=== PATIENT | male | born 1960 | race Caucasian/White ===

== ENCOUNTER 2017-04-18 15:00 | Outpatient (RCR) | payer OTHER, SELFPAY ==
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
--- NOTE | 2017-04-18 16:03 | HP.PTREVAL_ITS ---
SAMIA WHITFIELD, It has been my pleasure to treat MING BRUNNER over the last 3 visits for R knee pain. Please see the progress note below for an update on the physical therapy plan of care! Subjective: Pt reports his knee feels good this date. LBP still present Objective/Function: Pt pramod all ex's well. Pt noted he felt good after Rx. Pt has been able to make some minimal gains through three treatments, but had to miss several appointments due to family emergencies. Pt would definitely benefit from further core and R LE strengthening to aid with improving his tolerance for IADL's Plan Plan: Attempt to get a date extension to 05/19/17 Goals Goal 1:: Decrease LBP x 50% to aid with sleep Goal Time Frame: 4-6 Weeks Goal Progress: Progressing Goal 2:: Decrease the F and I of R LE radiculopathy x 25-50% to aid with transfers Goal Time Frame: 4-6 Weeks Goal Progress: Progressing Goal 3:: Increase R LE strength x 1 grade to aid with stair negotiation Goal Time Frame: 4-6 Weeks Goal Progress: Progressing Goal 4:: I with HEP Goal Time Frame: 4-6 Weeks Goal Progress: Progressing Anticipated Interventions Patient/Client Instruction: Educate patient on: Condition, Plan of Care For the Purpose of:: To improve self management Therapeutic Exercise to Include: Strength training, Endurance training, Balance training, Body mechanics, Postural training, Gait and locomotor training, Dynamic Lumbar Stabilization For the Purpose of:: To decrease pain, To increase ROM, To improve muscle performance and motor function Cryotherapy (ice pack, ice massage): Yes Thermo therapy (hot pack): Yes For the Purpose of:: To decrease pain Please do not hesitate to contact me at [phone] by phone or Fax: if you have questions or concerns regarding this new plan of care! Sincerely, Pelon Ortez, PT,
--- NOTE | 2017-05-23 16:09 | HP.PT.NRP ---
HP - Discharge Summary (1) - Patient Information MING BRUNNER was seen in my office for initial evaluation on 03/20/17. The following Plan of Care was established for this patient: Initial Frequency: 2x /Week Initial Duration: 4 Weeks - Anticipated Interventions Patient/Client Instruction: Educate patient on: Condition, Plan of Care For the Purpose of:: To improve self management Therapeutic Exercise to Include: Strength training, Endurance training, Balance training, Body mechanics, Postural training, Gait and locomotor training, Dynamic Lumbar Stabilization For the Purpose of:: To decrease pain, To increase ROM, To improve muscle performance and motor function Cryotherapy (ice pack, ice massage): Yes Thermo therapy (hot pack): Yes For the Purpose of:: To decrease pain This patient was last seen in our office . Pertinent comments regarding their Physical therapy will appear below: Pt was treated for 3 PT visits for his R knee pain through the date of 04/18/17. Pt has not returned through todays date, and is therefore discontinued at this time. At this point I will be discontinuing this patient from physical therapy. I would be happy to see this patient again in the future if found appropriate by the physician. Thank you! Pelon Ortez, PT,
== END 2017-04-18 19:00 | disposition home or self-care (01) ==
LOC: PT 15:00
DX: M25.561 Pain in right knee (principal)
CPT/HCPCS: 97110; 97162; G8978; G8979

== ENCOUNTER 2017-09-02 11:20 | Inpatient (IN) | payer OTHER, SELFPAY ==
--- NOTE | 2017-09-02 12:50 | RAD_ITS ---
STUDY: X-RAY - ABDOMEN/PELVIS REASON FOR EXAM: Male, 57 years old. Shortness of breath TECHNIQUE: Two AP supine views of the abdomen and pelvis. COMPARISON: None. FINDINGS: Normal visualized lung bases. There is a paralytic ileus of the small intestine with mild gaseous distention. There is no demonstrated free abdominal air. The visualized liver, spleen and kidneys are grossly normal in size and morphology. Normal soft tissue structures. Normal visualized osseous structures. RAD/Abdomen Single View (Portable) IMPRESSION: Small bowel ileus. Electronically Signed: Flavio Wilson DO at 23:54 EDT , Service support ,
--- NOTE | 2017-09-02 14:55 | CT_ITS ---
STUDY: CT ABDOMEN AND PELVIS WITH CONTRAST REASON FOR EXAM: Male, 57 years old. Abdominal pain, hx bowel obstruction, colostomy d/t cancer. RADIATION DOSAGE (If Supplied By Facility): CTDIvol = ( 17.72 ) mGy, DLP = ( 1140.51 ) mGycm TECHNIQUE: Transaxial images were obtained from the dome of the diaphragm to the symphysis pubis without oral contrast. 100ml ml of Isovue 300 contrast was administered. Sagittal and coronal images were reconstructed. Individualized dose optimization techniques were used for this CT. COMPARISON: None. FINDINGS: The visualized lung bases are unremarkable. The visualized portions of the heart are within normal limits. Normal liver. Normal gallbladder and extrahepatic biliary system. Normal spleen. Normal pancreas. Normal bilateral adrenal glands. Normal right kidney. There is a 21 mm hypodensity of the Left kidney. This is 1-10 Hounsfield units. Normal visualized stomach. There are dilated loops of the small intestine with a non-distended colon consistent with a small bowel obstruction. Air-fluid levels are visualized. Stool is seen in the distal small bowel. Transition point appears to be at the level of the ostomy site. There is evidence for total colectomy. There is non-visualization of the appendix. There is a right lower quadrant ostomy noted. Normal abdominal aorta. Normal inferior vena cava. Normal retroperitoneum. The urinary bladder is distended. This can suggest urinary retention. Anterior abdominal wall hernia mesh in place. There are prostatic calcifications. Rectal stump in place. Normal abdominal wall. Normal osseous structures. CT/Abdomen/Pelvis WITH Contrast IMPRESSION: There is a small bowel obstruction. The transition point is noted in the region of the right upper quadrant ostomy site. Simple left renal cyst. Electronically Signed: Pelon Mueller MD at 19:18 EDT , Service support ,
--- NOTE | 2017-09-02 17:00 | DT_ITS ---
This patient was seen during an EMR downtime September 02, 2017 - September 09, 2017. This patient may have a combination of paper and electronic documentation or all paper documentation. All documentation is viewable within the e-chart portion of [employer] for each patient visit.
--- NOTE | 2017-09-03 04:40 | RAD_ITS ---
STUDY: X-RAY - ABDOMEN/PELVIS REASON FOR EXAM: Male, 57 years old. ? Blockage Prior ventral hernia repair, colostomy TECHNIQUE: AP supine views of the abdomen and pelvis. COMPARISON: January 01, 2017 FINDINGS: Normal visualized lung bases. There are a few dilated small bowel loops in the upper abdomen consistent with a partial small bowel obstruction or focal ileus. The visualized liver, spleen and kidneys are grossly normal in size and morphology. There has been hernia repair with mesh. There is a right lower quadrant colostomy. There are diffuse degenerative changes of the visualized lumbar spine. RAD/Abdomen Single View (Portable) IMPRESSION: There are a few dilated small bowel loops in the upper abdomen consistent with a partial small bowel obstruction or focal ileus. Electronically Signed: Louisa Ruvalcaba MD at 10:01 EDT , Service support ,
[2017-09-05 15:05] LABS: Mucous, Urine 0 SEEN /hpf (<or=2+); Red Blood Cells-Urine 0 SEEN /hpf (0-5); White Blood Cells 0 SEEN /hpf (0-5)
[2017-09-05 15:18] LABS: Color, Urine Yellow (Yellow)
[2017-09-05 15:19] LABS: Glucose, Dipstick 50 mg/dl (Normal); Ketone-Dipstick Negative (Negative); Urine Bilirubin Dipstick 1 mg/dL (Negative); Urine Clarity Clear (Clear)
[2017-09-05 15:21] LABS: Bacteria RARE /hpf (None Seen); Leukocyte Esterase-Dipstick Negative /ul (Negative); Nitrite-Dipstick Negative (Negative); Occult Blood-Urine Negative /ul (Negative); Protein-Dipstick 15 mg/dl (Negative); Squamous Epithelial Cells - UA 0-5 SEEN /hpf (0-5); Urine Urobilinogen Normal (Normal)
[2017-09-05 15:54] LABS: Hematocrit 48.8 % (40-54); Hemoglobin 16.2 g/dl (13.0-16.5); Lymphocyte % 7.7 % (19-41); Mean Corp Hgb Conc 33.2 g/gl (32-36); Mean Corpuscular Hgb 30.7 pg (27.0-32.0); Mean Corpuscular Volume 92.4 fL (80-94); Mean Platelet Vol. 11.9 fl (6.2-12.0); Neutrophil % 88.7 % (47-70); POSITIVE COUNT NO; POSITIVE DIFFERENTIAL NO; Platelet Count 108 K/mm3 (150-450); RBC Distribution Width SD 46.3 fl (35.1-43.9); Red Blood Count 5.28 M/mm3 (4.6-6.2); White Blood Count 9.1 K/mm3 (4.4-11.0)
[2017-09-05 15:55] LABS: Absolute Neutrophil Count 8.1 X10^3/uL (2.0-7.7); Basophil# 0.01 X10^3/uL; Basophil% 0.1 % (0-1); Differential Comment SCANNED; Eosinophil# 0.01 X10^3/uL; Eosinophils% 0.1 % (0-5); Monocyte# 0.31 X10^3/uL; Monocyte% 3.4 % (0-10); Neutrophil # 8.07 X10^3/uL (2.7-7.7)
[2017-09-05 16:00] LABS: Differential Indicated SCAN CRITERIA MET; POSITIVE MORPHOLOGY YES
[2017-09-06 12:09] LABS: Hematocrit 47.4 % (40-54); Hemoglobin 15.6 g/dl (13.0-16.5); Mean Corp Hgb Conc 32.9 g/gl (32-36); Mean Corpuscular Hgb 30.6 pg (27.0-32.0); Mean Corpuscular Volume 92.9 fL (80-94); Mean Platelet Vol. 12.2 fl (6.2-12.0); Platelet Count 101 K/mm3 (150-450); RBC Distribution Width CV 13.9 % (11.6-14.6); RBC Distribution Width SD 45.6 fl (35.1-43.9); Scan Indicated on CBC? Y/N NO; White Blood Count 6.2 K/mm3 (4.4-11.0)
[2017-09-06 18:08] LABS: Glucose 248 mg/dL (74-106)
[2017-09-06 18:09] LABS: AST(SGOT) 19 U/L (15-37); Alanine Aminotransfer ALT/SGPT 33 U/L (16-61); Alkaline Phosphatase 172 U/L (45-117); Anion Gap 10 (5-15); BUN 15 mg/dL (7-18); BUN/Creat Ratio 13.2 RATIO (10-20); Bilirubin, Direct 0.17 mg/dL (0.00-0.30); Calcium,Total 9.1 mg/dL (8.5-10.1); Chloride 110 mmol/L (98-107); Creatinine, Serum 1.14 mg/dL (0.70-1.30); EST Glomerular Filtration Rate 70 mL/min (>60); Est Glom Filt Rate - Afr Amer 85 mL/min (>60); Globulin 3.8 g/dL (2.2-4.2); Lipase 139 U/L (73-393); Protein, Total 7.8 g/dL (6.4-8.2); Sodium Level 141 mmol/L (136-145)
[2017-09-07 10:21] LABS: AST(SGOT) 14 U/L (15-37); Albumin, Serum 3.4 g/dL (3.2-5.0); BUN 15 mg/dL (7-18); BUN/Creat Ratio 13.8 RATIO (10-20); Calcium,Total 8.5 mg/dL (8.5-10.1); Creatinine, Serum 1.09 mg/dL (0.70-1.30); EST Glomerular Filtration Rate 74 mL/min (>60); Est Glom Filt Rate - Afr Amer 90 mL/min (>60); Globulin 3.4 g/dL (2.2-4.2); Glucose 187 mg/dL (74-106); Protein, Total 6.8 g/dL (6.4-8.2)
[2017-09-07 10:22] LABS: Alanine Aminotransfer ALT/SGPT 25 U/L (16-61); Alkaline Phosphatase 136 U/L (45-117); Anion Gap 9 (5-15); Chloride 111 mmol/L (98-107); Potassium 3.8 mmol/L (3.5-5.1); Sodium Level 142 mmol/L (136-145)
[2017-09-10 14:13] LABS: Bedside Glucose 182 mg/dL (70-110)
[2017-09-10 14:39] LABS: Bedside Glucose 213 mg/dL (70-110)
[2017-09-10 14:57] LABS: Bedside Glucose 201 mg/dL (70-110)
== END 2017-09-03 13:33 | disposition home or self-care (01) | DRG 390 ==
LOC: ED 09-04 13:28 → MS3 09-04 13:29
PROVIDERS: Admitting Provider Hospitalist; Emergency Provider Emergency Medicine; Visit Provider Hospitalist
DX: K56.609 Unspecified intestinal obstruction, unspecified as to partial versus complete obstruction (principal); J44.9 Chronic obstructive pulmonary disease, unspecified; E11.9 Type 2 diabetes mellitus without complications; Z85.038 Personal history of other malignant neoplasm of large intestine; Z93.3 Colostomy status; Z90.49 Acquired absence of other specified parts of digestive tract; Z79.4 Long term (current) use of insulin
CPT/HCPCS: 36415; 74018; 74177; 80048; 80053; 80076; 81001; 82962; 83690; 85025; 85027; 96361; 96374; 96375; 96376; 99284; J7030; Q9967; A4216; J2405

== ENCOUNTER 2018-01-29 18:13 | Emergency (ER) | payer OTHER, SELFPAY ==
[2018-01-29 18:14] VITALS: BP 140/93; PULSE 125; RESP 22; TEMP 36.7; BMI 31.8
--- NOTE | 2018-01-29 18:29 | RAD_ITS ---
STUDY: X-RAY - PELVIS AND LEFT HIP REASON FOR EXAM: Male, 58 years old. Left hip pain TECHNIQUE: Radiological exam, hip, unilateral, with pelvis when performed; 2 or 3 views. COMPARISON: None. FINDINGS: There is no fracture or dislocation in the pelvis or left hip. There are mild degenerative changes in the left hip. There are surgical clips noted in the pelvis. RAD/HIP, UNI W/ Pelvis 2-3 Views IMPRESSION: No fracture or dislocation in the pelvis or left hip. Mild degenerative changes. Electronically Signed: Jon Salcido, at 19:40 EDT Tel , Service support ,
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
[2018-01-29 18:32] VITALS: BP 131/100; PULSE 110; RESP 18; O2SAT 94
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
[2018-01-29 20:00] VITALS: PULSE 105; RESP 20; O2SAT 99
== END 2018-01-29 20:03 | disposition home or self-care (01) ==
PROVIDERS: Emergency Provider Emergency Medicine
DX: S43.52XA Sprain of left acromioclavicular joint, initial encounter (principal); S70.02XA Contusion of left hip, initial encounter; V29.9XXA Motorcycle rider (driver) (passenger) injured in unspecified traffic accident, initial encounter; Y93.9 Activity, unspecified; Y92.9 Unspecified place or not applicable; Y99.9 Unspecified external cause status; D64.9 Anemia, unspecified; R00.0 Tachycardia, unspecified; K21.9 Gastro-esophageal reflux disease without esophagitis; Z79.899 Other long term (current) drug therapy; Z85.038 Personal history of other malignant neoplasm of large intestine; Z93.2 Ileostomy status
CPT/HCPCS: 73030; 73502; 99282

== ENCOUNTER 2018-04-11 14:17 | Inpatient (IN) | payer OTHER, SELFPAY ==
[2018-04-11 14:18] VITALS: BP 130/99; PULSE 146; RESP 20; TEMP 36.4; O2SAT 97; BMI 32.2
[2018-04-11 16:21] LABS: Absolute Lymphocyte Count 0.55 X10^3/ul (0.83-4.51); Absolute Neutrophil Count 10.9 X10^3/uL (2.0-7.7); Basophil# 0.01 X10^3/uL; Basophil% 0.1 % (0-1); Differential Indicated SCAN CRITERIA MET; Eosinophil# 0.06 X10^3/uL; Eosinophils% 0.5 % (0-5); Hematocrit 53.7 % (40-54); Hemoglobin 17.8 g/dl (13.0-16.5); Lymphocyte # 0.55 X10^3/ul (4.0); Lymphocyte % 4.5 % (19-41); Mean Corp Hgb Conc 33.1 g/gl (32-36); Mean Corpuscular Hgb 30.7 pg (27.0-32.0); Mean Corpuscular Volume 92.6 fL (80-94); Mean Platelet Vol. 11.3 fl (6.2-12.0); Monocyte# 0.54 X10^3/uL; Monocyte% 4.4 % (0-10); Neutrophil % 89.7 % (47-70); POSITIVE COUNT NO; POSITIVE DIFFERENTIAL YES; POSITIVE MORPHOLOGY NO; Platelet Count 119 K/mm3 (150-450); RBC Distribution Width SD 46.6 fl (35.1-43.9); White Blood Count 12.2 K/mm3 (4.4-11.0)
--- NOTE | 2018-04-11 16:22 | CT_ITS ---
STUDY: CT ABDOMEN AND PELVIS WITHOUT CONTRAST REASON FOR EXAM: Male, 58 years old. Abdominal pain, right lower quadrant ostomy, colon cancer RADIATION DOSAGE (If Supplied By Facility): CTDIvol = ( 12.40 ) mGy, DLP = ( 610.04 ) mGycm TECHNIQUE: Transaxial images were obtained from the dome of the diaphragm to the symphysis pubis with oral contrast, and without intravenous contrast. Sagittal and coronal images were reconstructed. Individualized dose optimization techniques were used for this CT. COMPARISON: 09/02/2017 FINDINGS: Lung bases are unremarkable. The visualized portions of the heart are within normal limits. Normal liver. Normal gallbladder and extrahepatic biliary system. The spleen remains mildly enlarged but stable. Normal pancreas. Normal bilateral adrenal glands. Normal right kidney. Simple cysts of the left kidney is similar in size. Normal visualized stomach. There is a diverting ileostomy in the right lower abdomen with ingested oral contrast passing into the ostomy bag. Minimal passage of contrast beyond the ostomy. Surgical sutures of rectal remnant noted. There is diffuse atherosclerotic calcification of the abdominal aorta, without a demonstrated aneurysm. Normal inferior vena cava. Normal retroperitoneum. Small lymph nodes in the mesenteric root are identified that measure less than 8 mm in short axis. Normal urinary bladder. There is enlargement of the prostate gland. Operative changes of the anterior abdominal wall. No focal fluid collection. No lytic or sclerotic bone lesions. CT/Abdomen/Pel W ORAL Cont Only IMPRESSION: 1. Normal appearance of right lower quadrant ileostomy. No evidence of bowel obstruction. No focal fluid collection. 2. Prior colon resection 3. Simple left renal cyst. 4. Stable mild splenomegaly. Electronically Signed: Keshawn Mathews MD at 18:59 EST , Service support ,
--- NOTE | 2018-04-11 16:22 | EKG12_ITS ---
Test Reason : CP Blood Pressure : / mmHG Vent. Rate : 114 BPM Atrial Rate : 114 BPM P-R Int : 142 ms QRS Dur : 084 ms QT Int : 320 ms P-R-T Axes : 050 -10 058 degrees QTc Int : 441 ms Sinus tachycardia Otherwise normal ECG Confirmed by FALLON RICK, JUAN JOSÉ ([id number]), food editor HANNA GROSS ([id number]) on 04/15/2018 5:05:59 PM Referred By: Artemio Lynch Confirmed By:JUAN JOSÉ LEHMAN MD
[2018-04-11 16:27] LABS: Anion Gap 10 (5-15); BUN 24 mg/dL (7-18); BUN/Creat Ratio 15.3 RATIO (10-20); Calcium,Total 9.7 mg/dL (8.5-10.1); Chloride 108 mmol/L (98-107); Creatinine, Serum 1.57 mg/dL (0.70-1.30); EST Glomerular Filtration Rate 48 mL/min (>60); Est Glom Filt Rate - Afr Amer 58 mL/min (>60); Estimated Creatinine Clearance 43.52 ml/min; Glucose 378 mg/dL (74-106); Potassium 4.7 mmol/L (3.5-5.1); Sodium Level 134 mmol/L (136-145)
[2018-04-11] MEDS: 0.9% Normal Saline 1,000 ML 1000 ML IV (16:56)
[2018-04-11 16:58] LABS: Platelet Estimate SLT DEC (ADEQ); Red Cell Morphology NORM C+C NORMAL (NORM C&C)
[2018-04-11 17:05] LABS: Mucous, Urine 0 SEEN /hpf (<or=2+); Red Blood Cells-Urine 0 SEEN /hpf (0-5)
[2018-04-11 17:08] LABS: Color, Urine Yellow (Yellow); Glucose, Dipstick 1000 mg/dl (Normal); Ketone-Dipstick 5 mg/dl (Negative); Leukocyte Esterase-Dipstick 500 /ul (Negative); Nitrite-Dipstick Positive (Negative); Occult Blood-Urine 10 /ul (Negative); Protein-Dipstick 100 mg/dl (Negative); Specific Gravity, Urine 1.025 (1.002-1.030); Urine Bilirubin Dipstick Negative (Negative); Urine Clarity Clear (Clear); Urine Urobilinogen Normal (Normal)
[2018-04-11 17:13] LABS: AST(SGOT) 10 U/L (15-37); Alanine Aminotransfer ALT/SGPT 32 U/L (16-61); Albumin, Serum 4.5 g/dL (3.2-5.0); Alkaline Phosphatase 199 U/L (45-117); Bilirubin, Direct 0.37 mg/dL (0.00-0.30); Globulin 4.1 g/dL (2.2-4.2); Lipase 159 U/L (73-393); Protein, Total 8.6 g/dL (6.4-8.2)
[2018-04-11 17:16] LABS: Squamous Epithelial Cells - UA 0-5 SEEN /hpf (0-5); White Blood Cells 10-25 SEEN /hpf (0-5)
[2018-04-11 17:17] LABS: Bacteria RARE /hpf (None Seen)
[2018-04-11 17:18] LABS: Lactic Acid 1.8 mmol/L (0.4-2.0)
[2018-04-11] MEDS: Insulin Lispro 100 UNIT/ML INSULN.PEN 6 UNIT SC (18:25)
[2018-04-11] MEDS: Ceftriaxone 1 GM/50 ML BAG IV (18:25)
[2018-04-11 18:27] VITALS: BP 115/82; PULSE 100; RESP 16; O2SAT 97
--- NOTE | 2018-04-11 19:16 | PCM.HP.STD ---
Problem List (1) Enteritis Status: Suspected (2) Cystitis Status: Acute History of Present Illness Date of Admission: 04/11/18 Chief Complaint: abdominal cramps and increased ileostomy output The patient is a 58 year old M with a significant history of COPD; diabetes mellitus; family adenomatous polyposis status post colectomy with ileostomy; hyperlipidemia; chronic urinary retention with self-catheterization who presents with generalized abdominal pain and increased ileostomy output. He reports his abdominal pain as crampy type of pain. He rated his pain as 6 on a scale of 1-10. His pain is nonradiating. His symptoms started on the same day of admission. At the emergency department patient was noted to have abnormal urinalysis. Patient reported that 5 days ago he had endoscopy that showed redness and swelling in his intestines. At emergency department patient was started on ceftriaxone for UTI. Past Medical History Past Medical History (Chronic Problems): Chronic Problems Status post colostomy (Chronic) Resulting after complicated abdominal surgery COPD (Chronic) Familial adenomatous polyposis coli (Chronic) Complicated by cancer requiring surgery in 2001 Allergies No Known Allergies Allergy (Verified 04/11/18 14:18) Home Medications: Ambulatory Orders Medication Instructions Recorded Ferrous Sulfate 325 mg PO DAILY@0800 07/15/13 Loperamide [Imodium] 2 mg PO Q6H PRN PRN 07/15/13 Mometasone Furoate [Asmanex] 220 mcg IH BID 07/15/13 Pantoprazole Sodium [Protonix] 40 mg PO DAILY 07/15/13 Tiotropium Spade [Spiriva 18 MCG] 1 puff INHALATION DAILY 07/15/13 Vitamin B12 1,000 mcg PO DAILY 07/15/13 glyBURIDE [Micronase] 10 mg PO BIDCM 07/15/13 Formoterol Fumarate [Foradil] 1 puff INHALATION DAILY 02/03/14 Cholecalciferol (VIT D3) [Vitamin 1,000 unit PO DAILY 04/11/14 D3] Saxagliptin Hydrochloride [Onglyza] 5 mg PO DAILY 04/11/14 Ondansetron [Zofran Odt] 4 mg PO Q8H PRN PRN #10 tablet 08/09/16 Gabapentin [Neurontin] 600 mg PO TID 01/01/17 Ondansetron HCl [Zofran] 8 mg PO TID #15 tablet 01/04/17 Meloxicam 7.5 mg PO DAILY 04/11/18 Surgical History: - - Ileostomy; 7 abdominal surgeries, colon resection secondary to cancer Psychiatric History: No pertinent psych hx Smoking Status: Former smoker - *Family History Sibling History Items: - - Familial polyposis coli-Brothers and sisters Maternal History Items: No pertinent history Review of Systems Constitutional: Denies: Chills, Fever, Weight Change HEENT: Denies: Head Aches, Sinus Congestion, Sinus Drainage Cardiovascular: Denies: Chest Pain, Palpitations Respiratory: Denies: Cough, Shortness of breath at rest, Sputum production Gastrointestinal: Reports: Abdominal Pain. Denies: Nausea, Vomiting Genitourinary: Reports: Retention Musculoskeletal: Denies: Joint Pain, Joint Tenderness Skin: Denies: Rash, Wounds Neurological: Denies: Numbness, Tingling, Focal weakness Psychiatric: Denies: Anxiety, Depression, Homicidal Ideations, Suicidal Ideations Hematologic/ Lymphatic: Denies: Easy Bruising, Easy Bleeding VTE Information - Inpt Only VTE Present on Admission: No VTE Mechan Device Prophylaxis: None VTE Pharm Prophylaxis ordered?: Yes Patient Problems: Active and Suspected Problems Enteritis (Suspected) Cystitis (Acute) - Physical Exam General: Alert, Oriented x3, Cooperative HEENT: Atraumatic, PERRLA, EOMI, Normocephalic Neck: Supple, No JVD, Negative Carotid Bruits Lungs: Clear to auscultation, Normal air movement Cardiovascular: Regular rate, No murmurs Abdomen: Bowel Sounds Present, Soft, Non Tender, - - Urostomy bag in place Extremities: No edema, Capillary Refill Less than 3 Seconds Skin: No rashes, No breakdown Musculoskeletal: No Tenderness to Palpation of Joints or Extremities Neurological: Neuro grossly intact Psych/Mental Status: Normal Affect, Appropriate Vital Signs Temp Pulse Resp BP Pulse Ox 97.5 F L 100 16 115/82 H 97 04/11/18 14:18 04/11/18 18:27 04/11/18 18:27 04/11/18 18:27 04/11/18 18:27 Oxygen Delivery Method Room Air Weight: 87.815 kg Body Mass Index (BMI) 32.2 Finger Stick Blood Glucose 323 Laboratory Tests Past 24 Hrs 04/11/18 04/11/18 04/11/18 16:03 16:03 16:30 WBC 12.2 H RBC 5.80 Hgb 17.8 H Hct 53.7 MCV 92.6 MCH 30.7 MCHC 33.1 RDW 14.0 RDW Differential 46.6 H Plt Count 119 L MPV 11.3 Immature Gran % (Auto) 0.800 Neut % (Auto) 89.7 H Lymph % (Auto) 4.5 L [place] % (Auto) 4.4 Eos % (Auto) 0.5 Baso % (Auto) 0.1 Absolute Neuts (auto) 10.9 H Absolute Lymphs (auto) 0.55 L Total Counted Not Reportable Differential Comment Platelet Estimate SLT DEC RBC Morphology NORM C+C Sodium 134 L Potassium 4.7 Chloride 108 H Carbon Dioxide 16.0 L Anion Gap 10 BUN 24 H Creatinine 1.57 H Estim Creat Clear Calc 43.52 Est GFR (MDRD) Af Amer 58 L Est GFR (MDRD) Non-Af 48 L BUN/Creatinine Ratio 15.3 Glucose 378 H Lactic Acid Calcium 9.7 Total Bilirubin 1.30 H Direct Bilirubin 0.37 H AST 10 L ALT 32 Alkaline Phosphatase 199 H Troponin I < 0.015 Total Protein 8.6 H Albumin 4.5 Globulin 4.1 Lipase 159 Urine Color Urine Clarity Urine pH Ur Specific [place] Urine Protein Urine Glucose (UA) Urine Ketones Urine Occult Blood Urine Nitrite Urine Bilirubin Urine Urobilinogen Ur Leukocyte Esterase Urine RBC Urine WBC Ur Squamous Epith Cells Urine Bacteria Urine Mucus 04/11/18 04/11/18 16:30 17:00 WBC RBC Hgb Hct MCV MCH MCHC RDW RDW Differential Plt Count MPV Immature Gran % (Auto) Neut % (Auto) Lymph % (Auto) [place] % (Auto) Eos % (Auto) Baso % (Auto) Absolute Neuts (auto) Absolute Lymphs (auto) Total Counted Differential Comment Platelet Estimate RBC Morphology Sodium Potassium Chloride Carbon Dioxide Anion Gap BUN Creatinine Estim Creat Clear Calc Est GFR (MDRD) Af Amer Est GFR (MDRD) Non-Af BUN/Creatinine Ratio Glucose Lactic Acid 1.8 Calcium Total Bilirubin Direct Bilirubin AST ALT Alkaline Phosphatase Troponin I Total Protein Albumin Globulin Lipase Urine Color Yellow Urine Clarity Clear Urine pH 6.0 Ur Specific [place] 1.025 Urine Protein 100 H Urine Glucose (UA) 1000 H Urine Ketones 5 H Urine Occult Blood 10 H Urine Nitrite Positive H Urine Bilirubin Negative Urine Urobilinogen Normal Ur Leukocyte Esterase 500 H Urine RBC 0 SEEN Urine WBC 10-25 SEEN Ur Squamous Epith Cells 0-5 SEEN Urine Bacteria RARE Urine Mucus 0 SEEN Assessment/Plan All Active Problems Cystitis (Acute) Abdominal pain (Acute) Small bowel obstruction, partial (Resolved) The patient is a 58 year old M with a significant history of COPD; diabetes mellitus; family adenomatous polyposis status post colectomy with ileostomy; hyperlipidemia; chronic urinary retention with self-catheterization who presents with generalized abdominal pain and increased ileostomy output who reportedly has endoscopic evidence of redness and swelling of his interest times recently; and also with abnormal urinalysis and increased creatinine above his baseline. Probable enteritis Patient noted to have non-anion gap metabolic acidosis secondary to likely increase output from urostomy; and reported abnormal endoscopy Received saline at emergency department. Because of concomitant hyperchloremia we will start patient on half-normal saline maintenance infusion. Patient was started on ceftriaxone at emergency department for cystitis. We will add Flagyl to ceftriaxone. Enteric stool pathogen and C. difficile ordered As needed oxycodone for pain. IV antiemetics ordered in the setting of his narcotic administration. Trend CBC and BMP. Acute cystitis Patient reports of catheterization because of urinary retention. His Self-catheterization could be a nidus of infection. Ceftriaxone as above. Urine culture is pending. [place] On admission his creatinine was 1.57. Review of records show that his baseline creatinine is around 1. Secondary to likely high output from urostomy. IV hydration as above Avoid nephrotoxins. Hold Neurontin. Trend BMP. Dehydration His BUN is elevated at 24. Review of records show that his BUN 2018 was 15. Likely secondary to high output from urostomy. IV hydration as above. Diabetes mellitus with acute hyperglycemia On admission his blood glucose was not within goal At the emergency department he received 6 units of subcutaneous insulin lispro secondary to acute hyperglycemia Tradjenta and glyburide continued Correction scale insulin added to regimen. Hypoglycemic protocol ordered. COPD Stable Home breathing treatment continued. Urine retention Okay for patient to self catheterize as he does at home. DVT prophylaxis Subcutaneous Lovenox ordered. Code Visit Inpatient E&M: 60022 Init Hosp L3
--- NOTE | 2018-04-11 19:34 | ED.VISSUMM ---
- ER Visit Summary Date of Service: 04/11/18 Chief Complaint: [Abdominal discomfort] History of Present Illness: The patient is a 58 M [presents the emergency department complaint of some abdominal discomfort that he rates about a 5 or 6 out of 10. Patient states the pain is somewhat intermittent. Patient noticed that last night he started having increased watery output from his ileostomy. Patient states last time this happened he had a bowel obstruction. Patient also states that he self caths himself or urine. He denies any fevers. Patient denies any vomiting. Denies recent antibiotic usage. Denies sick contacts.] Physical Examination: [HEENT-PERRLA, EOMI. Cranial nerves II through XII grossly intact. TMs clear. Mucous membranes moist. No adenopathy. Cardiovascular-regular and tachycardic with heart rate in the 140s. No murmurs auscultated. Lungs-clear to auscultation, chest wall stable without crepitus or subcu emphysema Abdomen-normoactive bowel sounds, soft. Patient has an ileostomy in the right abdomen. There is no rebound, rigidity, or perineal signs. Extremities-intact ?4, normal range of motion, normal pulses, atraumatic] Test Results: [EKG obtained arrival shows sinus rhythm with a ventricular rate of 114 bpm with no acute I segment changes. CBC with differential showed a white count of 12,000, hemoglobin 17.8, hematocrit 54, platelets 119. Chemistries were unremarkable. CO2 was 16 glucose was 378. Lactate was 1.8. Urinalysis was positive for 500 leukocyte esterase, positive nitrites, 10-25 WBCs, and rare bacteria. Troponin was less than 0.015. CT scan of the abdomen with the p.o. contrast obtained showed no evidence of obstruction or anything acute.] Emergency Department Course and Treatment: [Patient was given a liter normal same fluid bolus and given Rocephin 1 g IV.] Patient given 6 units of Humalog. Treatment Plan: [Admit for IV fluids and antibiotics.] Disposition: [Admit] Impression: [Abdominal pain UTI Dehydration Hyperglycemia] This note was generated with [employer] dictation software. It may contain incorrect words, spelling, and punctuation that were not noted in review of the chart prior to signing ED Disposition - Plan for ED Patient: Chief Complaint: Abd Pain Referrals: [facility],[place] [Primary Care Provider] -
[2018-04-11 19:41] LABS: Bedside Glucose 290 mg/dL (70-110)
--- NOTE | 2018-04-11 19:55 | ED.RN ---
CALLED VOILETA BERNAL, WORKSHOP MANAGER TRANSFERRED ME TRANSFER CENTER AND THE LADY I SPOKE TOO STATED SHE CAN NOT GIVE ME PERMISSION TO ADMIT THIS PT TO [facility] AND SHE WILL HAVE A COORDINATOR FOLLOW UP WITH THIS TOMORROW. SHE STATED TO CHARGE NURSE TAWANDA THAT NO ONE THERE CAN GIVE US PERMISSION TO ADMIT HIM HERE.
--- NOTE | 2018-04-11 19:59 | ED.RN ---
THIS NURSE SPOKE WITH PROBATION AND PAROLE OFFICER. ATTEMPTING TO HELP WITH [facility] ADMISSION VS [facility] ADMISSION
--- NOTE | 2018-04-11 20:00 | CM.ED ---
SOCIAL WORK NOTE: NURSING REPORTED TO THIS WORKER SPOKE WITH [facility] AND THEY GAVE PERMISSION FOR PT TO BE TREATED, BUT NO PERMISSION WAS GRANTED TO ADMIT PT TO [facility]. THE [facility] INFORMED NURSING THERE ARE NO BEDS AVAILABLE AT [facility]. NURSE REQUESTING FOR THIS WORKER TO LOOK INTO PROCESS FOR ADMISSION. CALL TO WOOD CUT ENGRAVER OF ENGINEER TECHNICAL STAFF TO DISCUSS THE ABOVE. AWAITING RESPONSE AT THIS TIME.
[2018-04-11 20:03] VITALS: BP 117/85; PULSE 100; RESP 16; O2SAT 98
--- NOTE | 2018-04-11 21:18 | CM.ED ---
SOCIAL WORK NOTE NURSE SPOKE WITH KRISTINA IN CASE MANAGEMENT. PT TO BE ADMITTED AT THIS TIME.
--- NOTE | 2018-04-11 21:20 | ED.RN ---
SHARRI ACEVEDO IN CASE MANAGEMENT OK TO ADMIT AT [facility]
[2018-04-11 21:48] VITALS: BP 134/75; PULSE 98; RESP 18; TEMP 36.7; O2SAT 96; BMI 31.4; BMI 31.5
[2018-04-11 23:06] LABS: Bedside Glucose 249 mg/dL (70-110)
[2018-04-11] MEDS: 0.45% Normal Saline 1,000 ML 100 ML IV (23:54)
[2018-04-11] MEDS: oxyCODONE 5 MG Tablet PO (23:54)
[2018-04-11] MEDS: Insulin Lispro 100 UNIT/ML INSULN.PEN SQ (23:55)
[2018-04-12 04:17] VITALS: BP 118/84; PULSE 84; RESP 16; TEMP 36.8; O2SAT 98
[2018-04-12] MEDS: oxyCODONE 5 MG Tablet PO ×3 (06:52→21:31)
[2018-04-12] MEDS: Insulin Lispro 100 UNIT/ML INSULN.PEN SQ ×4 (06:53→21:32)
[2018-04-12 07:05] LABS: Bedside Glucose 181 mg/dL (70-110)
[2018-04-12 07:47] LABS: Absolute Lymphocyte Count 1.21 X10^3/ul (0.83-4.51); Absolute Neutrophil Count 7.2 X10^3/uL (2.0-7.7); Basophil# 0.02 X10^3/uL; Basophil% 0.2 % (0-1); Eosinophil# 0.08 X10^3/uL; Eosinophils% 0.9 % (0-5); Hematocrit 48.8 % (40-54); Lymphocyte # 1.21 X10^3/ul (4.0); Lymphocyte % 13.2 % (19-41); Mean Corp Hgb Conc 32.8 g/gl (32-36); Mean Corpuscular Hgb 30.4 pg (27.0-32.0); Mean Corpuscular Volume 92.8 fL (80-94); Monocyte% 6.6 % (0-10); Neutrophil # 7.19 X10^3/uL (2.7-7.7); Neutrophil % 78.4 % (47-70); Platelet Count 116 K/mm3 (150-450); RBC Distribution Width CV 14.3 % (11.6-14.6); RBC Distribution Width SD 47.5 fl (35.1-43.9); Red Blood Count 5.26 M/mm3 (4.6-6.2); White Blood Count 9.2 K/mm3 (4.4-11.0)
[2018-04-12 07:54] LABS: POSITIVE COUNT NO; POSITIVE DIFFERENTIAL NO; POSITIVE MORPHOLOGY NO
[2018-04-12 08:13] LABS: Anion Gap 10 (5-15); BUN 31 mg/dL (7-18); BUN/Creat Ratio 19.6 RATIO (10-20); Calcium,Total 8.7 mg/dL (8.5-10.1); Chloride 110 mmol/L (98-107); Creatinine, Serum 1.58 mg/dL (0.70-1.30); EST Glomerular Filtration Rate 48 mL/min (>60); Est Glom Filt Rate - Afr Amer 58 mL/min (>60); Estimated Creatinine Clearance 43.25 ml/min; Glucose 183 mg/dL (74-106); Sodium Level 135 mmol/L (136-145)
[2018-04-12 08:59] VITALS: BP 118/85; PULSE 99; RESP 18; TEMP 36.7; O2SAT 93
[2018-04-12 09:02] VITALS: PULSE 100
[2018-04-12 10:04] LABS: Hemoglobin A1c 8.8 % (4.2-6.3)
--- NOTE | 2018-04-12 10:29 | PCM.PROGNOTE ---
Patient Problems: Active and Suspected Problems Cystitis (Acute) Subjective: Chief complaint: Follow-up after admission for probable gastroenteritis, acute cystitis and acute kidney injury. Patient seen and examined. No acute events overnight. Abdominal pain and cramps improved, denied nausea vomiting. Ileostomy output has been decreasing. His vital signs are stable. - Physical Exam General: Alert, Oriented x3, Cooperative, No apparent distress HEENT: Atraumatic, PERRLA, EOMI, Normocephalic Oral: Moist Mucosa, No Gingival or Mucosal Lesions/ Ulcerations Neck: Supple, No JVD, Negative Carotid Bruits, Trachea Midline, Thyroid Normal Size and Texture Lungs: Clear to auscultation, Normal air movement, No rhonchi, No wheeze, No rales Cardiovascular: Regular rate, Regular Rhythm, Normal S1, Normal S2, No murmurs Abdomen: Bowel Sounds Present, Soft, Non Tender, Non-Distended, No Hepato-splenomegaly, - - Ileostomy in place. Extremities: No clubbing, No cyanosis, No edema Skin: No rashes, No breakdown Lymphatic: No Cervical, Supraclavicular, or Inguinal Adenopathy Neurological: Cranial nerves II-XII grossly intact, Motor Exam 5/5 strength throughout Psych/Mental Status: Normal Affect, Appropriate, Alert and oriented to time, place, person, mood and affect Vital Signs Temp Pulse Resp BP Pulse Ox 98.1 F 100 18 118/85 H 93 04/12/18 08:59 04/12/18 09:02 04/12/18 08:59 04/12/18 08:59 04/12/18 08:59 Oxygen Delivery Method Room Air Weight: 189 lb 3 oz Body Mass Index (BMI) 31.4 Finger Stick Blood Glucose 290 Intake and Output for Last 24 Hours 04/10/18 04/11/18 04/12/18 23:59 23:59 23:59 Intake Total 2526 / 2526 Output Total 1000 / 1000 Balance 1526 / 1526 Microbiology Past 72 Hours 04/11/18 23:00 C. difficile DNA Amplification - Final Stool Laboratory Tests Past 24 Hrs 04/11/18 04/11/18 04/11/18 16:03 16:03 16:30 WBC 12.2 H RBC 5.80 Hgb 17.8 H Hct 53.7 MCV 92.6 MCH 30.7 MCHC 33.1 RDW 14.0 RDW Differential 46.6 H Plt Count 119 L MPV 11.3 Immature Gran % (Auto) 0.800 Neut % (Auto) 89.7 H Lymph % (Auto) 4.5 L [place] % (Auto) 4.4 Eos % (Auto) 0.5 Baso % (Auto) 0.1 Absolute Neuts (auto) 10.9 H Absolute Lymphs (auto) 0.55 L Total Counted Not Reportable Differential Comment Platelet Estimate SLT DEC RBC Morphology NORM C+C Sodium 134 L Potassium 4.7 Chloride 108 H Carbon Dioxide 16.0 L Anion Gap 10 BUN 24 H Creatinine 1.57 H Estim Creat Clear Calc 43.52 Est GFR (MDRD) Af Amer 58 L Est GFR (MDRD) Non-Af 48 L BUN/Creatinine Ratio 15.3 Glucose 378 H Hemoglobin A1c Lactic Acid Calcium 9.7 Total Bilirubin 1.30 H Direct Bilirubin 0.37 H AST 10 L ALT 32 Alkaline Phosphatase 199 H Troponin I < 0.015 Total Protein 8.6 H Albumin 4.5 Globulin 4.1 Lipase 159 Urine Color Urine Clarity Urine pH Ur Specific [place] Urine Protein Urine Glucose (UA) Urine Ketones Urine Occult Blood Urine Nitrite Urine Bilirubin Urine Urobilinogen Ur Leukocyte Esterase Urine RBC Urine WBC Ur Squamous Epith Cells Urine Bacteria Urine Mucus 04/11/18 04/11/18 04/12/18 16:30 17:00 06:28 WBC 9.2 RBC 5.26 Hgb 16.0 Hct 48.8 MCV 92.8 MCH 30.4 MCHC 32.8 RDW 14.3 RDW Differential 47.5 H Plt Count 116 L MPV 12.0 Immature Gran % (Auto) 0.700 Neut % (Auto) 78.4 H Lymph % (Auto) 13.2 L [place] % (Auto) 6.6 Eos % (Auto) 0.9 Baso % (Auto) 0.2 Absolute Neuts (auto) 7.2 Absolute Lymphs (auto) 1.21 Total Counted Not Reportable Differential Comment Platelet Estimate RBC Morphology Sodium Potassium Chloride Carbon Dioxide Anion Gap BUN Creatinine Estim Creat Clear Calc Est GFR (MDRD) Af Amer Est GFR (MDRD) Non-Af BUN/Creatinine Ratio Glucose Hemoglobin A1c Lactic Acid 1.8 Calcium Total Bilirubin Direct Bilirubin AST ALT Alkaline Phosphatase Troponin I Total Protein Albumin Globulin Lipase Urine Color Yellow Urine Clarity Clear Urine pH 6.0 Ur Specific [place] 1.025 Urine Protein 100 H Urine Glucose (UA) 1000 H Urine Ketones 5 H Urine Occult Blood 10 H Urine Nitrite Positive H Urine Bilirubin Negative Urine Urobilinogen Normal Ur Leukocyte Esterase 500 H Urine RBC 0 SEEN Urine WBC 10-25 SEEN Ur Squamous Epith Cells 0-5 SEEN Urine Bacteria RARE Urine Mucus 0 SEEN 04/12/18 04/12/18 06:28 06:30 WBC RBC Hgb Hct MCV MCH MCHC RDW RDW Differential Plt Count MPV Immature Gran % (Auto) Neut % (Auto) Lymph % (Auto) [place] % (Auto) Eos % (Auto) Baso % (Auto) Absolute Neuts (auto) Absolute Lymphs (auto) Total Counted Differential Comment Platelet Estimate RBC Morphology Sodium 135 L Potassium 4.0 Chloride 110 H Carbon Dioxide 15.0 L Anion Gap 10 BUN 31 H Creatinine 1.58 H Estim Creat Clear Calc 43.25 Est GFR (MDRD) Af Amer 58 L Est GFR (MDRD) Non-Af 48 L BUN/Creatinine Ratio 19.6 Glucose 183 H Hemoglobin A1c 8.8 H Lactic Acid Calcium 8.7 Total Bilirubin Direct Bilirubin AST ALT Alkaline Phosphatase Troponin I Total Protein Albumin Globulin Lipase Urine Color Urine Clarity Urine pH Ur Specific [place] Urine Protein Urine Glucose (UA) Urine Ketones Urine Occult Blood Urine Nitrite Urine Bilirubin Urine Urobilinogen Ur Leukocyte Esterase Urine RBC Urine WBC Ur Squamous Epith Cells Urine Bacteria Urine Mucus POC Glucose 04/12/18 04/11/18 04/11/18 06:49 23:00 19:32 POC Glucose 181 H 249 H 290 H Clinical Impression(s) from Imaging Studies Abdomen CT 04/11/18 16:22 IMPRESSION: 1. Normal appearance of right lower quadrant ileostomy. No evidence of bowel obstruction. No focal fluid collection. 2. Prior colon resection 3. Simple left renal cyst. 4. Stable mild splenomegaly. Electronically Signed: Keshawn Mathews MD at 18:59 EST , Service support , Medical Necessity - Tobacco Use Smoking Status: Former smoker Assessment/Plan All Active Problems Cystitis (Acute) This is a 58 years old male patient presented to the emergency room because of abdominal cramps and increased ileostomy output, found to have probable viral gastroenteritis complicated by acute kidney injury and also found to have acute cystitis. #1 probable viral gastroenteritis: Started empirically on IV Rocephin and Flagyl. Patient is on IV fluids. Stool for C. difficile was negative. Stool for enteric pathogens are pending. CT scan abdomen reviewed, no acute findings. Vital signs are stable. Plan to continue same treatment, possible DC home tomorrow. #2 acute kidney injury: Secondary to above, dehydration. Baseline kidney function is normal. Admission creatinine was 1.57, today's creatinine is 1.58, remained almost the same. Plan to continue IV fluids, encourage oral intake, repeat BMP tomorrow morning. #3 acute cystitis: He is on IV Rocephin. He has been afebrile, leukocytosis resolved. Urine culture is pending. #4 history of colon cancer, status post colon resection, status post ileostomy. In remission, stable. #5 type 2 diabetes mellitus: Continue ADA diet, Accu-Cheks, sliding scale, Tradjenta and glyburide. #6 COPD: Clinically stable, pulse ox is maintained on room air. Continue DuoNeb, Pulmicort. #7 DVT prophylaxis: Subcu Lovenox. This note was generated with [employer] dictation software. It may contain incorrect words, spelling, and punctuation that were not noted in checking the note before signing. Code Visit Inpatient E&M: 94042 Subs Hosp L2
--- NOTE | 2018-04-12 10:39 | CM.UR ---
Received call from Luanne at [place]. Explained vet is admitted in obs. Explained physician has not seen vet yet today however he is obs status. Went over most recent nurse description of his output from his ileostomy. Agreed to fax her H&P, imaging and labs to [phone]. Tasia Aquino RN, [facility].
[2018-04-12] MEDS: LINAGLIPTIN 5 MG TABLET PO (11:01)
[2018-04-12] MEDS: Cyanocobalamin 500 MCG Tablet 1000 MCG PO (11:01)
[2018-04-12] MEDS: Ferrous Sulfate 325 MG Tablet PO (11:02)
[2018-04-12] MEDS: 0.45% Normal Saline 1,000 ML 100 ML IV (11:02)
[2018-04-12] MEDS: Pantoprazole Sodium 40 MG Tablet PO (11:02)
[2018-04-12 12:41] LABS: Bedside Glucose 318 mg/dL (70-110)
[2018-04-12 14:07] VITALS: BP 127/83; PULSE 86; RESP 18; TEMP 36.9; O2SAT 95
[2018-04-12 16:08] VITALS: O2SAT 93
[2018-04-12 17:15] LABS: Bedside Glucose 214 mg/dL (70-110)
[2018-04-12] MEDS: Tamsulosin HCl 0.4 MG Capsule 0.8 MG PO (19:10)
[2018-04-12 21:24] VITALS: BP 135/93; PULSE 111; RESP 16; TEMP 36.6; O2SAT 98
[2018-04-12] MEDS: Ceftriaxone 1 GM/50 ML BAG IV (21:30)
[2018-04-12 21:40] LABS: Bedside Glucose 262 mg/dL (70-110)
[2018-04-13 03:30] VITALS: BP 118/83; PULSE 110; RESP 16; TEMP 36.6; O2SAT 94
[2018-04-13] MEDS: oxyCODONE 5 MG Tablet PO ×3 (04:09→17:14)
[2018-04-13] MEDS: Insulin Lispro 100 UNIT/ML INSULN.PEN SQ ×4 (06:37→21:43)
[2018-04-13 06:45] LABS: Bedside Glucose 278 mg/dL (70-110)
[2018-04-13 07:21] VITALS: O2SAT 91
[2018-04-13 07:28] LABS: Anion Gap 11 (5-15); BUN 35 mg/dL (7-18); BUN/Creat Ratio 22.3 RATIO (10-20); Calcium,Total 8.8 mg/dL (8.5-10.1); Chloride 110 mmol/L (98-107); Creatinine, Serum 1.57 mg/dL (0.70-1.30); EST Glomerular Filtration Rate 48 mL/min (>60); Est Glom Filt Rate - Afr Amer 58 mL/min (>60); Estimated Creatinine Clearance 43.52 ml/min; Glucose 288 mg/dL (74-106); Potassium 4.4 mmol/L (3.5-5.1); Sodium Level 135 mmol/L (136-145)
[2018-04-13] MEDS: Pantoprazole Sodium 40 MG Tablet PO (08:47)
[2018-04-13] MEDS: LINAGLIPTIN 5 MG TABLET PO (08:47)
[2018-04-13] MEDS: Cyanocobalamin 500 MCG Tablet 1000 MCG PO (08:48)
[2018-04-13] MEDS: Ferrous Sulfate 325 MG Tablet PO (08:48)
[2018-04-13] MEDS: Enoxaparin 30 MG/0.3 ML Syringe SC (08:49)
[2018-04-13 08:55] VITALS: BP 117/78; PULSE 120; RESP 20; TEMP 36.8; O2SAT 99
--- NOTE | 2018-04-13 09:43 | PN_ITS ---
Patient Problems: Active and Suspected Problems Cystitis (Acute) Subjective: Chief complaint: Follow-up after admission for acute viral gastroenteritis due to norovirus, acute cystitis and acute kidney injury. Patient seen and examined. No acute events overnight. He stated that ileostomy output is decreasing. Complaint of bilateral leg aches. Abdominal cramps improved. Denies fever chills. His vital signs are stable. - Physical Exam General: Alert, Oriented x3, Cooperative, No apparent distress HEENT: Atraumatic, PERRLA, EOMI, Normocephalic Oral: Moist Mucosa, No Gingival or Mucosal Lesions/ Ulcerations Neck: Supple, No JVD, Negative Carotid Bruits, Trachea Midline, Thyroid Normal Size and Texture Lungs: Clear to auscultation, Normal air movement, No rhonchi, No wheeze, No r ales Cardiovascular: Regular rate, Regular Rhythm, Normal S1, Normal S2, PMI Normal Abdomen: Bowel Sounds Present, Soft, Non Tender, Non-Distended, No Hepato- splenomegaly, - - Ileostomy bag in place. Extremities: No clubbing, No cyanosis, No edema Skin: No rashes, No breakdown Lymphatic: No Cervical, Supraclavicular, or Inguinal Adenopathy Neurological: Cranial nerves II-XII grossly intact, Neuro grossly intact Psych/Mental Status: Normal Affect, Appropriate, Alert and oriented to time, place, person, mood and affect Vital Signs Temp Pulse Resp BP Pulse Ox 98.2 F 120 H 20 H 117/78 99 04/13/18 08:55 04/13/18 08:55 04/13/18 08:55 04/13/18 08:55 04/13/18 08:55 Oxygen Delivery Method Room Air Weight: 189 lb 2.506 oz Body Mass Index (BMI) 31.4 Finger Stick Blood Glucose 290 Intake and Output for Last 24 Hours 04/11/18 04/12/18 04/13/18 23:59 23:59 23:59 Intake Total 4429 / 4429 1397 / 1397 Output Total 2075 / 2075 3400 / 3400 Balance 2354 / 2354 -2002 / Microbiology Past 72 Hours 04/11/18 23:00 Enteric Bacteriology - Final Stool Norovirus 04/11/18 23:00 C. difficile DNA Amplification - Final Stool Laboratory Tests Past 24 Hrs 04/12/18 04/13/18 06:30 06:23 Sodium 135 L Potassium 4.4 Chloride 110 H Carbon Dioxide 14.0 L Anion Gap 11 BUN 35 H Creatinine 1.57 H Estim Creat Clear Calc 43.52 Est GFR (MDRD) Af Amer 58 L Est GFR (MDRD) Non-Af 48 L BUN/Creatinine Ratio 22.3 H Glucose 288 H Hemoglobin A1c 8.8 H Calcium 8.8 POC Glucose 04/13/18 04/12/18 04/12/18 06:36 21:30 17:00 POC Glucose 278 H 262 H 214 H 04/12/18 12:31 POC Glucose 318 H Medical Necessity - Tobacco Use Smoking Status: Former smoker Assessment/Plan All Active Problems Cystitis (Acute) This is a 58 years old male patient presented to the emergency room because of abdominal cramps and increased ileostomy output, found to have probable viral gastroenteritis complicated by acute kidney injury and also found to have acute cystitis. #1 Acute viral gastroenteritis: Due to Norovirus. He is on IV fluids, empirically on Rocephin and Flagyl. Stool for C. difficile was negative. Stool for enteric pathogens were positive as mentioned. Patient reported improvement of his symptoms, ileostomy output is coming down. CT scan abdomen reviewed, no acute findings. Vital signs are stable. Plan: DC IV Flagyl, continue IV fluids, repeat BMP tomorrow morning, DC home tomorrow if kidney function is improving. #2 acute kidney injury: Secondary to above, dehydration. Baseline kidney function is normal. Admission creatinine was 1.57, today's creatinine is 1.57, remained almost the same with minimal improvement. Plan to continue IV fluids, encourage oral intake, repeat BMP tomorrow morning. #3 acute cystitis: He is on IV Rocephin. He has been afebrile, leukocytosis resolved. Urine culture is pending. #4 history of colon cancer, status post colon resection, status post ileostomy. In remission, stable. #5 type 2 diabetes mellitus: Continue ADA diet, Accu-Cheks, sliding scale, Tradjenta and glyburide. #6 COPD: Clinically stable, pulse ox is maintained on room air. Continue DuoNeb, Pulmicort. #7 DVT prophylaxis: Subcu Lovenox. This note was generated with [employer] software. It may contain incorrect words, spelling, and punctuation that were not noted in checking the note before signing. Code Visit Inpatient E&M: 52954 Subs Hosp L2
[2018-04-13 10:00] VITALS: PULSE 120
[2018-04-13] MEDS: 0.9% Normal Saline 1,000 ML 125 ML IV ×2 (10:01→17:51)
[2018-04-13 12:01] LABS: Bedside Glucose 346 mg/dL (70-110)
[2018-04-13 14:55] VITALS: BP 124/82; PULSE 95; RESP 18; TEMP 36.4; O2SAT 98
[2018-04-13] MEDS: Tamsulosin HCl 0.4 MG Capsule 0.8 MG PO (17:15)
[2018-04-13 17:25] LABS: Bedside Glucose 233 mg/dL (70-110)
[2018-04-13] MEDS: Ceftriaxone 1 GM/50 ML BAG IV (21:52)
[2018-04-13 22:00] VITALS: BP 115/79; PULSE 107; RESP 16; TEMP 36.5; O2SAT 98
[2018-04-14] MEDS: oxyCODONE 5 MG Tablet PO ×2 (00:05→08:38)
[2018-04-14 00:15] LABS: Bedside Glucose 263 mg/dL (70-110)
[2018-04-14 03:00] VITALS: BP 111/77; PULSE 102; RESP 16; TEMP 36.6; O2SAT 96
[2018-04-14] MEDS: 0.9% Normal Saline 1,000 ML 125 ML IV (03:37)
[2018-04-14] MEDS: Insulin Lispro 100 UNIT/ML INSULN.PEN SQ (06:32)
[2018-04-14 06:37] LABS: Anion Gap 13 (5-15); BUN 27 mg/dL (7-18); BUN/Creat Ratio 19.1 RATIO (10-20); Calcium,Total 7.9 mg/dL (8.5-10.1); Chloride 113 mmol/L (98-107); Creatinine, Serum 1.41 mg/dL (0.70-1.30); EST Glomerular Filtration Rate 55 mL/min (>60); Est Glom Filt Rate - Afr Amer 66 mL/min (>60); Estimated Creatinine Clearance 48.46 ml/min; Glucose 219 mg/dL (74-106); Potassium 4.2 mmol/L (3.5-5.1); Sodium Level 138 mmol/L (136-145)
[2018-04-14 06:41] LABS: Bedside Glucose 248 mg/dL (70-110)
--- NOTE | 2018-04-14 08:05 | NURSING ---
Was consulted per Dr Cruz to see patient for ileostomy. patient has had his ileostomy since 2001 and is very independent with the care of it. patient states he changes his appliance approx every 5 days. Denies current needs. pt is hoping to be going home today. patient aware to call of needs arise.
[2018-04-14 08:13] VITALS: O2SAT 95
[2018-04-14] MEDS: LINAGLIPTIN 5 MG TABLET PO (08:38)
[2018-04-14] MEDS: Pantoprazole Sodium 40 MG Tablet PO (08:38)
[2018-04-14] MEDS: Ferrous Sulfate 325 MG Tablet PO (08:39)
[2018-04-14] MEDS: Cyanocobalamin 500 MCG Tablet 1000 MCG PO (08:39)
[2018-04-14 08:42] VITALS: BP 127/82; PULSE 77; RESP 18; TEMP 36.7; O2SAT 97
--- NOTE | 2018-04-14 09:42 | DCINST_ITS ---
- Discharge Diagnoses Current Active Problems: Current Active and Chronic Problems Status post ileostomy (Chronic) History of colon cancer (Chronic) Cystitis (Acute) You will use the following diet at home:: Calorie/Carbohydrate Controlled (specify 1200, 1400, etc) - 1800 Your food should be the consistency of: Regular Discharge Activity: Return to Normal Activity Allergies/Adverse Reactions: Allergies No Known Allergies Allergy (Verified 04/11/18 14:18) Medications to take at Discharge Ferrous Sulfate 325 mg PO DAILY@0800 07/15/13 Loperamide [Imodium] 2 mg PO Q6H PRN PRN 07/15/13 Mometasone Furoate [Asmanex] 220 mcg IH BID 07/15/13 Pantoprazole Sodium [Protonix] 40 mg PO DAILY 07/15/13 Tiotropium [place] [Spiriva 18 MCG] 1 puff INHALATION DAILY 07/15/13 Vitamin B12 1,000 mcg PO DAILY 07/15/13 glyBURIDE [Micronase] 10 mg PO BIDCM 07/15/13 Formoterol Fumarate [Foradil] 1 puff INHALATION DAILY 02/03/14 Cholecalciferol (VIT D3) [Vitamin D3] 1,000 unit PO DAILY 04/11/14 Saxagliptin Hydrochloride [Onglyza] 5 mg PO DAILY 04/11/14 Ondansetron [Zofran Odt] 4 mg PO Q8H PRN PRN #10 tablet 08/09/16 Gabapentin [Neurontin] 600 mg PO TID 01/01/17 Ondansetron HCl [Zofran] 8 mg PO TID #15 tablet 01/04/17 Tamsulosin HCl [Flomax] 0.8 mg PO QHS 04/12/18 Primary Care Physician: [facility],[place] [Primary Care Provider] - Please follow up with your Primary Care Physician in: in 1-2 weeks Test Results: Test results from this visit will be discussed in further detail at your follow- up appointment, if applicable. Proposed Discharge Date: 04/14/18
--- NOTE | 2018-04-14 09:42 | PCM.DC.SUM ---
Discharge Date and Diagnosis - Problem List Patient Problems: Active and Suspected Problems Gastroenteritis due to norovirus (Acute) Cystitis (Acute) Date of Admission: 04/11/18 Date of Discharge: 04/14/18 - Primary Discharge Diagnosis Active and Suspected Problems Gastroenteritis due to norovirus (Acute) Cystitis (Acute) - Secondary Discharge Diagnosis Chronic Problems Status post ileostomy (Chronic) History of colon cancer (Chronic) COPD (Chronic) Familial adenomatous polyposis coli (Chronic) Complicated by cancer requiring surgery in 2001 Hospital Course and Treatment Imaging Results: Clinical Impression(s) from Imaging Studies Abdomen CT 04/11/18 16:22 IMPRESSION: 1. Normal appearance of right lower quadrant ileostomy. No evidence of bowel obstruction. No focal fluid collection. 2. Prior colon resection 3. Simple left renal cyst. 4. Stable mild splenomegaly. Electronically Signed: Keshawn Mathews MD at 18:59 EST , Service support , Consultations 04/11/18 22:12 Consult: Onc/Wound/patient access coordinator Routine Comment: Reason for Consult:: With ileostomy Operations: None Summary of Care Provided: The patient is a 58 year old M history of colon cancer status post colon resection with subsequent ileostomy who presented with increased ileostomy output. 1. Acute Norovirus gastroenteritis: Managed symptomatically with improvement in symptoms 2. Acute kidney injury secondary to above patient was placed on IV fluids. Patient was on meloxicam this was discontinued on discharge 3. Acute cystitis patient was treated with Rocephin urine cultures came back positive for mixed organisms 4. History of colon cancer status post colon resection start with subsequent ileostomy 5. Diabetes mellitus type 2 did continue with home regimen in addition to sliding scale insulin coverage 6. COPD stable 7. DVT prophylaxis SC Lovenox 8. Obesity with BMI of 31.5 Patient Problems: Active and Suspected Problems Gastroenteritis due to norovirus (Acute) Cystitis (Acute) - Physical Exam General: Alert, Oriented x3 HEENT: Atraumatic Lungs: Clear to auscultation Cardiovascular: Regular rate, Regular Rhythm Neurological: Neuro grossly intact Psych/Mental Status: Normal Affect Vital Signs Temp Pulse Resp BP Pulse Ox 98.1 F 77 18 127/82 H 97 04/14/18 08:42 04/14/18 08:42 04/14/18 08:42 04/14/18 08:42 04/14/18 08:42 Oxygen Delivery Method Room Air Weight: 85.8 kg Body Mass Index (BMI) 31.4 Finger Stick Blood Glucose 290 Intake and Output for Last 24 Hours 04/12/18 04/13/18 04/14/18 23:59 23:59 23:59 Intake Total 4429 / 4429 3150 / 3150 2195 / 2195 Output Total 2075 / 2075 4900 / 4900 1250 / 1250 Balance 2354 / 2354 -1750 / -1750 945 / 945 Microbiology Past 72 Hours 04/11/18 17:00 Urine Culture - Final Urine, Clean Catch Mixed Gram Positive Organisms 04/11/18 23:00 Enteric Bacteriology - Final Stool Norovirus 04/11/18 23:00 C. difficile DNA Amplification - Final Stool Laboratory Tests Past 24 Hrs 04/14/18 05:22 Sodium 138 Potassium 4.2 Chloride 113 H Carbon Dioxide 12.0 L Anion Gap 13 BUN 27 H Creatinine 1.41 H Estim Creat Clear Calc 48.46 Est GFR (MDRD) Af Amer 66 Est GFR (MDRD) Non-Af 55 L BUN/Creatinine Ratio 19.1 Glucose 219 H Calcium 7.9 L POC Glucose 04/14/18 04/13/18 04/13/18 06:32 21:42 17:05 POC Glucose 248 H 263 H 233 H 04/13/18 11:48 POC Glucose 346 H Discharge Diet: 1800 Calorie Control Diet Discharge Activity: Return to Normal Activity Home Medications: Medications to take at Discharge Ferrous Sulfate 325 mg PO DAILY@0800 07/15/13 Loperamide [Imodium] 2 mg PO Q6H PRN PRN 07/15/13 Mometasone Furoate [Asmanex] 220 mcg IH BID 07/15/13 Pantoprazole Sodium [Protonix] 40 mg PO DAILY 07/15/13 Tiotropium [place] [Spiriva 18 MCG] 1 puff INHALATION DAILY 07/15/13 Vitamin B12 1,000 mcg PO DAILY 07/15/13 glyBURIDE [Micronase] 10 mg PO BIDCM 07/15/13 Formoterol Fumarate [Foradil] 1 puff INHALATION DAILY 02/03/14 Cholecalciferol (VIT D3) [Vitamin D3] 1,000 unit PO DAILY 04/11/14 Saxagliptin Hydrochloride [Onglyza] 5 mg PO DAILY 04/11/14 Ondansetron [Zofran Odt] 4 mg PO Q8H PRN PRN #10 tablet 08/09/16 Gabapentin [Neurontin] 600 mg PO TID 01/01/17 Ondansetron HCl [Zofran] 8 mg PO TID #15 tablet 01/04/17 Tamsulosin HCl [Flomax] 0.8 mg PO QHS 04/12/18 Primary Care Physician: [facility],[place] [Primary Care Provider] - Please follow up with your Primary Care Physician in: in 1-2 weeks Disposition: Home Minutes spent on discharge:: 35 Patient Condition:: Stable Medical Necessity - Tobacco Use Smoking Status: Former smoker Meaningful Use Info Meaningful Use Diagnoses (Choose all that apply): None applicable Code Visit Inpatient E&M: 99892 Disch Hosp
--- NOTE | 2018-04-14 09:46 | DS.PCM_ITS ---
Discharge Date and Diagnosis - Problem List Patient Problems: Active and Suspected Problems Gastroenteritis due to norovirus (Acute) Cystitis (Acute) Date of Admission: 04/11/18 Date of Discharge: 04/14/18 - Primary Discharge Diagnosis Active and Suspected Problems Gastroenteritis due to norovirus (Acute) Cystitis (Acute) - Secondary Discharge Diagnosis Chronic Problems Status post ileostomy (Chronic) History of colon cancer (Chronic) COPD (Chronic) Familial adenomatous polyposis coli (Chronic) Complicated by cancer requiring surgery in 2001 Hospital Course and Treatment Imaging Results: Clinical Impression(s) from Imaging Studies Abdomen CT 04/11/18 16:22 IMPRESSION: 1. Normal appearance of right lower quadrant ileostomy. No evidence of bowel obstruction. No focal fluid collection. 2. Prior colon resection 3. Simple left renal cyst. 4. Stable mild splenomegaly. Electronically Signed: Keshawn Mathews MD at 18:59 EST , Service support , Consultations 04/11/18 22:12 Consult: Onc/Wound/proposal development manager Routine Comment: Reason for Consult:: With ileostomy Operations: None Summary of Care Provided: The patient is a 58 year old M history of colon cancer status post colon resection with subsequent ileostomy who presented with increased ileostomy output. 1. Acute Norovirus gastroenteritis: Managed symptomatically with improvement in symptoms 2. Acute kidney injury secondary to above patient was placed on IV fluids. Patient was on meloxicam this was discontinued on discharge 3. Acute cystitis patient was treated with Rocephin urine cultures came back positive for mixed organisms 4. History of colon cancer status post colon resection start with subsequent ileostomy 5. Diabetes mellitus type 2 did continue with home regimen in addition to sliding scale insulin coverage 6. COPD stable 7. DVT prophylaxis SC Lovenox 8. Obesity with BMI of 31.5 Patient Problems: Active and Suspected Problems Gastroenteritis due to norovirus (Acute) Cystitis (Acute) - Physical Exam General: Alert, Oriented x3 HEENT: Atraumatic Lungs: Clear to auscultation Cardiovascular: Regular rate, Regular Rhythm Neurological: Neuro grossly intact Psych/Mental Status: Normal Affect Vital Signs Temp Pulse Resp BP Pulse Ox 98.1 F 77 18 127/82 H 97 04/14/18 08:42 04/14/18 08:42 04/14/18 08:42 04/14/18 08:42 04/14/18 08:42 Oxygen Delivery Method Room Air Weight: 85.8 kg Body Mass Index (BMI) 31.4 Finger Stick Blood Glucose 290 Intake and Output for Last 24 Hours 04/12/18 04/13/18 04/14/18 23:59 23:59 23:59 Intake Total 4429 / 4429 3150 / 3150 2195 / 2195 Output Total 2075 / 2075 4900 / 4900 1250 / 1250 Balance 2354 / 2354 -1750 / -1750 945 / 945 Microbiology Past 72 Hours 04/11/18 17:00 Urine Culture - Final Urine, Clean Catch Mixed Gram Positive Organisms 04/11/18 23:00 Enteric Bacteriology - Final Stool Norovirus 04/11/18 23:00 C. difficile DNA Amplification - Final Stool Laboratory Tests Past 24 Hrs 04/14/18 05:22 Sodium 138 Potassium 4.2 Chloride 113 H Carbon Dioxide 12.0 L Anion Gap 13 BUN 27 H Creatinine 1.41 H Estim Creat Clear Calc 48.46 Est GFR (MDRD) Af Amer 66 Est GFR (MDRD) Non-Af 55 L BUN/Creatinine Ratio 19.1 Glucose 219 H Calcium 7.9 L POC Glucose 04/14/18 04/13/18 04/13/18 06:32 21:42 17:05 POC Glucose 248 H 263 H 233 H 04/13/18 11:48 POC Glucose 346 H Discharge Diet: 1800 Calorie Control Diet Discharge Activity: Return to Normal Activity Home Medications: Medications to take at Discharge Ferrous Sulfate 325 mg PO DAILY@0800 07/15/13 Loperamide [Imodium] 2 mg PO Q6H PRN PRN 07/15/13 Mometasone Furoate [Asmanex] 220 mcg IH BID 07/15/13 Pantoprazole Sodium [Protonix] 40 mg PO DAILY 07/15/13 Tiotropium [place] [Spiriva 18 MCG] 1 puff INHALATION DAILY 07/15/13 Vitamin B12 1,000 mcg PO DAILY 07/15/13 glyBURIDE [Micronase] 10 mg PO BIDCM 07/15/13 Formoterol Fumarate [Foradil] 1 puff INHALATION DAILY 02/03/14 Cholecalciferol (VIT D3) [Vitamin D3] 1,000 unit PO DAILY 04/11/14 Saxagliptin Hydrochloride [Onglyza] 5 mg PO DAILY 04/11/14 Ondansetron [Zofran Odt] 4 mg PO Q8H PRN PRN #10 tablet 08/09/16 Gabapentin [Neurontin] 600 mg PO TID 01/01/17 Ondansetron HCl [Zofran] 8 mg PO TID #15 tablet 01/04/17 Tamsulosin HCl [Flomax] 0.8 mg PO QHS 04/12/18 Primary Care Physician: [facility],[place] [Primary Care Provider] - Please follow up with your Primary Care Physician in: in 1-2 weeks Disposition: Home Minutes spent on discharge:: 35 Patient Condition:: Stable Medical Necessity - Tobacco Use Smoking Status: Former smoker Meaningful Use Info Meaningful Use Diagnoses (Choose all that apply): None applicable Code Visit Inpatient E&M: 64497 Disch Hosp
--- NOTE | 2018-04-14 10:55 | CASEMGMT ---
VLADIMIR CM in to complete Face to Face assesment. Patient exiting room and has been discharged to home. Patient independent and denies needs at discharge.
--- NOTE | 2018-04-15 13:13 | CASEMGMT ---
VLADIMIR VALLE DC PHONE Call DC DATE: 04/14/18 DC Disposition: home LACE/STRATA: 02/01 Intro role of CM to patient via phone. Pt states he is doing well, no questions regarding prescriptions, f/u or instructions. Has not made f/u appointment yet. Encouraged to do this today as pt had questions re: his kidneys. VLADIMIR VALLE let him know his PCP would be following up with this. Pt agreed he will make appt today. No care improvement suggestions given. Melecio MACIELN RN AC
== END 2018-04-14 11:00 | disposition home or self-care (01) | DRG 392 ==
LOC: ED 16:26 → MS3 19:45
PROVIDERS: Hospitalist; Admitting Provider Hospitalist; Emergency Provider Emergency Medicine; Referring Provider Hospitalist; Visit Provider Internal Medicine
DX: A08.11 Acute gastroenteropathy due to Norwalk agent (principal); T83.518A Infection and inflammatory reaction due to other urinary catheter, initial encounter; N17.9 Acute kidney failure, unspecified; N30.00 Acute cystitis without hematuria; E11.9 Type 2 diabetes mellitus without complications; E66.9 Obesity, unspecified; E86.0 Dehydration; J44.9 Chronic obstructive pulmonary disease, unspecified; Z93.2 Ileostomy status; Z85.038 Personal history of other malignant neoplasm of large intestine; Z90.49 Acquired absence of other specified parts of digestive tract; Z68.31 Body mass index [BMI] 31.0-31.9, adult; Z79.899 Other long term (current) drug therapy; Z79.84 Long term (current) use of oral hypoglycemic drugs; Z87.891 Personal history of nicotine dependence; R33.9 Retention of urine, unspecified
CPT/HCPCS: 36415; 74176; 80048; 80076; 81001; 82962; 83036; 83605; 83690; 84484; 85025; 87086; 87088; 87493; 87506; 93005; 97161; 97165; 97802; 99282; J7030; A4216

== ENCOUNTER 2018-04-22 20:04 | Emergency (ER) | payer OTHER, SELFPAY ==
[2018-04-11 21:48] VITALS: BMI 31.4
[2018-04-22 20:04] VITALS: BP 126/65; PULSE 114; RESP 20; TEMP 36.9; O2SAT 95; BMI 33.3
--- NOTE | 2018-04-22 20:07 | RAD_ITS ---
STUDY: X-RAY - LEFT SHOULDER REASON FOR EXAM: Male, 58 years old. Pain. Fall. TECHNIQUE: 2 view(s) of the shoulder. COMPARISON: January 29, 2018 FINDINGS: Normal glenohumeral articulation. Normal acromioclavicular joint. Normal acromion. There is mildly displaced fracture of the surgical neck of the left proximal humerus. The soft tissue structures are unremarkable. Normal visualized pulmonary apex. RAD/Shoulder min 2 Views IMPRESSION: Left proximal humerus fracture. Electronically Signed: Brendan Gutierrez MD at 21:00 EST , Service support ,
--- NOTE | 2018-04-22 21:12 | ED.VISSUMM ---
- ER Visit Summary Date of Service: 04/22/18 Chief Complaint: Left shoulder pain History of Present Illness: The patient is a 58 M who presents with left shoulder pain that began after a fall today. Patient states he slipped on ice and landed on his left shoulder. Patient states he did hit his head but denies any loss of consciousness. Patient states the pain radiates into his neck and down his left arm. Patient states the pain is worse with any movement. Patient denies any paresthesias or weakness. Patient denies any other injuries. Physical Examination: Vital signs are stable. Patient is afebrile. Patient is in no acute distress. Musculoskeletal exam reveals tenderness over the left shoulder. Range of motion was limited in all motions of the left shoulder secondary to pain. Sensation was intact to light touch in the radial, median, ulnar, and axillary areas. Radial pulses are equal bilaterally. There is no tenderness over the left elbow. There is some left cervical paraspinal muscle tenderness but there is no midline tenderness. Heart was regular rate and rhythm. Lungs are clear and equal bilateral. The remaining physical exam is within normal limits. Test Results: X-rays of the left shoulder were obtained. There is a nondisplaced fracture of the left proximal humerus. Emergency Department Course and Treatment: Patient was placed in a sling and swath. Patient was given a dose of [place] here. Patient was given a prescription for [place]. Patient was instructed to follow-up with his primary care physician at the [place]. Patient understood and was agreeable with the plan. All questions were answered. Disposition: Discharge home Impression: Left proximal humerus fracture This note was generated with [employer] dictation software. It may contain incorrect words, spelling, and punctuation that were not noted in review of the chart prior to signing ED Disposition - Plan for ED Patient: Disposition: Home or Assisted Living Chief Complaint: Upper Extremity Injury Diagnosis: Fracture of proximal end of left humerus Instructions: ED Fx Shoulder Prescriptions: Hydrocodone Bitart/Apap 5-325 [[place] 5MG-325MG] 1 tab PO Q6H PRN PRN 3 Days #10 tab PRN Reason: Pain Referrals: [facility] [Primary Care Provider] -
--- NOTE | 2018-04-22 21:17 | ED.DCSUM_ITS ---
- ER Visit Summary Date of Service: 04/22/18 Chief Complaint: Left shoulder pain History of Present Illness: The patient is a 58 M who presents with left shoulder pain that began after a fall today. Patient states he slipped on ice and landed on his left shoulder. Patient states he did hit his head but denies any loss of consciousness. Patient states the pain radiates into his neck and down his left arm. Patient states the pain is worse with any movement. Patient denies any paresthesias or weakness. Patient denies any other injuries. Physical Examination: Vital signs are stable. Patient is afebrile. Patient is in no acute distress. Musculoskeletal exam reveals tenderness over the left shoulder. Range of motion was limited in all motions of the left shoulder secondary to pain. Sensation was intact to light touch in the radial, median, ulnar, and axillary areas. Radial pulses are equal bilaterally. There is no tenderness over the left elbow. There is some left cervical paraspinal muscle tenderness but there is no midline tenderness. Heart was regular rate and rhythm. Lungs are clear and equal bilateral. The remaining physical exam is within normal limits. Test Results: X-rays of the left shoulder were obtained. There is a nondis placed fracture of the left proximal humerus. Emergency Department Course and Treatment: Patient was placed in a sling and swath. Patient was given a dose of [place] here. Patient was given a prescription for [place]. Patient was instructed to follow-up with his primary care physician at the [place]. Patient understood and was agreeable with the plan. All questions were answered. Disposition: Discharge home Impression: Left proximal humerus fracture This note was generated with [employer] dictation software. It may contain incorrect words, spelling, and punctuation that were not noted in review of the chart prior to signing ED Disposition - Plan for ED Patient: Disposition: Home or Assisted Living Chief Complaint: Upper Extremity Injury Diagnosis: Fracture of proximal end of left humerus Instructions: ED Fx Shoulder Prescriptions: Hydrocodone Bitart/Apap 5-325 [[place] 5MG-325MG] 1 tab PO Q6H PRN PRN 3 Days #10 tab PRN Reason: Pain Referrals: [facility] [Primary Care Provider] -
[2018-04-22] MEDS: HYDROcodone Bitartrate/Apap 5/325 Tablet PO (21:29)
[2018-04-22] MEDS: Morphine 4 MG/ML Syringe IM (21:38)
[2018-04-22 21:54] VITALS: BP 146/79; PULSE 82; RESP 18; O2SAT 97
--- NOTE | 2018-04-22 21:58 | ED.RN ---
THIS NURSE REVIEWED D/C INSTRUCTIONS WITH PT. PT VERBALIZED UNDERSTANDING OF INSTRUCTIONS. PT ASSISTED IN PUTTING HIS COAT ON. PT UPSET HE IS NOT BEING ADMITTED BECAUSE HE CANNOT EMPTY THE COLOSTOMY. PT AMBULATES ON OWN FROM ROOM WITHOUT ASSISTANCE FROM STAFF
--- OUTSIDE RECORDS SUMMARY | 2018-06-24 23:41 | XMS RPT_ITS ---
:1960 Author Organization OHIP Support Name Relationship Address Phone D Unavailable Unavailable Unavailable ESHA BRUNNER Unavailable Unavailable + [place] [address] SNIVELY, MEME Unavailable [address] + [place] [address] D Unavailable Unavailable Unavailable ESHA BRUNNER Unavailable Unavailable + [place] [address] SNIVELY, MEME Unavailable [address] + [place] [address] D Unavailable Unavailable Unavailable ESHA BRUNNER Unavailable Unavailable + [place] [address] SNIVELY, MEME Unavailable [address] + [place] [address] D Unavailable Unavailable Unavailable ESHA BRUNNER Unavailable Unavailable + [place] [address] SNIVELY, MEME Unavailable [address] + [place] [address] D Unavailable Unavailable Unavailable ESHA BRUNNER Unavailable Unavailable + [place] [address] SNIVELY, MEME Unavailable [address] + [place] [address] D Unavailable Unavailable Unavailable ESHA BRUNNER Unavailable Unavailable + [place] [address] SNIVELY, MEME Unavailable [address] + [place] [address] D Unavailable Unavailable Unavailable ESHA BRUNNER Unavailable Unavailable + [place] [address] SNIVELY, MEME Unavailable [address] + [place] [address] D Unavailable Unavailable Unavailable ESHA BRUNNER Unavailable Unavailable + [place] [address] SNIVELY, MEME Unavailable [address] + [place] [address] SEBASTIEN MCINTYREIN Unavailable [address] + [place] [address] D Unavailable Unavailable Unavailable PINORQUIDEA ESHA Unavailable [address] + [place] [address] SEBASTIEN MCINTYREIN Unavailable [address] + [place] [address] D Unavailable Unavailable Unavailable PINORQUIDEA ESHA Unavailable [address] + [place] [address] CHERSEBASTIEN CURIELIN Unavailable [address] + [place] [address] D Unavailable Unavailable Unavailable PINNICK, ESHA Unavailable [address] + [place] [address] CHERSEBASTIEN CURIELIN Unavailable [address] + [place] [address] D Unavailable Unavailable Unavailable PINNICK ESHA Unavailable [address] + [place] [address] Care Team Providers Name Role Phone STEFANIA MEDINA (JAVI) Attending Unavailable CODI PARRA Referring Unavailable [facility] [place] [facility] Unavailable Agyepong, Artemio Admitting Unavailable Agyepong, Artemio Referring Unavailable Guy Turcios Attending Unavailable Agyepong, Artemio Admitting Unavailable Agyepong, Artemio Attending Unavailable Agyepong, Artemio Referring Unavailable [facility] [place] [facility] Unavailable Ashelfah, Ghasem Consulting Unavailable Agyepong, Artemio Admitting Unavailable Ashelfah, Ghasem Attending Unavailable Agyemalickg, Artemio Referring Unavailable [facility] [place] [facility] Unavailable Ashelfah, Ghasem Consulting Unavailable Agyepong, Artemio Admitting Unavailable Ashelfah, Ghasem Attending Unavailable Agyepong, Artemio Referring Unavailable [facility] [place] [facility] Unavailable Ashelfah, Ghasem Consulting Unavailable Agyepong, Artemio Admitting Unavailable Guy Turcios Attending Unavailable Agyemalickg, Artemio Referring Unavailable [facility] [place] [facility] Unavailable Guy Turcios Consulting Unavailable [facility] [place] [facility] Unavailable Pankaj Cramer Attending Unavailable [facility] [place] [facility] Unavailable Ashelfah, Ghasem Admitting Unavailable Ashelfah, Ghasem Attending Unavailable Ashelfah, Ghasem Attending Unavailable Nj Franklin Attending Unavailable Dougie Whittington Attending Unavailable KWAN CHOI Attending Unavailable KWAN CHOI Referring Unavailable [facility] [place] [facility] Unavailable KWAN CHOI Consulting Unavailable [facility] [place] [facility] Unavailable Nicholas Solomon Attending Unavailable PROBLEMS PROBLEMS DATE TYPE CONDITION / CODE ATTENDING STATUS SOURCE 04/22/2018 Unknown S42.A - Pankaj Cramer Active [place] Unspecified [facility] fracture of upper Hospital end of left Repository humerus, initial encounter for closed fracture / S42.202A(ICD-10) 02/04/2018 Unknown M25.512 - Pain in Nicholas Solomon Active [place] left shoulder / Community M25.512(ICD-10) Hospital Repository 01/10/2018 Active Unknown / STEFANIA MEDINA Active [facility] UNK(Unknown) (PA) [facility] [place] Repository 09/25/2017 Unknown K56.609 - Nelsy [facility] [place] Unspecified [facility] obstruction, Repository unspecified as to partial versus complete obstruction / K56.609(ICD-10) PROCEDURES PROCEDURES No Procedure Records FoundRESULTS RESULTS EMERGENCY DEPARTMENT Observed: 04/22/2018 Status: F Source: [place] SUMMARY 9:19 PM [facility] [place] REPOSITORY [facility] Medical Records Department [address] [place] [address] Emergency Department Summary 04/22/182 MR#: [id number] Acct: [id number] Name: MING BRUNNER Rep #: [id number] : 1960 58 From: Pankaj Cramer DO PCP: [facility], [place] Status: REG ER - ER Visit Summary Date of Service: 04/22/18 Chief Complaint: Left shoulder pain History of Present Illness: The patient is a 58 M who presents with left shoulder pain that began after a fall today. Patient states he slipped on ice and landed on his left shoulder. Patient states he did hit his head but denies any loss of consciousness. Patient states the pain radiates into his neck and down his left arm. Patient states the pain is worse with any movement. Patient denies any paresthesias or weakness. Patient denies any other injuries. Physical Examination: Vital signs are stable. Patient is afebrile. Patient is in no acute distress. Musculoskeletal exam reveals tenderness over the left shoulder. Range of motion was limited in all motions of the left shoulder secondary to pain. Sensation was intact to light touch in the radial, median, ulnar, and axillary areas. Radial pulses are equal bilaterally. There is no tenderness over the left elbow. There is some left cervical paraspinal muscle tenderness but there is no midline tenderness. Heart was regular rate and rhythm. Lungs are clear and equal bilateral. The remaining physical exam is within normal limits. Test Results: X-rays of the left shoulder were obtained. There is a nondisplaced fracture of the left proximal humerus. Emergency Department Course and Treatment: Patient was placed in a sling and swath. Patient was given a dose of Slaughters here. Patient was given a prescription for Slaughters. Patient was instructed to follow-up with his primary care physician at the [place]. Patient understood and was agreeable with the plan. All questions were answered. Disposition: Discharge home Impression: Left proximal humerus fracture This note was generated with [employer] dictation software. It may contain incorrect words, spelling, and punctuation that were not noted in review of the chart prior to signing ED Disposition - Plan for ED Patient: Disposition: Home or Assisted Living Chief Complaint: Upper Extremity Injury Diagnosis: Fracture of proximal end of left humerus Instructions: ED Fx Shoulder Prescriptions: Hydrocodone Bitart/Apap 5-325 [Slaughters 5MG-325MG] 1 tab PO Q6H PRN PRN 3 Days #10 tab PRN Reason: Pain Referrals: [facility] [Primary Care Provider] - What to do if you have Problems For any increased pain, shortness of breath, bleeding, nausea or vomiting, chest pain, or any unexpected problems, contact your Primary Care Provider. Call [facility] ([phone]) or report to the closest Emergency Room. Call 911 if necessary. 04/22/18 2450 <Electronically signed by Pankaj Cramer DO> Date Pankaj Cramer DO Cosigner Signature (If Indicated): Date CC: [place] [facility] SHOULDER MIN 2 VIEWS Observed: 04/22/2018 Status: F Source: [place] 8:08 PM [facility] REPOSITORY [facility] Imaging Services [address] [place] [address] Shoulder min 2 Views MR#: [id number] Acct: [id number] Name: MING BRUNNER Rep #: [id number] : 1960 M 58 From: Brendan Gutierrez MD PCP: [place], [place] Status: REG ER Study: Shoulder min 2 Views Date of Exam: 04/22/18 Exam# [id number] Ordering Dr: Pankaj Cramer DO STUDY: X-RAY - LEFT SHOULDER REASON FOR EXAM: Male, 58 years old. Pain. Fall. TECHNIQUE: 2 view(s) of the shoulder. COMPARISON: January 29, 2018 FINDINGS: Normal glenohumeral articulation. Normal acromioclavicular joint. Normal acromion. There is mildly displaced fracture of the surgical neck of the left proximal humerus. The soft tissue structures are unremarkable. Normal visualized pulmonary apex. RAD/Shoulder min 2 Views IMPRESSION: Left proximal humerus fracture. Electronically Signed: Brendan Gutierrez MD at 21:00 EST , Service support , CC: [facility]; Pankaj Cramer DO Expanded Duty Dental Assistant: Signed 12 LEAD ELECTROCARDIOGRAM Observed: 04/15/2018 Status: F Source: [place] 5:06 PM [facility] REPOSITORY [facility] Cardiovascular Services [address] [place] [address] 12 Lead EKG 04/11/18 1630 MR#: [id number] Acct: [id number] Name: MING BRUNNER Rep #: [id number] : 1960 58 From: Ramirez Kimball MD Attending Dr: Guy Turcios MD Status: DIS IN Ordering Dr: Frances Soler DO Date: 04/11/18 Location: NE3 Sex: M C Admitted: 04/12/18 Test Reason : CP Blood Pressure : / mmHG Vent. Rate : 114 BPM Atrial Rate : 114 BPM P-R Int : 142 ms QRS Dur : 084 ms QT Int : 320 ms P-R-T Axes : 050 -10 058 degrees QTc Int : 441 ms Sinus tachycardia Otherwise normal ECG Confirmed by RAMIREZ KIMBALL MD ([id number]), newspaper photo editor HANNA GROSS ([id number]) on 04/15/2018 5:05:59 PM Referred By: Artemio Lynch Confirmed By:RAMIREZ KIMBALL MD 04/15/18 1706 Date Ramirez Kimball MD CC: [facility]; Guy Turcios MD; Artemio Lynch MD; Frances Soler DO Signed DISCHARGE SUMMARY Observed: 04/14/2018 Status: F Source: [place] 9:46 AM [facility] REPOSITORY [facility] Medical Records Department [address] [place] [address] Discharge Summary 04/14/18 0942 MR#: [id number] Acct: [id number] Name: MING BRUNNER Rep #: [id number] : 1960 58 From: Guy Turcios MD PCP: [place] Status: ADM IN Y Location: [place] [address]-1 Discharge Date and Diagnosis - Problem List Patient Problems: Active and Suspected Problems Gastroenteritis due to norovirus (Acute) Cystitis (Acute) Date of Admission: 04/11/18 Date of Discharge: 04/14/18 - Primary Discharge Diagnosis Active and Suspected Problems Gastroenteritis due to norovirus (Acute) Cystitis (Acute) - Secondary Discharge Diagnosis Chronic Problems Status post ileostomy (Chronic) History of colon cancer (Chronic) COPD (Chronic) Familial adenomatous polyposis coli (Chronic) Complicated by cancer requiring surgery in 2001 Hospital Course and Treatment Imaging Results: Clinical Impression(s) from Imaging Studies Abdomen CT 04/11/18 16:22 IMPRESSION: 1. Normal appearance of right lower quadrant ileostomy. No evidence of bowel obstruction. No focal fluid collection. 2. Prior colon resection 3. Simple left renal cyst. 4. Stable mild splenomegaly. Electronically Signed: Keshawn Mathews MD at 18:59 EST , Service support , Consultations 04/11/18 22:12 Consult: Onc/Wound/scaffold worker Routine Comment: Reason for Consult:: With ileostomy Operations: None Summary of Care Provided: The patient is a 58 year old M history of colon cancer status post colon resection with subsequent ileostomy who presented with increased ileostomy output. 1. Acute Norovirus gastroenteritis: Managed symptomatically with improvement in symptoms 2. Acute kidney injury secondary to above patient was placed on IV fluids. Patient was on meloxicam this was discontinued on discharge 3. Acute cystitis patient was treated with Rocephin urine cultures came back positive for mixed organisms 4. History of colon cancer status post colon resection start with subsequent ileostomy 5. Diabetes mellitus type 2 did continue with home regimen in addition to sliding scale insulin coverage 6. COPD stable 7. DVT prophylaxis SC Lovenox 8. Obesity with BMI of 31.5 Patient Problems: Active and Suspected Problems Gastroenteritis due to norovirus (Acute) Cystitis (Acute) - Physical Exam General: Alert, Oriented x3 HEENT: Atraumatic Lungs: Clear to auscultation Cardiovascular: Regular rate, Regular Rhythm Neurological: Neuro grossly intact Psych/Mental Status: Normal Affect Vital Signs Temp Pulse Resp BP Pulse Ox 98.1 F 77 18 127/82 H 97 04/14/18 08:42 04/14/18 08:42 04/14/18 08:42 04/14/18 08:42 04/14/18 08:42 Oxygen Delivery Method Room Air Weight: 85.8 kg Body Mass Index (BMI) 31.4 Finger Stick Blood Glucose 290 Intake and Output for Last 24 Hours Intake Total 4429 / 4429 3150 / 3150 2195 / 2195 Output Total 2075 / 2075 4900 / 4900 1250 / 1250 Balance 2354 / 2354 -1750 / -1750 945 / 945 Microbiology Past 72 Hours 04/11/18 17:00 Urine Culture - Final Laboratory Tests Past 24 Hrs Sodium 138 Potassium 4.2 Chloride 113 H Carbon Dioxide 12.0 L Anion Gap 13 POC Glucose POC Glucose 248 H 263 H 233 H POC Glucose 346 H Discharge Diet: 1800 Calorie Control Diet Discharge Activity: Return to Normal Activity Home Medications: Medications to take at Discharge Ferrous Sulfate 325 mg PO DAILY@0800 07/15/13 Loperamide [Imodium] 2 mg PO Q6H PRN PRN 07/15/13 Mometasone Furoate [Asmanex] 220 mcg IH BID 07/15/13 Pantoprazole Sodium [Protonix] 40 mg PO DAILY 07/15/13 Tiotropium Vale [Spiriva 18 MCG] 1 puff INHALATION DAILY 07/15/13 Vitamin B12 1,000 mcg PO DAILY 07/15/13 glyBURIDE [Micronase] 10 mg PO BIDCM 07/15/13 Formoterol Fumarate [Foradil] 1 puff INHALATION DAILY 02/03/14 Cholecalciferol (VIT D3) [Vitamin D3] 1,000 unit PO DAILY 04/11/14 Saxagliptin Hydrochloride [Onglyza] 5 mg PO DAILY 04/11/14 Ondansetron [Zofran Odt] 4 mg PO Q8H PRN PRN #10 tablet 08/09/16 Gabapentin [Neurontin] 600 mg PO TID 01/01/17 Ondansetron HCl [Zofran] 8 mg PO TID #15 tablet 01/04/17 Tamsulosin HCl [Flomax] 0.8 mg PO QHS 04/12/18 Primary Care Physician: [facility] [Primary Care Provider] - Please follow up with your Primary Care Physician in: in 1- 2 weeks Disposition: Home Minutes spent on discharge:: 35 Patient Condition:: Stable Medical Necessity - Tobacco Use Smoking Status: Former smoker Meaningful Use Info Meaningful Use Diagnoses (Choose all that apply): None applicable Code Visit Inpatient E AND M: 71589 Disch Hosp 04/14/18 0946 <Electronically signed by Guy Turcios MD> Date Guy Turcios MD Cosigner Signature (if applicable): Date CC: [facility]; Guy Turcios MD Signed DISCHARGE INSTRUCTION Observed: 04/14/2018 Status: F Source: [place] 9:42 AM [facility] REPOSITORY [facility] Medical Records Department [address] [place] [address] Instructions for Home/Discharge Instructions 04/14/18 0940 MR#: [id number] Acct: [id number] Name: MING BRUNNER Rep #: [id number] : 1960 58 From: Guy Turcios MD PCP: [place] Status: ADM IN - Discharge Diagnoses Current Active Problems: Current Active and Chronic Problems Status post ileostomy (Chronic) History of colon cancer (Chronic) Cystitis (Acute) You will use the following diet at home:: Calorie/Carbohydrate Controlled (specify 1200, 1400, etc) - 1800 Your food should be the consistency of: Regular Discharge Activity: Return to Normal Activity Allergies/Adverse Reactions: Allergies No Known Allergies Allergy (Verified 04/11/18 14:18) Medications to take at Discharge Ferrous Sulfate 325 mg PO DAILY@0800 07/15/13 Loperamide [Imodium] 2 mg PO Q6H PRN PRN 07/15/13 Mometasone Furoate [Asmanex] 220 mcg IH BID 07/15/13 Pantoprazole Sodium [Protonix] 40 mg PO DAILY 07/15/13 Tiotropium Vale [Spiriva 18 MCG] 1 puff INHALATION DAILY 07/15/13 Vitamin B12 1,000 mcg PO DAILY 07/15/13 glyBURIDE [Micronase] 10 mg PO BIDCM 07/15/13 Formoterol Fumarate [Foradil] 1 puff INHALATION DAILY 02/03/14 Cholecalciferol (VIT D3) [Vitamin D3] 1,000 unit PO DAILY 04/11/14 Saxagliptin Hydrochloride [Onglyza] 5 mg PO DAILY 04/11/14 Ondansetron [Zofran Odt] 4 mg PO Q8H PRN PRN #10 tablet 08/09/16 Gabapentin [Neurontin] 600 mg PO TID 01/01/17 Ondansetron HCl [Zofran] 8 mg PO TID #15 tablet 01/04/17 Tamsulosin HCl [Flomax] 0.8 mg PO QHS 04/12/18 Primary Care Physician: [facility] [Primary Care Provider] - Please follow up with your Primary Care Physician in: in 1- 2 weeks Test Results: Test results from this visit will be discussed in further detail at your follow-up appointment, if applicable. Proposed Discharge Date: 04/14/18 04/14/18 0942 <Electronically signed by Guy Turcios MD> Date Guy Turcios MD CC: [facility] Signed BEDSIDE GLUCOSE Collected: 04/14/2018 Status: F Source: [place] 6:32 AM [facility] REPOSITORY TYPE CODE TESTS RESULT OUT OF REFERENCE UNITS RANGE LAB L501.080 70-110 mg/dL High BEDSIDE GLU 248 Result Comment: MANAGEMENT OF PATIENT CARE PER NURSING PROTOCOL Performed By: #### L501.080 #### [facility] Point of Care [facility] [place] [address] BASIC METABOLIC Collected: 04/14/2018 Status: F Source: [place] PROFILE (BMP) 5:22 AM [facility] REPOSITORY TYPE CODE TESTS RESULT OUT OF RANGE REFERENCE UNITS LAB L501.0100 74-106 mg/dL High GLU 219 Result Comment: Glucose result greater than or equal to 200 mg/dL suggests DIABETES MELLITUS per A.D.A. criteria. Please note revised GLUCOSE reference range effective 2017. LAB L501.1000 7-18 mg/dL High BUN 27 LAB L501.1100 0.70-1.30 mg/dL High CREAT,SERUM 1.41 Result Comment: The validity of the calculated GFR AND GFRAA in patients over 70 years has not been determined. Clinical correlation is essential. LAB L501.1110 >60 mL/min Low EST GFR 55 Result Comment: Non- GFR Calc LAB L501.1115 >60 mL/min Normal EST GFR - AA 66 Result Comment: GFR Calc LAB L501.1255 ml/min Normal Estimated CRCL 48.46 LAB L501.1300 10-20 RATIO Normal BUN/CRE 19.1 LAB L501.2200 8.5-10 mg/dL Low .1 CA 7.9 LAB L501.5300 136-14 mmol/L Normal 5 NA 138 LAB L501.5600 3.5-5. mmol/L Normal 1 K 4.2 LAB L501.5900 98-107 mmol/L High CL 113 LAB L501.6100 21.0-3 mmol/L Low 2.0 CO2 12.0 LAB L501.6200 5-15 Normal GAP 13 Performed By: #### L500.2500 #### [facility] [address] [place], [address] BEDSIDE GLUCOSE Collected: 04/13/2018 Status: F Source: [place] 9:42 PM [facility] REPOSITORY TYPE CODE TESTS RESULT OUT OF REFERENCE UNITS RANGE LAB L501.080 70-110 mg/dL High BEDSIDE GLU 263 Result Comment: MANAGEMENT OF PATIENT CARE PER NURSING PROTOCOL Performed By: #### L501.080 #### [facility] Point of Care [address] [place] [address] BEDSIDE GLUCOSE Collected: 04/13/2018 Status: F Source: [place] 5:05 PM [facility] REPOSITORY TYPE CODE TESTS RESULT OUT OF REFERENCE UNITS RANGE LAB L501.080 70-110 mg/dL High BEDSIDE GLU 233 Result Comment: MANAGEMENT OF PATIENT CARE PER NURSING PROTOCOL Performed By: #### L501.080 #### [facility] Point of Care [address] [place] [address] BEDSIDE GLUCOSE Collected: 04/13/2018 Status: F Source: [place] 11:48 AM [facility] [place] REPOSITORY TYPE CODE TESTS RESULT OUT OF REFERENCE UNITS RANGE LAB L501.080 70-110 mg/dL High BEDSIDE GLU 346 Result Comment: MANAGEMENT OF PATIENT CARE PER NURSING PROTOCOL Performed By: #### L501.080 #### [facility] Point of Care [address] [place] [address] BEDSIDE GLUCOSE Collected: 04/13/2018 Status: F Source: [place] 6:36 AM [facility] REPOSITORY TYPE CODE TESTS RESULT OUT OF REFERENCE UNITS RANGE LAB L501.080 70-110 mg/dL High BEDSIDE GLU 278 Result Comment: MANAGEMENT OF PATIENT CARE PER NURSING PROTOCOL Performed By: #### L501.080 #### [facility] Point of Care [address] [place], [place] [address] BASIC METABOLIC Collected: 04/13/2018 Status: F Source: [place] PROFILE (BMP) 6:23 AM [facility] [place] REPOSITORY TYPE CODE TESTS RESULT OUT OF RANGE REFERENCE UNITS LAB L501.0100 74-106 mg/dL High GLU 288 Result Comment: Glucose result greater than or equal to 200 mg/dL suggests DIABETES MELLITUS per A.D.A. criteria. Please note revised GLUCOSE reference range effective 2017. LAB L501.1000 7-18 mg/dL High BUN 35 LAB L501.1100 0.70-1.30 mg/dL High CREAT,SERUM 1.57 Result Comment: The validity of the calculated GFR AND GFRAA in patients over 70 years has not been determined. Clinical correlation is essential. LAB L501.1110 >60 mL/min Low EST GFR 48 Result Comment: Non- GFR Calc LAB L501.1115 >60 mL/min Low EST GFR - AA 58 Result Comment: GFR Calc LAB L501.1255 ml/min Normal Estimated CRCL 43.52 LAB L501.1300 10-20 RATIO High BUN/CRE 22.3 LAB L501.2200 8.5-10 mg/dL Normal .1 CA 8.8 LAB L501.5300 136-14 mmol/L Low 5 NA 135 LAB L501.5600 3.5-5. mmol/L Normal 1 K 4.4 LAB L501.5900 98-107 mmol/L High CL 110 LAB L501.6100 21.0-3 mmol/L Low 2.0 CO2 14.0 LAB L501.6200 5-15 Normal GAP 11 Performed By: #### L500.2500 #### [facility] [address] [place], [place], [address] BEDSIDE GLUCOSE Collected: 04/12/2018 Status: F Source: [place] 9:30 PM [facility] REPOSITORY TYPE CODE TESTS RESULT OUT OF REFERENCE UNITS RANGE LAB L501.080 70-110 mg/dL High BEDSIDE GLU 262 Result Comment: MANAGEMENT OF PATIENT CARE PER NURSING PROTOCOL Performed By: #### L501.080 #### [facility] Point of Care [address] [place] [address] BEDSIDE GLUCOSE Collected: 04/12/2018 Status: F Source: [place] 5:00 PM [facility] REPOSITORY TYPE CODE TESTS RESULT OUT OF REFERENCE UNITS RANGE LAB L501.080 70-110 mg/dL High BEDSIDE GLU 214 Result Comment: MANAGEMENT OF PATIENT CARE PER NURSING PROTOCOL Performed By: #### L501.080 #### [facility] Point of Care [address] [place] [address] BEDSIDE GLUCOSE Collected: 04/12/2018 Status: F Source: [place] 12:31 PM [facility] REPOSITORY TYPE CODE TESTS RESULT OUT OF REFERENCE UNITS RANGE LAB L501.080 70-110 mg/dL High BEDSIDE GLU 318 Result Comment: MANAGEMENT OF PATIENT CARE PER NURSING PROTOCOL Performed By: #### L501.080 #### [facility] Point of Care [address] [place] [address] HISTORY AND PHYSICAL Observed: 04/12/2018 Status: F Source: [place] EXAM 7:28 AM [facility] REPOSITORY [facility] Medical Records Department [address] [place] [address] History and Physical 04/11/18 1916 MR#: [id number] Acct: [id number] Name: MING BRUNNER Rep #: [id number] : 1960 58 From: Artemio Lynch MD PCP: [place], [place] Status: ADM GOLD Y Location: [place] [address] Problem List (1) Enteritis Status: Suspected (2) Cystitis Status: Acute History of Present Illness Date of Admission: 04/11/18 Chief Complaint: abdominal cramps and increased ileostomy output The patient is a 58 year old M with a significant history of COPD; diabetes mellitus; family adenomatous polyposis status post colectomy with ileostomy; hyperlipidemia; chronic urinary retention with self-catheterization who presents with generalized abdominal pain and increased ileostomy output. He reports his abdominal pain as crampy type of pain. He rated his pain as 6 on a scale of 1-10. His pain is nonradiating. His symptoms started on the same day of admission. At the emergency department patient was noted to have abnormal urinalysis. Patient reported that 5 days ago he had endoscopy that showed redness and swelling in his intestines. At emergency department patient was started on ceftriaxone for UTI. Past Medical History Past Medical History (Chronic Problems): Chronic Problems Status post colostomy (Chronic) Resulting after complicated abdominal surgery COPD (Chronic) Familial adenomatous polyposis coli (Chronic) Complicated by cancer requiring surgery in 2001 Allergies No Known Allergies Allergy (Verified 04/11/18 14:18) Home Medications: Ambulatory Orders Medication Instructions Recorded Surgical History: - - Ileostomy; 7 abdominal surgeries, colon resection secondary to cancer Psychiatric History: No pertinent psych hx Smoking Status: Former smoker - *Family History Sibling History Items: - - Familial polyposis coli-Brothers and sisters Maternal History Items: No pertinent history Review of Systems Constitutional: Denies: Chills, Fever, Weight Change HEENT: Denies: Head Aches, Sinus Congestion, Sinus Drainage Cardiovascular: Denies: Chest Pain, Palpitations Respiratory: Denies: Cough, Shortness of breath at rest, Sputum production Gastrointestinal: Reports: Abdominal Pain. Denies: Nausea, Vomiting Genitourinary: Reports: Retention Musculoskeletal: Denies: Joint Pain, Joint Tenderness Skin: Denies: Rash, Wounds Neurological: Denies: Numbness, Tingling, Focal weakness Psychiatric: Denies: Anxiety, Depression, Homicidal Ideations, Suicidal Ideations Hematologic/ Lymphatic: Denies: Easy Bruising, Easy Bleeding VTE Information - Inpt Only VTE Present on Admission: No VTE Mechan Device Prophylaxis: None VTE Pharm Prophylaxis ordered?: Yes Patient Problems: Active and Suspected Problems Enteritis (Suspected) Cystitis (Acute) - Physical Exam General: Alert, Oriented x3, Cooperative HEENT: Atraumatic, PERRLA, EOMI,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 mGy, DLP = ( 1140.51 ) mGycm TECHNIQUE: Transaxial images were obtained from the dome of the diaphragm to the symphysis pubis without oral contrast. 100ml ml of Isovue 300 contrast was administered. Sagittal and coronal images were reconstructed. Individualized dose optimization techniques were used for this CT. COMPARISON: None. FINDINGS: The visualized lung bases are unremarkable. The visualized portions of the heart are within normal limits. Normal liver. Normal gallbladder and extrahepatic biliary system. Normal spleen. Normal pancreas. Normal bilateral adrenal glands. Normal right kidney. There is a 21 mm hypodensity of the Left kidney. This is 1-10 Hounsfield units. Normal visualized stomach. There are dilated loops of the small intestine with a non-distended colon consistent with a small bowel obstruction. Air-fluid levels are visualized. Stool is seen in the distal small bowel. Transition point appears to be at the level of the ostomy site. There is evidence for total colectomy. There is non-visualization of the appendix. There is a right lower quadrant ostomy noted. Normal abdominal aorta. Normal inferior vena cava. Normal retroperitoneum. The urinary bladder is distended. This can suggest urinary retention. Anterior abdominal wall hernia mesh in place. There are prostatic calcifications. Rectal stump in place. Normal abdominal wall. Normal osseous structures. CT/Abdomen/Pelvis WITH Contrast IMPRESSION: There is a small bowel obstruction. The transition point is noted in the region of the right upper quadrant ostomy site. Simple left renal cyst. Electronically Signed: Pelon Mueller MD at 19:18 EDT , Service support , CC: [facility]; Sebastian Young MD Expanded Duty Dental Assistant: Signed ABDOMEN SINGLE VIEW Observed: 09/05/2017 Status: F Source: [place] (PORTABLE) 3:18 PM [facility] REPOSITORY [facility] Imaging Services [address] [place] [address] Abdomen Single View (Portable) MR#: [id number] Acct: [id number] Name: MING BRUNNER Rep #: [id number] : 1960 57 From: Flavio Wilson PCP: [place] [place] Status: DIS IN Study: Abdomen Single View (Portable) Date of Exam: 09/02/17 Exam# [id number] Ordering Dr: Sebastian Young MD STUDY: X-RAY - ABDOMEN/PELVIS REASON FOR EXAM: Male, 57 years old. Shortness of breath TECHNIQUE: Two AP supine views of the abdomen and pelvis. COMPARISON: None. FINDINGS: Normal visualized lung bases. There is a paralytic ileus of the small intestine with mild gaseous distention. There is no demonstrated free abdominal air. The visualized liver, spleen and kidneys are grossly normal in size and morphology. Normal soft tissue structures. Normal visualized osseous structures. RAD/Abdomen Single View (Portable) IMPRESSION: Small bowel ileus. Electronically Signed: Flavio Wilson DO at 23:54 EDT , Service support , CC: [facility]; Sebastian Young MD Expanded Duty Dental Assistant: Signed ABDOMEN SINGLE VIEW Observed: 09/05/2017 Status: F Source: [place] (PORTABLE) 2:14 PM [facility] REPOSITORY [facility] Imaging Services [address] [place] [address] Abdomen Single View (Portable) MR#: [id number] Acct: [id number] Name: MING BRUNNER Rep #: [id number] : 1960 M 57 From: Louisa Ruvalcaba MD PCP: [place] [place] Status: DIS IN Study: Abdomen Single View (Portable) Date of Exam: 09/03/17 Exam# [id number] Ordering Dr: Audrey Tatum MD STUDY: X-RAY - ABDOMEN/PELVIS REASON FOR EXAM: Male, 57 years old. ? Blockage Prior ventral hernia repair, colostomy TECHNIQUE: AP supine views of the abdomen and pelvis. COMPARISON: January 01, 2017 FINDINGS: Normal visualized lung bases. There are a few dilated small bowel loops in the upper abdomen consistent with a partial small bowel obstruction or focal ileus. The visualized liver, spleen and kidneys are grossly normal in size and morphology. There has been hernia repair with mesh. There is a right lower quadrant colostomy. There are diffuse degenerative changes of the visualized lumbar spine. RAD/Abdomen Single View (Portable) IMPRESSION: There are a few dilated small bowel loops in the upper abdomen consistent with a partial small bowel obstruction or focal ileus. Electronically Signed: Louisa Ruvalcaba MD at 10:01 EDT , Service support , CC: [facility]; Audrey Tatum Expanded Duty Dental Assistant: Signed BEDSIDE GLUCOSE Collected: 09/03/2017 Status: F Source: [place] 6:09 AM [facility] REPOSITORY Order Comment: RESULT(S) PREVIOUSLY REPORTED ON MANUAL REQUISITION DURING DOWNTIME. TYPE CODE TESTS RESULT OUT OF REFERENCE UNITS RANGE LAB L501.080 70-110 mg/dL High BEDSIDE GLU 182 Result Comment: MANAGEMENT OF PATIENT CARE PER NURSING PROTOCOL Performed By: #### L501.080 #### [facility] Point of Care [address] [facility] [place] [address] URINALYSIS, COMPLETE Collected: 09/03/2017 Status: F Source: [place] 1:00 AM [facility] REPOSITORY Order Comment: RESULT(S) PREVIOUSLY REPORTED ON MANUAL REQUISITION DURING DOWNTIME. How was Urine Obtained? CLEAN CATCH TYPE CODE TESTS RESULT OUT OF RANGE REFERENCE UNITS LAB L400.3000 Yellow COLOR Normal Yellow LAB L400.3050 Clear Normal CLARITY Clear LAB L400.3200 Normal mg/dl High GLUCOSE, UR 50 LAB L400.3300 Negative mg/dL High BILIRUBIN URINE 1 Result Comment: COLOR OF URINE MAY AFFECT DIPSTICK RESULTS. LAB L400.3400 Negative mg/dl Normal KETONE UR Negative LAB L400.3465 1.002-1.030 Normal SP.GR. DIPSTX 1.020 LAB L400.3550 5.0 - 8.0 pH Normal UR 5.0 LAB L400.3600 Negative mg/dl High PROT DIPSTX 15 LAB L400.3700 Normal mg/dl Normal UROBILI Normal LAB L400.3750 Negative Normal NITRITE UR Negative LAB L400.3780 Negative /ul Normal OCCULT Negative BLOOD-UR LAB L400.3800 Negative /ul Normal LEUK ESTERASE Negative LAB L400.4050 0-5 /hpf Normal WBC 0 SEEN LAB L400.4100 0-5 /hpf Normal RBC-UA 0 SEEN LAB L400.4150 0-5 /hpf Normal SQUAM EPI 0-5 SEEN LAB L400.4300 None Seen /hpf Normal BACTERIA RARE LAB L400.4350 <or=2+ /hpf Normal MUCUS, URINE 0 SEEN Performed By: #### L400.0001 #### [facility] [address] [place], [address] BEDSIDE GLUCOSE Collected: 09/03/2017 Status: F Source: [place] 12:15 AM [facility] REPOSITORY Order Comment: RESULT(S) PREVIOUSLY REPORTED ON MANUAL REQUISITION DURING DOWNTIME. TYPE CODE TESTS RESULT OUT OF REFERENCE UNITS RANGE LAB L501.080 70-110 mg/dL High BEDSIDE GLU 213 Result Comment: MANAGEMENT OF PATIENT CARE PER NURSING PROTOCOL Performed By: #### L501.080 #### [facility] Point of Care [address] [facility] [place] [address] CBC-COMPLETE BLOOD CNT Collected: 09/03/2017 Status: F Source: [place] NO DIFF 12:00 AM [facility] REPOSITORY Order Comment: RESULT(S) PREVIOUSLY REPORTED ON MANUAL REQUISITION DURING DOWNTIME. TYPE CODE TESTS RESULT OUT OF RANGE REFERENCE UNITS LAB L100.1000 4.4-11.0 K/mm3 Normal WBC 6.2 LAB L100.1200 4.6-6.2 M/mm3 Normal RBC 5.10 LAB L100.1300 13.0-16.5 g/dl Normal HGB 15.6 LAB L100.1400 40-54 % Normal HCT 47.4 LAB L100.1500 80-94 fL Normal MCV 92.9 LAB L100.1600 27.0-32.0 pg Normal MCH 30.6 LAB L100.1700 32-36 g/gl Normal MCHC 32.9 LAB L100.1810 11.6-14.6 % Normal RDW CV 13.9 LAB L100.1820 35.1-43.9 fl High RDW SD 45.6 LAB L100.1900 150-450 K/mm3 Low PLT 101 LAB L100.2000 6.2-12.0 fl High MPV 12.2 Performed By: #### L100.0500 #### [facility] [address] [place] [address], [address] COMPREHENSIVE METABOLIC Collected: 09/03/2017 Status: F Source: [place] PROFIL 12:00 AM [facility] REPOSITORY Order Comment: RESULT(S) PREVIOUSLY REPORTED ON MANUAL REQUISITION DURING DOWNTIME. TYPE CODE TESTS RESULT OUT OF RANGE REFERENCE UNITS LAB L501.0100 74-106 mg/dL High GLU 187 Result Comment: Fasting Glucose result greater than or equal to 126 mg/dL suggests DIABETES MELLITUS per A.D.A. criteria. Please note revised GLUCOSE reference range effective 2017. LAB L501.1000 7-18 mg/dL Normal BUN 15 LAB L501.1100 0.70-1.30 mg/dL Normal CREAT,SERUM 1.09 Result Comment: The validity of the calculated GFR AND GFRAA in patients over 70 years has not been determined. Clinical correlation is essential. LAB L501.1110 >60 mL/min Normal EST GFR 74 LAB L501.1115 >60 mL/min Normal EST GFR - AA 90 LAB L501.1300 10-20 RATIO Normal BUN/CRE 13.8 LAB L501.1500 6.4-8.2 g/dL Normal T PROT 6.8 LAB L501.1800 3.2-5.0 g/dL Normal ALB 3.4 LAB L501.1950 2.2-4.2 g/dL Normal GLOB 3.4 LAB L501.2000 0.9-2.4 RATIO Normal A/G 1.0 LAB L501.2200 8.5-10.1 mg/dL Normal CA 8.5 LAB L501.4100 15-37 U/L Low AST 14 LAB L501.4305 45-117 U/L High ALK P 136 LAB L501.4405 16-61 U/L Normal ALT 25 LAB L501.4600 0.20-1.00 mg/dL Normal T BILI 0.80 LAB L501.5300 136-145 mmol/L Normal NA 142 LAB L501.5600 3.5-5.1 mmol/L Normal K 3.8 LAB L501.5900 98-107 mmol/L High CL 111 LAB L501.6100 21.0-32.0 mmol/L Normal CO2 22.0 LAB L501.6200 5-15 Normal GAP 9 Performed By: #### L500.4050 #### [facility] [address] [place], [address] BEDSIDE GLUCOSE Collected: 09/02/2017 Status: F Source: [place] 9:30 PM [facility] REPOSITORY Order Comment: RESULT(S) PREVIOUSLY REPORTED ON MANUAL REQUISITION DURING DOWNTIME. TYPE CODE TESTS RESULT OUT OF REFERENCE UNITS RANGE LAB L501.080 70-110 mg/dL High BEDSIDE GLU 201 Result Comment: MANAGEMENT OF PATIENT CARE PER NURSING PROTOCOL Performed By: #### L501.080 #### [facility] [place] [address] CBC W/DIFF, AUTOMATED Collected: 09/02/2017 Status: F Source: [place] 11:45 AM [facility] REPOSITORY Order Comment: RESULT(S) PREVIOUSLY REPORTED ON MANUAL REQUISITION DURING DOWNTIME. TESTING PERFORMED AT [facility]. TYPE CODE TESTS RESULT OUT OF RANGE REFERENCE UNITS LAB L100.1000 4.4-11.0 K/mm3 9.1 Normal WBC LAB L100.1200 4.6-6.2 M/mm3 5.28 Normal RBC LAB L100.1300 13.0-16.5 g/dl 16.2 Normal HGB LAB L100.1400 40-54 % 48.8 Normal HCT LAB L100.1500 80-94 fL 92.4 Normal MCV LAB L100.1600 27.0-32.0 pg 30.7 Normal MCH LAB L100.1700 32-36 g/gl 33.2 Normal MCHC LAB L100.1810 11.6-14.6 % 14.0 Normal RDW CV LAB L100.1820 35.1-43.9 fl High 46.3 RDW SD LAB L100.1900 150-450 K/mm3 Low 108 PLT LAB L100.2000 6.2-12.0 fl 11.9 Normal MPV LAB L100.2100 47-70 % High 88.7 NEUT% LAB L100.2200 19-41 % Low 7.7 LY% LAB L100.2300 0-10 % 3.4 Normal MONO% LAB L100.2400 0-5 % 0.1 Normal EO% LAB L100.2500 0-1 % 0.1 Normal BASO% LAB L100.2550 0.0-0.9 % IM Test Normal GRAN % not performed LAB L100.2620 2.0-7.7 X10 3/uL High 8.1 Absolute Neut LAB L100.2720 0.83-4.51 X10 3/ul Low 0.70 Absolute Lymph LAB L100.4500 Normal SMEAR COMMENT SCANNED Performed By: #### L100.0100 #### [facility] [address] [place], [address] BASIC METABOLIC Collected: 09/02/2017 Status: F Source: [place] PROFILE (BMP) 11:45 AM [facility] REPOSITORY Order Comment: RESULT(S) PREVIOUSLY REPORTED ON MANUAL REQUISITION DURING DOWNTIME. TYPE CODE TESTS RESULT OUT OF RANGE REFERENCE UNITS LAB L501.0100 74-106 mg/dL High GLU 248 Result Comment: Glucose result greater than or equal to 200 mg/dL suggests DIABETES MELLITUS per A.D.A. criteria. Please note revised GLUCOSE reference range effective 2017. LAB L501.1000 7-18 mg/dL Normal BUN 15 LAB L501.1100 0.70-1.30 mg/dL Normal CREAT,SERUM 1.14 Result Comment: The validity of the calculated GFR AND GFRAA in patients over 70 years has not been determined. Clinical correlation is essential. LAB L501.1110 >60 mL/min Normal EST GFR 70 LAB L501.1115 >60 mL/min Normal EST GFR - AA 85 LAB L501.1300 10-20 RATIO Normal BUN/CRE 13.2 LAB L501.2200 8.5-10.1 mg/dL Normal CA 9.1 LAB L501.5300 136-145 mmol/L Normal NA 141 LAB L501.5600 3.5-5.1 mmol/L Normal K 4.0 LAB L501.5900 98-107 mmol/L High CL 110 LAB L501.6100 21.0-32.0 mmol/L Normal CO2 21.0 LAB L501.6200 5-15 Normal GAP 10 Performed By: #### L500.2500, L500.3400, L501.2450 #### [facility] [address] [place], [address] LIVER PROFILE Collected: 09/02/2017 Status: F Source: [place] 11:45 AM [facility] REPOSITORY Order Comment: RESULT(S) PREVIOUSLY REPORTED ON MANUAL REQUISITION DURING DOWNTIME. TYPE CODE TESTS RESULT OUT OF RANGE REFERENCE UNITS LAB L501.1500 6.4-8.2 g/dL Normal T PROT 7.8 LAB L501.1800 3.2-5.0 g/dL Normal ALB 4.0 LAB L501.1950 2.2-4.2 g/dL Normal GLOB 3.8 LAB L501.4100 15-37 U/L Normal AST 19 LAB L501.4305 45-117 U/L High ALK P 172 LAB L501.4405 16-61 U/L Normal ALT 33 LAB L501.4600 0.20-1.00 mg/dL Normal T BILI 0.70 LAB L501.4700 0.00-0.30 mg/dL Normal D BILI 0.17 Performed By: #### L500.2500, L500.3400, L501.2450 #### [facility] [address] [place], [place], [address] LIPASE Collected: 09/02/2017 Status: F Source: [place] 11:45 AM [facility] REPOSITORY Order Comment: RESULT(S) PREVIOUSLY REPORTED ON MANUAL REQUISITION DURING DOWNTIME. TYPE CODE TESTS RESULT OUT OF RANGE REFERENCE UNITS LAB L501.2450 73-393 U/L Normal LIPASE 139 Performed By: #### L500.2500, L500.3400, L501.2450 #### [facility] [address] [place], [place], [address] ALLERGIES ALLERGIES DATE TYPE / CODE NAME / CODE REACTION SEVERITY SOURCE 04/22/2018 Drug No Known Unknown [facility] Allergy/416 Allergies/E95282 [facility] 496562(SNOM 0388(RXNORM) Repository ED CT) Drug NO KNOWN [facility] Class/13371 ALLERGIES [facility] 1003(SNOMED Repository CT) ENCOUNTERS ENCOUNTERS ADMIT/DISCHARGE ACCOUNT ADMITTING ENCOUNTER LOCATION SOURCE NUMBER CLASS 04/22/2018/04/22/19 [id number] Emergency [address] ing:ED Repository 04/12/2018/04/14/19 [id number] Agkar[place], [place] [address] Artemio Encounter [facility] ing:RX4Dkro: Repository VY326Rlb: 1 04/12/2018 [id number] Agjocelynng, Ambulatory BMSBuilding:[address] [place] Artemio MS.[facility] Repository 04/11/2018 [id number] Agyepong, Ambulatory BMSBuilding:Sherwin Ulloa MS.[facility] Repository 04/11/2018 [id number] Agyepong, Ambulatory BMSBuilding:Sherwin Ulloa MS.[facility] Repository 04/11/2018 [id number] Agyepong, Ambulatory BMSBuilding:Sherwin Ulloa MS.[facility] Repository 01/29/2018/01/30/20 [id number] Emergency [address] ing:ED Repository 01/16/2018 [id number] [facility] ing:PT Repository 01/10/2018/01/29/20 [id number] Ambulatory [address] Repository 09/02/2017/09/03/19 [id number] Radhadwayne, Emergency [address] ing:RN4Epvg: Repository BX658Qoh: 1 09/02/2017/09/04/19 [id number] Ambulatory BMSBuilding:W [place] [facility] Repository 09/02/2017/09/04/19 [id number] Ambulatory BMSBuilding:W [place] Repository 09/02/2017/09/04/19 [id number] Ambulatory BMSBuilding:Sherwin Mason MS.CF.[facility] Repository PAYERS PAYERS ENCOUNTER GUARANTOR PAYER SUBSCRIBER SOURCE 04/22/2018 MING Golden Primary Insurance:[place] [facility] Number: [id number] [id number] Repository [address]Oek: ([phone]) Date:2024-37-15TAJ [phone] () SERVICE [id number] [place], [place] [address]WR: [phone] x2003 04/22/2018 Secondary NOT GIVENUNK [place] Insurance:SELF PAY [facility] Number: Effective Repository Date:2018-04-22 04/12/2018 MING Golden Primary Insurance:[place] MING MEMBRENO1 [facility] Number: [id number] [id number] Repository [address]Pfw: ([phone]) Date:0284-23-72EYZ [phone] () SERVICE [id number] [place], [place] [address]BT: [phone] x2003 04/12/2018 Secondary NOT GIVENUNK [place] Insurance:SELF PAY [facility] Number: Effective Repository Date:2018-04-11 04/12/2018 MING A Primary Insurance:[place] MING A [place] [id number] [facility] PINNICKDOB: [facility] STAPT Number: [id number] [id number] Repository [address]Lul: (330) Date:8037-56-88UZO [phone] () SERVICE [id number] [place], [place] [address]CQ: [phone] x2003 04/12/2018 Secondary NOT GIVENUNK [place] Insurance:SELF PAY [facility] Number: Effective Repository Date:2018-04-12 04/11/2018 MING A Primary Insurance:[place] MING A [place] [id number] [facility] PINNICKDOB: [facility] Number: [id number] [id number] Repository [address]Zqc: ([phone]) Date:6897-95-29VGJ [phone] () SERVICE [id number] [place], [place] [address]TB: [phone] x2003 04/11/2018 Secondary NOT GIVENUNK [place] Insurance:SELF PAY [facility] Number: Effective Repository Date:2018-04-11 04/11/2018 MING A Primary Insurance:[place] MING A [place] [id number] E [facility] PINNICKDOB: [facility] STAP Number: [id number] [id number] Repository [address]Cbc: ([phone]) Date:6902-95-77ZGB [phone] () SERVICE [id number] [place], [place] [address]AW: [phone] x2003 04/11/2018 Secondary NOT GIVENUNK [place] Insurance:SELF PAY [facility] Number: Effective Repository Date:2018-04-11 04/11/2018 MING A Primary Insurance:[place] MING A [place] [id number] E [facility] PINNICKDOB: [facility] Number: [id number] [id number] Repository [address]Zlv: ([phone]) Date:2894-91-14HQI [phone] () SERVICE [id number] [place], [place] [address]ST: [phone] x2003 04/11/2018 Secondary NOT GIVENUNK [place] Insurance:SELF PAY [facility] Number: Effective Repository Date:2018-04-11 01/29/2018 Ming A Primary Insurance:[place] Ming A [place] [id number] E [facility] PinnickDOB: [facility] ST[facility] Number: [id number] [id number] Repository [address]Sjg: ([phone]) Date:0449-52-29VIH [phone] () SERVICE [id number] [place], [place] [address]AT: [phone] x2003 01/29/2018 Secondary NOT GIVENUNK [place] Insurance:SELF PAY [facility] Number: Effective Repository Date:2018-01-29 01/16/2018 Ming A Primary Insurance:[place] Ming A [place] [id number] E [facility] PinnickDOB: [facility] Number: [id number] [id number] Repository [address]Xfm: ([phone]) Date:6033-99-24HKO [phone] () SERVICE [id number] [place], [place] [address]VI: [phone] x2003 01/16/2018 Secondary NOT GIVENUNK [place] Insurance:SELF PAY [facility] Number: Effective Repository Date:2018-01-14 09/02/2017 Ming A Primary Insurance:[place] Ming A [place] [id number] E [facility] PinnickDOB: [facility] Number: [id number] [id number] Repository [address]Kfq: ([phone]) Date:1946-26-37AOE [phone] () SERVICE [id number] [place], [place] [address]LQ: [phone] x2003 09/02/2017 Secondary NOT GIVENUNK [place] Insurance:SELF PAY [facility] Number: Effective Repository Date:2017-09-02 09/02/2017 Ming A Primary Insurance:[place] Ming A [place] [id number] E [facility] PinnickDOB: [facility] Number: [id number] [id number] Repository [address]Saa: (330) Date:3155-21-40YXH [phone] () SERVICE [id number] [place], [place] [address]RZ: [phone] x2003 09/02/2017 Secondary NOT GIVENUNK [place] Insurance:SELF PAY [facility] Number: Effective Repository Date:2017-09-02 09/02/2017 Ming A Primary Insurance:[place] Ming A [place] [id number] E [facility] PinnickDOB: [facility] Number: [id number] [id number] Repository [address]Ltf: (330) Date:3620-98-86CUB [phone] () SERVICE [id number] [place], [place] [address]IG: [phone] x2003 09/02/2017 Secondary NOT GIVENUNK [place] Insurance:SELF PAY [facility] Number: Effective Repository Date:2017-09-02 09/02/2017 Ming A Primary Insurance:[place] Ming A [place] [id number] E [facility]: [facility] Number: [id number] [id number] Repository [address]Gbd: (330) Date:7591-20-26AAU [phone] () SERVICE [id number] [place], [place] [address]SH: [phone] x2003 09/02/2017 Secondary NOT GIVENUNK [place] Insurance:SELF PAY [facility] Number: Effective Repository Date:2017-09-02
== END 2018-04-22 22:02 | disposition home or self-care (01) ==
PROVIDERS: Emergency Provider Emergency Medicine
DX: S42.212A Unspecified displaced fracture of surgical neck of left humerus, initial encounter for closed fracture (principal); S09.90XA Unspecified injury of head, initial encounter; M54.2 Cervicalgia; W00.0XXA Fall on same level due to ice and snow, initial encounter; Y93.9 Activity, unspecified; Y92.9 Unspecified place or not applicable; Y99.9 Unspecified external cause status; E11.9 Type 2 diabetes mellitus without complications; J44.9 Chronic obstructive pulmonary disease, unspecified; E66.9 Obesity, unspecified; Z79.84 Long term (current) use of oral hypoglycemic drugs; Z79.899 Other long term (current) drug therapy
CPT/HCPCS: 73030; 96372; 99283

== ENCOUNTER 2018-08-13 18:23 | Inpatient (IN) | payer OTHER, SELFPAY ==
[2018-08-13 18:24] VITALS: BP 102/77; PULSE 140; RESP 18; TEMP 36.8; O2SAT 95; BMI 31.5
--- NOTE | 2018-08-13 19:01 | CT_ITS ---
We are attempting to reach an attending provider to discuss findings. An addendum with communication details will be sent when the communication is complete. STUDY: CT ABDOMEN AND PELVIS WITH CONTRAST REASON FOR EXAM: Male, 58 years old. Abdominal pain. History of colon cancer. RADIATION DOSAGE (If Supplied By Facility): CTDIvol = ( 18.12 ) mGy, DLP = ( 1232.56 ) mGycm TECHNIQUE: Transaxial images were obtained from the dome of the diaphragm to the symphysis pubis without oral contrast. 100ml IV/Oral Isovue 300 was administered. Sagittal and coronal images were reconstructed. Individualized dose optimization techniques were used for this CT. COMPARISON: April 11, 2018. FINDINGS: Patchy left lower lung increased opacities. The visualized portions of the heart are within normal limits. Normal liver. Normal gallbladder and extrahepatic biliary system. There is moderate splenomegaly. Normal pancreas. Normal bilateral adrenal glands. Normal right kidney. There is 2.6 cm cyst of the left kidney. Normal visualized stomach. There are dilated loops of the mid small intestine with a non-distended distal aspect consistent with a small bowel obstruction. Postoperative changes with resection of the colon. There is ostomy in the right lower quadrant. There is non-visualization of the appendix. There is diffuse atherosclerotic calcification of the abdominal aorta, without a demonstrated aneurysm. Normal inferior vena cava. Normal retroperitoneum. Normal urinary bladder. There is postoperative change of the abdominal wall. Mild degenerative changes of the spine CT/Abdomen/Pelvis WITH Contrast IMPRESSION: Small bowel obstruction Splenomegaly. Postoperative changes. Electronically Signed: Brendan Gutierrez MD at 21:02 EDT , Service support ,
[2018-08-13] MEDS: Ondansetron 4 MG/2 ML Vial IV (19:17)
[2018-08-13] MEDS: 0.9% Normal Saline 1,000 ML 125 ML IV (19:17)
[2018-08-13] MEDS: Morphine 4 MG/ML Syringe IV ×2 (19:18→21:58)
[2018-08-13 19:52] LABS: Absolute Lymphocyte Count 0.65 X10^3/ul (0.83-4.51); Absolute Neutrophil Count 7.4 X10^3/uL (2.0-7.7); Basophil# 0.01 X10^3/uL; Basophil% 0.1 % (0-1); Eosinophil# 0.01 X10^3/uL; Eosinophils% 0.1 % (0-5); Hematocrit 51.7 % (40-54); Lymphocyte # 0.65 X10^3/ul (4.0); Lymphocyte % 7.6 % (19-41); Mean Corp Hgb Conc 32.9 g/gl (32-36); Mean Corpuscular Hgb 28.3 pg (27.0-32.0); Mean Corpuscular Volume 86.2 fL (80-94); Monocyte# 0.47 X10^3/uL; Monocyte% 5.5 % (0-10); Neutrophil # 7.39 X10^3/uL (2.7-7.7); Neutrophil % 86.2 % (47-70); Platelet Count 142 K/mm3 (150-450); RBC Distribution Width CV 14.9 % (11.6-14.6); RBC Distribution Width SD 47.5 fl (35.1-43.9); White Blood Count 8.6 K/mm3 (4.4-11.0)
[2018-08-13 19:53] LABS: POSITIVE COUNT NO; POSITIVE DIFFERENTIAL NO; POSITIVE MORPHOLOGY NO
[2018-08-13 20:06] LABS: Lactic Acid 1.2 mmol/L (0.4-2.0)
[2018-08-13 20:19] LABS: AST(SGOT) 27 U/L (15-37); Alanine Aminotransfer ALT/SGPT 41 U/L (16-61); Albumin, Serum 4.3 g/dL (3.2-5.0); Alkaline Phosphatase 198 U/L (45-117); Anion Gap 7 (5-15); BUN 18 mg/dL (7-18); BUN/Creat Ratio 11.8 RATIO (10-20); Calcium,Total 9.4 mg/dL (8.5-10.1); Chloride 109 mmol/L (98-107); Creatinine, Serum 1.53 mg/dL (0.70-1.30); EST Glomerular Filtration Rate 50 mL/min (>60); Est Glom Filt Rate - Afr Amer 60 mL/min (>60); Estimated Creatinine Clearance 46.33 ml/min; Globulin 4.2 g/dL (2.2-4.2); Glucose 264 mg/dL (74-106); Lipase 137 U/L (73-393); Potassium 3.6 mmol/L (3.5-5.1); Protein, Total 8.5 g/dL (6.4-8.2); Sodium Level 138 mmol/L (136-145)
[2018-08-13 20:53] VITALS: RESP 20
--- NOTE | 2018-08-13 21:27 | ED.RN ---
CALLED [facility]. ABBIE FROM THE TRANSFER CENTER STATED THEY CANNOT ACCEPT THIS PT TONIGHT AND WILL FOLLOW UP TOMORROW WHEN THE TRANSFER CENTER COORDINATOR IS AVAILABLE.
--- NOTE | 2018-08-13 21:42 | RAD_ITS ---
STUDY: X-RAY - ABDOMEN/PELVIS REASON FOR EXAM: Male, 58 years old. Tube placement TECHNIQUE: Single AP view of the abdomen / pelvis. COMPARISON: CT. FINDINGS: Normal visualized lung bases. Feeding tube extends to the stomach in the left upper quadrant. There are dilated loops of small bowel. There is no demonstrated free abdominal air. There is postoperative change of the abdominal wall . Normal visualized osseous structures. RAD/Abdomen Single View (Portable) IMPRESSION: Feeding tube extends to the stomach. Dilated small bowel consistent with obstruction. Electronically Signed: Brendan Gutierrez MD at 22:37 EDT , Service support ,
--- NOTE | 2018-08-13 21:50 | ED.VISSUMM ---
- ER Visit Summary Date of Service: 08/13/18 Chief Complaint: Abdominal pain [] History of Present Illness: The patient is a 58 M [presents the emergency department complaint of abdominal pain that started today. Patient states that he ate cabbage yesterday and felt that maybe he had developed a bowel obstruction. Patient having output from ileostomy but mostly liquid and not getting any solids through. Patient states that he has had multiple small bowel obstructions in the past. Patient has not required surgery for these in the past. Patient has history of prior colectomy due to familial polyposis. Patient rates his pain a 7 or 8 out of 10. He denies any fevers. He denies urinary symptoms.] Physical Examination: [HEENT-PERRLA, EOMI. Cranial nerves II through XII grossly intact. TMs clear. Mucous membranes moist. No adenopathy. Cardiovascular-regular rate and rhythm without murmur or ectopy Lungs-clear to auscultation, chest wall stable without crepitus or subcu emphysema Nbnntzm-wgxd-[id number] bowel sounds. Slight distention. Diffusely tender to palpation. There is no rebound, rigidity, cranial signs. Extremities-intact ?4, normal range of motion, normal pulses, atraumatic] Test Results: [CBC with differential obtained showed a white of 8.6, hemoglobin 17, hematocrit 51, platelets 142. Chemistries unremarkable. BUN was 18 creatinine 1.53. LFTs unremarkable. Lipase is 137. CT scan of the abdomen pelvis showed a small bowel obstruction and some splenomegaly.] Emergency Department Course and Treatment: [Patient was medicated initially with morphine and Zofran. Patient had an NG tube placed to low intermittent suction.] Treatment Plan: [We attempted to contact the [place] as patient typically gets his care there however they have no beds available for transfer of patient and they asked that we keep patient here at [place].] Disposition: [Admit] Impression: Small bowel obstruction [] This note was generated with [employer] dictation software. It may contain incorrect words, spelling, and punctuation that were not noted in review of the chart prior to signing ED Disposition - Plan for ED Patient: Referrals: [facility] [Primary Care Provider] -
--- NOTE | 2018-08-13 21:53 | ED.DCSUM_ITS ---
- ER Visit Summary Date of Service: 08/13/18 Chief Complaint: Abdominal pain [] History of Present Illness: The patient is a 58 M [presents the emergency department complaint of abdominal pain that started today. Patient states that he ate cabbage yesterday and felt that maybe he had developed a bowel obst ruction. Patient having output from ileostomy but mostly liquid and not getting any solids through. Patient states that he has had multiple small bowel obstructions in the past. Patient has not required surgery for these in the past. Patient has history of prior colectomy due to familial polyposis. Patient rates his pain a 7 or 8 out of 10. He denies any fevers. He denies urinary symptoms.] Physical Examination: [HEENT-PERRLA, EOMI. Cranial nerves II through XII grossly intact. TMs clear. Mucous membranes moist. No adenopathy. Cardiovascular-regular rate and rhythm without murmur or ectopy Lungs-clear to auscultation, chest wall stable without crepitus or subcu emphysema Ikbnroq-[id number]-[id number] bowel sounds. Slight distention. Diffusely tender to palpation. There is no rebound, rigidity, cranial signs. Extremities-intact ?4, normal range of motion, normal pulses, atraumatic] Test Results: [CBC with differential obtained showed a white of 8.6, hemoglobin 17, hematocrit 51, platelets 142. Chemistries unremarkable. BUN was 18 creatinine 1.53. LFTs unremarkable. Lipase is 137. CT scan of the abdomen pelvis showed a small bowel obstruction and some splenomegaly.] Emergency Department Course and Treatment: [Patient was medicated initially with morphine and Zofran. Patient had an NG tube placed to low intermittent suction.] Treatment Plan: [We attempted to contact the [place] as patient typically gets his care there however they have no beds available for transfer of patient and they asked that we keep patient here at [place].] Disposition: [Admit] Impression: Small bowel obstruction [] This note was generated with [employer] dictation software. It may contain incorrect words, spelling, and punctuation that were not noted in review of the chart prior to signing ED Disposition - Plan for ED Patient: Referrals: [facility] [Primary Care Provider] -
[2018-08-13 22:01] VITALS: BP 122/93; PULSE 117; RESP 18; TEMP 36.6; O2SAT 93
--- NOTE | 2018-08-13 22:03 | PCM.HP.STD ---
History of Present Illness The patient is a 58 year old M [] Past Medical History Past Medical History (Chronic Problems): Chronic Problems Status post ileostomy (Chronic) History of colon cancer (Chronic) COPD (Chronic) Familial adenomatous polyposis coli (Chronic) Complicated by cancer requiring surgery in 2001 Allergies No Known Allergies Allergy (Verified 08/13/18 18:23) Home Medications: Ambulatory Orders Medication Instructions Recorded Ferrous Sulfate 325 mg PO DAILY@0800 07/15/13 Loperamide [Imodium] 2 mg PO Q6H PRN PRN 07/15/13 Mometasone Furoate [Asmanex] 220 mcg IH BID 07/15/13 Pantoprazole Sodium [Protonix] 40 mg PO DAILY 07/15/13 Vitamin B12 1,000 mcg PO DAILY 07/15/13 glyBURIDE [Micronase] 10 mg PO BIDCM 07/15/13 Formoterol Fumarate [Foradil] 1 puff INHALATION DAILY 02/03/14 Cholecalciferol (VIT D3) [Vitamin 1,000 unit PO DAILY 04/11/14 D3] Saxagliptin Hydrochloride [Onglyza] 5 mg PO DAILY 04/11/14 Ondansetron [Zofran Odt] 4 mg PO Q8H PRN PRN #10 tablet 08/09/16 Gabapentin [Neurontin] 600 mg PO TID 01/01/17 Tamsulosin HCl [Flomax] 0.8 mg PO QHS 04/12/18 Surgical History: - - Ileostomy; 7 abdominal surgeries, colon resection secondary to cancer Psychiatric History: No pertinent psych hx Smoking Status: Never smoker - *Family History Sibling History Items: - - Familial polyposis coli-Brothers and sisters Maternal History Items: No pertinent history - Physical Exam Vital Signs Temp Pulse Resp BP Pulse Ox 97.8 F 117 H 18 122/93 H 93 08/13/18 22:01 08/13/18 22:01 08/13/18 22:01 08/13/18 22:01 08/13/18 22:01 Oxygen Delivery Method Room Air Weight: 88.6 kg Body Mass Index (BMI) 31.5 Finger Stick Blood Glucose 290 Laboratory Tests Past 24 Hrs 08/13/18 08/13/18 08/13/18 19:05 19:05 19:05 WBC 8.6 RBC 6.00 Hgb 17.0 H Hct 51.7 MCV 86.2 MCH 28.3 MCHC 32.9 RDW 14.9 H RDW Differential 47.5 H Plt Count 142 L MPV 12.0 Immature Gran % (Auto) 0.500 Neut % (Auto) 86.2 H Lymph % (Auto) 7.6 L [place] % (Auto) 5.5 Eos % (Auto) 0.1 Baso % (Auto) 0.1 Absolute Neuts (auto) 7.4 Absolute Lymphs (auto) 0.65 L Total Counted Not Reportable Sodium 138 Potassium 3.6 Chloride 109 H Carbon Dioxide 22.0 Anion Gap 7 BUN 18 Creatinine 1.53 H Estim Creat Clear Calc 46.33 Est GFR (MDRD) Af Amer 60 Est GFR (MDRD) Non-Af 50 L BUN/Creatinine Ratio 11.8 Glucose 264 H Lactic Acid 1.2 Calcium 9.4 Total Bilirubin 1.10 H AST 27 ALT 41 Alkaline Phosphatase 198 H Total Protein 8.5 H Albumin 4.3 Globulin 4.2 Albumin/Globulin Ratio 1.0 Lipase 137 Assessment/Plan All Active Problems Gastroenteritis due to norovirus (Acute) Cystitis (Acute)
--- NOTE | 2018-08-13 22:40 | ED.VISSUMM ---
- ER Visit Summary Date of Service: 08/13/18 Chief Complaint: [Abdominal pain] History of Present Illness: The patient is a 58 M [resents to the emergency department complaint of abdominal pain that started earlier today. Patient rates his pain a 7 or 8 out of 10. Patient is concerned about bowel obstruction. Patient states he had bowel obstructions multiple times in the past. Patient states that he ate cabbage yesterday and felt like he may have developed of an obstruction. Today he is putting out fluid from his ileostomy but no solids. Patient did vomit 3 times. Patient has had multiple bowel obstructions in the past that have not required surgery and he states that typically they resolve after 3 or 4 days of conservative management. [facility]. Patient denies any fevers or urinary symptoms.] Physical Examination: [HEENT-PERRLA, EOMI. Cranial nerves II through XII grossly intact. TMs clear. Mucous membranes moist. No adenopathy. Cardiovascular-regular rate and rhythm without murmur or ectopy Lungs-clear to auscultation, chest wall stable without crepitus or subcu emphysema Abdomen-normoactive bowel sounds. Patient has diffuse tenderness. There is some guarding. There is some mild distention. Extremities-intact ?4, normal range of motion, normal pulses, atraumatic] Test Results: [CBC with differential showed a white of 8.6, hemoglobin 17, hematocrit 51, 0.142. Chemistries unremarkable. LFTs unremarkable. Lipase was normal. CT scan of the abdomen pelvis showed a small bowel obstruction spleen megaly.] Emergency Department Course and Treatment: [Medicated with morphine and Zofran. Patient had to be remedicated with morphine as the pain continued. Patient had an NG tube placed to low intermittent suction and immediately 700 cc of fluid return.] Treatment Plan: [Patient case discussed with surgeon on-call Dr. Florian Valdez who will evaluate patient for admission. We attempted to contact the [place] however I was told they do not have beds and patient can remain here [place].] Disposition: [Admit] Impression: [Small bowel obstruction Abdominal pain] This note was generated with [employer] dictation software. It may contain incorrect words, spelling, and punctuation that were not noted in review of the chart prior to signing
--- NOTE | 2018-08-13 22:43 | ED.DCSUM_ITS ---
- ER Visit Summary Date of Service: 08/13/18 Chief Complaint: [Abdominal pain] History of Present Illness: The patient is a 58 M [resents to the emergency department complaint of abdominal pain that started earlier today. Patient rates his pain a 7 or 8 out of 10. Patient is concerned about bowel obstruct ion. Patient states he had bowel obstructions multiple times in the past. Patient states that he ate cabbage yesterday and felt like he may have developed of an obstruction. Today he is putting out fluid from his ileostomy but no solids. Patient did vomit 3 times. Patient has had multiple bowel obstructions in the past that have not required surgery and he states that typically they resolve after 3 or 4 days of conservative management. [facility] is [facility]. Patient denies any fevers or urinary symptoms.] Physical Examination: [HEENT-PERRLA, EOMI. Cranial nerves II through XII grossly intact. TMs clear. Mucous membranes moist. No adenopathy. Cardiovascular-regular rate and rhythm without murmur or ectopy Lungs-clear to auscultation, chest wall stable without crepitus or subcu emphysema Abdomen-normoactive bowel sounds. Patient has diffuse tenderness. There is some guarding. There is some mild distention. Extremities-intact ?4, normal range of motion, normal pulses, atraumatic] Test Results: [CBC with differential showed a white of 8.6, hemoglobin 17, hematocrit 51, 0.142. Chemistries unremarkable. LFTs unremarkable. Lipase was normal. CT scan of the abdomen pelvis showed a small bowel obstruction spleen megaly.] Emergency Department Course and Treatment: [Medicated with morphine and Zofran. Patient had to be remedicated with morphine as the pain continued. Patient had an NG tube placed to low intermittent suction and immediately 700 cc of fluid return.] Treatment Plan: [Patient case discussed with surgeon on-call Dr. Florian Valdez who will evaluate patient for admission. We attempted to contact the [place] however I was told they do not have beds and patient can remain here [place].] Disposition: [Admit] Impression: [Small bowel obstruction Abdominal pain] This note was generated with [employer] dictation software. It may contain incorrect words, spelling, and punctuation that were not noted in review of the chart prior to signing
--- NOTE | 2018-08-13 22:55 | ED.RN ---
Dr. VERNON HERE TO SEE PT.
--- NOTE | 2018-08-13 23:24 | PCM.HP.STD ---
Problem List (1) Small bowel obstruction due to adhesions Status: Acute (2) Urinary outflow obstruction Status: Chronic (3) Urinary tract infection Status: Acute Qualifiers: Urinary tract infection type: acute cystitis Hematuria presence: with hematuria Qualified Code(s): N30.01 - Acute cystitis with hematuria History of Present Illness Date of Admission: 08/13/18 The patient is a 58 year old M who presents to the [facility] emergency room. For 2 days he has had abdominal pain nausea episode of bilious vomiting. The [facility]. Taylor from the emergency room contacted the [place] who stated they did not have beds available to admit the patient. I was asked to assume care as hospitalist requested surgery admission. This is a 58-year-old gentleman. He never has had a surgical procedure here. He has had a complex history apparently of multiple previous operations. 1993 at the [facility] he had a total colectomy for familial polyposis. He had a J-pouch placed. 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 He has had bowel obstructions in the past for which he has been hospitalized multiple times however he has never required surgery for a bowel obstruction. The patient states that his most recent operation was in [address] Nicholas Jay. At that point he has not required further treatment of parastomal hernias. He has had at least 3 small bowel obstructions however since that time. His white blood cell count is 8.6 with a hemoglobin 17 and hematocrit 51.7 with a platelet count of 142,000. 86% neutrophils. His BUN is 18 and creatinine 1.53. His lactic acid level is 1.2. Glucose is 264. Total bilirubin is 1.1. AST is 27. ALT is 41. Alk phosphatase 198. Total protein 8.5. Lipase is 137. Had abdominal CT scan done through the ER demonstrating normal gallbladder. 2.6 cm left kidney cyst. There loops of mid small bowel and non-distended distal loops consistent with small bowel obstruction. Postoperative changes with an ileostomy in the right lower quadrant seen. There are postoperative changes of the abdominal wall. The patient states that he ate cabbage and feels that this was likely the source of his obstruction. He has been putting out fluid. There was an immediate NG tube return of approximately 700 cc. Patient states he has absolutely no pain now. Past Medical History Past Medical History (Chronic Problems): Chronic Problems Urinary outflow obstruction (Chronic) Status post ileostomy (Chronic) History of colon cancer (Chronic) COPD (Chronic) Familial adenomatous polyposis coli (Chronic) Complicated by cancer requiring surgery in 2001 Allergies No Known Allergies Allergy (Verified 08/13/18 18:23) Home Medications: Ambulatory Orders Medication Instructions Recorded RX: Ferrous Sulfate 325 mg PO DAILY@0800 07/15/13 RX: Loperamide [Imodium] 2 mg PO Q6H PRN PRN 07/15/13 RX: Mometasone Furoate [Asmanex] 220 mcg IH BID 07/15/13 RX: Pantoprazole Sodium [Protonix] 40 mg PO DAILY 07/15/13 Vitamin B12 1,000 mcg PO DAILY 07/15/13 RX: Formoterol Fumarate [Foradil] 1 puff INHALATION DAILY 02/03/14 RX: Cholecalciferol (VIT D3) 1,000 unit PO DAILY 04/11/14 [Vitamin D3] RX: Saxagliptin Hydrochloride 5 mg PO DAILY 04/11/14 [Onglyza] RX: Ondansetron [Zofran Odt] 4 mg PO Q8H PRN PRN #10 tablet 08/09/16 RX: Gabapentin [Neurontin] 600 mg PO TID 01/01/17 RX: Tamsulosin HCl [Flomax] 0.8 mg PO QHS 04/12/18 Glipizide 08/14/18 Surgical History: - - Ileostomy; 7 abdominal surgeries, colon resection secondary to cancer Psychiatric History: No pertinent psych hx Smoking Status: Never smoker - *Family History Maternal History Items: No pertinent history Sibling History Items: - - Familial polyposis coli-Brothers and sisters VTE Information - Inpt Only VTE Present on Admission: No Patient Problems: Active and Suspected Problems Small bowel obstruction due to adhesions (Acute) Urinary tract infection (Acute) - Physical Exam Vital Signs Temp Pulse Resp BP Pulse Ox 97.8 F 117 H 18 122/93 H 93 08/13/18 22:01 08/13/18 22:01 08/13/18 22:01 08/13/18 22:01 08/13/18 22:01 Oxygen Delivery Method Room Air Weight: 195 lb 5.273 oz Body Mass Index (BMI) 31.5 Finger Stick Blood Glucose 290 Intake and Output for Last 24 Hours 08/11/18 08/12/18 08/13/18 23:59 23:59 23:59 Output Total 800 / 800 Balance -800 / -800 Laboratory Tests Past 24 Hrs 08/13/18 08/13/18 08/13/18 19:05 19:05 19:05 WBC 8.6 RBC 6.00 Hgb 17.0 H Hct 51.7 MCV 86.2 MCH 28.3 MCHC 32.9 RDW 14.9 H RDW Differential 47.5 H Plt Count 142 L MPV 12.0 Immature Gran % (Auto) 0.500 Neut % (Auto) 86.2 H Lymph % (Auto) 7.6 L [place] % (Auto) 5.5 Eos % (Auto) 0.1 Baso % (Auto) 0.1 Absolute Neuts (auto) 7.4 Absolute Lymphs (auto) 0.65 L Total Counted Not Reportable Sodium 138 Potassium 3.6 Chloride 109 H Carbon Dioxide 22.0 Anion Gap 7 BUN 18 Creatinine 1.53 H Estim Creat Clear Calc 46.33 Est GFR (MDRD) Af Amer 60 Est GFR (MDRD) Non-Af 50 L BUN/Creatinine Ratio 11.8 Glucose 264 H Lactic Acid 1.2 Calcium 9.4 Total Bilirubin 1.10 H AST 27 ALT 41 Alkaline Phosphatase 198 H Total Protein 8.5 H Albumin 4.3 Globulin 4.2 Albumin/Globulin Ratio 1.0 Lipase 137 Assessment/Plan All Active Problems Small bowel obstruction due to adhesions (Acute) Urinary tract infection (Acute) Gastroenteritis due to norovirus (Acute) Cystitis (Acute) 58-year-old gentleman who by report has had multiple episodes of small bowel obstruction is self resolved. He states that he has never required emergency surgical intervention for small bowel obstruction. He has however had multiple abdominal procedures including colectomy and permanent ileostomy and parastomal hernias requiring intervention. He states he is not in any discomfort now. He already has fluid emanating within his ileostomy. Surgical admission has been requested although he does not have a surgical abdomen does not have abnormal lab work and at this time does not appear to require surgical treatment. His ileostomy is already functioning. The patient is aware that because of the complexity of his previous surgical interventions that if he requires surgical intervention he would refer back to [facility]. Florian Valdez M.D., F.A.C.S.
[2018-08-14 00:04] VITALS: BMI 30.4
[2018-08-14 00:06] VITALS: BMI 30.5
[2018-08-14 00:15] VITALS: BP 116/91; PULSE 107; PULSE 110; RESP 20; TEMP 36.4; O2SAT 94
[2018-08-14] MEDS: Lactated Ringers 1,000 ML 80 ML IV (00:44)
[2018-08-14] MEDS: 0.9% NaCl Peripheral Flush Adult/Peds IV (00:45)
--- NOTE | 2018-08-14 05:40 | PN.SURG_ITS ---
Patient Problems: Active and Suspected Problems Small bowel obstruction due to adhesions (Acute) Subjective: Pt comfortable, feeling better He does not think his ileostomy has opened yet He did do a walk - Physical Exam Abdomen: Soft, Non Tender, Hypoactive Bowel Sounds Vital Signs Temp Pulse Resp BP Pulse Ox 97.6 F L 110 H 20 H 116/91 H 94 08/14/18 00:15 08/14/18 00:15 08/14/18 00:15 08/14/18 00:15 08/14/18 00:15 Oxygen Delivery Method Room Air Weight: 188 lb 11.451 oz Body Mass Index (BMI) 30.4 Finger Stick Blood Glucose 290 Intake and Output for Last 24 Hours 08/12/18 08/13/18 08/14/18 23:59 23:59 23:59 Intake Total 60 / 60 Output Total 800 / 800 Balance -800 / -800 60 / 60 Laboratory Tests Past 24 Hrs 08/13/18 08/13/18 08/13/18 19:05 19:05 19:05 WBC 8.6 RBC 6.00 Hgb 17.0 H Hct 51.7 MCV 86.2 MCH 28.3 MCHC 32.9 RDW 14.9 H RDW Differential 47.5 H Plt Count 142 L MPV 12.0 Immature Gran % (Auto) 0.500 Neut % (Auto) 86.2 H Lymph % (Auto) 7.6 L [place] % (Auto) 5.5 Eos % (Auto) 0.1 Baso % (Auto) 0.1 Absolute Neuts (auto) 7.4 Absolute Lymphs (auto) 0.65 L Total Counted Not Reportable Sodium 138 Potassium 3.6 Chloride 109 H Carbon Dioxide 22.0 Anion Gap 7 BUN 18 Creatinine 1.53 H Estim Creat Clear Calc 46.33 Est GFR (MDRD) Af Amer 60 Est GFR (MDRD) Non-Af 50 L BUN/Creatinine Ratio 11.8 Glucose 264 H Lactic Acid 1.2 Calcium 9.4 Total Bilirubin 1.10 H AST 27 ALT 41 Alkaline Phosphatase 198 H Total Protein 8.5 H Albumin 4.3 Globulin 4.2 Albumin/Globulin Ratio 1.0 Lipase 137 Medical Necessity - Tobacco Use Smoking Status: Former smoker Assessment/Plan All Active Problems Small bowel obstruction due to adhesions (Acute) Gastroenteritis due to norovirus (Acute) Cystitis (Acute) Will leave ngt this a.m. and continue to mobilize pt He thinks he is still dehydrated--will increase IVF. Report that pt had difficulty with self st. cath last night with obstruction and blood. Will check UA
[2018-08-14 06:15] VITALS: BP 111/77; PULSE 118; RESP 18; TEMP 36.9; O2SAT 95
[2018-08-14 06:25] LABS: Absolute Lymphocyte Count 0.75 X10^3/ul (0.83-4.51); Basophil# 0.01 X10^3/uL; Basophil% 0.1 % (0-1); Eosinophil# 0.03 X10^3/uL; Eosinophils% 0.4 % (0-5); Hematocrit 50.1 % (40-54); Hemoglobin 16.2 g/dl (13.0-16.5); Lymphocyte # 0.75 X10^3/ul (4.0); Lymphocyte % 8.8 % (19-41); Mean Corp Hgb Conc 32.3 g/gl (32-36); Mean Corpuscular Hgb 28.6 pg (27.0-32.0); Mean Corpuscular Volume 88.5 fL (80-94); Mean Platelet Vol. 11.8 fl (6.2-12.0); Monocyte# 0.68 X10^3/uL; Neutrophil # 7.04 X10^3/uL (2.7-7.7); Neutrophil % 82.5 % (47-70); Platelet Count 125 K/mm3 (150-450); RBC Distribution Width SD 49.3 fl (35.1-43.9); Red Blood Count 5.66 M/mm3 (4.6-6.2); White Blood Count 8.5 K/mm3 (4.4-11.0)
[2018-08-14 06:26] LABS: POSITIVE COUNT NO; POSITIVE DIFFERENTIAL NO; POSITIVE MORPHOLOGY NO
[2018-08-14 06:30] LABS: Anion Gap 10 (5-15); BUN 20 mg/dL (7-18); BUN/Creat Ratio 14.1 RATIO (10-20); Calcium,Total 8.8 mg/dL (8.5-10.1); Chloride 111 mmol/L (98-107); Creatinine, Serum 1.42 mg/dL (0.70-1.30); EST Glomerular Filtration Rate 54 mL/min (>60); Est Glom Filt Rate - Afr Amer 65 mL/min (>60); Estimated Creatinine Clearance 49.92 ml/min; Glucose 234 mg/dL (74-106); Potassium 3.8 mmol/L (3.5-5.1); Sodium Level 142 mmol/L (136-145)
[2018-08-14] MEDS: Enoxaparin 40 MG/0.4 ML Syringe SC (06:34)
[2018-08-14 07:06] LABS: Bedside Glucose 219 mg/dL (70-110)
[2018-08-14 08:18] VITALS: BP 98/71; PULSE 94; RESP 18; TEMP 37.1; O2SAT 95
[2018-08-14 08:54] LABS: Color, Urine Yellow (Yellow); Glucose, Dipstick Normal (Normal); Ketone-Dipstick 15 mg/dl (Negative); Leukocyte Esterase-Dipstick 500 /ul (Negative); Nitrite-Dipstick Positive (Negative); Occult Blood-Urine 25 /ul (Negative); Protein-Dipstick 30 mg/dl (Negative); Urine Bilirubin Dipstick Negative (Negative); Urine Clarity Cloudy (Clear); Urine Urobilinogen Normal (Normal)
[2018-08-14] MEDS: Lactated Ringers 1,000 ML 110 ML IV ×2 (11:31→20:29)
[2018-08-14 11:35] LABS: Bedside Glucose 247 mg/dL (70-110)
--- NOTE | 2018-08-14 12:27 | CASEMGMT ---
RN CM Assessment Presentation: SBO. Hx of multiple abd procedures including colectomy and permanent ileostomy. IVF, NG Intro role of CM and purpose of RN CM assessment to patient. He is awake, alert and able to participate in assessment. Demographics, PCP and Pharmacy verified. - Pt has VA benefits only. If bed becomes available @ [facility], pt would need to transfer to have hospitalization covered. Pt is aware [facility] was called and bed [facility]. Pt is agreeable to transfer and states he is service connected. PCP: [facility] [place] Specialists: Dr. Valdez [facility]erred [facility]acy[facility] [place] for [facility] term prescriptions. Insurance: [facility] Benefits only. [facility] did not have bed on admission. Call received from Myrtle @ [place] ext. [phone]. requesting information be faxed to . Fax completed. Prescription Benefit: yes. LNOK: Son, Raffy Dowling Living Arrangements: Pt lives independently, states he is independent in ADL's and takes care of himself. Lives in two story home and denies difficulty with stairs. Transportation: drives DME: none HHC: none Patient DC goals: Home DC PLAN: Melecio REICH RN ACM
[2018-08-14] MEDS: Smz/Tmp Ds Tablet 1 TABLET PO (12:56)
--- NOTE | 2018-08-14 14:00 | PCM.PN.BLA ---
Progress Note The patient now admits that 2 days prior to his admission to was from the hospital he was diagnosed by the [facility] was having a urinary tract infection and was prescribed oral antibiotics. He is not aware of the type of antibiotics but he has them at home. Today he was initiated on oral Bactrim therapy. He has had slightly more output per ileostomy but he does not feel completely recovered. We will leave the NG tube in place today. We will encourage mobilization. Florian Valdez M.D., F.A.C.S.
[2018-08-14 15:00] VITALS: BP 110/70; PULSE 90; RESP 18; TEMP 36.7; O2SAT 95
--- NOTE | 2018-08-14 15:05 | CASEMGMT ---
Call to Myrtle Velázquez
--- NOTE | 2018-08-14 15:05 | CASEMGMT ---
Addendum entered by Kalyan Foster 08/14/18 16:04: Madeleine, charge nurse updated that clinicals faxed to [facility] and VLADIMIR VALLE has not heard re: bed availability. MS3 # given to [place] @ [facility] to call if she needs more information or bed becomes available for transfer. Melecio DOMINGUEZ Original Note: VLADIMIR VALLE Note: Call to Myrtle @ [facility] @ [phone] ext. [phone]. Message left requesting call back for bed availability. Melecio DOMINGUEZ
[2018-08-14 18:21] LABS: Bedside Glucose 195 mg/dL (70-110)
[2018-08-14 20:43] VITALS: BP 105/81; PULSE 120; RESP 18; TEMP 36.6; O2SAT 96
[2018-08-14] MEDS: Smz/Tmp Ds Tablet 1 TABLET NG (21:26)
[2018-08-14] MEDS: Tamsulosin HCl 0.4 MG Capsule 0.8 MG PO (21:26)
[2018-08-14 21:40] LABS: Bedside Glucose 289 mg/dL (70-110)
[2018-08-14 21:45] VITALS: PULSE 101
[2018-08-15] MEDS: 0.9% NaCl Peripheral Flush Adult/Peds IV ×6 (00:59→12:58)
[2018-08-15] MEDS: Ondansetron 4 MG/2 ML Vial IV (00:59)
[2018-08-15] MEDS: Morphine 2 MG/ML Syringe IV (01:44)
[2018-08-15 03:00] VITALS: BP 121/86; PULSE 86; RESP 16; TEMP 37.1; O2SAT 95
[2018-08-15] MEDS: Morphine 4 MG/ML Syringe IV ×2 (03:58→06:32)
[2018-08-15] MEDS: Lactated Ringers 1,000 ML 110 ML IV ×2 (04:03→14:56)
--- NOTE | 2018-08-15 06:09 | RAD_ITS ---
STUDY: GASTROGRAFIN SMALL BOWEL FOLLOW-THROUGH EXAMINATION. REASON FOR EXAM: Male, 58 years old. Abdominal distention. TECHNIQUE: Gastrografin was instilled through the indwelling NG tube. A 4 hour and 6 hour image was obtained. COMPARISON: None. FINDINGS: An ostomy is seen in the right lower quadrant. There is evidence of prior ventral hernia repair. On the 4 hour image, Gastrografin is seen throughout the small bowel. On the 6 hour image, the ingested Gastrografin is not visualized. RAD/Small Bowel Series Only IMPRESSION: The Gastrografin has cleared the bowel on the 6 hour image. Electronically Signed: Darin Gasca, at 15:36 EDT , Service support ,
--- NOTE | 2018-08-15 06:13 | PN.SURG_ITS ---
Patient Problems: Active and Suspected Problems Small bowel obstruction due to adhesions (Acute) Urinary tract infection (Acute) Subjective: Yesterday pt thought he was making progress, last night he had severe cramping pain and 2 hour period when ileostomy failed to function. He has since than had some chunks come out but he is more distended - Physical Exam Abdomen: Non Tender, Bowel Sounds Not Present, Distended Vital Signs Temp Pulse Resp BP Pulse Ox 98.7 F 86 16 121/86 H 95 08/15/18 03:00 08/15/18 03:00 08/15/18 03:00 08/15/18 03:00 08/15/18 03:00 Oxygen Delivery Method Room Air Weight: 188 lb 11.451 oz Body Mass Index (BMI) 30.4 Finger Stick Blood Glucose 290 Intake and Output for Last 24 Hours 08/13/18 08/14/18 08/15/18 23:59 23:59 23:59 Intake Total 2780 / 2780 160 / 160 Output Total 800 / 800 3600 / 3600 1380 / 1380 Balance -800 / -800 -820 / -820 -1220 / -1220 Laboratory Tests Past 24 Hrs 08/14/18 08/14/18 08/14/18 05:44 05:44 08:45 WBC 8.5 RBC 5.66 Hgb 16.2 Hct 50.1 MCV 88.5 MCH 28.6 MCHC 32.3 RDW 15.0 H RDW Differential 49.3 H Plt Count 125 L MPV 11.8 Immature Gran % (Auto) 0.200 Neut % (Auto) 82.5 H Lymph % (Auto) 8.8 L [place] % (Auto) 8.0 Eos % (Auto) 0.4 Baso % (Auto) 0.1 Absolute Neuts (auto) 7.0 Absolute Lymphs (auto) 0.75 L Total Counted Not Reportable Sodium 142 Potassium 3.8 Chloride 111 H Carbon Dioxide 21.0 Anion Gap 10 BUN 20 H Creatinine 1.42 H Estim Creat Clear Calc 49.92 Est GFR (MDRD) Af Amer 65 Est GFR (MDRD) Non-Af 54 L BUN/Creatinine Ratio 14.1 Glucose 234 H Calcium 8.8 Urine Color Yellow Urine Clarity Cloudy Urine pH 5.0 Ur Specific [place] 1.020 Urine Protein 30 H Urine Glucose (UA) Normal Urine Ketones 15 H Urine Occult Blood 25 H Urine Nitrite Positive H Urine Bilirubin Negative Urine Urobilinogen Normal Ur Leukocyte Esterase 500 H 08/15/18 05:54 WBC RBC Hgb Hct MCV MCH MCHC RDW RDW Differential Plt Count MPV Immature Gran % (Auto) Neut % (Auto) Lymph % (Auto) [place] % (Auto) Eos % (Auto) Baso % (Auto) Absolute Neuts (auto) Absolute Lymphs (auto) Total Counted Sodium Pending Potassium Pending Chloride Pending Carbon Dioxide Pending Anion Gap Pending BUN Pending Creatinine Pending Estim Creat Clear Calc Est GFR (MDRD) Af Amer Pending Est GFR (MDRD) Non-Af Pending BUN/Creatinine Ratio Pending Glucose Pending Calcium Pending Urine Color Urine Clarity Urine pH Ur Specific [place] Urine Protein Urine Glucose (UA) Urine Ketones Urine Occult Blood Urine Nitrite Urine Bilirubin Urine Urobilinogen Ur Leukocyte Esterase POC Glucose 08/14/18 08/14/18 08/14/18 21:34 18:13 11:26 POC Glucose 289 H 195 H 247 H 08/14/18 06:53 POC Glucose 219 H Medical Necessity - Tobacco Use Smoking Status: Never smoker Assessment/Plan All Active Problems Small bowel obstruction due to adhesions (Acute) Urinary tract infection (Acute) Gastroenteritis due to norovirus (Acute) Cystitis (Acute) More distended and quiet Will check gastrograffin study today
[2018-08-15 06:18] LABS: Absolute Lymphocyte Count 0.78 X10^3/ul (0.83-4.51); Absolute Neutrophil Count 3.1 X10^3/uL (2.0-7.7); Basophil# 0.01 X10^3/uL; Basophil% 0.2 % (0-1); Eosinophil# 0.05 X10^3/uL; Eosinophils% 1.1 % (0-5); Hematocrit 45.7 % (40-54); Hemoglobin 15.1 g/dl (13.0-16.5); Lymphocyte # 0.78 X10^3/ul (4.0); Lymphocyte % 17.3 % (19-41); Mean Corpuscular Hgb 29.5 pg (27.0-32.0); Mean Corpuscular Volume 89.3 fL (80-94); Mean Platelet Vol. 11.7 fl (6.2-12.0); Monocyte# 0.56 X10^3/uL; Monocyte% 12.4 % (0-10); Neutrophil % 68.6 % (47-70); Platelet Count 114 K/mm3 (150-450); RBC Distribution Width CV 14.7 % (11.6-14.6); RBC Distribution Width SD 47.6 fl (35.1-43.9); Red Blood Count 5.12 M/mm3 (4.6-6.2); White Blood Count 4.5 K/mm3 (4.4-11.0)
[2018-08-15 06:20] LABS: POSITIVE COUNT NO; POSITIVE DIFFERENTIAL NO; POSITIVE MORPHOLOGY NO
[2018-08-15] MEDS: Enoxaparin 40 MG/0.4 ML Syringe SC (06:30)
[2018-08-15 06:31] LABS: Anion Gap 9 (5-15); BUN 21 mg/dL (7-18); BUN/Creat Ratio 16.2 RATIO (10-20); Calcium,Total 8.8 mg/dL (8.5-10.1); Chloride 107 mmol/L (98-107); EST Glomerular Filtration Rate 60 mL/min (>60); Est Glom Filt Rate - Afr Amer 72 mL/min (>60); Estimated Creatinine Clearance 54.53 ml/min; Glucose 266 mg/dL (74-106); Potassium 3.8 mmol/L (3.5-5.1); Sodium Level 139 mmol/L (136-145)
[2018-08-15 06:41] LABS: Bedside Glucose 261 mg/dL (70-110)
[2018-08-15 06:45] VITALS: O2SAT 97
[2018-08-15 09:30] VITALS: BP 118/75; PULSE 75; RESP 16; TEMP 36.7; O2SAT 98
[2018-08-15] MEDS: Smz/Tmp Ds Tablet 1 TABLET NG (09:35)
--- NOTE | 2018-08-15 11:09 | CASEMGMT ---
RN CM Note: Call to Myrtle @ [place]. Message left re: pt not being dc'd today from [facility], is agreeable to Transfer to [facility] and has ONLY [facility] benefits. Call back information left on message, and updated clinicals faxed. Melecio MACIELN RN ACM
--- NOTE | 2018-08-15 12:40 | PCM.DC.SUM ---
Discharge Date and Diagnosis - Problem List Patient Problems: Active and Suspected Problems (Last Updated 08/15/18 @ 13:14 by Pankaj Newman DO) Small bowel obstruction due to adhesions (Acute) Urinary tract infection (Acute) Date of Admission: 08/13/18 Date of Discharge: 08/15/18 - Primary Discharge Diagnosis Active and Suspected Problems Small bowel obstruction due to adhesions (Acute) Urinary tract infection (Acute) - Secondary Discharge Diagnosis Chronic Problems Urinary outflow obstruction (Chronic) Status post ileostomy (Chronic) History of colon cancer (Chronic) COPD (Chronic) Familial adenomatous polyposis coli (Chronic) Complicated by cancer requiring surgery in 2001 Hospital Course and Treatment Imaging Results: 08/15/18 06:09 Upper GI/w Small Bowel [RAD] Urgent Operations: None Summary of Care Provided: The patient is a 58 year old M who presented to the [facility] emergency room late on the evening of 08/13/2018. The patient had evaluation and findings were felt based upon history clinical examination imaging to be consistent with a small bowel obstruction likely secondary to adhesive phenomena. [facility] was contacted and refused to admit the NH patient. The local hospitalist also declined admission. I his general surgeon was asked at midnight to present admit the patient. Initially with NG tube decompression he seemed to make improvement. He gave report that he has had multiple previous episodes of small bowel obstruction none of which have required surgical intervention. This morning stated that he had had increased pain and cramping overnight. I elected to pursue with a Gastrografin upper GI study. During a surgical procedure I was contacted by the patient's clinical case manager at which point I had to break scrub and sign urgent transfer patients to the [facility] the [facility] request. The patient's upper GI study is ongoing. Patient Problems: Active and Suspected Problems (Last Updated 08/15/18 @ 13:14 by Pankaj Newman DO) Small bowel obstruction due to adhesions (Acute) Urinary tract infection (Acute) - Physical Exam General: Alert Abdomen: Soft, Non Tender, Distended Vital Signs Temp Pulse Resp BP Pulse Ox 98.0 F 75 16 118/75 98 08/15/18 09:30 08/15/18 09:30 08/15/18 09:30 08/15/18 09:30 08/15/18 09:30 Oxygen Delivery Method Room Air Weight: 188 lb 11.451 oz Body Mass Index (BMI) 30.4 Finger Stick Blood Glucose 290 Intake and Output for Last 24 Hours 08/13/18 08/14/18 08/15/18 23:59 23:59 23:59 Intake Total 2780 / 2780 2406 / 2406 Output Total 800 / 800 3600 / 3600 3155 / 3155 Balance -800 / -800 -820 / -820 -749 / -749 Microbiology Past 72 Hours 08/14/18 08:45 Urine Culture - Preliminary Urine, Catheterized Presumptive E. coli Laboratory Tests Past 24 Hrs 08/15/18 08/15/18 05:54 05:54 WBC 4.5 RBC 5.12 Hgb 15.1 Hct 45.7 MCV 89.3 MCH 29.5 MCHC 33.0 RDW 14.7 H RDW Differential 47.6 H Plt Count 114 L MPV 11.7 Immature Gran % (Auto) 0.400 Neut % (Auto) 68.6 Lymph % (Auto) 17.3 L [place] % (Auto) 12.4 H Eos % (Auto) 1.1 Baso % (Auto) 0.2 Absolute Neuts (auto) 3.1 Absolute Lymphs (auto) 0.78 L Total Counted Not Reportable Sodium 139 Potassium 3.8 Chloride 107 Carbon Dioxide 23.0 Anion Gap 9 BUN 21 H Creatinine 1.30 Estim Creat Clear Calc 54.53 Est GFR (MDRD) Af Amer 72 Est GFR (MDRD) Non-Af 60 BUN/Creatinine Ratio 16.2 Glucose 266 H Calcium 8.8 POC Glucose 08/15/18 08/14/18 08/14/18 06:36 21:34 18:13 POC Glucose 261 H 289 H 195 H Discharge Diet: - - NPO, sips chips Home Medications: Medications to take at Discharge Ferrous Sulfate 325 mg PO DAILY@0800 07/15/13 Loperamide [Imodium] 2 mg PO Q6H PRN PRN 07/15/13 Mometasone Furoate [Asmanex] 220 mcg IH BID 07/15/13 Pantoprazole Sodium [Protonix] 40 mg PO DAILY 07/15/13 Vitamin B12 1,000 mcg PO DAILY 07/15/13 Formoterol Fumarate [Foradil] 1 puff INHALATION DAILY 02/03/14 Cholecalciferol (VIT D3) [Vitamin D3] 1,000 unit PO DAILY 04/11/14 Saxagliptin Hydrochloride [Onglyza] 5 mg PO DAILY 04/11/14 Ondansetron [Zofran Odt] 4 mg PO Q8H PRN PRN #10 tablet 08/09/16 Gabapentin [Neurontin] 600 mg PO TID 01/01/17 Tamsulosin HCl [Flomax] 0.8 mg PO QHS 04/12/18 Glipizide 08/14/18 [facility] [Primary [facility] Provider[facility] - Medical Necessity - Tobacco Use Smoking Status: Never smoker Meaningful Use Info Meaningful Use Diagnoses (Choose all that apply): None applicable
--- NOTE | 2018-08-15 12:43 | CASEMGMT ---
Addendum entered by Kalyan Foster 08/15/18 13:36: Call received from Dr. Valdez. VLADIMIR VALLE explained [place] request to transfer pt prior to 1:[address] and forms [address] Valdez was in surgical area and states pt is stable for transfer and is agreeable to sign forms. VLADIMIR VALLE took forms to surgical area- [facility] transfer form and [facility] transfer certification forms signed by physician. -Explained [facility] transfer to patient. Pt understands need to transfer due to [facility] Benefits only and bed is available. Pt voiced that he is agreeable to transfer. Let pt know transfer time will be between 1500 and 1530. Pt states he has not been eligible for [facility] and wishes he could use other hospitals than [facility]. Pt voiced being upset that the [facility] hospital in [place] is so far away from [place]. Emotional support given, questions answered. Forms were signed by pt and faxed to Myrtle @ [facility]. -Per VLADIMIR Wilson CM- Myrtle was updated that pt can transfer. extension supervisor from [place] scheduled for 3-3:30 pm. Accepting physician is Dr. Hamm and Unit is 5A. Nurse to Nurse Report # is . ext [phone]. Melecio MATTSON Original Note: VLADIMIR VALLE Note: Calls received from [facility]. They have bed available for pt to transfer to [place] today. Form faxed to [facility] to have pt and physician sign and will need faxed back to [facility]. Lulu GILBERT called to Dr. Valdez to get approval for transfer. Dr. Valdez is in surgery and will address this when he is finished with surgery. -VLADIMIR VALLE attempted to have pt sign form, however he is in testing. -Charge nurse, Shira and Karena GILBERT updated that form will need signed by physician and pt and faxed to [phone]. Form is by VLADIMIR VALLE desk. -Myrtle @ [place] said she is leaving @ 1:30. VLADIMIR VALLE request name/number for person covering after this time to arrange transport. Myrtle states there is no one covering her to continue transfer arrangements. Melecio DOMINGUEZ
[2018-08-15] MEDS: Insulin Lispro 100 UNIT/ML INSULN.PEN SQ (12:54)
--- NOTE | 2018-08-15 13:12 | PCM.CONS.GEN ---
Reason for Consult Date of Consultation: 08/15/18 Reason for Consultation: Consult by Dr. Valdez for hyperglycemia. History of Present Illness: The patient is a 58 year old M presents with abdominal pain and diagnosed with SBO. NG tube placed and is currently NPO. Blood sugars have in the 200 range. Still with abdominal pain, similar to when he had a SBO in the past.[] Past Medical History Past Medical History (Chronic Problems): Chronic Problems Urinary outflow obstruction (Chronic) Status post ileostomy (Chronic) History of colon cancer (Chronic) COPD (Chronic) Familial adenomatous polyposis coli (Chronic) Complicated by cancer requiring surgery in 2001 Medical History: Medical History (Last Updated 08/15/18 @ 13:14 by Pankaj Newman DO) DM2 (diabetes mellitus, type 2) E11.9 Allergies No Known Allergies Allergy (Verified 08/14/18 00:24) Home Medications: Ambulatory Orders Medication Instructions Recorded Ferrous Sulfate 325 mg PO DAILY@0800 07/15/13 Loperamide [Imodium] 2 mg PO Q6H PRN PRN 07/15/13 Mometasone Furoate [Asmanex] 220 mcg IH BID 07/15/13 Pantoprazole Sodium [Protonix] 40 mg PO DAILY 07/15/13 Vitamin B12 1,000 mcg PO DAILY 07/15/13 Formoterol Fumarate [Foradil] 1 puff INHALATION DAILY 02/03/14 Cholecalciferol (VIT D3) [Vitamin 1,000 unit PO DAILY 04/11/14 D3] Saxagliptin Hydrochloride [Onglyza] 5 mg PO DAILY 04/11/14 Ondansetron [Zofran Odt] 4 mg PO Q8H PRN PRN #10 tablet 08/09/16 Gabapentin [Neurontin] 600 mg PO TID 01/01/17 Tamsulosin HCl [Flomax] 0.8 mg PO QHS 04/12/18 Glipizide 08/14/18 Surgical History: - - Ileostomy; 7 abdominal surgeries, colon resection secondary to cancer Psychiatric History: No pertinent psych hx Smoking Status: Never smoker Tobacco Use: Non-smoker - *Family History Sibling History Items: - - Familial polyposis coli-Brothers and sisters Maternal History Items: No pertinent history Review of Systems Constitutional: Denies: Anorexia, Chills, Fever Eyes: Denies: Blurred vision, Double vision HEENT: Denies: Head Aches, Sinus Congestion, Sinus Drainage Cardiovascular: Denies: Chest Pain, Palpitations Respiratory: Denies: Cough, Shortness of breath at rest, Sputum production Gastrointestinal: Reports: Abdominal Pain, Nausea. Denies: Vomiting Genitourinary: Denies: Dysuria Musculoskeletal: Denies: Joint Pain, Joint Tenderness Skin: Denies: Rash, Wounds Neurological: Denies: Numbness, Tingling, Focal weakness Psychiatric: Denies: Anxiety, Depression Hematologic/ Lymphatic: Denies: Easy Bruising, Easy Bleeding, Hx of blood clot Comment: A 10 point review of systems were negative except as mentioned in the history of present illness and the other review of systems. Patient Problems: Active and Suspected Problems Small bowel obstruction due to adhesions (Acute) Urinary tract infection (Acute) - Physical Exam General: Alert, Cooperative, No apparent distress HEENT: Atraumatic, Normocephalic, - - NG tube in place Oral: Moist Mucosa, No Gingival or Mucosal Lesions/ Ulcerations Neck: No Nodes, Thyroid Normal Size and Texture Lungs: Clear to auscultation, Normal air movement, No rhonchi, No wheeze Cardiovascular: Regular rate, Regular Rhythm, Normal S1, Normal S2, No murmurs Abdomen: Hypoactive Bowel Sounds, Distended, Tender Extremities: No edema, No Calf Tenderness Skin: No rashes, No breakdown Psych/Mental Status: Normal Affect, Appropriate Vital Signs Temp Pulse Resp BP Pulse Ox 36.7 C 75 16 118/75 98 08/15/18 09:30 08/15/18 09:30 08/15/18 09:30 08/15/18 09:30 08/15/18 09:30 Oxygen Delivery Method Room Air Weight: 85.6 kg Body Mass Index (BMI) 30.4 Finger Stick Blood Glucose 290 Intake and Output for Last 24 Hours 08/13/18 08/14/18 08/15/18 23:59 23:59 23:59 Intake Total 2780 / 2780 2406 / 2406 Output Total 800 / 800 3600 / 3600 3155 / 3155 Balance -800 / -800 -820 / -820 -749 / -749 Microbiology Past 72 Hours 08/14/18 08:45 Urine Culture - Preliminary Urine, Catheterized Presumptive E. coli Laboratory Tests Past 24 Hrs 08/15/18 08/15/18 05:54 05:54 WBC 4.5 RBC 5.12 Hgb 15.1 Hct 45.7 MCV 89.3 MCH 29.5 MCHC 33.0 RDW 14.7 H RDW Differential 47.6 H Plt Count 114 L MPV 11.7 Immature Gran % (Auto) 0.400 Neut % (Auto) 68.6 Lymph % (Auto) 17.3 L [place] % (Auto) 12.4 H Eos % (Auto) 1.1 Baso % (Auto) 0.2 Absolute Neuts (auto) 3.1 Absolute Lymphs (auto) 0.78 L Total Counted Not Reportable Sodium 139 Potassium 3.8 Chloride 107 Carbon Dioxide 23.0 Anion Gap 9 BUN 21 H Creatinine 1.30 Estim Creat Clear Calc 54.53 Est GFR (MDRD) Af Amer 72 Est GFR (MDRD) Non-Af 60 BUN/Creatinine Ratio 16.2 Glucose 266 H Calcium 8.8 POC Glucose 08/15/18 08/14/18 08/14/18 06:36 21:34 18:13 POC Glucose 261 H 289 H 195 H Assessment/Plan All Active Problems Small bowel obstruction due to adhesions (Acute) Urinary tract infection (Acute) Gastroenteritis due to norovirus (Acute) Cystitis (Acute) 1. DM2 uncontrolled states he takes 44 units of Lantus QHS (not on home med rec). received 8 units of lantus this AM. Since still NPO will continue to monitor for response and make adjustments accordingly. started moderate dosing SSI Q6h while NPO, then can be QACHS when able to take PO Eventually, when taking adequate PO, resume full-dose Lantus 2. SBO NPO NGT IVF mgmt per general surgery SBFT ordered 3. VTE proph: LMWH Thank you for the consult. The hospitalist service will continue to follow along during the patient's hospitalization. Code Visit Inpatient E&M: 60248 Init Hosp L2
--- NOTE | 2018-08-15 13:13 | DS.PCM_ITS ---
Discharge Date and Diagnosis - Problem List Patient Problems: Active and Suspected Problems (Last Updated 08/15/18 @ 13:14 by Pankaj Newman DO) Small bowel obstruction due to adhesions (Acute) Urinary tract infection (Acute) Date of Admission: 08/13/18 Date of Discharge: 08/15/18 - Primary Discharge Diagnosis Active and Suspected Problems Small bowel obstruction due to adhesions (Acute) Urinary tract infection (Acute) - Secondary Discharge Diagnosis Chronic Problems Urinary outflow obstruction (Chronic) Status post ileostomy (Chronic) History of colon cancer (Chronic) COPD (Chronic) Familial adenomatous polyposis coli (Chronic) Complicated by cancer requiring surgery in 2001 Hospital Course and Treatment Imaging Results: 08/15/18 06:09 Upper GI/w Small Bowel [RAD] Urgent Operations: None Summary of Care Provided: The patient is a 58 year old M who presented to the [facility] emergency room late on the evening of 08/13/2018. The patient had evaluation and findings were felt based upon history clinical examination imaging to be consistent with a small bowel obstruction likely secondary to adhesive phenomena. [facility] was contacted and refused to admit the [place] patient. The local hospitalist also declined admission. I his general surgeon was asked at midnight to present admit the patient. Initially with NG tube decompression he seemed to make improvement. He gave report that he has had multiple previous episodes of small bowel obstruction none of which have required surgical intervention. This morning stated that he had had increased pain and cramping overnight. I elected to pursue with a Gastrografin upper GI study. During a surgical procedure I was contacted by the patient's employment case manager at which point I had to break scrub and sign urgent transfer patients to the [facility] at the [facility] request. The patient's upper GI study is ongoing. Patient Problems: Active and Suspected Problems (Last Updated 08/15/18 @ 13:14 by Pankaj Newman DO) Small bowel obstruction due to adhesions (Acute) Urinary tract infection (Acute) - Physical Exam General: Alert Abdomen: Soft, Non Tender, Distended Vital Signs Temp Pulse Resp BP Pulse Ox 98.0 F 75 16 118/75 98 08/15/18 09:30 08/15/18 09:30 08/15/18 09:30 08/15/18 09:30 08/15/18 09:30 Oxygen Delivery Method Room Air Weight: 188 lb 11.451 oz Body Mass Index (BMI) 30.4 Finger Stick Blood Glucose 290 Intake and Output for Last 24 Hours 08/13/18 08/14/18 08/15/18 23:59 23:59 23:59 Intake Total 2780 / 2780 2406 / 2406 Output Total 800 / 800 3600 / 3600 3155 / 3155 Balance -800 / -800 -820 / -820 -749 / -749 Microbiology Past 72 Hours 08/14/18 08:45 Urine Culture - Preliminary Urine, Catheterized Presumptive E. coli Laboratory Tests Past 24 Hrs 08/15/18 08/15/18 05:54 05:54 WBC 4.5 RBC 5.12 Hgb 15.1 Hct 45.7 MCV 89.3 MCH 29.5 MCHC 33.0 RDW 14.7 H RDW Differential 47.6 H Plt Count 114 L MPV 11.7 Immature Gran % (Auto) 0.400 Neut % (Auto) 68.6 Lymph % (Auto) 17.3 L [place] % (Auto) 12.4 H Eos % (Auto) 1.1 Baso % (Auto) 0.2 Absolute Neuts (auto) 3.1 Absolute Lymphs (auto) 0.78 L Total Counted Not Reportable Sodium 139 Potassium 3.8 Chloride 107 Carbon Dioxide 23.0 Anion Gap 9 BUN 21 H Creatinine 1.30 Estim Creat Clear Calc 54.53 Est GFR (MDRD) Af Amer 72 Est GFR (MDRD) Non-Af 60 BUN/Creatinine Ratio 16.2 Glucose 266 H Calcium 8.8 POC Glucose 08/15/18 08/14/18 08/14/18 06:36 21:34 18:13 POC Glucose 261 H 289 H 195 H Discharge Diet: - - NPO, sips chips Home Medications: Medications to take at Discharge Ferrous Sulfate 325 mg PO DAILY@0800 07/15/13 Loperamide [Imodium] 2 mg PO Q6H PRN PRN 07/15/13 Mometasone Furoate [Asmanex] 220 mcg IH BID 07/15/13 Pantoprazole Sodium [Protonix] 40 mg PO DAILY 07/15/13 Vitamin B12 1,000 mcg PO DAILY 07/15/13 Formoterol Fumarate [Foradil] 1 puff INHALATION DAILY 02/03/14 Cholecalciferol (VIT D3) [Vitamin D3] 1,000 unit PO DAILY 04/11/14 Saxagliptin Hydrochloride [Onglyza] 5 mg PO DAILY 04/11/14 Ondansetron [Zofran Odt] 4 mg PO Q8H PRN PRN #10 tablet 08/09/16 Gabapentin [Neurontin] 600 mg PO TID 01/01/17 Tamsulosin HCl [Flomax] 0.8 mg PO QHS 04/12/18 Glipizide 08/14/18 [facility] - Medical Necessity - Tobacco Use Smoking Status: Never smoker Meaningful Use Info Meaningful Use Diagnoses (Choose all that apply): None applicable
--- NOTE | 2018-08-15 13:22 | CON.PCM_ITS ---
Reason for Consult Date of Consultation: 08/15/18 Reason for Consultation: Consult by Dr. Valdez for hyperglycemia. History of Present Illness: The patient is a 58 year old M presents with abdominal pain and diagnosed with SBO. NG tube placed and is currently NPO. Blood sugars have in the 200 range. Still with abdominal pain, similar to when he had a SBO in the past.[] Past Medical History Past Medical History (Chronic Problems): Chronic Problems Urinary outflow obstruction (Chronic) Status post ileostomy (Chronic) History of colon cancer (Chronic) COPD (Chronic) Familial adenomatous polyposis coli (Chronic) Complicated by cancer requiring surgery in 2001 Medical History: Medical History (Last Updated 08/15/18 @ 13:14 by Pankaj Newman DO) DM2 (diabetes mellitus, type 2) E11.9 Allergies No Known Allergies Allergy (Verified 08/14/18 00:24) Home Medications: Ambulatory Orders Medication Instructions Recorded Ferrous Sulfate 325 mg PO DAILY@0800 07/15/13 Loperamide [Imodium] 2 mg PO Q6H PRN PRN 07/15/13 Mometasone Furoate [Asmanex] 220 mcg IH BID 07/15/13 Pantoprazole Sodium [Protonix] 40 mg PO DAILY 07/15/13 Vitamin B12 1,000 mcg PO DAILY 07/15/13 Formoterol Fumarate [Foradil] 1 puff INHALATION DAILY 02/03/14 Cholecalciferol (VIT D3) [Vitamin 1,000 unit PO DAILY 04/11/14 D3] Saxagliptin Hydrochloride [Onglyza] 5 mg PO DAILY 04/11/14 Ondansetron [Zofran Odt] 4 mg PO Q8H PRN PRN #10 tablet 08/09/16 Gabapentin [Neurontin] 600 mg PO TID 01/01/17 Tamsulosin HCl [Flomax] 0.8 mg PO QHS 04/12/18 Glipizide 08/14/18 Surgical History: - - Ileostomy; 7 abdominal surgeries, colon resection secondary to cancer Psychiatric History: No pertinent psych hx Smoking Status: Never smoker Tobacco Use: Non-smoker - *Family History Sibling History Items: - - Familial polyposis coli-Brothers and sisters Maternal History Items: No pertinent history Review of Systems Constitutional: Denies: Anorexia, Chills, Fever Eyes: Denies: Blurred vision, Double vision HEENT: Denies: Head Aches, Sinus Congestion, Sinus Drainage Cardiovascular: Denies: Chest Pain, Palpitations Respiratory: Denies: Cough, Shortness of breath at rest, Sputum production Gastrointestinal: Reports: Abdominal Pain, Nausea. Denies: Vomiting Genitourinary: Denies: Dysuria Musculoskeletal: Denies: Joint Pain, Joint Tenderness Skin: Denies: Rash, Wounds Neurological: Denies: Numbness, Tingling, Focal weakness Psychiatric: Denies: Anxiety, Depression Hematologic/ Lymphatic: Denies: Easy Bruising, Easy Bleeding, Hx of blood clot Comment: A 10 point review of systems were negative except as mentioned in the history of present illness and the other review of systems. Patient Problems: Active and Suspected Problems Small bowel obstruction due to adhesions (Acute) Urinary tract infection (Acute) - Physical Exam General: Alert, Cooperative, No apparent distress HEENT: Atraumatic, Normocephalic, - - NG tube in place Oral: Moist Mucosa, No Gingival or Mucosal Lesions/ Ulcerations Neck: No Nodes, Thyroid Normal Size and Texture Lungs: Clear to auscultation, Normal air movement, No rhonchi, No wheeze Cardiovascular: Regular rate, Regular Rhythm, Normal S1, Normal S2, No murmurs Abdomen: Hypoactive Bowel Sounds, Distended, Tender Extremities: No edema, No Calf Tenderness Skin: No rashes, No breakdown Psych/Mental Status: Normal Affect, Appropriate Vital Signs Temp Pulse Resp BP Pulse Ox 36.7 C 75 16 118/75 98 08/15/18 09:30 08/15/18 09:30 08/15/18 09:30 08/15/18 09:30 08/15/18 09:30 Oxygen Delivery Method Room Air Weight: 85.6 kg Body Mass Index (BMI) 30.4 Finger Stick Blood Glucose 290 Intake and Output for Last 24 Hours 08/13/18 08/14/18 08/15/18 23:59 23:59 23:59 Intake Total 2780 / 2780 2406 / 2406 Output Total 800 / 800 3600 / 3600 3155 / 3155 Balance -800 / -800 -820 / -820 -749 / -749 Microbiology Past 72 Hours 08/14/18 08:45 Urine Culture - Preliminary Urine, Catheterized Presumptive E. coli Laboratory Tests Past 24 Hrs 08/15/18 08/15/18 05:54 05:54 WBC 4.5 RBC 5.12 Hgb 15.1 Hct 45.7 MCV 89.3 MCH 29.5 MCHC 33.0 RDW 14.7 H RDW Differential 47.6 H Plt Count 114 L MPV 11.7 Immature Gran % (Auto) 0.400 Neut % (Auto) 68.6 Lymph % (Auto) 17.3 L [place] % (Auto) 12.4 H Eos % (Auto) 1.1 Baso % (Auto) 0.2 Absolute Neuts (auto) 3.1 Absolute Lymphs (auto) 0.78 L Total Counted Not Reportable Sodium 139 Potassium 3.8 Chloride 107 Carbon Dioxide 23.0 Anion Gap 9 BUN 21 H Creatinine 1.30 Estim Creat Clear Calc 54.53 Est GFR (MDRD) Af Amer 72 Est GFR (MDRD) Non-Af 60 BUN/Creatinine Ratio 16.2 Glucose 266 H Calcium 8.8 POC Glucose 08/15/18 08/14/18 08/14/18 06:36 21:34 18:13 POC Glucose 261 H 289 H 195 H Assessment/Plan All Active Problems Small bowel obstruction due to adhesions (Acute) Urinary tract infection (Acute) Gastroenteritis due to norovirus (Acute) Cystitis (Acute) 1. DM2 * uncontrolled * states he takes 44 units of Lantus QHS (not on home med rec). * received 8 units of lantus this AM. * Since still NPO will continue to monitor for response and make adjustments accordingly. * started moderate dosing SSI Q6h while NPO, then can be QACHS when able to take PO * Eventually, when taking adequate PO, resume full-dose Lantus 2. SBO * NPO * NGT * IVF * mgmt per general surgery * SBFT ordered 3. VTE proph: LMWH Thank you for the consult. The hospitalist service will continue to follow along during the patient's hospitalization. Code Visit Inpatient E&M: 17691 Init Hosp L2
[2018-08-15 14:50] VITALS: BP 95/68; PULSE 98; RESP 16; TEMP 36.6; O2SAT 95
--- NOTE | 2018-08-15 15:32 | NURSING ---
Addendum entered by Rhea Lindo 08/15/18 16:02: [facility] and report was given at this time. Original Note: attempted to call report to [facility] the [facility]. the unit reported that they were not aware of any patients transferring to them and stated they would call back for report when it is determined what unit pt will go to.
[2018-08-16 03:21] LABS: Bedside Glucose 277 mg/dL (70-110)
== END 2018-08-15 16:20 | DRG 389 ==
LOC: ED 19:08 → MS3 23:40
PROVIDERS: Admitting Provider Surgery; Emergency Provider Emergency Medicine; Referring Provider Hospitalist
DX: K56.50 Intestinal adhesions [bands], unspecified as to partial versus complete obstruction (principal); N39.0 Urinary tract infection, site not specified; E11.65 Type 2 diabetes mellitus with hyperglycemia; Z90.49 Acquired absence of other specified parts of digestive tract; Z93.2 Ileostomy status; Z79.4 Long term (current) use of insulin; Z85.038 Personal history of other malignant neoplasm of large intestine; J44.9 Chronic obstructive pulmonary disease, unspecified; D12.6 Benign neoplasm of colon, unspecified
CPT/HCPCS: 36415; 74018; 74177; 74250; 80048; 80053; 81002; 82962; 83605; 83690; 85025; 87086; 87088; 87186; 97802; 99285; J7030; J7050; J7120; Q9967; A4216; J2405

== ENCOUNTER 2018-10-10 11:00 | Outpatient (RCR) | payer OTHER, SELFPAY ==
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
--- NOTE | 2018-10-10 11:48 | HP.PTDCSUM_ITS ---
HP - PT D/C Summary It has been my pleasure to treat MING BRUNNER under orders from SAMIA WHITFIELD, for the diagnosis of CERVCIAL RADICULOPATHY/FRACTURED HUMERUS IN APR 2018 for a total of 12 visit(s). Discharge Date: Please see the following information for a summary of their discharge status. - Subjective Subjective: PATIENT IS AGAIN EXPRESSING [facility]STRATION WITH THE [facility] BECAUSE THEY SAID THEY WOULD ORDER PT NOW BUT HE TRIED TO EXPLAIN HE IS ALREADY GETTING PT AND HE WANTS TO SEE AN ORTHOPEDIC SURGEON. PATIENT REPORTS HE ISN'T IN A LOT OF PAIN BUT HE CAN'T USE HIS ARM WELL. PATIENT REPORTS HE CAN TURN THE STERRING WHEEL AND REACH OUT FOR THE TURN SIGNAL NOW WITHOUT PAIN. HE REPORTS HE FEELS LIKE IF HE WOULD HAVE CONTINUED TO IMPROVE HE WOULD BE ALMOST BACK TO NORMAL BY NOW. - Pain LEFT SHOULDER Pain Intensity (Out of 10): 1 NECK Pain Intensity (Out of 10): 0 - Overall Improvement % Improvement: 50 - Objective Objective/Function: PATIENT HAS IMPROVED WITH PHYSICAL THERAPY BUT AT THIS POINT IS NOT CONTINUING TO IMPROVE. UPON EXAM TODAY, MEASUREMENTS ARE FOLLOWS: Motor deficit: RIGHT UE 5/5 - RIGHT HANDED. STILL WITH WEAK LEFT SHOULDER. SEE ROM MEASUREMENTS BELOW. WIND ENERGY MECHANIC STRENGTH IS APPOX 50 LBS MOHINDER. (IMPROVED FROM 35 LBS). Sensory deficit: NO. ROM deficit: RIGHT UE WFL. LEFT ELBOW, WRIST AND HAND WFL. LEFT SHOULDER AROM INTO FLEX 98 DEG ABD 58 DEG PROM: FLEX 110 ABD 68 DEG IR 40 DEG AND ER 40 DEG WITH 60 DEG ABD. Dural Signs: NEGATIVE. Cervical Mvmt Loss: Flex: NIL. Pro: NIL. Ext: MOD. Ret: MOD. RSB: MIN. LSB: MIN. R Rot: MIN. L Rot: MIN. PATIENT DENIES PAIN WITH CERVICAL ROM TESTING ALL PLANES BUT STATES IT DOES STILL FEEL A LITTLE STIFF. Postural strength: POOR. Palpation: TENDERNESS MORE LOCALIZED TO LEFT AC JOINT REGION NOW. OTHER: PATIENT WAS ON THE PHONE AT START OF SESSION AND DISTRACTED BY HIS PHONE OFF AND ON. PATIENT IS NOT CONTINUING TO IMPROVE AND PHYSICIAN REASSESSMENT IS RECOMMENDED. PATIENT IS AGREEABLE. - Goals Goal 1:: DECREASE C/O LEFT SHOULDER PAIN Goal Progress: Not Progressing Goal 2:: IMPROVE LEFT UE FUNCTIONAL ROM TO EASE ADL'S Goal Progress: Not Progressing Goal 3:: IMPROVE LEFT UE FUNCTIONAL STRENGTH TO EASE ADL'S Goal Progress: Not Progressing Goal 4:: INDEP HEP Goal Progress: Not Progressing - Plan Plan: D/C DUE TO LACK OF CONTINUED PROGRESS. PATIENT AGREEABLE - D/C Information If there are questions or concerns regarding this patient's physical therapy, please feel free to call me at [phone]. Thank you for the referral of this patient. Sincerely, Franci De La Cruz, PT, Cert MDT
--- NOTE | 2018-10-10 11:51 | HP.PTDCSUM ---
HP - PT D/C Summary It has been my pleasure to treat MING BRUNNER under orders from SAMIA WHITFIELD, for the diagnosis of CERVCIAL RADICULOPATHY/FRACTURED HUMERUS IN APR 2018 for a total of 12 visit(s). Discharge Date: Please see the following information for a summary of their discharge status. - Subjective Subjective: PATIENT IS AGAIN EXPRESSING [facility]ATION WITH [facility] BE[facility]USE THEY SAID THEY WOULD ORDER PT NOW BUT HE TRIED TO EXPLAIN HE IS ALREADY GETTING PT AND HE WANTS TO SEE AN ORTHOPEDIC SURGEON. PATIENT REPORTS HE ISN'T IN A LOT OF PAIN BUT HE CAN'T USE HIS ARM WELL. PATIENT REPORTS HE CAN TURN THE STERRING WHEEL AND REACH OUT FOR THE TURN SIGNAL NOW WITHOUT PAIN. HE REPORTS HE FEELS LIKE IF HE WOULD HAVE CONTINUED TO IMPROVE HE WOULD BE ALMOST BACK TO NORMAL BY NOW. - Pain LEFT SHOULDER Pain Intensity (Out of 10): 1 NECK Pain Intensity (Out of 10): 0 - Overall Improvement % Improvement: 50 - Objective Objective/Function: PATIENT HAS IMPROVED WITH PHYSICAL THERAPY BUT AT THIS POINT IS NOT CONTINUING TO IMPROVE. UPON EXAM TODAY, MEASUREMENTS ARE FOLLOWS: Motor deficit: RIGHT UE 5/5 - RIGHT HANDED. STILL WITH WEAK LEFT SHOULDER ESPECIALLY INTO ABDUCTION AND EXTERNAL ROATION. SEE ROM MEASUREMENTS BELOW. CLOTH DESIZING RANGE TENDER STRENGTH IS APPOX 50 LBS MOHINDER. (IMPROVED FROM 35 LBS). Sensory deficit: NO. ROM deficit: RIGHT UE WFL. LEFT ELBOW, WRIST AND HAND WFL. LEFT SHOULDER AROM INTO FLEX 98 DEG ABD 58 DEG PROM: FLEX 110 ABD 68 DEG IR 40 DEG AND ER 40 DEG WITH 60 DEG ABD. END-FEEL WITH PROM IS HARD AND PAINFUL. POSITIVE LEFT ROTATOR CUFF TEST. Dural Signs: NEGATIVE. Cervical Mvmt Loss: Flex: NIL. Pro: NIL. Ext: MOD. Ret: MOD. RSB: MIN. LSB: MIN. R Rot: MIN. L Rot: MIN. PATIENT DENIES PAIN WITH CERVICAL ROM TESTING ALL PLANES BUT STATES IT DOES STILL FEEL A LITTLE STIFF. Postural strength: POOR. Palpation: TENDERNESS MORE LOCALIZED TO LEFT AC JOINT REGION NOW. OTHER: PATIENT WAS ON THE PHONE AT START OF SESSION AND DISTRACTED BY HIS PHONE OFF AND ON. PATIENT IS NOT CONTINUING TO IMPROVE AND PHYSICIAN REASSESSMENT IS RECOMMENDED. PATIENT IS AGREEABLE. - Goals Goal 1:: DECREASE C/O LEFT SHOULDER PAIN Goal Progress: Not Progressing Goal 2:: IMPROVE LEFT UE FUNCTIONAL ROM TO EASE ADL'S Goal Progress: Not Progressing Goal 3:: IMPROVE LEFT UE FUNCTIONAL STRENGTH TO EASE ADL'S Goal Progress: Not Progressing Goal 4:: INDEP HEP Goal Progress: Not Progressing - Plan Plan: D/C DUE TO LACK OF CONTINUED PROGRESS. PATIENT AGREEABLE - D/C Information If there are questions or concerns regarding this patient's physical therapy, please feel free to call me at [phone]. Thank you for the referral of this patient. Sincerely, Franci De La Cruz, PT, Cert MDT
== END 2018-10-10 19:00 | disposition home or self-care (01) ==
LOC: PT 11:00
DX: M65.812 Other synovitis and tenosynovitis, left shoulder (principal)
CPT/HCPCS: 97014; 97035; 97110; 97140; 97162; 97530; G0283

== ENCOUNTER 2018-10-21 01:01 | Emergency (ER) | payer OTHER, SELFPAY ==
[2018-10-21 01:02] VITALS: BP 106/79; PULSE 117; RESP 18; TEMP 36.8; O2SAT 97; BMI 31.9
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
[2018-10-21] MEDS: 0.9% Normal Saline 1,000 ML 1000 ML IV (02:14)
[2018-10-21] MEDS: Ondansetron 4 MG/2 ML Vial IV (02:14)
[2018-10-21] MEDS: Morphine 4 MG/ML Syringe IV ×2 (02:16→03:33)
[2018-10-21 02:28] LABS: Absolute Lymphocyte Count 1.11 X10^3/uL (0.83-4.51); Absolute Neutrophil Count 6.8 X10^3/uL (2.0-7.7); Basophil# 0.03 X10^3/uL; Basophil% 0.3 % (0-1); Eosinophil# 0.03 X10^3/uL; Eosinophils% 0.3 % (0-5); Hematocrit 41.8 % (40-54); Hemoglobin 13.9 g/dL (13.0-16.5); Lymphocyte # 1.11 X10^3/ul (4.0); Lymphocyte % 12.9 % (19-41); Mean Corp Hgb Conc 33.3 g/dL (32-36); Mean Corpuscular Hgb 30.5 pg (27.0-32.0); Mean Corpuscular Volume 91.9 fL (80-94); Monocyte# 0.53 X10^3/uL; Monocyte% 6.2 % (0-10); NRBC Flagged by Analyzer 0 % (0-5); Neutrophil # 6.84 X10^3/uL (2.7-7.7); Neutrophil % 79.6 % (47-70); Platelet Count 98 K/mm3 (150-450); RBC Distribution Width CV 15.1 % (11.6-14.6); RBC Distribution Width SD 50.4 fl (35.1-43.9); Red Blood Count 4.55 M/mm3 (4.6-6.2); White Blood Count 8.6 K/mm3 (4.4-11.0)
[2018-10-21 02:34] LABS: International Normalized Ratio 1.1; Prothrombin Time (Protime)PT. 13.7 SECONDS (11.7-14.9)
[2018-10-21 02:42] LABS: Alcohol, Blood (Medical)-Serum < 3.0 mg/dL
[2018-10-21 03:04] LABS: AST(SGOT) 36 U/L (15-37); Alanine Aminotransfer ALT/SGPT 36 U/L (16-61); Albumin, Serum 3.6 g/dL (3.2-5.0); Alkaline Phosphatase 140 U/L (45-117); Anion Gap 6 (5-15); BUN 19 mg/dL (7-18); BUN/Creat Ratio 16.5 RATIO (10-20); Calcium,Total 8.7 mg/dL (8.5-10.1); Chloride 109 mmol/L (98-107); Creatinine, Serum 1.15 mg/dL (0.70-1.30); EST Glomerular Filtration Rate 69 mL/min (>60); Est Glom Filt Rate - Afr Amer 83 mL/min (>60); Estimated Creatinine Clearance 61.64 ml/min; Globulin 3.5 g/dL (2.2-4.2); Glucose 195 mg/dL (74-106); Potassium 3.9 mmol/L (3.5-5.1); Protein, Total 7.1 g/dL (6.4-8.2); Sodium Level 136 mmol/L (136-145)
[2018-10-21 03:38] VITALS: BP 112/80; PULSE 103; RESP 18; O2SAT 88
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
--- NOTE | 2018-10-21 04:22 | DCINST.ED_ITS ---
ED Disposition - Plan for ED Patient: Instructions: FRACTURE, Lower Extremity Prescriptions: Hydrocodone Bitart/Apap 5-325 [Reading 5MG-325MG] 1 tab PO Q6H PRN PRN 3 Days #10 tab PRN Reason: Pain Prescription Printed Referrals: [facility] [Primary Care Provider] - Nicholas Fagan DO [STAFF PHYSICIAN] -
[2018-10-21 04:37] VITALS: BP 110/76; PULSE 100; RESP 19; O2SAT 94
== END 2018-10-21 04:39 | disposition home or self-care (01) ==
PROVIDERS: Emergency Provider Emergency Medicine
DX: S82.424A Nondisplaced transverse fracture of shaft of right fibula, initial encounter for closed fracture (principal); S00.01XA Abrasion of scalp, initial encounter; R07.9 Chest pain, unspecified; M25.562 Pain in left knee; M25.551 Pain in right hip; V29.9XXA Motorcycle rider (driver) (passenger) injured in unspecified traffic accident, initial encounter; Y93.9 Activity, unspecified; Y92.9 Unspecified place or not applicable; Y99.9 Unspecified external cause status; E11.9 Type 2 diabetes mellitus without complications; K21.9 Gastro-esophageal reflux disease without esophagitis; Z79.899 Other long term (current) drug therapy; Z85.038 Personal history of other malignant neoplasm of large intestine
CPT/HCPCS: 70450; 71260; 72125; 73564; 73590; 73610; 74177; 80053; 80320; 85025; 85610; 96361; 96374; 96375; 96376; 99285; J7030; Q9967; A4216; G0480; J2405

== ENCOUNTER 2019-03-22 16:44 | Emergency (ER) | payer OTHER, SELFPAY ==
[2019-03-22 16:46] VITALS: BP 116/70; PULSE 94; RESP 18; TEMP 36.6; O2SAT 96; BMI 29.7
--- NOTE | 2019-03-22 17:04 | EKG12_ITS ---
Test Reason : HYPERGLYCEMIA Blood Pressure : / mmHG Vent. Rate : 099 BPM Atrial Rate : 099 BPM P-R Int : 134 ms QRS Dur : 082 ms QT Int : 346 ms P-R-T Axes : 064 002 047 degrees QTc Int : 444 ms Sinus rhythm with Fusion complexes Otherwise normal ECG Confirmed by FALLON RICK, JUAN JOSÉ ([id number]), supervising film or videotape editor HANNA GROSS ([id number]) on 03/26/2019 9:12:21 AM Referred By: ALETHEA Confirmed By:JUAN JOSÉ LEHMAN MD
[2019-03-22] MEDS: 0.9% Normal Saline 1,000 ML 1000 ML IV ×2 (17:28→19:09)
[2019-03-22 17:30] LABS: Mucous, Urine 0 SEEN /hpf (<or=2+); Red Blood Cells-Urine 0 SEEN /hpf (0-5); Squamous Epithelial Cells - UA 0 SEEN /hpf (0-5)
[2019-03-22 17:35] LABS: Color, Urine Yellow (Yellow); Glucose, Dipstick 1000 mg/dl (Normal); Ketone-Dipstick Negative (Negative); Leukocyte Esterase-Dipstick 500 /ul (Negative); Nitrite-Dipstick Positive (Negative); Occult Blood-Urine 10 /ul (Negative); Protein-Dipstick 15 mg/dl (Negative); Specific Gravity, Urine 1.015 (1.002-1.030); Urine Bilirubin Dipstick Negative (Negative); Urine Clarity Sl. Cloudy (Clear); Urine Urobilinogen Normal (Normal)
[2019-03-22 17:38] LABS: Absolute Lymphocyte Count 1.58 X10^3/uL (0.83-4.51); Absolute Neutrophil Count 4.6 X10^3/uL (2.0-7.7); Basophil# 0.02 X10^3/uL; Basophil% 0.3 % (0-1); Eosinophil# 0.08 X10^3/uL; Eosinophils% 1.2 % (0-5); Hematocrit 45.5 % (40-54); Hemoglobin 15.1 g/dL (13.0-16.5); Lymphocyte # 1.58 X10^3/ul (4.0); Lymphocyte % 23.1 % (19-41); Mean Corp Hgb Conc 33.2 g/dL (32-36); Mean Corpuscular Hgb 28.8 pg (27.0-32.0); Mean Corpuscular Volume 86.8 fL (80-94); Mean Platelet Vol. 11.9 fl (6.2-12.0); Monocyte# 0.52 X10^3/uL; Monocyte% 7.6 % (0-10); NRBC Flagged by Analyzer 0 % (0-5); Neutrophil # 4.56 X10^3/uL (2.7-7.7); Neutrophil % 66.8 % (47-70); Platelet Count 120 K/mm3 (150-450); RBC Distribution Width CV 14.3 % (11.6-14.6); RBC Distribution Width SD 45.1 fl (35.1-43.9); Red Blood Count 5.24 M/mm3 (4.6-6.2); White Blood Count 6.8 K/mm3 (4.4-11.0)
[2019-03-22 17:40] LABS: Bacteria 2+ /hpf (None Seen); White Blood Cells 50-100 SEEN /hpf (0-5)
[2019-03-22 18:04] LABS: AST(SGOT) 24 U/L (15-37); Alanine Aminotransfer ALT/SGPT 22 U/L (16-61); Albumin, Serum 3.9 g/dL (3.2-5.0); Alkaline Phosphatase 224 U/L (45-117); Anion Gap 7 (5-15); BUN 23 mg/dL (7-18); BUN/Creat Ratio 17.8 RATIO (10-20); Calcium,Total 8.9 mg/dL (8.5-10.1); Chloride 104 mmol/L (98-107); Creatinine, Serum 1.29 mg/dL (0.70-1.30); EST Glomerular Filtration Rate 60 mL/min (>60); Est Glom Filt Rate - Afr Amer 73 mL/min (>60); Estimated Creatinine Clearance 54.27 ml/min; Globulin 4.1 g/dL (2.2-4.2); Glucose 470 mg/dL (74-106); Potassium 4.9 mmol/L (3.5-5.1); Sodium Level 131 mmol/L (136-145)
[2019-03-22] MEDS: Ceftriaxone 1 GM/50 ML BAG IV (18:24)
--- NOTE | 2019-03-22 18:41 | ED.VISSUMM ---
- ER Visit Summary Date of Service: 03/22/19 Chief Complaint: Elevated blood sugar History of Present Illness: The patient is a 59 M who goes to the [place]. He reports that he supposed to be on 44 units of Lantus at night. He did not take this last night. Reports that he is on glipizide 1 pill twice daily. States that he did take that yesterday and took his dose at 8:00 this morning. He does not remember the name of the other medication that he is on for his blood sugar. He reports that at noon today he measured his blood sugar and it was 587. At 334 it was 571. Patient reports that he does have a history of urinary outflow obstruction and self caths 3 times a day. He denies any cloudiness to his urine. No fever or chills. No abdominal pain, nausea, vomiting, or diarrhea. No flank pain. His review of systems is negative. Physical Examination: Vitals: Stable. Afebrile. General: Well-nourished and well-developed. Head: Normocephalic atraumatic. Neck: Supple, no lymphadenopathy. No JVD. Nontender. Cardiovascular: Regular rate and rhythm. No murmurs. Respiratory: No respiratory distress. Clear to auscultation bilaterally. Abdominal: Soft, nontender, nondistended, normal bowel sounds. No guarding, rebound, or peritoneal signs. Back: Nontender. Extremities: Nontender, no edema. Skin: Normal color, no rash. Neurologic: Alert and oriented ?3. Cranial nerves II through XII are intact. Normal strength and sensation. Psych: Normal affect. Test Results: EKG is sinus at [address] changes. Troponin is negative. UA does show UTI. Chem-7 shows a sodium of 131, CO2 of 20, glucose 470, BUN of 23. CBC shows platelets 120. LFTs show an alk phos of 224. Emergency Department Course and Treatment: Patient was given 2 L of normal saline IV. He was given Rocephin IV. He was given insulin subcu. Treatment Plan: Patient feels well and would like to go home. He will be discharged with Keflex. Instructed to start his oral diabetic medications tomorrow and to take his evening dose of Lantus as scheduled. Follow-up with his primary care physician in 2 days to get the results of his urine culture. Return to the emergency department for any worsening symptoms. Disposition: To home in improved and stable condition. Impression: 1. Dcl-lfaxdim-fizbmnztz diabetes mellitus. 2. Hyperglycemia due to medication noncompliance. 3. UTI. This note was generated with [employer] dictation software. It may contain incorrect words, spelling, and punctuation that were not noted in review of the chart prior to signing ED Disposition - Plan for ED Patient: Disposition: Home or Assisted Living Instructions: Bladder Infection, Male (Adult) Prescriptions: Cephalexin [Keflex] 500 mg PO Q12 #14 cap Prescription Printed [facility]errals[facility] [Primary Care Provider] - 3-5 Days
[2019-03-22] MEDS: Insulin Lispro 100 UNIT/ML INSULN.PEN 8 UNIT SC (19:09)
[2019-03-22 19:15] VITALS: BP 116/78; PULSE 71; RESP 16; O2SAT 98
[2019-03-22 19:16] LABS: Bedside Glucose 361 mg/dL (70-110)
== END 2019-03-22 19:17 | disposition home or self-care (01) ==
PROVIDERS: Emergency Provider Emergency Medicine
DX: E11.65 Type 2 diabetes mellitus with hyperglycemia (principal); Z91.14 Patient's other noncompliance with medication regimen; N39.0 Urinary tract infection, site not specified; N13.9 Obstructive and reflux uropathy, unspecified; J44.9 Chronic obstructive pulmonary disease, unspecified; Z79.4 Long term (current) use of insulin; Z79.899 Other long term (current) drug therapy; Z85.038 Personal history of other malignant neoplasm of large intestine; Z90.49 Acquired absence of other specified parts of digestive tract
CPT/HCPCS: 80053; 81001; 82009; 82962; 84484; 85025; 87077; 87086; 87088; 87186; 93005; 96361; 96365; 99284; J7030

== ENCOUNTER 2019-11-21 16:07 | Inpatient (IN) | payer OTHER, SELFPAY ==
[2019-11-21] VITALS (11 sets, daily range): BP systolic 98–108; BP diastolic 70–83; PULSE 89–143; RESP 14–23; TEMP 36.1–36.8; O2SAT 94–100; BMI 30.7; BMI 28.6; BMI 28.7
--- NOTE | 2019-11-21 16:37 | CT_ITS ---
STUDY: CT ABDOMEN AND PELVIS WITHOUT CONTRAST REASON FOR EXAM: Male, 59 years old. Abdominal pain RADIATION DOSAGE (If Supplied By Facility): CTDIvol = ( 8.43 ) mGy, DLP = ( 416.80 ) mGycm TECHNIQUE: Transaxial images were obtained from the dome of the diaphragm to the symphysis pubis without oral contrast, and without intravenous contrast. Sagittal and coronal images were reconstructed. Individualized dose optimization techniques were used for this CT. COMPARISON: October 21 2018 FINDINGS: Examination is technically limited due to lack of IV contrast. Some diagnostic information is available. Lung bases are emphysematous with minor scarring in the right middle lobe. Pleural surfaces are clear. The liver has a globular blunted appearance and is of normal size. Gallbladder is normal without biliary dilation. There is no ascites. There is moderate splenomegaly. Adrenals and kidneys are normal. Left kidney contains a 2 cm exophytic cyst. There is no hydronephrosis or urinary calculi. Bladder is normal. There is prior ventral abdominal hernia repair without recurrence. There is massive abdominal lipomatosis. There is a right lower quadrant ileostomy. There is likely partial colectomy. Appearance is stable since prior. CT/Abdomen/Pel W ORAL Cont Only IMPRESSION: 1. No acute or focal findings. 2. No intestinal obstruction. 3. Splenomegaly, differential diagnosis is broad and related to systemic conditions. Electronically Signed: Madhuri Casey, at 18:37 EDT Tel , Service support ,
--- NOTE | 2019-11-21 16:38 | ED.VISSUMM ---
- ER Visit Summary Date of Service: 11/21/19 Chief Complaint: Abdominal pain History of Present Illness: The patient is a 59 M who presents with abdominal pain that began yesterday evening. Patient describes as a pressure. Patient states pain is diffuse but worse near his ileostomy site. Patient states his pain is worse when he has a bowel movement. Patient states it feels like he is having a blockage and that his stool needs to go around the blockage. Patient admits to nausea but denies any vomiting. Patient admits to some diarrhea but denies any melena or hematochezia. Patient denies any dysuria or hematuria. Patient denies any fevers or chills. Physical Examination: Vital signs are stable except for a tachycardia of 143. Patient is afebrile. Patient is in no acute distress. Oral mucosa is pink and moist. Neck is supple. Trachea is midline. There is no JVD. Heart was regular and tachycardic. Lungs are clear and equal bilaterally. Abdomen is soft. Bowel sounds are normal. There is diffuse tenderness. There is no rebound or guarding noted. Cranial nerves II through XII are intact. There are no focal motor or sensory deficits noted. Extremities are intact. There is no calf tenderness or edema. Test Results: CBC was within normal limits. Comprehensive metabolic profile showed a sodium of 122, CO2 was 16, anion gap was normal at 14. Glucose was elevated 832. Total bilirubin was slightly elevated at 1.5. Urinalysis shows leukocyte esterase of 500 with positive nitrites and greater than 100 white blood cells. There is 4+ bacteria. Urine ketones were negative. Serum ketones were negative. Initial lactate was 4.2. Repeat lactate was 3.2. CT scan of the abdomen and pelvis was obtained. There are no acute findings. There is no bowel obstruction noted. It was interpreted by the radiologist and reviewed by myself. Emergency Department Course and Treatment: Patient was given IV fluids. Patient was given a dose of Rocephin here. Patient was started on insulin drip. Patient was advised of his findings. Case was discussed with the hospitalist. He will admit the patient to ICU. Patient understood and was agreeable with the plan. All questions were answered. Disposition: Admit to ICU Impression: 1. HHNK 2. Lactic acidosis 3. Urinary tract infection This note was generated with [employer] software. It may contain incorrect words, spelling, and punctuation that were not noted in review of the chart prior to signing ED Disposition - Plan for ED Patient: Disposition: Acute Care Hospital [facility] Diagnosis: HHNC (hyperglycemic hyperosmolar nonketotic coma), Urinary tract infection, Lactic acidosis [facility]errals[facility] [Primary Care Provider] -
[2019-11-21] MEDS: Ondansetron 4 MG/2 ML Vial IV (17:09)
[2019-11-21] MEDS: Morphine 4 MG/ML Syringe IV (17:09)
[2019-11-21] MEDS: 0.9% Normal Saline 1,000 ML 1000 ML IV (17:09)
[2019-11-21 17:20] LABS: Absolute Lymphocyte Count 0.59 X10^3/uL (0.83-4.51); Absolute Neutrophil Count 4.5 X10^3/uL (2.0-7.7); Basophil# 0.02 X10^3/uL; Basophil% 0.3 % (0-1); Eosinophil# 0.02 X10^3/uL; Eosinophils% 0.3 % (0-5); Hematocrit 51.4 % (40-54); Hemoglobin 17.1 g/dL (13.0-16.5); Lymphocyte # 0.59 X10^3/ul (4.0); Lymphocyte % 10.2 % (19-41); Mean Corp Hgb Conc 33.3 g/dL (32-36); Mean Corpuscular Hgb 30.9 pg (27.0-32.0); Mean Corpuscular Volume 92.9 fL (80-94); Monocyte# 0.61 X10^3/uL; Monocyte% 10.6 % (0-10); Mucous, Urine 0 SEEN /hpf (<or=2+); NRBC Flagged by Analyzer 0 % (0-5); Neutrophil # 4.45 X10^3/uL (2.7-7.7); Neutrophil % 77.2 % (47-70); POSITIVE DIFFERENTIAL YES; Platelet Count 144 K/mm3 (150-450); RBC Distribution Width CV 13.8 % (11.6-14.6); Red Blood Cells-Urine 0 SEEN /hpf (0-5); Red Blood Count 5.53 M/mm3 (4.6-6.2); White Blood Count 5.8 K/mm3 (4.4-11.0)
[2019-11-21 17:22] LABS: Color, Urine Straw (Yellow); Differential Indicated SCAN CRITERIA MET; Glucose, Dipstick 1000 mg/dl (Normal); Ketone-Dipstick Negative (Negative); Leukocyte Esterase-Dipstick 500 /ul (Negative); Nitrite-Dipstick Positive (Negative); Occult Blood-Urine 10 /ul (Negative); Protein-Dipstick 15 mg/dl (Negative); Specific Gravity, Urine 1.015 (1.002-1.030); Urine Bilirubin Dipstick Negative (Negative); Urine Clarity Sl. Cloudy (Clear); Urine Urobilinogen Normal (Normal)
[2019-11-21 17:35] LABS: Bacteria 4+ /hpf (None Seen); Squamous Epithelial Cells - UA 0-5 SEEN /hpf (0-5); White Blood Cells >100 SEEN /hpf (0-5)
[2019-11-21 17:42] LABS: ALB/GLOB Ratio 0.9 RATIO (0.9-2.4); AST(SGOT) 7 U/L (15-37); Alanine Aminotransfer ALT/SGPT 23 U/L (16-61); Albumin, Serum 3.7 g/dL (3.2-5.0); Alkaline Phosphatase 201 U/L (45-117); Anion Gap 14 (5-15); BUN 30 mg/dL (7-18); BUN/Creat Ratio 14.4 RATIO (10-20); Calcium,Total 9.1 mg/dL (8.5-10.1); Chloride 92 mmol/L (98-107); Creatinine, Serum 2.09 mg/dL (0.70-1.30); Differential Comment SCANNED; EST Glomerular Filtration Rate 34 mL/min (>60); Est Glom Filt Rate - Afr Amer 42 mL/min (>60); Estimated Creatinine Clearance 32.29 ml/min; Globulin 4.1 g/dL (2.2-4.2); Glucose 832 mg/dL (74-106); Potassium 4.4 mmol/L (3.5-5.1); Protein, Total 7.8 g/dL (6.4-8.2); Sodium Level 122 mmol/L (136-145)
[2019-11-21] MEDS: Ceftriaxone 1 GM/50 ML BAG IV (18:16)
[2019-11-21 18:35] LABS: Lactic Acid 4.2 mmol/L (0.4-1.9); Reflex Lactate? Y
[2019-11-21 19:32] LABS: Lactic Acid 3.2 mmol/L (0.4-1.9)
--- NOTE | 2019-11-21 19:36 | ED.RN ---
PER DR. MATUTE, INFUSE 1500ML OF NORMAL SALINE, TEST BLOOD SUGAR AND THEN START INSULIN DRIP. OKKWAME MEAL. PT RESTING COMFORTABLY.
--- NOTE | 2019-11-21 19:39 | PCM.HP.STD ---
Problem List (1) Type 2 diabetes mellitus with hyperosmolar nonketotic hyperglycemia Status: Acute (2) Familial adenomatous polyposis coli Status: Chronic Comment: Complicated by cancer requiring surgery in 2001 (3) COPD Status: Chronic (4) Cystitis Status: Acute (5) History of colon cancer Status: Chronic (6) Status post ileostomy Status: Chronic (7) Urinary outflow obstruction Status: Chronic (8) Urinary tract infection Status: Acute Qualifiers: Urinary tract infection type: acute cystitis Hematuria presence: with hematuria Qualified Code(s): N30.01 - Acute cystitis with hematuria (9) HHNC (hyperglycemic hyperosmolar nonketotic coma) Status: Acute (10) Lactic acidosis Status: Acute History of Present Illness Date of Admission: 11/21/19 Chief Complaint: Low ileostomy output The patient is a 59 year old M with a significant history of familial adenomatosis polyposis status post colectomy with ileostomy; and type 2 diabetes who presents to the emergency department with a low ileostomy output that started 2 days before presentation. A day before presentation he noticed some improvement in his ileostomy output. However he believed that he had had intestinal blockage so he came to the emergency department to have it checked. Associated with his symptom is bloated abdomen and abdominal pain. He rates his abdominal pain as 6 out of 10. He reports nausea without vomiting. He had anorexia which has since improved. Further he has anorexia and has not been taking his insulin. At emergency department CT of the abdomen and pelvis did not show any blockage. However he was found to have a severe hyperglycemia and elevation in his creatinine. Patient has a chronic ureteral obstruction and straight cath himself about twice a day. At emergency department was found to have abnormal urinalysis. He denied any change in urinary symptoms. His lactic acid was elevated. Past Medical History Past Medical History (Chronic Problems): Chronic Problems (Last Updated 08/15/18 @ 13:[address] Pankaj Newman DO) Familial adenomatous polyposis coli (Chronic) Complicated by cancer requiring surgery in 2001 COPD (Chronic) History of colon cancer (Chronic) Status post ileostomy (Chronic) Urinary outflow obstruction (Chronic) Medical History: Medical History (Last Reviewed 11/21/19 @ 21:[address] Artemio Lynch MD) DM2 (diabetes mellitus, type 2) E11.9 Allergies No Known Allergies Allergy (Verified 11/21/19 16:07) Home Medications: Ambulatory Orders Medication Instructions Recorded Ferrous Sulfate 325 mg PO DAILY@0800 07/15/13 Loperamide [Imodium] 2 mg PO Q6H PRN PRN 07/15/13 Mometasone Furoate [Asmanex] 220 mcg IH BID 07/15/13 Pantoprazole Sodium [Protonix] 40 mg PO DAILY 07/15/13 Formoterol Fumarate [Foradil] 1 puff INHALATION DAILY 02/03/14 Cholecalciferol (VIT D3) [Vitamin 1,000 unit PO DAILY 04/11/14 D3] Ondansetron [Zofran Odt] 4 mg PO Q8H PRN PRN #10 tablet 08/09/16 Gabapentin [Neurontin] 600 mg PO TID 01/01/17 Tamsulosin HCl [Flomax] 0.8 mg PO QHS 04/12/18 Alogliptin Benzoate [Alogliptin] 25 mg PO DAILY 03/22/19 Insulin Glargine,Hum.rec.anlog 5 unit SQ DAILY 11/21/19 [Lantus] Surgical History: - - Ileostomy; 7 abdominal surgeries, colon resection secondary to cancer Psychiatric History: No pertinent psych hx Smoking Status: Former smoker - *Family History Sibling History Items: - - Familial polyposis coli-Brothers and sisters Maternal History Items: - - He does not know his maternal medical history. Reportedly his mother in a motor vehicle accident when patient was very young. Review of Systems Constitutional: Reports: Anorexia. Denies: Chills, Fever, Weight Change HEENT: Denies: Head Aches, Sinus Congestion, Sinus Drainage Cardiovascular: Denies: Chest Pain, Palpitations Respiratory: Denies: Cough, Shortness of breath at rest, Sputum production Gastrointestinal: Reports: Abdominal Pain, Nausea. Denies: Vomiting Genitourinary: Denies: Dysuria Musculoskeletal: Denies: Joint Pain, Joint Tenderness Skin: Denies: Rash, Wounds Neurological: Denies: Numbness, Tingling, Focal weakness Psychiatric: Denies: Anxiety, Depression, Homicidal Ideations, Suicidal Ideations Hematologic/ Lymphatic: Denies: Easy Bruising, Easy Bleeding VTE Information - Inpt Only VTE Present on Admission: No VTE Mechan Device Prophylaxis: None VTE Pharm Prophylaxis ordered?: Yes Patient Problems: Active and Suspected Problems (Last Updated 08/15/18 @ 13:[address] Pankaj Newman, DO) Urinary tract infection (Acute) HHNC (hyperglycemic hyperosmolar nonketotic coma) (Acute) Lactic acidosis (Acute) Type 2 diabetes mellitus with hyperosmolar nonketotic hyperglycemia (Acute) - Physical Exam Vitals/I&O's: Vital Signs Temp Pulse Resp BP Pulse Ox 97 F L 110 H 18 101/80 95 11/21/19 16:08 11/21/19 18:07 11/21/19 18:07 11/21/19 18:07 11/21/19 18:07 Oxygen Delivery Method Room Air Weight: 83.915 kg Body Mass Index (BMI) 30.7 Finger Stick Blood Glucose 290 Intake and Output for Last 24 Hours 11/19/19 11/20/19 11/21/19 23:59 23:59 23:59 Intake Total 1050 / 1050 Balance 1050 / 1050 General: Alert, Oriented x3, Cooperative HEENT: Atraumatic, PERRLA, EOMI, Normocephalic Neck: Supple, No JVD, Negative Carotid Bruits Lungs: No rhonchi, No wheeze, No rales, Diminished Cardiovascular: Regular rate, Normal S1, Normal S2, No murmurs Abdomen: Bowel Sounds Present, Soft, Non Tender, - - Ileostomy with liquid stool. Extremities: No edema, Capillary Refill Less than 3 Seconds Skin: No rashes, No breakdown Musculoskeletal: No Tenderness to Palpation of Joints or Extremities Neurological: Cranial nerves II-XII grossly intact Psych/Mental Status: Normal Affect, Appropriate Laboratory Results 11/21/19 17:11: WBC 5.8, RBC 5.53, Hgb 17.1 H, Hct 51.4, MCV 92.9, MCH 30.9, MCHC 33.3, RDW Std Deviation 47.0 H, RDW Coeff of [place]ait[place] 13.8, Plt Count 144 L, MPV 12.0, Immature Gran % (Auto) 1.400 H, Neut % (Auto) 77.2 H, Lymph % (Auto) 10.2 L, [place] % (Auto) 10.6 H, Eos % (Auto) 0.3, Baso % (Auto) 0.3, Absolute Neuts (auto) 4.5, Absolute Lymphs (auto) 0.59 L, Nucleated RBC % 0, Differential Comment SCANNED 11/21/19 17:11: Sodium 122 L, Potassium 4.4, Chloride 92 L, Carbon Dioxide 16.0 L, Anion Gap 14, BUN 30 H, Creatinine 2.09 H, Estim Creat Clear Calc 32.29, Est GFR (MDRD) Af Amer 42 L, Est GFR (MDRD) Non-Af 34 L, BUN/Creatinine Ratio 14.4, Glucose 832 H*, Calcium 9.1, Total Bilirubin 1.50 H, AST 7 L, ALT 23, Alkaline Phosphatase 201 H, Total Protein 7.8, Albumin 3.7, Globulin 4.1, Albumin/Globulin Ratio 0.9 11/21/19 17:11: Lactic Acid 4.2 H* 11/21/19 17:11: Urine Color Straw, Urine Clarity Sl. Cloudy, Urine pH 5.0, Ur Specific [place] 1.015, Urine Protein 15 H, Urine Glucose (UA) 1000 H, Urine Ketones Negative, Urine Occult Blood 10 H, Urine Nitrite Positive H, Urine Bilirubin Negative, Urine Urobilinogen Normal, Ur Leukocyte Esterase 500 H, Urine RBC 0 SEEN, Urine WBC >100 SEEN, Ur Squamous Epith Cells 0-5 SEEN, Urine Bacteria 4+, Urine Mucus 0 SEEN 11/21/19 18:13: Acetone Level NEGATIVE 11/21/19 18:49: Lactic Acid 3.2 H* Current Medications Dextrose (D50w Syringe) 0 gm IV X1 PRN; Protocol PRN Reason: Hypoglycemia Protocol Sodium Chloride () 1,500 mls @ 1,000 mls/hr IV .[id number] ONE Stop: 11/21/19 20:25 Last Admin: 11/21/19 19:18 Dose: 1,000 mls/hr Documented by: Insulin Human Lispro 100 unit/ (Sodium Chloride) 100 mls @ 4.196 mls/hr IV .[id number] [facility]; Protocol Assessment/Plan All Active Problems (Last Updated 08/15/18 @ 13:[address] Pankaj Newman, DO) Cystitis (Acute) Urinary tract infection (Acute) HHNC (hyperglycemic hyperosmolar nonketotic coma) (Acute) Lactic acidosis (Acute) Type 2 diabetes mellitus with hyperosmolar nonketotic hyperglycemia (Acute) The patient is a 59 year old M with a significant history of familial adenomatosis polyposis status post colectomy with ileostomy; and type 2 diabetes who presents emergency department with a low ileostomy output; has chronic ureteral obstruction and straight cath was found to have elevated blood glucose without acetone and with abnormal urinalysis. Hyperosmolar hyperglycemic state Likely secondary to not taking home hypoglycemic regimen. Serum glucose: 832 acetone level: Normal Anion gap of 14 Sodium 122, . Corrected sodium 134 Insulin drip started from emergency department; continue Completed IV bolus of normal saline. Because of potassium of 4.4 we will start patient on normal saline with 20 mEq of potassium going at 250 mL's per hour.. BMP every 4 hours. N.p.o. for now except meds of sips. Lactic acid of 3.2 Admitted to ICU A1c ordered Check serum osmolality. Morphine IV and Zofran IV PRN. [place] Creatinine was 2.09. Review of old records shows a creatinine baseline of around 1.25 BUN on presentation was 30 BUN over creatinine is 14.4. Likely prerenal from dehydration leading to intrinsic renal Received normal saline bolus at emergency department. Continue patient on normal saline infusion. Trend BMP Acute cystitis Patient with bandemia of 1.4%; trend. Emergency department labs reviewed showed abnormal urinalysis. Likely secondary to self-catheterization. Patient with abnormal urinalysis Received ceftriaxone emergency department Ceftriaxone continued Urine culture ordered emergency department; follow. Lactic acidosis Likely secondary to infection HHS and infection. IV hydration as above Trend Chronic ureteral obstruction Patient to straight cath as at home. Elevated alkaline phosphatase Chronic DVT prophylaxis Subcutaneous Lovenox Inpatient E&M: [id number] Init Hosp L3
[2019-11-21 20:26] LABS: Bedside Glucose > 500 mg/dL (70-110)
[2019-11-21 23:11] LABS: Bedside Glucose 458 mg/dL (70-110)
[2019-11-21 23:11] LABS: Bedside Glucose 477 mg/dL (70-110)
[2019-11-21 23:28] LABS: Anion Gap 7 (5-15); BUN 27 mg/dL (7-18); BUN/Creat Ratio 17.5 RATIO (10-20); Calcium,Total 8.3 mg/dL (8.5-10.1); Chloride 107 mmol/L (98-107); Creatinine, Serum 1.54 mg/dL (0.70-1.30); EST Glomerular Filtration Rate 49 mL/min (>60); Est Glom Filt Rate - Afr Amer 59 mL/min (>60); Estimated Creatinine Clearance 42.18 ml/min; Glucose 453 mg/dL (74-106); Potassium 4.3 mmol/L (3.5-5.1); Sodium Level 132 mmol/L (136-145)
[2019-11-22] VITALS (23 sets, daily range): BP systolic 91–105; BP diastolic 54–77; PULSE 71–110; RESP 16–21; TEMP 36.3–36.9; O2SAT 93–100
[2019-11-22 00:16] LABS: Bedside Glucose 417 mg/dL (70-110)
[2019-11-22] MEDS: Gabapentin 100 MG Capsule 200 MG PO ×4 (00:55→22:05)
[2019-11-22] MEDS: Tamsulosin HCl 0.4 MG Capsule 0.8 MG PO ×2 (00:55→22:05)
[2019-11-22 01:06] LABS: Bedside Glucose 361 mg/dL (70-110)
[2019-11-22 02:11] LABS: Bedside Glucose 379 mg/dL (70-110)
[2019-11-22 02:24] LABS: Anion Gap 5 (5-15); BUN 27 mg/dL (7-18); Chloride 109 mmol/L (98-107); Creatinine, Serum 1.35 mg/dL (0.70-1.30); EST Glomerular Filtration Rate 57 mL/min (>60); Est Glom Filt Rate - Afr Amer 69 mL/min (>60); Estimated Creatinine Clearance 48.12 ml/min; Glucose 360 mg/dL (74-106); Potassium 4.1 mmol/L (3.5-5.1); Sodium Level 135 mmol/L (136-145)
[2019-11-22 02:56] LABS: Bedside Glucose 321 mg/dL (70-110)
[2019-11-22] MEDS: 0.9% Saline Lock 10 ML Syringe IV ×3 (03:09→22:30)
[2019-11-22 04:11] LABS: Bedside Glucose 327 mg/dL (70-110)
[2019-11-22 05:11] LABS: Bedside Glucose 313 mg/dL (70-110)
[2019-11-22 05:21] LABS: Absolute Lymphocyte Count 1.31 X10^3/uL (0.83-4.51); Absolute Neutrophil Count 2.7 X10^3/uL (2.0-7.7); Basophil# 0.03 X10^3/uL; Basophil% 0.6 % (0-1); Eosinophil# 0.08 X10^3/uL; Eosinophils% 1.7 % (0-5); Hematocrit 40.2 % (40-54); Hemoglobin 13.3 g/dL (13.0-16.5); Lymphocyte # 1.31 X10^3/ul (4.0); Lymphocyte % 27.9 % (19-41); Mean Corp Hgb Conc 33.1 g/dL (32-36); Mean Corpuscular Hgb 30.3 pg (27.0-32.0); Mean Corpuscular Volume 91.6 fL (80-94); Mean Platelet Vol. 11.1 fl (6.2-12.0); Monocyte# 0.55 X10^3/uL; Monocyte% 11.7 % (0-10); NRBC Flagged by Analyzer 0 % (0-5); Neutrophil # 2.65 X10^3/uL (2.7-7.7); Neutrophil % 56.4 % (47-70); Platelet Count 100 K/mm3 (150-450); RBC Distribution Width CV 13.7 % (11.6-14.6); RBC Distribution Width SD 45.5 fl (35.1-43.9); Red Blood Count 4.39 M/mm3 (4.6-6.2); White Blood Count 4.7 K/mm3 (4.4-11.0)
[2019-11-22 05:37] LABS: Anion Gap 5 (5-15); BUN 25 mg/dL (7-18); BUN/Creat Ratio 19.7 RATIO (10-20); Calcium,Total 7.8 mg/dL (8.5-10.1); Chloride 110 mmol/L (98-107); Creatinine, Serum 1.27 mg/dL (0.70-1.30); EST Glomerular Filtration Rate 61 mL/min (>60); Est Glom Filt Rate - Afr Amer 74 mL/min (>60); Estimated Creatinine Clearance 51.15 ml/min; Glucose 328 mg/dL (74-106); Sodium Level 136 mmol/L (136-145)
[2019-11-22 06:11] LABS: Bedside Glucose 314 mg/dL (70-110)
--- NOTE | 2019-11-22 06:18 | PCM.PN.BLA ---
Progress Note With blood glucose better controlled will transition patient to base, prandial and correction scale insulin. Start home alogliptin. Discontinue insulin drip 1 hour after giving subcutaneous Lovenox. Stop IV fluids. Get BMP at noon. Stop serial BMP. STROKE Vital Signs/Narrative: Vital Signs Temp Pulse Resp BP Pulse Ox 11/22/19 06:00 97.4 F L 80 17 92/69 93 11/22/19 05:00 97.7 F L 80 17 97/73 94 11/22/19 04:00 88 17 95/68 94 11/22/19 03:19 84 11/22/19 03:00 90 18 91/71 94
[2019-11-22 07:05] LABS: Bedside Glucose 311 mg/dL (70-110)
[2019-11-22] MEDS: Albuterol 2.5 MG/3 ML VIAL.NEB. INHALATION ×3 (07:15→19:25)
[2019-11-22] MEDS: Budesonide Respules 0.5 MG/2 ML AMPUL.NEB. INHALATION ×2 (07:15→19:25)
[2019-11-22] MEDS: LINAGLIPTIN 5 MG TABLET PO (08:18)
[2019-11-22] MEDS: Pantoprazole Sodium 40 MG Tablet PO (08:18)
[2019-11-22] MEDS: Ferrous Sulfate 325 MG Tablet PO (08:18)
[2019-11-22] MEDS: Enoxaparin 40 MG/0.4 ML Syringe SC (08:20)
[2019-11-22] MEDS: Insulin Lispro 100 UNIT/ML INSULN.PEN SC ×6 (08:26→22:35)
[2019-11-22 09:20] LABS: Bedside Glucose 299 mg/dL (70-110)
--- NOTE | 2019-11-22 09:25 | PN_ITS ---
Patient Problems: Active and Suspected Problems (Last Reviewed 11/21/19 @ 21:[address] Artemio Lynch MD) Urinary tract infection (Acute) HHNC (hyperglycemic hyperosmolar nonketotic coma) (Acute) Lactic acidosis (Acute) Type 2 diabetes mellitus with hyperosmolar nonketotic hyperglycemia (Acute) Reason for Visit: Hyperosmolar Subjective: Feels well. No further abdominal pain. Tolerating PO. Vitals/I&O's: Vital Signs Temp Pulse Resp BP Pulse Ox 36.6 C 105 H 21 H 92/76 96 11/22/19 08:00 11/22/19 09:00 11/22/19 09:00 11/22/19 09:00 11/22/19 09:00 Oxygen Delivery Method Room Air Weight: 78.4 kg Body Mass Index (BMI) 28.6 Finger Stick Blood Glucose 311 Intake and Output for Last 24 Hours 11/20/19 11/21/19 11/22/19 23:59 23:59 23:59 Intake Total 2557.88 / 2559.98 1801.86 / 1801.86 Output Total 1625 / 1625 600 / 600 Balance 932.88 / 934.98 1201.86 / 1201.86 General: Alert, No apparent distress HEENT: Atraumatic, Normocephalic Oral: Moist Mucosa, No Gingival or Mucosal Lesions/ Ulcerations Neck: No Nodes, Thyroid Normal Size and Texture Lungs: Clear to auscultation, Normal air movement, No rhonchi, No wheeze, No rales Cardiovascular: Regular rate, Regular Rhythm, Normal S1, Normal S2, No murmurs Abdomen: Bowel Sounds Present, Soft, Non Tender, Non-Distended, - - ostomy in RLQ Extremities: No edema, No Calf Tenderness Skin: No rashes, No breakdown Psych/Mental Status: Normal Affect, Appropriate Laboratory Results 11/21/19 17:11: WBC 5.8, RBC 5.53, Hgb 17.1 H, Hct 51.4, MCV 92.9, MCH 30.9, MCHC 33.3, RDW Std Deviation 47.0 H, RDW Coeff of [place]ait[place] 13.8, Plt Count 144 L, MPV 12.0, Immature Gran % (Auto) 1.400 H, Neut % (Auto) 77.2 H, Lymph % (Auto) 10.2 L, [place] % (Auto) 10.6 H, Eos % (Auto) 0.3, Baso % (Auto) 0.3, Absolute Neuts (auto) 4.5, Absolute Lymphs (auto) 0.59 L, Nucleated RBC % 0, Differential Comment SCANNED 11/21/19 17:11: Sodium 122 L, Potassium 4.4, Chloride 92 L, Carbon Dioxide 16.0 L, Anion Gap 14, BUN 30 H, Creatinine 2.09 H, Estim Creat Clear Calc 32.29, Est GFR (MDRD) Af Amer 42 L, Est GFR (MDRD) Non-Af 34 L, BUN/Creatinine Ratio 14.4, Glucose 832 H*, Calcium 9.1, Total Bilirubin 1.50 H, AST 7 L, ALT 23, Alkaline Phosphatase 201 H, Total Protein 7.8, Albumin 3.7, Globulin 4.1, Albumin/Globulin Ratio 0.9 11/21/19 17:11: Lactic Acid 4.2 H* 11/21/19 17:11: Urine Color Straw, Urine Clarity Sl. Cloudy, Urine pH 5.0, Ur Specific [place] 1.015, Urine Protein 15 H, Urine Glucose (UA) 1000 H, Urine Ketones Negative, Urine Occult Blood 10 H, Urine Nitrite Positive H, Urine Bilirubin Negative, Urine Urobilinogen Normal, Ur Leukocyte Esterase 500 H, Urine RBC 0 SEEN, Urine WBC >100 SEEN, Ur Squamous Epith Cells 0-5 SEEN, Urine Bacteria 4+, Urine Mucus 0 SEEN 11/21/19 18:13: Acetone Level NEGATIVE 11/21/19 18:14: Miscellaneous Test Pending 11/21/19 18:41: Serum Osmolality Cancelled 11/21/19 18:49: Lactic Acid 3.2 H* 11/21/19 20:18: POC Glucose > 500 H* 11/21/19 22:13: POC Glucose 477 H* 11/21/19 22:35: Sodium 132 L, Potassium 4.3, Chloride 107, Carbon Dioxide 18.0 L , Anion Gap 7, BUN 27 H, Creatinine 1.54 H, Estim Creat Clear Calc 42.18, Est GFR (MDRD) Af Amer 59 L, Est GFR (MDRD) Non-Af 49 L, BUN/Creatinine Ratio 17.5, Glucose 453 H*, Calcium 8.3 L 08/22/20 23:04: POC Glucose 458 H* 11/22/19 00:04: POC Glucose 417 H 11/22/19 00:59: POC Glucose 361 H 11/22/19 02:00: POC Glucose 379 H 11/22/19 02:05: Sodium 135 L, Potassium 4.1, Chloride 109 H, Carbon Dioxide 21.0, Anion Gap 5, BUN 27 H, Creatinine 1.35 H, Estim Creat Clear Calc 48.12, Est GFR (MDRD) Af Amer 69, Est GFR (MDRD) Non-Af 57 L, BUN/Creatinine Ratio 20.0, Glucose 360 H, Calcium 8.0 L 11/22/19 02:53: POC Glucose 321 H 11/22/19 04:01: POC Glucose 327 H 11/22/19 04:59: POC Glucose 313 H 11/22/19 05:05: WBC 4.7, RBC 4.39 L, Hgb 13.3, Hct 40.2, MCV 91.6, MCH 30.3, MCHC 33.1, RDW Std Deviation 45.5 H, RDW Coeff of [place]ait[place] 13.7, Plt Count 100 L, MPV 11.1, Immature Gran % (Auto) 1.700 H, Neut % (Auto) 56.4, Lymph % (Auto) 27.9, [place] % (Auto) 11.7 H, Eos % (Auto) 1.7, Baso % (Auto) 0.6, Absolute Neuts (auto) 2.7, Absolute Lymphs (auto) 1.31, Nucleated RBC % 0 11/22/19 05:05: Hemoglobin A1c 12.0 H 11/22/19 05:05: Sodium 136, Potassium 4.0, Chloride 110 H, Carbon Dioxide 21.0, Anion Gap 5, BUN 25 H, Creatinine 1.27, Estim Creat Clear Calc 51.15, Est GFR (MDRD) Af Amer 74, Est GFR (MDRD) Non-Af 61, BUN/Creatinine Ratio 19.7, Glucose 328 H, Calcium 7.8 L 11/22/19 05:59: POC Glucose 314 H 11/22/19 06:56: POC Glucose 311 H 11/22/19 08:10: POC Glucose 299 H Current Medications Acetaminophen (Tylenol) 650 mg PO Q6H PRN PRN PRN Reason: Pain Score 1-10/Temp > 100.7 F Albuterol Sulfate (Ventolin Aerosols) 2.5 mg INHALATION Q6HWA.RT [facility] Last Admin: 11/22/19 07:15 Dose: 2.5 mg Documented by: Budesonide (Pulmicort Aerosol) 0.5 mg INHALATION Q12H.RT [facility] Last Admin: 11/22/19 07:15 Dose: 0.5 mg Documented by: Cholecalciferol (Vitamin D (25mcg)) 1,000 unit PO DAILY [facility] Last Admin: 11/22/19 08:19 Dose: 1,000 unit Documented by: Dextrose (D50w Syringe) 0 gm IV X1 PRN; Protocol PRN Reason: Hypoglycemia Protocol Enoxaparin Sodium (Lovenox) 40 mg SC DAILY [facility] Last Admin: 11/22/19 08:20 Dose: 40 mg Documented by: Ferrous Sulfate (Ferrous Sulfate) 325 mg PO DAILY@0800 [facility] Last Admin: 11/22/19 08:18 Dose: 325 mg Documented by: Gabapentin (Neurontin) 200 mg PO TID [facility] Last Admin: 11/22/19 06:03 Dose: 200 mg Documented by: Glucagon () 1 mg IM .X1 PRN PRN Reason: Hypoglycemia Sodium Chloride () 250 mls @ 15 mls/hr IV .[id number] PRN PRN Reason: Saline Flush Sodium Chloride () 250 mls @ 15 mls/hr IV .[id number] PRN PRN Reason: Additional IVPB Infusion Ceftriaxone Sodium (Rocephin) 1 gm in 50 mls @ 100 mls/hr IV Q24@2200 [facility] Insulin Human Lispro 100 unit/ (Sodium Chloride) 100 mls @ 7.8 mls/hr IV .[id number] [facility]; Protocol Last Titration: 11/22/19 06:56 Dose: 0.04 units/kg/hr, 3 mls/hr Documented by: Insulin Glargine (Lantus (Bkc)) 10 units SC BREAKFAST [facility] Last Admin: 11/22/19 06:56 Dose: 10 u Documented by: Insulin Human Lispro (Humalog Kwikpen (Bk)) 4 unit SC BREAKFAST [facility] Last Admin: 11/22/19 08:26 Dose: 4 units Documented by: Insulin Human Lispro (Humalog Kwikpen (Bkc)) 4 unit SC DINNER [facility] Insulin Human Lispro (Humalog Kwikpen (Bkc)) 4 unit SC LUNCH [facility] Insulin Human Lispro (Humalog Kwikpen (Bkc)) 0 unit SC 4X/DAYCM [facility]; Protocol Last Admin: 11/22/19 08:27 Dose: 4 units Documented by: Linagliptin (Tradjenta) 5 mg PO DAILY [facility] Last Admin: 11/22/19 08:18 Dose: 5 mg Documented by: Loperamide HCl (Imodium) 2 mg PO Q6H PRN PRN PRN Reason: Diarrhea Melatonin (Melatonin) 3 mg PO QHS PRN PRN PRN Reason: INSOMNIA Morphine Sulfate () 2 mg IV Q3H PRN PRN PRN Reason: Pain Score 6-10/10 Ondansetron HCl (Zofran) 4 mg IV Q8H PRN PRN PRN Reason: NAUSEA/VOMITING Pantoprazole Sodium (Protonix) 40 mg PO DAILY [facility] Last Admin: 11/22/19 08:18 Dose: 40 mg Documented by: Sodium Chloride () 10 - 40 ml IV UD PRN PRN Reason: SALINE FLUSH Last Admin: 11/22/19 05:06 Dose: 10 ml Documented by: Tamsulosin HCl (Flomax) 0.8 mg PO QHS [facility] Last Admin: 11/22/19 00:55 Dose: 0.8 mg Documented by: STROKE Vital Signs/Narrative: Vital Signs Temp Pulse Resp BP Pulse Ox 11/22/19 09:00 105 H 21 H 92/76 96 11/22/19 08:00 36.6 C 98 21 H 100/71 95 11/22/19 07:15 89 16 94 11/22/19 07:00 72 16 97/65 95 11/22/19 06:00 36.3 C L 80 17 92/69 93 Medical Necessity - Tobacco Use Smoking Status: Former smoker Assessment/Plan All Active Problems (Last Reviewed 11/21/19 @ 21:[address] Artemio Lynch MD) Cystitis (Acute) Urinary tract infection (Acute) HHNC (hyperglycemic hyperosmolar nonketotic coma) (Acute) Lactic acidosis (Acute) Type 2 diabetes mellitus with hyperosmolar nonketotic hyperglycemia (Acute) 1. hyperosmolar nonketosis * resolved * on Basal 10, prandial 4 and SSI 2. [place] * resolved * 2/2 transient bowel obstruction 3. hyponatremia * likely pseudohyponatremia. 4. UTI * UCx pending * on CTX 5. VTE prophylaxis: enoxaparin Transfer to med surg. Inpatient E&M: [id number] [facility] Hosp L2
[2019-11-22 13:15] LABS: Anion Gap 4 (5-15); BUN 23 mg/dL (7-18); BUN/Creat Ratio 15.3 RATIO (10-20); Calcium,Total 8.2 mg/dL (8.5-10.1); Chloride 108 mmol/L (98-107); EST Glomerular Filtration Rate 50 mL/min (>60); Est Glom Filt Rate - Afr Amer 61 mL/min (>60); Glucose 349 mg/dL (74-106); Potassium 4.3 mmol/L (3.5-5.1); Sodium Level 135 mmol/L (136-145)
[2019-11-22 16:15] LABS: Bedside Glucose 271 mg/dL (70-110)
[2019-11-22 22:11] LABS: Bedside Glucose 277 mg/dL (70-110)
[2019-11-22] MEDS: Acetaminophen 325 MG Tablet 650 MG PO (22:27)
[2019-11-22] MEDS: Ceftriaxone 1 GM/50 ML BAG IV (22:29)
[2019-11-23 02:45] VITALS: BP 102/72; PULSE 93; RESP 16; TEMP 36.6; O2SAT 97
[2019-11-23] MEDS: Gabapentin 100 MG Capsule 200 MG PO ×2 (05:40→13:12)
[2019-11-23 06:44] LABS: Absolute Lymphocyte Count 1.58 X10^3/uL (0.83-4.51); Absolute Neutrophil Count 2.7 X10^3/uL (2.0-7.7); Basophil# 0.02 X10^3/uL; Basophil% 0.4 % (0-1); Eosinophil# 0.06 X10^3/uL; Eosinophils% 1.2 % (0-5); Hematocrit 37.8 % (40-54); Hemoglobin 12.9 g/dL (13.0-16.5); Lymphocyte # 1.58 X10^3/ul (4.0); Mean Corp Hgb Conc 34.1 g/dL (32-36); Mean Corpuscular Hgb 31.4 pg (27.0-32.0); Mean Platelet Vol. 11.1 fl (6.2-12.0); Monocyte# 0.49 X10^3/uL; Monocyte% 9.9 % (0-10); NRBC Flagged by Analyzer 0 % (0-5); Neutrophil # 2.73 X10^3/uL (2.7-7.7); Neutrophil % 55.3 % (47-70); Platelet Count 101 K/mm3 (150-450); RBC Distribution Width CV 13.3 % (11.6-14.6); RBC Distribution Width SD 44.9 fl (35.1-43.9); Red Blood Count 4.11 M/mm3 (4.6-6.2); White Blood Count 4.9 K/mm3 (4.4-11.0)
[2019-11-23 07:19] LABS: Anion Gap 8 (5-15); BUN 19 mg/dL (7-18); BUN/Creat Ratio 15.4 RATIO (10-20); Calcium,Total 7.8 mg/dL (8.5-10.1); Chloride 107 mmol/L (98-107); Creatinine, Serum 1.23 mg/dL (0.70-1.30); EST Glomerular Filtration Rate 63 mL/min (>60); Est Glom Filt Rate - Afr Amer 77 mL/min (>60); Estimated Creatinine Clearance 52.81 ml/min; Glucose 320 mg/dL (74-106); Potassium 3.6 mmol/L (3.5-5.1); Sodium Level 136 mmol/L (136-145)
[2019-11-23 07:27] VITALS: PULSE 78; RESP 18; O2SAT 97
[2019-11-23] MEDS: Albuterol 2.5 MG/3 ML VIAL.NEB. INHALATION (07:27)
[2019-11-23] MEDS: Budesonide Respules 0.5 MG/2 ML AMPUL.NEB. INHALATION (07:27)
--- NOTE | 2019-11-23 08:13 | NURSING ---
Was consulted on patient for his ileostomy. pt states he has had his stoma for quite a few years. Pt states he is NOT having trouble with the stoma, getting supplies, etc. pt states he has an extra appliance, but just changed it when he came into the hospital. pt is currently using a 2 piece appliance with a clip closure. Pt denies needs at this time. aware to call for needs.
[2019-11-23] MEDS: Insulin Lispro 100 UNIT/ML INSULN.PEN 10 UNIT SC ×2 (08:27→12:19)
[2019-11-23] MEDS: Insulin Lispro 100 UNIT/ML INSULN.PEN SC ×2 (08:27→12:19)
[2019-11-23] MEDS: Enoxaparin 40 MG/0.4 ML Syringe SC (08:28)
[2019-11-23] MEDS: Ferrous Sulfate 325 MG Tablet PO (08:29)
[2019-11-23] MEDS: LINAGLIPTIN 5 MG TABLET PO (08:29)
[2019-11-23] MEDS: Pantoprazole Sodium 40 MG Tablet PO (08:29)
--- NOTE | 2019-11-23 08:50 | DCINST_ITS ---
- Discharge Diagnoses Current Active Problems: Current Active and Chronic Problems (Last Reviewed 11/21/19 @ 21:[address] Artemio Lynch MD) Urinary tract infection (Acute) HHNC (hyperglycemic hyperosmolar nonketotic coma) (Acute) Lactic acidosis (Acute) Type 2 diabetes mellitus with hyperosmolar nonketotic hyperglycemia (Acute) You will use the following diet at home:: Calorie/Carbohydrate Controlled (specify 1200, 1400, etc) - 1800 Your food should be the consistency of: Regular Allergies/Adverse Reactions: Allergies No Known Allergies Allergy (Verified 11/21/19 16:07) Medications to take at Discharge Ferrous Sulfate 325 mg PO DAILY@0800 07/15/13 Loperamide [Imodium] 2 mg PO Q6H PRN PRN 07/15/13 Mometasone Furoate [Asmanex] 220 mcg IH BID 07/15/13 Pantoprazole Sodium [Protonix] 40 mg PO DAILY 07/15/13 Formoterol Fumarate [Foradil] 1 puff INHALATION DAILY 02/03/14 Cholecalciferol (VIT D3) [Vitamin D3] 1,000 unit PO DAILY 04/11/14 Ondansetron [Zofran Odt] 4 mg PO Q8H PRN PRN #10 tablet 08/09/16 Gabapentin [Neurontin] 600 mg PO TID 01/01/17 Tamsulosin HCl [Flomax] 0.8 mg PO QHS 04/12/18 Alogliptin Benzoate [Alogliptin] 25 mg PO DAILY 03/22/19 Insulin Glargine,Hum.rec.anlog [Lantus] 30 unit SQ DAILY #0 11/23/19 Primary Care Physician: [facility] [Primary Care Provider] - Please follow up with your Primary Care Physician in: in 1-2 weeks Test Results: Test results from this visit will be discussed in further detail at your follow- up appointment, if applicable. Proposed Discharge Date: 11/23/19
--- NOTE | 2019-11-23 08:51 | PCM.DC.SUM ---
Discharge Date and Diagnosis - Problem List Patient Problems: Active and Suspected Problems (Last Reviewed 11/21/19 @ 21:[address] Artemio Lynch MD) Urinary tract infection (Acute) HHNC (hyperglycemic hyperosmolar nonketotic coma) (Acute) Lactic acidosis (Acute) Type 2 diabetes mellitus with hyperosmolar nonketotic hyperglycemia (Acute) Date of Admission: 11/21/19 Date of Discharge: 11/23/19 - Primary Discharge Diagnosis Acute Problems: Active Problems (Last Reviewed 11/21/19 @ 21:[address] Artemio Lynch MD) Urinary tract infection (Acute) HHNC (hyperglycemic hyperosmolar nonketotic coma) (Acute) Lactic acidosis (Acute) Type 2 diabetes mellitus with hyperosmolar nonketotic hyperglycemia (Acute) - Secondary Discharge Diagnosis Chronic Problems: Chronic Problems (Last Reviewed 11/21/19 @ 21:[address] 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 COPD (Chronic) History of colon cancer (Chronic) Status post ileostomy (Chronic) Urinary outflow obstruction (Chronic) Hospital Course and Treatment Consultations 11/21/19 22:18 Consult: Onc/Wound/design cell engineer Routine Comment: Reason for Consult:: ostomy Operations: None Summary of Care Provided: The patient is a 59 year old M history of diabetes mellitus type 2 who presented with hyperglycemia Hyperosmolar nonketotic state in a patient with diabetes mellitus type 2 ?Admitted to regular nursing floor managed with IV fluids as well as systemic insulin which was later switched to scheduled long-acting insulin and pre-meal insulin. Resolved discharge home instructed to follow-up with PCP 2. Acute kidney injury ?Resolved with IV fluid 3. Hyponatremia ?Secondary to pseudo-hyponatremia from patient hyperglycemia 4. UTI ?Cultures grew mixed organisms; no antibiotics written on discharge 5. DVT prophylaxis ?Lovenox Patient Problems: Active and Suspected Problems (Last Reviewed 11/21/19 @ 21:[address] Artemio Lynch MD) Urinary tract infection (Acute) HHNC (hyperglycemic hyperosmolar nonketotic coma) (Acute) Lactic acidosis (Acute) Type 2 diabetes mellitus with hyperosmolar nonketotic hyperglycemia (Acute) - Physical Exam Vitals/I&O's: Vital Signs Temp Pulse Resp BP Pulse Ox 98 F 93 16 102/72 97 11/23/19 02:45 11/23/19 02:45 11/23/19 02:45 11/23/19 02:45 11/23/19 02:45 Oxygen Delivery Method Room Air Weight: 78.8 kg Body Mass Index (BMI) 28.6 Finger Stick Blood Glucose 311 Intake and Output for Last 24 Hours 11/21/19 11/22/19 11/23/19 23:59 23:59 23:59 Intake Total 2557.88 / 2559.98 3305.06 / 3305.06 620 / 620 Output Total 1625 / 1625 1500 / 1500 1350 / 1350 Balance 932.88 / 934.98 1805.06 / 1805.06 -730 / -730 General: Oriented x3 HEENT: Atraumatic Lungs: Clear to auscultation Neurological: Neuro grossly intact Psych/Mental Status: Normal Affect Laboratory Results 11/22/19 05:05: Hemoglobin A1c 12.0 H 11/22/19 08:10: POC Glucose 299 H 11/22/19 12:25: Sodium 135 L, Potassium 4.3, Chloride 108 H, Carbon Dioxide 23.0, Anion Gap 4 L, BUN 23 H, Creatinine 1.50 H, Estim Creat Clear Calc 43.30, Est GFR (MDRD) Af Amer 61, Est GFR (MDRD) Non-Af 50 L, BUN/Creatinine Ratio 15.3, Glucose 349 H, Calcium 8.2 L 11/22/19 16:10: POC Glucose 271 H 11/22/19 22:03: POC Glucose 277 H 11/23/19 06:30: WBC 4.9, RBC 4.11 L, Hgb 12.9 L, Hct 37.8 L, MCV 92.0, MCH 31.4, MCHC 34.1, RDW Std Deviation 44.9 H, RDW Coeff of Kaitlyn 13.3, Plt Count 101 L, MPV 11.1, Immature Gran % (Auto) 1.200 H, Neut % (Auto) 55.3, Lymph % (Auto) 32.0, [place] % (Auto) 9.9, Eos % (Auto) 1.2, Baso % (Auto) 0.4, Absolute Neuts (auto) 2.7, Absolute Lymphs (auto) 1.58, Nucleated RBC % 0 11/23/19 06:30: Sodium 136, Potassium 3.6, Chloride 107, Carbon Dioxide 21.0, Anion Gap 8, BUN 19 H, Creatinine 1.23, Estim Creat Clear Calc 52.81, Est GFR (MDRD) Af Amer 77, Est GFR (MDRD) Non-Af 63, BUN/Creatinine Ratio 15.4, Glucose 320 H, Calcium 7.8 L Current Medications Acetaminophen (Tylenol) 650 mg PO Q6H PRN PRN PRN Reason: Pain Score 1-10/Temp > 100.7 F Last Admin: 11/22/19 22:27 Dose: 650 mg Documented by: Albuterol Sulfate (Ventolin Aerosols) 2.5 mg INHALATION Q6HWA.RT [facility] Last Admin: 11/23/19 07:27 Dose: 2.5 mg Documented by: Budesonide (Pulmicort Aerosol) 0.5 mg INHALATION Q12H.RT [facility] Last Admin: 11/23/19 07:27 Dose: 0.5 mg Documented by: Cholecalciferol (Vitamin D (25mcg)) 1,000 unit PO DAILY [facility] Last Admin: 11/23/19 08:29 Dose: 1,000 unit Documented by: Dextrose (D50w Syringe) 0 gm IV X1 PRN; Protocol PRN Reason: Hypoglycemia Protocol Enoxaparin Sodium (Lovenox) 40 mg SC DAILY [facility] Last Admin: 11/23/19 08:28 Dose: 40 mg Documented by: Ferrous Sulfate (Ferrous Sulfate) 325 mg PO DAILY@0800 [facility] Last Admin: 11/23/19 08:29 Dose: 325 mg Documented by: Gabapentin (Neurontin) 200 mg PO TID [facility] Last Admin: 11/23/19 05:40 Dose: 200 mg Documented by: Glucagon () 1 mg IM .X1 PRN PRN Reason: Hypoglycemia Sodium Chloride () 250 mls @ 15 mls/hr IV .[id number] PRN PRN Reason: Saline Flush Last Infusion: 11/22/19 22:59 Dose: 15 mls/hr Documented by: Sodium Chloride () 250 mls @ 15 mls/hr IV .[id number] PRN PRN Reason: Additional IVPB Infusion Ceftriaxone Sodium (Rocephin) 1 gm in 50 mls @ 100 mls/hr IV Q24@2200 [facility] Last Infusion: 11/22/19 22:59 Dose: Infused Documented by: Insulin Glargine (Lantus (Bkc)) 30 units SC DAILY [facility] Last Admin: 11/23/19 08:28 Dose: 30 units Documented by: Insulin Human Lispro (Humalog Kwikpen (Bkc)) 0 unit SC 4X/DAYCM [facility]; Protocol Last Admin: 11/23/19 08:27 Dose: 7 u Documented by: Insulin Human Lispro (Humalog Kwikpen (Bk)) 10 unit SC DINNER [facility] Insulin Human Lispro (Humalog Kwikpen (Bkc)) 10 unit SC LUNCH [facility] Insulin Human Lispro (Humalog Kwikpen (Bkc)) 10 unit SC BREAKFAST [facility] Last Admin: 11/23/19 08:27 Dose: 10 units Documented by: Linagliptin (Tradjenta) 5 mg PO DAILY [facility] Last Admin: 11/23/19 08:29 Dose: 5 mg Documented by: Loperamide HCl (Imodium) 2 mg PO Q6H PRN PRN PRN Reason: Diarrhea Melatonin (Melatonin) 3 mg PO QHS PRN PRN PRN Reason: INSOMNIA Morphine Sulfate () 2 mg IV Q3H PRN PRN PRN Reason: Pain Score 6-10/10 Ondansetron HCl (Zofran) 4 mg IV Q8H PRN PRN PRN Reason: NAUSEA/VOMITING Pantoprazole Sodium (Protonix) 40 mg PO DAILY [facility] Last Admin: 11/23/19 08:29 Dose: 40 mg Documented by: Sodium Chloride () 10 - 40 ml IV UD PRN PRN Reason: SALINE FLUSH Last Admin: 11/22/19 22:30 Dose: 10 ml Documented by: Tamsulosin HCl (Flomax) 0.8 mg PO QHS [facility] Last Admin: 11/22/19 22:05 Dose: 0.8 mg Documented by: Discharge Diet: 1800 Calorie Control Diet Discharge Activity: Return to Normal Activity Home Medications: Medications to take at Discharge Ferrous Sulfate 325 mg PO DAILY@0800 07/15/13 Loperamide [Imodium] 2 mg PO Q6H PRN PRN 07/15/13 Mometasone Furoate [Asmanex] 220 mcg IH BID 07/15/13 Pantoprazole Sodium [Protonix] 40 mg PO DAILY 07/15/13 Formoterol Fumarate [Foradil] 1 puff INHALATION DAILY 11/05/14 Cholecalciferol (VIT D3) [Vitamin D3] 1,000 unit PO DAILY 04/11/14 Ondansetron [Zofran Odt] 4 mg PO Q8H PRN PRN #10 tablet 08/09/16 Gabapentin [Neurontin] 600 mg PO TID 01/01/17 Tamsulosin HCl [Flomax] 0.8 mg PO QHS 04/12/18 Alogliptin Benzoate [Alogliptin] 25 mg PO DAILY 03/22/19 Insulin Glargine,Hum.rec.anlog [Lantus] 30 unit SQ DAILY #0 11/23/19 Primary Care Physician: [facility] [Primary Care Provider] - Please follow up with your Primary Care Physician in: in 1-2 weeks Disposition: Home Minutes spent on discharge:: 35 Patient Condition:: Stable Medical Necessity - Tobacco Use Smoking Status: Former smoker Meaningful Use Info Meaningful Use Diagnoses (Choose all that apply): None applicable Inpatient E&M: [id number] [facility] [place] [facility]
[2019-11-23 09:00] LABS: Bedside Glucose 403 mg/dL (70-110)
[2019-11-23 10:30] VITALS: BP 113/68; PULSE 99; RESP 18; TEMP 36.6; O2SAT 97
--- NOTE | 2019-11-23 10:36 | PHA.DC.MC ---
Pharmacy Service has performed discharge medication reconciliation and counseling for this patient. 1. INSULIN GLARGINE 30UNITS SC DAILY The patient's discharge medication list was reviewed for discrepancies and discrepancies were resolved. Home Medications Ferrous Sulfate 325 mg PO DAILY@0800 07/15/13 Loperamide [Imodium] 2 mg PO Q6H PRN PRN 07/15/13 Mometasone Furoate [Asmanex] 220 mcg IH BID 07/15/13 Pantoprazole Sodium [Protonix] 40 mg PO DAILY 07/15/13 Formoterol Fumarate [Foradil] 1 puff INHALATION DAILY 02/03/14 Cholecalciferol (VIT D3) [Vitamin D3] 1,000 unit PO DAILY 04/11/14 Ondansetron [Zofran Odt] 4 mg PO Q8H PRN PRN #10 tablet 08/09/16 Gabapentin [Neurontin] 600 mg PO TID 01/01/17 Tamsulosin HCl [Flomax] 0.8 mg PO QHS 04/12/18 Alogliptin Benzoate [Alogliptin] 25 mg PO DAILY 03/22/19 Insulin Glargine,Hum.rec.anlog [Lantus] 30 unit SQ DAILY #0 11/23/19 The patient was counseled on the following discharge medications and changes in medications for homegoing were reviewed. The Reason for Use, instructions for use, and potential side effects were reviewed for all new medications. The patient's questions regarding all of their medications were answered. The patient was able to verbally demonstrate an understanding of their discharge medications. Patient counseled by pharmacy customer care specialistAlexandro.
--- NOTE | 2019-11-23 10:50 | CASEMGMT ---
VLADIMIR VALLE Face to Face with patient for initial transition planning/care coordination assessment. RN TORI introduced self and role at [facility]. Patient lying in bed, alert and oriented. Patient willing to participate in assessment and is able to answer all questions appropriately. Care providers, pharmacy, and demographics verified. Patient wishes to discharge home, denies need for home health at this time. Patient states he has no further needs or concerns at this time. CM to follow for discharge planning needs that may arise. PCP: Tomy MCDANIEL Specialists: Chase MCDANIEL [facility] [place] Living Will/HPOA: none LNOK: significant other Living Arrangements: Patient lives alone in a 5 floor apartment with elevator to enter the apartment Transportation: self, significant other DME/HHC: Patient states he has glucometer and testing supplies at home. Denied further needs Disposition Plan: Patient to discharge home with family support and follow-up plans in place. Viktoriya REICH, RN, CM
[2019-11-23 12:26] LABS: Bedside Glucose 344 mg/dL (70-110)
[2019-11-23 13:28] VITALS: BP 108/79; PULSE 71; RESP 16; O2SAT 96
[2019-11-24 09:10] LABS: Bedside Glucose 417 mg/dL (70-110)
[2019-11-24 09:10] LABS: Bedside Glucose 391 mg/dL (70-110)
--- NOTE | 2019-11-24 16:09 | CASEMGMT ---
VLADIMIR DC PHONE CALL DC DATE: 11/23/2019 DC DISPOSITION: Home DC DIAGNOSIS: UTI LACE/STRATA: 01/01 F/U APPTS MADE PRIOR TO DC: no No answer to call. Melecio MACIELN RN ACM
== END 2019-11-23 13:30 | disposition home or self-care (01) | DRG 638 ==
LOC: ED 20:03 → ICU 11-22 06:55 → MS3 11-23 07:28 → ICU 11-23 09:33 → MS3 11-23 09:33
PROVIDERS: Admitting Provider Hospitalist; Emergency Provider Emergency Medicine; Visit Provider Internal Medicine
DX: E11.00 Type 2 diabetes mellitus with hyperosmolarity without nonketotic hyperglycemic-hyperosmolar coma (NKHHC) (principal); E87.2 Acidosis; N30.01 Acute cystitis with hematuria; N17.9 Acute kidney failure, unspecified; E86.0 Dehydration; D72.825 Bandemia; J44.9 Chronic obstructive pulmonary disease, unspecified; Z93.2 Ileostomy status; Z79.4 Long term (current) use of insulin; Z79.899 Other long term (current) drug therapy; Z85.038 Personal history of other malignant neoplasm of large intestine; Z86.010 Personal history of colon polyps; Z87.891 Personal history of nicotine dependence; Z90.49 Acquired absence of other specified parts of digestive tract
CPT/HCPCS: 36415; 74176; 80048; 80053; 81001; 82009; 82962; 83036; 83605; 85025; 87086; 87088; 94640; 97802; 99285; J7030; J7050; A4216; J2405

== ENCOUNTER 2020-03-28 19:18 | Inpatient (IN) | payer OTHER, SELFPAY ==
[2019-11-21 22:07] VITALS: BMI 28.6
[2020-03-28] VITALS (9 sets, daily range): BP systolic 83–108; BP diastolic 63–78; PULSE 91–148; RESP 17–38; TEMP 36.4–37.1; O2SAT 87–98; BMI 28.3
--- NOTE | 2020-03-28 19:33 | EKG12_ITS ---
Test Reason : SOB Blood Pressure : / mmHG Vent. Rate : 128 BPM Atrial Rate : 128 BPM P-R Int : 144 ms QRS Dur : 080 ms QT Int : 304 ms P-R-T Axes : 043 016 130 degrees QTc Int : 443 ms Sinus tachycardia Low voltage QRS ST & T wave abnormality, consider lateral ischemia Abnormal ECG Confirmed by ZACKERY RICK, SUNITA ([id number]), editorial intern JASON RODRÍGUEZ ([id number]) on 04/04/2020 9:13:50 AM Referred By: SABRINA Confirmed By:JUNAID VIZCARRA MD
--- NOTE | 2020-03-28 19:37 | ED.DCSUM_ITS ---
History of Present Illness Chief Complaint: Shortness of Breath Informant: Patient Narrative: 60-year-old male with multiple medical problems including type 2 diabetes, COPD, and ileostomy states that he is short of breath. He tells me that about a week ago he began to have malaise. His girlfriend tested positive for Covid. He notes decreased appetite and that his urine is becoming darker and less amounts. He self caths. He notes his ileostomy due to familial polyposis. He still has output but is also less. Today he notes significant shortness of breath. He denies any fevers but notes some chills. He endorses headache. No loss of smell or taste. Generalized myalgias noted. - Past Medical History (1) HHNC (hyperglycemic hyperosmolar nonketotic coma) Status: Resolved (2) Type 2 diabetes mellitus with hyperosmolar nonketotic hyperglycemia Status: Chronic (3) COPD Status: Chronic (4) Familial adenomatous polyposis coli Status: Chronic Comment: Complicated by cancer requiring surgery in 2001 (5) Status post ileostomy Status: Chronic (6) Urinary outflow obstruction Status: Chronic (7) Small bowel obstruction due to adhesions Status: Inactive Past Medical History - Allergies and Home Meds Allergies/Adverse Reactions: Allergies No Known Allergies Allergy (Verified 03/28/20 19:20) Primary Care Physician: [place] [Primary Care Provider] - Prior records reviewed: Yes Surgical History: - - Ileostomy; 7 abdominal surgeries, colon resection secondary to cancer Smoking Status: Former smoker Drugs: None - Family History Sibling Family History: Reports: - - Familial polyposis coli-Brothers and sisters Maternal Family History: Reports: - - He does not know his maternal medical history. Reportedly his mother in a motor vehicle accident when patient was very young. Review of Systems General: Reports: Chills, Malaise. Denies: Fever, Sweats Eyes: Denies: Visual changes - bilaterally, Diplopia ENT: Denies: Rhinorrhea, Sore throat Cardiovascular: Denies: Chest pain, Palpitations Respiratory: Reports: Dyspnea, Cough. Denies: Dyspnea on exertion Gastrointestinal: Reports: Nausea. Denies: Abdominal pain, Vomiting, Diarrhea, Melena, Hematochezia Genitourinary: Reports: - - Decreased urinary output. Denies: Dysuria, Hematuria, Frequency Musculoskeletal: Denies: Back pain, Extremity Pain Skin: Denies: Rash, Wounds Neurological: Denies: Headache, Weakness, Numbness Physical Exam Vital Signs/Narrative: Vital Signs Temp Pulse Resp BP Pulse Ox 03/28/20 19:19 97.6 F L 148 H 38 H 108/71 87 Diagnostic/Tx/Re-eval Clinical Impression(s) from Imaging Studies Chest X-Ray 03/28/20 20:25 IMPRESSION: Chronic interestitial changes. Left lung and left perihilar airspace disease new since the previous study suggestive of pneumonia Small left pleural effusion at 2106 Reported and signed by: Prudencio Ann MD Electronically Signed: Prudencio Ann MD at 21:04 EST Tel , Service support , Laboratory Last Values WBC 5.3 K/mm3 (4.4-11.0) 03/28/20 19:34 RBC 5.53 M/mm3 (4.6-6.2) 03/28/20 19:34 Hgb 16.1 g/dL (13.0-16.5) 03/28/20 19:34 Hct 47.9 % (40-54) 03/28/20 19:34 MCV 86.6 fL (80-94) 03/28/20 19:34 MCH 29.1 pg (27.0-32.0) 03/28/20 19:34 MCHC 33.6 g/dL (32-36) 03/28/20 19:34 RDW Std Deviation 45.3 fl (35.1-43.9) H 03/28/20 19:34 RDW Coeff of Kaitlyn 14.2 % (11.6-14.6) 03/28/20 19:34 Plt Count 172 K/mm3 (150-450) 03/28/20 19:34 MPV 12.8 fl (6.2-12.0) H 03/28/20 19:34 Immature Gran % (Auto) 2.700 % (0.0-0.9) H 03/28/20 19:34 Neut % (Auto) 79.1 % (47-70) H 03/28/20 19:34 Lymph % (Auto) 9.3 % (19-41) L 03/28/20 19:34 [place] % (Auto) 8.5 % (0-10) 03/28/20 19:34 Eos % (Auto) 0.0 % (0-5) 03/28/20 19:34 Baso % (Auto) 0.4 % (0-1) 03/28/20 19:34 Absolute Neuts (auto) 4.2 X10^3/uL (2.0-7.7) 03/28/20 19:34 Absolute Lymphs (auto) 0.49 X10^3/uL (0.83-4.51) L 03/28/20 19:34 Nucleated RBC % 0 % (0-5) 03/28/20 19:34 Differential Comment 03/28/20 19:34 Platelet Estimate ADEQUATE (ADEQ) 03/28/20 19:34 RBC Morphology NORM C+C NORMAL (NORM C&C) 03/28/20 19:34 Fibrinogen 772 mg/dl (203-444) H 03/28/20 19:34 Sodium 127 mmol/L (136-145) L 03/28/20 19:34 Potassium 4.6 mmol/L (3.5-5.1) 03/28/20 19:34 Chloride 95 mmol/L (98-107) L 03/28/20 19:34 Carbon Dioxide 18.0 mmol/L (21.0-32.0) L 03/28/20 19:34 Anion Gap 14 (5-15) 03/28/20 19:34 BUN 61 mg/dL (7-18) H 03/28/20 19:34 Creatinine 2.62 mg/dL (0.70-1.30) H 03/28/20 19:34 Estim Creat Clear Calc 25.43 ml/min 03/28/20 19:34 Est GFR (MDRD) Af Amer 32 mL/min (>60) L 03/28/20 19:34 Est GFR (MDRD) Non-Af 27 mL/min (>60) L 03/28/20 19:34 BUN/Creatinine Ratio 23.3 RATIO (10-20) H 03/28/20 19:34 Glucose 253 mg/dL (74-106) H 03/28/20 19:34 Lactic Acid 3.6 mmol/L (0.4-1.9) H* 03/28/20 19:34 Calcium 8.5 mg/dL (8.5-10.1) 03/28/20 19:34 Total Bilirubin 1.80 mg/dL (0.20-1.00) H 03/28/20 19:34 AST 28 U/L (15-37) 03/28/20 19:34 ALT 21 U/L (16-61) 03/28/20 19:34 Alkaline Phosphatase 138 U/L (45-117) H 03/28/20 19:34 Lactate Dehydrogenase 427 U/L (87-241) H 03/28/20 19:34 Total Creatine Kinase 60 U/L (39-308) 03/28/20 19:34 Troponin I < 0.015 ng/mL (<0.045) 03/28/20 19:34 C-React Prot Ext Range 136.00 mg/L (0.0-3.0) H 03/28/20 19:34 B-Natriuretic Peptide 2.7 pg/mL (0-100) 03/28/20 19:34 Total Protein 8.1 g/dL (6.4-8.2) 03/28/20 19:34 Albumin 3.1 g/dL (3.2-5.0) L 03/28/20 19:34 Globulin 5.0 g/dL (2.2-4.2) H 03/28/20 19:34 Albumin/Globulin Ratio 0.6 RATIO (0.9-2.4) L 03/28/20 19:34 Procalcitonin 0.54 ng/mL (0.00-0.09) H 03/28/20 19:34 Urine Color Yellow (Yellow) 03/28/20 20:55 Urine Clarity Clear (Clear) 03/28/20 20:55 Urine pH 5.0 (5.0 - 8.0) 03/28/20 20:55 Ur Specific [place] 1.020 (1.002-1.030) 03/28/20 20:55 Urine Protein 30 mg/dl (Negative) H 03/28/20 20:55 Urine Glucose (UA) Normal mg/dl (Normal) 03/28/20 20:55 Urine Ketones Negative mg/dl (Negative) 03/28/20 20:55 Urine Occult Blood Negative /ul (Negative) 03/28/20 20:55 Urine Nitrite Negative (Negative) 03/28/20 20:55 Urine Bilirubin Negative mg/dL (Negative) 03/28/20 20:55 Urine Urobilinogen Normal mg/dl (Normal) 03/28/20 20:55 Ur Leukocyte Esterase Negative /ul (Negative) 03/28/20 20:55 Urine RBC 0 SEEN /hpf (0-5) 03/28/20 20:55 Urine WBC 0 SEEN /hpf (0-5) 03/28/20 20:55 Ur Squamous Epith Cells 0-5 SEEN /hpf (0-5) 03/28/20 20:55 Urine Bacteria 1+ /hpf (None Seen) 03/28/20 20:55 Hyaline Casts 0-5 SEEN /lpf (0-5) 03/28/20 20:55 Fine Granular Casts 10-25 SEEN /lpf (0-5) 03/28/20 20:55 Urine Mucus 0 SEEN /hpf (<or=2+) 03/28/20 20:55 - EKG Initial EKG Interpretation: Sinus Tachycardia - EKG demonstrates sinus tachycardia at a rate of 128. - Medical Decision Making His blood work is very suggestive of Covid. The rapid antigen was negative so the PCR was ordered. Chest x-ray shows infiltrative changes on the left. Procalcitonin is elevated therefore we gave Rocephin and azithromycin. His blood pressure was low heart rate in the 140s and after 3 L of IV fluids his heart rate is now in the 90s and blood pressure seems to stabilize currently 97/66. His respiratory rate is also significantly improved from a high of 38 down to 17. On 3 L he is 97%. His lactic acid is elevated and he qualifies for severe sepsis. Plan will be to transfer him to the ICU for further care. - Critical Care Time Critical care time (excluding procedures): 30-74 minutes - 35 min ED Disposition - Plan for ED Patient: Diagnosis: Pneumonia, Hypoxia, Severe sepsis, [place] (acute kidney injury) [facility] [[facility] -
[2020-03-28] MEDS: Acetaminophen 500 MG Tablet 1000 MG PO (19:50)
[2020-03-28] MEDS: 0.9% Normal Saline 1,000 ML 999 ML IV ×3 (19:50→22:40)
[2020-03-28 20:00] LABS: Absolute Lymphocyte Count 0.49 X10^3/uL (0.83-4.51); Absolute Neutrophil Count 4.2 X10^3/uL (2.0-7.7); Basophil# 0.02 X10^3/uL; Basophil% 0.4 % (0-1); Hematocrit 47.9 % (40-54); Hemoglobin 16.1 g/dL (13.0-16.5); Lymphocyte # 0.49 X10^3/ul (4.0); Lymphocyte % 9.3 % (19-41); Mean Corp Hgb Conc 33.6 g/dL (32-36); Mean Corpuscular Hgb 29.1 pg (27.0-32.0); Mean Corpuscular Volume 86.6 fL (80-94); Mean Platelet Vol. 12.8 fl (6.2-12.0); Monocyte# 0.45 X10^3/uL; Monocyte% 8.5 % (0-10); NRBC Flagged by Analyzer 0 % (0-5); Neutrophil # 4.17 X10^3/uL (2.7-7.7); Neutrophil % 79.1 % (47-70); POSITIVE DIFFERENTIAL YES; Platelet Count 172 K/mm3 (150-450); RBC Distribution Width CV 14.2 % (11.6-14.6); RBC Distribution Width SD 45.3 fl (35.1-43.9); Red Blood Count 5.53 M/mm3 (4.6-6.2); White Blood Count 5.3 K/mm3 (4.4-11.0)
[2020-03-28 20:02] LABS: Differential Indicated SCAN CRITERIA MET
[2020-03-28 20:14] LABS: ALB/GLOB Ratio 0.6 RATIO (0.9-2.4); AST(SGOT) 28 U/L (15-37); Alanine Aminotransfer ALT/SGPT 21 U/L (16-61); Albumin, Serum 3.1 g/dL (3.2-5.0); Alkaline Phosphatase 138 U/L (45-117); Anion Gap 14 (5-15); BUN 61 mg/dL (7-18); BUN/Creat Ratio 23.3 RATIO (10-20); CPK Total, Creatine Kinase 60 U/L (39-308); Calcium,Total 8.5 mg/dL (8.5-10.1); Chloride 95 mmol/L (98-107); Creatinine, Serum 2.62 mg/dL (0.70-1.30); EST Glomerular Filtration Rate 27 mL/min (>60); Est Glom Filt Rate - Afr Amer 32 mL/min (>60); Estimated Creatinine Clearance 25.43 ml/min; Glucose 253 mg/dL (74-106); LDH 427 U/L (87-241); Potassium 4.6 mmol/L (3.5-5.1); Protein, Total 8.1 g/dL (6.4-8.2); Sodium Level 127 mmol/L (136-145)
[2020-03-28 20:19] LABS: Procalcitonin 0.54 ng/mL (0.00-0.09)
[2020-03-28 20:21] LABS: BNP,B-Type NATRIURETIC PEPTIDE 2.7 pg/mL (0-100)
--- NOTE | 2020-03-28 20:25 | RAD_ITS ---
HISTORY: Shortness of breath EXAM: XR Chest 1 View COMPARISON: None FINDINGS: LINES/DEVICES: None. LUNGS: There are chronic interstitial changes. No pneumothorax. Airspace disease is present within the left lung that is new since the previous study . Left costophrenic sulcus is filled and likely due to left pleural effusion. MEDIASTINUM AND CARDIOVASCULAR STRUCTURES: Cardiac silhouette not enlarged. Central airways and mediastinal contour are unremarkable. Athersclerotic plaque within the aortic arch. BONES AND SOFT TISSUES: Thoracic spondylosis. RAD/Chest 1 View (Portable) IMPRESSION: Chronic interestitial changes. Left lung and left perihilar airspace disease new since the previous study suggestive of pneumonia Small left pleural effusion at 2106 Reported and signed by: Prudencio Ann MD Electronically Signed: Prudencio Ann MD at 21:04 EST Tel , Service support ,
[2020-03-28 20:26] LABS: Fibrinogen 772 mg/dl (203-444); Lactic Acid 3.6 mmol/L (0.4-1.9)
[2020-03-28 20:42] LABS: Platelet Estimate ADEQUATE (ADEQ); Red Cell Morphology NORM C+C NORMAL (NORM C&C)
[2020-03-28 21:11] LABS: Mucous, Urine 0 SEEN /hpf (<or=2+); Red Blood Cells-Urine 0 SEEN /hpf (0-5); White Blood Cells 0 SEEN /hpf (0-5)
[2020-03-28 21:16] LABS: Color, Urine Yellow (Yellow); Glucose, Dipstick Normal (Normal); Ketone-Dipstick Negative (Negative); Leukocyte Esterase-Dipstick Negative /ul (Negative); Nitrite-Dipstick Negative (Negative); Occult Blood-Urine Negative /ul (Negative); Protein-Dipstick 30 mg/dl (Negative); Urine Bilirubin Dipstick Negative (Negative); Urine Clarity Clear (Clear); Urine Urobilinogen Normal (Normal)
[2020-03-28] MEDS: Ceftriaxone 1 GM/50 ML BAG IV (21:26)
[2020-03-28] MEDS: dexAMETHasone 10 MG/ML Vial 6 MG IV (21:35)
[2020-03-28 21:39] LABS: Bacteria 1+ /hpf (None Seen); Fine Granular Cast- Urine 10-25 SEEN /lpf (0-5); Hyaline Cast 0-5 SEEN /lpf (0-5); Squamous Epithelial Cells - UA 0-5 SEEN /hpf (0-5)
[2020-03-28] MEDS: 0.9% Normal Saline 1,000 ML 250 ML IV (22:30)
--- NOTE | 2020-03-28 22:34 | ED.RN ---
notified of bp 85/64. give another liter check bp in other arm
--- NOTE | 2020-03-28 22:39 | ED.RN ---
93/67 in rt arm
--- NOTE | 2020-03-28 23:44 | PCM.HP.STD ---
Problem List (1) Acute respiratory failure with hypoxia Status: Acute (2) Acute kidney injury superimposed on CKD Status: Acute (3) Septic shock Status: Acute (4) Stage III chronic kidney disease Status: Chronic (5) COPD Status: Chronic (6) History of colon cancer Status: Chronic (7) Status post ileostomy Status: Chronic (8) Type 2 diabetes mellitus with hyperosmolar nonketotic hyperglycemia Status: Chronic History of Present Illness Date of Admission: 03/28/20 Chief Complaint: Shortness of breath. The patient is a 60 year old M with past medical history as mentioned above presented to the emergency room because of shortness of breath and weakness. His symptoms started around 10 days ago, shortness of breath, exertional, has been progressive, associated with profound weakness and fatigue as well as malaise and without aggravating or relieving factors. He reported minimal cough without sputum production. He denied fever or chills. He mentioned that his girlfriend tested positive for COVID-19 in the last week. Today, he mentioned that his breathing has been just getting worse and he decided to come to emergency department. In the emergency department, patient was afebrile, tachycardic, was hypotensive, tachypneic, hypoxic, pulse ox was 87% on room air upon arrival which improved to 97% on 4 L of oxygen. Routine blood work was remarkable for sodium of 127, BUN of 61, creatinine is 2.62. Blood glucose is 253. Lactic acid was 3.6. LFT was unremarkable. EKG revealed sinus tachycardia, no acute findings. Troponin was negative. Fibrinogen, CRP and LDH were elevated as well as procalcitonin. CPK was normal. Urinalysis was unremarkable. Left lung airspace disease with small left pleural effusion. COVID-19 antigen and PCR both came back negative. My suspicion of COVID-19 pneumonia is high. Patient is being admitted for septic shock secondary to left lung community-acquired pneumonia versus COVID-19 pneumonia, complicated by acute hypoxic respiratory failure and also found to have acute kidney injury on top of stage III chronic kidney disease. Past Medical History Past Medical History (Chronic Problems): Chronic Problems (Last Reviewed 11/21/19 @ 21:[address] Artemio Lynch MD) Stage III chronic kidney disease (Chronic) Familial adenomatous polyposis coli (Chronic) Complicated by cancer requiring surgery in 2001 COPD (Chronic) History of colon cancer (Chronic) Status post ileostomy (Chronic) Urinary outflow obstruction (Chronic) Type 2 diabetes mellitus with hyperosmolar nonketotic hyperglycemia (Chronic) Medical History: Medical History (Last Reviewed 11/21/19 @ 21:[address] Artemio Lynch MD) DM2 (diabetes mellitus, type 2) E11.9 Allergies No Known Allergies Allergy (Verified 03/28/20 19:20) Home Medications: Ambulatory Orders Medication Instructions Recorded Ferrous Sulfate 325 mg PO DAILY@0800 07/15/13 Loperamide [Imodium] 2 mg PO Q6H PRN PRN 07/15/13 Mometasone Furoate [Asmanex] 220 mcg IH BID 07/15/13 Pantoprazole Sodium [Protonix] 40 mg PO DAILY 07/15/13 Formoterol Fumarate [Foradil] 1 puff INHALATION DAILY 02/03/14 Cholecalciferol (VIT D3) [Vitamin 1,000 unit PO DAILY 04/11/14 D3] Ondansetron [Zofran Odt] 4 mg PO Q8H PRN PRN #10 tablet 08/09/16 Gabapentin [Neurontin] 600 mg PO TID 01/01/17 Tamsulosin HCl [Flomax] 0.8 mg PO QHS 04/12/18 Alogliptin Benzoate [Alogliptin] 25 mg PO DAILY 03/22/19 Insulin Glargine,Hum.rec.anlog 30 unit SQ DAILY #0 11/23/19 [Lantus] Surgical History: - - Ileostomy; 7 abdominal surgeries, colon resection secondary to cancer Psychiatric History: No pertinent psych hx Lives: Spouse/ Significant Other Smoking Status: Former smoker Alcohol: None Drugs: None - *Family History Sibling History Items: - - Familial polyposis coli-Brothers and sisters Maternal History Items: - - He does not know his maternal medical history. Reportedly his mother in a motor vehicle accident when patient was very young. Review of Systems Constitutional: Reports: Anorexia, Malaise, Weakness, Fatigue. Denies: Chills, Fever Eyes: Denies: Blurred vision, Double vision, Drainage, Redness, Vision Change HEENT: Denies: Difficulty Hearing, Ear Pain, Eye Pain, Nasal Congestion, Sore Throat Cardiovascular: Denies: Chest Pain, Claudication, Chest Tightness, Edema, Heaviness, Light Headedness, Palpitations, Syncope Respiratory: Reports: Cough, Shortness of Breath, Shortness of breath upon exertion. Denies: Sputum production, Wheezing Gastrointestinal: Denies: Abdominal Pain, Constipation, Diarrhea, Nausea, Vomiting Genitourinary: Denies: Dysuria, Frequency, Hematuria Musculoskeletal: Denies: Arm Pain, Back Pain, Foot Pain Skin: Denies: Dryness, Rash Neurological: Denies: Balance problems, Blurred vision, Double vision, Change in Speech, Slurred speech, Headaches, Numbness Psychiatric: Denies: Anxiety, Depression Endocrine: Denies: Change in Body Habitus, Polydipsia, Polyuria VTE Information - Inpt Only VTE Present on Admission: No VTE Mechan Device Prophylaxis: None VTE Pharm Prophylaxis ordered?: Yes Patient Problems: Active and Suspected Problems (Last Reviewed 11/21/19 @ 21:[address] Artemio Lynch MD) Acute respiratory failure with hypoxia (Acute) Acute kidney injury superimposed on CKD (Acute) Septic shock (Acute) - Physical Exam Vitals/I&O's: Vital Signs Temp Pulse Resp BP Pulse Ox 97.8 F 95 18 93/67 97 03/28/20 22:39 03/28/20 22:39 03/28/20 22:39 03/28/20 22:39 03/28/20 22:39 Oxygen Flow Rate (L/min) 4 Oxygen Delivery Method Nasal Cannula Weight: 170 lb Body Mass Index (BMI) 28.3 Finger Stick Blood Glucose 311 Intake and Output for Last 24 Hours 03/26/20 03/27/20 03/28/20 23:59 23:59 23:59 Intake Total 2805 / 2805 Balance 2805 / 2805 General: Alert, Oriented x3, Cooperative, - - He is moderately short of breath. HEENT: Atraumatic, PERRLA, EOMI, Normocephalic Oral: Moist Mucosa, No Gingival or Mucosal Lesions/ Ulcerations Neck: Supple, No JVD, Negative Carotid Bruits, Trachea Midline, Thyroid Normal Size and Texture Lungs: No wheeze, No rales, Diminished, Rhonchi, Short of Breath, - - Decreased breath sounds bilateral, occasional rhonchi. Cardiovascular: Regular rate, Regular Rhythm, Normal S1, Normal S2, PMI Normal, Tachycardic Abdomen: Bowel Sounds Present, Soft, Non Tender, Non-Distended, No Hepato-splenomegaly, - - Ileostomy bag in place. Extremities: No clubbing, No cyanosis, No edema Skin: No rashes, No breakdown Lymphatic: No Cervical, Supraclavicular, or Inguinal Adenopathy Neurological: Cranial nerves II-XII grossly intact, Motor Exam 5/5 strength throughout Psych/Mental Status: Normal Affect, Appropriate, Alert and oriented to time, place, person, mood and affect Microbiology Past 72 Hours 03/28/20 19:56 Mucosa - Nasopharyngeal Influenza Types A,B Direct FA (LETTY) - Final 03/28/20 19:43 Mucosa - Nose SARS-CoV-2 Antigen (Rapid) - Final Laboratory Results 03/28/20 19:34: WBC 5.3, RBC 5.53, Hgb 16.1, Hct 47.9, MCV 86.6, MCH 29.1, MCHC 33.6, RDW Std Deviation 45.3 H, RDW Coeff of Kaitlyn 14.2, Plt Count 172, MPV 12.8 H, Immature Gran % (Auto) 2.700 H, Neut % (Auto) 79.1 H, Lymph % (Auto) 9.3 L, [place] % (Auto) 8.5, Eos % (Auto) 0.0, Baso % (Auto) 0.4, Absolute Neuts (auto) 4.2, Absolute Lymphs (auto) 0.49 L, Nucleated RBC % 0, Differential Comment , Platelet Estimate ADEQUATE, RBC Morphology NORM C+C 03/28/20 19:34: Fibrinogen 772 H 03/28/20 19:34: Sodium 127 L, Potassium 4.6, Chloride 95 L, Carbon Dioxide 18.0 L, Anion Gap 14, BUN 61 H, Creatinine 2.62 H, Estim Creat Clear Calc 25.43, Est GFR (MDRD) Af Amer 32 L, Est GFR (MDRD) Non-Af 27 L, BUN/Creatinine Ratio 23.3 H, Glucose 253 H, Calcium 8.5, Total Bilirubin 1.80 H, AST 28, ALT 21, Alkaline Phosphatase 138 H, Lactate Dehydrogenase 427 H, Total Creatine Kinase 60, Troponin I < 0.015, C-React Prot Ext Range 136.00 H, Total Protein 8.1, Albumin 3.1 L, Globulin 5.0 H, Albumin/Globulin Ratio 0.6 L 12/28/20 19:34: Lactic Acid 3.6 H* 03/28/20 19:34: B-Natriuretic Peptide 2.7 03/28/20 19:34: Procalcitonin 0.54 H 03/28/20 20:55: Urine Color Yellow, Urine Clarity Clear, Urine pH 5.0, Ur Specific [place] 1.020, Urine Protein 30 H, Urine Glucose (UA) Normal, Urine Ketones Negative, Urine Occult Blood Negative, Urine Nitrite Negative, Urine Bilirubin Negative, Urine Urobilinogen Normal, Ur Leukocyte Esterase Negative, Urine RBC 0 SEEN, Urine WBC 0 SEEN, Ur Squamous Epith Cells 0-5 SEEN, Urine Bacteria 1+, Hyaline Casts 0-5 SEEN, Fine Granular Casts 10-25 SEEN, Urine Mucus 0 SEEN 03/28/20 21:35: COVID-19 (DANIEL) Pending Clinical Impression(s) from Imaging Studies Chest X-Ray 03/28/20 20:25 IMPRESSION: Chronic interestitial changes. Left lung and left perihilar airspace disease new since the previous study suggestive of pneumonia Small left pleural effusion at 2106 Reported and signed by: Prudencio Ann MD Electronically Signed: Prudencio Ann MD at 21:04 EST Tel , Service support , Current Medications Sodium Chloride () 1,000 mls @ 250 mls/hr IV .Q4H [place] Last Admin: 03/28/20 22:30 Dose: 250 mls/hr Documented by: Assessment/Plan All Active Problems (Last Reviewed 11/21/19 @ 21:[address] Artemio Lynch MD) Community acquired pneumonia (Acute) Acute respiratory failure with hypoxia (Acute) Acute kidney injury superimposed on CKD (Acute) Septic shock (Acute) This is a 60 years old male patient presented to the emergency room because of 10 days history of shortness of breath and weakness as well as malaise, found to have infiltrate on the chest x-ray in the left lung, was tachycardic, tachypneic and hypotensive with elevated lactic acid and he is being admitted for septic shock secondary to left lung community-acquired pneumonia, tested negative for both COVID-19 antigen PCR although suspicion is high and also found to have acute hypoxic respiratory failure and acute kidney injury on top of stage III chronic kidney disease. #1 septic shock: Secondary to pneumonia which is probably bacterial versus COVID-19 pneumonia. Although COVID-19 PCR and antigen came back negative, my suspicion of COVID-19 pneumonia is high. Patient received a total of around 4 L of IV fluids bolus in the ED and his blood pressure remained around 80-90 systolic, heart rate improved down to around 120s. Lactic acid was elevated. Plan: Admit to intensive care unit, complete bedrest, continue maintenance IV fluids, blood culture, urine culture, start IV antibiotics, repeat lactic acid in 3 hours, critical care consult, repeat CBC and CMP tomorrow morning as well as INR and pro time, PT OT evaluation and treatment when appropriate. #2 Left lung community-acquired pneumonia: With high suspicion of COVID-19 pneumonia although COVID-19 antigen and PCR both came back negative. Patient had a close contact to his girlfriend who was diagnosed with COVID-19 few days ago. Fibrillation, procalcitonin, LDH and CRP are elevated. EKG revealed sinus tachycardia, otherwise unremarkable. Plan: Start IV Decadron, IV Rocephin, IV Zithromax, albuterol inhaler as needed, Advair inhaler twice daily, infectious disease consult, continue oxygen nasal cannula as above. #3 acute hypoxic respiratory failure: Secondary to #1 and 2. Currently, patient is on 4 L of oxygen. He does have COPD but he does not use home oxygen. Plan as above for IV antibiotics, IV steroids, oxygen by nasal cannula. #4 acute kidney injury on top of stage III chronic kidney disease: Secondary to septic shock. Baseline creatinine has been fluctuating anywhere from 1.2 to 1.5 mg/dL. Admission creatinine is 2.62, above baseline. Plan for IV fluids, input output chart, repeat CMP tomorrow morning. #5 type 2 diabetes mellitus: ADA diet, Accu-Cheks, insulin sliding scale, continue Lantus. #6 COPD: Currently, he is on 4 L. Plan as above, albuterol inhaler as needed, Advair inhaler twice daily. #8 history of colon cancer: Status post colon resection, status post ileostomy, stable in remission. #9 CODE STATUS: Discussed with the patient and he agreed to intubation, CPR and mechanical ventilation. He is full code. #10 DVT prophylaxis subcu Lovenox. This note was generated with [employer] dictation software. It may contain incorrect words, spelling, and punctuation that were not noted in checking the note before signing. Inpatient E&M: 24346 Init Hosp L3
[2020-03-28 23:49] LABS: Reflex Lactate? Y
[2020-03-29] VITALS (31 sets, daily range): BP systolic 82–107; BP diastolic 52–87; PULSE 68–112; RESP 16–28; TEMP 36.2–36.9; O2SAT 94–100; BMI 27.8; BMI 27.9
[2020-03-29] MEDS: 0.9% Normal Saline 1,000 ML 100 ML IV (00:33)
[2020-03-29 00:42] LABS: D-Dimer Quantitative (DVT/PE) 11.59 FEU/ug/m (0.27-0.49)
[2020-03-29 00:58] LABS: Lactic Acid 1.2 mmol/L (0.4-1.9)
[2020-03-29] MEDS: Menthol/Lanolin/Calamine/Znox 113 GM Tube 1 APPLIC TOPICAL ×2 (03:48→08:00)
[2020-03-29] MEDS: Glycerin/Hypromellose/PEG400 15 ml Bottle 1 DRP EACH EYE ×3 (03:48→21:52)
[2020-03-29 04:08] LABS: Absolute Lymphocyte Count 0.55 X10^3/uL (0.83-4.51); Absolute Neutrophil Count 1.2 X10^3/uL (2.0-7.7); Hematocrit 33.2 % (40-54); Hemoglobin 10.8 g/dL (13.0-16.5); Lymphocyte # 0.55 X10^3/ul (4.0); Lymphocyte % 28.8 % (19-41); Mean Corp Hgb Conc 32.5 g/dL (32-36); Mean Corpuscular Hgb 28.6 pg (27.0-32.0); Mean Corpuscular Volume 87.8 fL (80-94); Mean Platelet Vol. 11.7 fl (6.2-12.0); Monocyte# 0.14 X10^3/uL; Monocyte% 7.3 % (0-10); NRBC Flagged by Analyzer 0 % (0-5); Neutrophil # 1.15 X10^3/uL (2.7-7.7); Neutrophil % 60.2 % (47-70); POSITIVE DIFFERENTIAL YES; Platelet Count 113 K/mm3 (150-450); RBC Distribution Width CV 14.2 % (11.6-14.6); RBC Distribution Width SD 45.5 fl (35.1-43.9); Red Blood Count 3.78 M/mm3 (4.6-6.2); White Blood Count 1.9 K/mm3 (4.4-11.0)
[2020-03-29 04:12] LABS: Differential Indicated SCAN CRITERIA MET
[2020-03-29 04:16] LABS: International Normalized Ratio 1.4; Prothrombin Time (Protime)PT. 16.9 SECONDS (11.7-14.9)
[2020-03-29 04:21] LABS: ALB/GLOB Ratio 0.6 RATIO (0.9-2.4); AST(SGOT) 24 U/L (15-37); Alanine Aminotransfer ALT/SGPT 18 U/L (16-61); Alkaline Phosphatase 99 U/L (45-117); Anion Gap 6 (5-15); BUN 52 mg/dL (7-18); BUN/Creat Ratio 27.5 RATIO (10-20); Calcium,Total 6.7 mg/dL (8.5-10.1); Chloride 106 mmol/L (98-107); Creatinine, Serum 1.89 mg/dL (0.70-1.30); EST Glomerular Filtration Rate 39 mL/min (>60); Est Glom Filt Rate - Afr Amer 47 mL/min (>60); Estimated Creatinine Clearance 35.25 ml/min; Globulin 3.4 g/dL (2.2-4.2); Glucose 301 mg/dL (74-106); Potassium 4.7 mmol/L (3.5-5.1); Protein, Total 5.4 g/dL (6.4-8.2); Sodium Level 131 mmol/L (136-145)
--- NOTE | 2020-03-29 06:17 | PCM.CON.CC ---
Reason for Consult Date of Consultation: 03/29/20 Reason for Consultation: Severe sepsis History of Present Illness: The patient is a 60-year-old male, with a history as outlined below, who presented to the emergency department on March 28 with complaints of a 1 week history of generalized malaise, fatigue and decreased intake. The patient does have an apparent history of COPD of unknown severity, but does not utilize supplemental oxygen at his baseline. He also has an ostomy in place due to a history of familial polyposis. The patient does report significant urinary retention, for which she regularly straight caths at home. He does report that his girlfriend was apparently diagnosed with Covid approximately 1 week ago. He does report having been around her 3 days prior to her diagnosis. On presentation to the emergency department, the patient was noted to be afebrile but was tachycardic and tachypneic. His blood pressures were also borderline. The patient was initially documented to be saturating 87% on room air. Laboratory evaluation revealed no evidence of a leukocytosis. Coagulation profile was notable for a D-dimer of 11.59. Chemistry profile was notable for a sodium of 127, chloride of 95, bicarbonate of 18 and creatinine of 2.62. Lactate was elevated at 3.6. Total bilirubin was increased to 1.8. Procalcitonin was noted to be 0.54. Rapid coronavirus antigen testing was negative. Follow-up Covid PCR was also negative. The patient received supplemental IV fluids and was started on antimicrobials and Decadron. He was admitted to the medical intensive care unit for further management. Past Medical History Past Medical History (Chronic Problems): Chronic Problems (Last Reviewed 11/21/19 @ 21:[address] Artemio Lynch MD) Stage III chronic kidney disease (Chronic) Familial adenomatous polyposis coli (Chronic) Complicated by cancer requiring surgery in 2001 COPD (Chronic) History of colon cancer (Chronic) Status post ileostomy (Chronic) Urinary outflow obstruction (Chronic) Type 2 diabetes mellitus with hyperosmolar nonketotic hyperglycemia (Chronic) Medical History: Medical History (Last Reviewed 11/21/19 @ 21:[address] Artemio Lynch MD) DM2 (diabetes mellitus, type 2) E11.9 Allergies No Known Allergies Allergy (Verified 03/28/20 19:20) Home Medications: Ambulatory Orders Medication Instructions Recorded Ferrous Sulfate 325 mg PO DAILY@0800 07/15/13 Loperamide [Imodium] 2 mg PO Q6H PRN PRN 07/15/13 Mometasone Furoate [Asmanex] 220 mcg IH BID 07/15/13 Pantoprazole Sodium [Protonix] 40 mg PO DAILY 07/15/13 Formoterol Fumarate [Foradil] 1 puff INHALATION DAILY 02/03/14 Cholecalciferol (VIT D3) [Vitamin 1,000 unit PO DAILY 04/11/14 D3] Ondansetron [Zofran Odt] 4 mg PO Q8H PRN PRN #10 tablet 08/09/16 Gabapentin [Neurontin] 600 mg PO TID 01/01/17 Tamsulosin HCl [Flomax] 0.8 mg PO QHS 04/12/18 Alogliptin Benzoate [Alogliptin] 25 mg PO DAILY 03/22/19 Insulin Glargine,Hum.rec.anlog 30 unit SQ DAILY #0 11/23/19 [Lantus] Surgical History: - - Ileostomy; 7 abdominal surgeries, colon resection secondary to cancer Psychiatric History: No pertinent psych hx Lives: Spouse/ Significant Other Smoking Status: Former smoker Tobacco Use: Cigarettes Alcohol: None Drugs: None - *Family History Sibling History Items: - - Familial polyposis coli-Brothers and sisters Maternal History Items: - - He does not know his maternal medical history. Reportedly his mother in a motor vehicle accident when patient was very young. Review of Systems Constitutional: Reports: Anorexia, Malaise, Fatigue. Denies: Chills, Fever Eyes: Denies: Blurred vision, Double vision HEENT: Denies: Head Aches, Sinus Congestion, Sinus Drainage Cardiovascular: Denies: Chest Pain, Palpitations Respiratory: Reports: Cough, Shortness of Breath Gastrointestinal: Denies: Abdominal Pain, Nausea, Vomiting Genitourinary: Reports: Retention Musculoskeletal: Denies: Joint Pain, Joint Tenderness Skin: Denies: Rash, Wounds Neurological: Denies: Numbness, Tingling, Focal weakness Psychiatric: Denies: Anxiety, Depression, Homicidal Ideations, Suicidal Ideations Hematologic/ Lymphatic: Reports: Anemia Patient Problems: Active and Suspected Problems (Last Reviewed 11/21/19 @ 21:[address] Artemio Lynch MD) Acute respiratory failure with hypoxia (Acute) Acute kidney injury superimposed on CKD (Acute) Septic shock (Acute) Objective: The patient's most recent lab work, culture data and imaging studies have all been personally reviewed. - Physical Exam Vitals/I&O's: Vital Signs Temp Pulse Resp BP Pulse Ox 97.6 F L 86 21 H 94/72 96 03/29/20 03:59 03/29/20 06:00 03/29/20 06:00 03/29/20 06:00 03/29/20 06:00 Oxygen Flow Rate (L/min) 2 Oxygen Delivery Method Nasal Cannula Weight: 167 lb 8 oz Body Mass Index (BMI) 27.8 Finger Stick Blood Glucose 311 Intake and Output for Last 24 Hours 03/27/20 03/28/20 03/29/20 23:59 23:59 23:59 Intake Total 3805 / 3805 920.83 / 920.83 Output Total 1701 / 1701 Balance 3805 / 3805 -780.17 / -780.17 General: Alert, Cooperative, No apparent distress HEENT: Atraumatic, PERRLA, Normocephalic Oral: No Gingival or Mucosal Lesions/ Ulcerations Neck: Supple, No Nodes, Trachea Midline Lungs: No rhonchi, No wheeze, No rales, Diminished Cardiovascular: Regular rate, Regular Rhythm Abdomen: Bowel Sounds Present, Soft, Non Tender, - - + Ostomy Extremities: No clubbing, No cyanosis, No edema Skin: No breakdown Musculoskeletal: No Tenderness to Palpation of Joints or Extremities Lymphatic: No Cervical, Supraclavicular, or Inguinal Adenopathy Neurological: Cranial nerves II-XII grossly intact, Neuro grossly intact Psych/Mental Status: Normal Affect, Appropriate Labs (Last 48 Hours) 03/28/20 03/28/20 03/28/20 19:34 19:34 19:34 WBC 5.3 RBC 5.53 Hgb 16.1 Hct 47.9 MCV 86.6 MCH 29.1 MCHC 33.6 RDW Std Deviation 45.3 H RDW Coeff of Kaitlyn 14.2 Plt Count 172 MPV 12.8 H Immature Gran % (Auto) 2.700 H Neut % (Auto) 79.1 H Lymph % (Auto) 9.3 L [place] % (Auto) 8.5 Eos % (Auto) 0.0 Baso % (Auto) 0.4 Absolute Neuts (auto) 4.2 Absolute Lymphs (auto) 0.49 L Nucleated RBC % 0 Differential Comment Diff Path Review Platelet Estimate ADEQUATE RBC Morphology NORM C+C PT INR Fibrinogen 772 H D-Dimer Quant (PE/DVT) Sodium 127 L Potassium 4.6 Chloride 95 L Carbon Dioxide 18.0 L Anion Gap 14 BUN 61 H Creatinine 2.62 H Estim Creat Clear Calc 25.43 Est GFR (MDRD) Af Amer 32 L Est GFR (MDRD) Non-Af 27 L BUN/Creatinine Ratio 23.3 H Glucose 253 H Lactic Acid Calcium 8.5 Total Bilirubin 1.80 H AST 28 ALT 21 Alkaline Phosphatase 138 H Lactate Dehydrogenase 427 H Total Creatine Kinase 60 Troponin I < 0.015 C-React Prot Ext Range 136.00 H B-Natriuretic Peptide Total Protein 8.1 Albumin 3.1 L Globulin 5.0 H Albumin/Globulin Ratio 0.6 L Procalcitonin Urine Color Urine Clarity Urine pH Ur Specific [place] Urine Protein Urine Glucose (UA) Urine Ketones Urine Occult Blood Urine Nitrite Urine Bilirubin Urine Urobilinogen Ur Leukocyte Esterase Urine RBC Urine WBC Ur Squamous Epith Cells Urine Bacteria Hyaline Casts Fine Granular Casts Urine Mucus COVID-19 (DANIEL) 03/28/20 03/28/20 03/28/20 19:34 19:34 19:34 WBC RBC Hgb Hct MCV MCH MCHC RDW Std Deviation RDW Coeff of Kaitlyn Plt Count MPV Immature Gran % (Auto) Neut % (Auto) Lymph % (Auto) [place] % (Auto) Eos % (Auto) Baso % (Auto) Absolute Neuts (auto) Absolute Lymphs (auto) Nucleated RBC % Differential Comment Diff Path Review Platelet Estimate RBC Morphology PT INR Fibrinogen D-Dimer Quant (PE/DVT) Sodium Potassium Chloride Carbon Dioxide Anion Gap BUN Creatinine Estim Creat Clear Calc Est GFR (MDRD) Af Amer Est GFR (MDRD) Non-Af BUN/Creatinine Ratio Glucose Lactic Acid 3.6 H* Calcium Total Bilirubin AST ALT Alkaline Phosphatase Lactate Dehydrogenase Total Creatine Kinase Troponin I C-React Prot Ext Range B-Natriuretic Peptide 2.7 Total Protein Albumin Globulin Albumin/Globulin Ratio Procalcitonin 0.54 H Urine Color Urine Clarity Urine pH Ur Specific [place] Urine Protein Urine Glucose (UA) Urine Ketones Urine Occult Blood Urine Nitrite Urine Bilirubin Urine Urobilinogen Ur Leukocyte Esterase Urine RBC Urine WBC Ur Squamous Epith Cells Urine Bacteria Hyaline Casts Fine Granular Casts Urine Mucus COVID-19 (DANIEL) 03/28/20 03/28/20 03/28/20 19:34 20:55 21:35 WBC RBC Hgb Hct MCV MCH MCHC RDW Std Deviation RDW Coeff of Kaitlyn Plt Count MPV Immature Gran % (Auto) Neut % (Auto) Lymph % (Auto) [place] % (Auto) Eos % (Auto) Baso % (Auto) Absolute Neuts (auto) Absolute Lymphs (auto) Nucleated RBC % Differential Comment Diff Path Review Platelet Estimate RBC Morphology PT INR Fibrinogen D-Dimer Quant (PE/DVT) 11.59 H* Sodium Potassium Chloride Carbon Dioxide Anion Gap BUN Creatinine Estim Creat Clear Calc Est GFR (MDRD) Af Amer Est GFR (MDRD) Non-Af BUN/Creatinine Ratio Glucose Lactic Acid Calcium Total Bilirubin AST ALT Alkaline Phosphatase Lactate Dehydrogenase Total Creatine Kinase Troponin I C-React Prot Ext Range B-Natriuretic Peptide Total Protein Albumin Globulin Albumin/Globulin Ratio Procalcitonin Urine Color Yellow Urine Clarity Clear Urine pH 5.0 Ur Specific [place] 1.020 Urine Protein 30 H Urine Glucose (UA) Normal Urine Ketones Negative Urine Occult Blood Negative Urine Nitrite Negative Urine Bilirubin Negative Urine Urobilinogen Normal Ur Leukocyte Esterase Negative Urine RBC 0 SEEN Urine WBC 0 SEEN Ur Squamous Epith Cells 0-5 SEEN Urine Bacteria 1+ Hyaline Casts 0-5 SEEN Fine Granular Casts 10-25 SEEN Urine Mucus 0 SEEN COVID-19 (DANIEL) Negative 03/29/20 03/29/20 03/29/20 00:25 03:45 03:45 WBC 1.9 L RBC 3.78 L Hgb 10.8 L Hct 33.2 L MCV 87.8 MCH 28.6 MCHC 32.5 RDW Std Deviation 45.5 H RDW Coeff of Kaitlyn 14.2 Plt Count 113 L MPV 11.7 Immature Gran % (Auto) 3.700 H Neut % (Auto) 60.2 Lymph % (Auto) 28.8 [place] % (Auto) 7.3 Eos % (Auto) 0.0 Baso % (Auto) 0.0 Absolute Neuts (auto) 1.2 L Absolute Lymphs (auto) 0.55 L Nucleated RBC % 0 Differential Comment Diff Path Review May foll Platelet Estimate RBC Morphology PT 16.9 H INR 1.4 Fibrinogen D-Dimer Quant (PE/DVT) Sodium Potassium Chloride Carbon Dioxide Anion Gap BUN Creatinine Estim Creat Clear Calc Est GFR (MDRD) Af Amer Est GFR (MDRD) Non-Af BUN/Creatinine Ratio Glucose Lactic Acid 1.2 Calcium Total Bilirubin AST ALT Alkaline Phosphatase Lactate Dehydrogenase Total Creatine Kinase Troponin I C-React Prot Ext Range B-Natriuretic Peptide Total Protein Albumin Globulin Albumin/Globulin Ratio Procalcitonin Urine Color Urine Clarity Urine pH Ur Specific [place] Urine Protein Urine Glucose (UA) Urine Ketones Urine Occult Blood Urine Nitrite Urine Bilirubin Urine Urobilinogen Ur Leukocyte Esterase Urine RBC Urine WBC Ur Squamous Epith Cells Urine Bacteria Hyaline Casts Fine Granular Casts Urine Mucus COVID-19 (DANIEL) 03/29/20 03:45 WBC RBC Hgb Hct MCV MCH MCHC RDW Std Deviation RDW Coeff of Kaitlyn Plt Count MPV Immature Gran % (Auto) Neut % (Auto) Lymph % (Auto) [place] % (Auto) Eos % (Auto) Baso % (Auto) Absolute Neuts (auto) Absolute Lymphs (auto) Nucleated RBC % Differential Comment Diff Path Review Platelet Estimate RBC Morphology PT INR Fibrinogen D-Dimer Quant (PE/DVT) Sodium 131 L Potassium 4.7 Chloride 106 Carbon Dioxide 19.0 L Anion Gap 6 BUN 52 H Creatinine 1.89 H Estim Creat Clear Calc 35.25 Est GFR (MDRD) Af Amer 47 L Est GFR (MDRD) Non-Af 39 L BUN/Creatinine Ratio 27.5 H Glucose 301 H Lactic Acid Calcium 6.7 L Total Bilirubin 0.80 AST 24 ALT 18 Alkaline Phosphatase 99 Lactate Dehydrogenase Total Creatine Kinase Troponin I C-React Prot Ext Range B-Natriuretic Peptide Total Protein 5.4 L Albumin 2.0 L Globulin 3.4 Albumin/Globulin Ratio 0.6 L Procalcitonin Urine Color Urine Clarity Urine pH Ur Specific [place] Urine Protein Urine Glucose (UA) Urine Ketones Urine Occult Blood Urine Nitrite Urine Bilirubin Urine Urobilinogen Ur Leukocyte Esterase Urine RBC Urine WBC Ur Squamous Epith Cells Urine Bacteria Hyaline Casts Fine Granular Casts Urine Mucus COVID-19 (DANIEL) Microbiology 03/28/20 19:56 Mucosa - Nasopharyngeal Influenza Types A,B Direct FA (LETTY) - Final 03/28/20 19:43 Mucosa - Nose SARS-CoV-2 Antigen (Rapid) - Final Clinical Impression(s) from Imaging Studies Chest X-Ray 03/28/20 20:25 IMPRESSION: Chronic interestitial changes. Left lung and left perihilar airspace disease new since the previous study suggestive of pneumonia Small left pleural effusion at 2106 Reported and signed by: Prudencio Ann MD Electronically Signed: Prudencio Ann MD at 21:04 EST Tel , Service support , Current Medications Acetaminophen (Acetaminophen 325 Mg Tablet) 650 mg PO Q6H PRN PRN PRN Reason: Pain Score 1-10/Temp > 100.7 F Albuterol Sulfate (Albuterol Sulfate 18 Gm Inhaler (200 Puffs)) 2 puff IH Q4H PRN PRN PRN Reason: Shortness of breath, wheezing Calamine/Phenol (Menthol/Lanolin/Calamine/Znox 113 Gm Tube) 1 applic TOPICAL TIDCM [facility]; Protocol Last Admin: 03/29/20 03:48 Dose: 1 applic Documented by: Dexamethasone Sodium Phosphate (Dexamethasone 10 Mg/Ml Vial) 6 mg IV DAILY [facility] Enoxaparin Sodium (Enoxaparin 40 Mg/0.4 Ml Syringe) 40 mg SC DAILY [facility] Ferrous Sulfate (Ferrous Sulfate 325 Mg Tablet) [facility] Gabapentin (Gabapentin 600 Mg Tablet) 600 mg PO TIDCM [facility] Sodium Chloride () 1,000 mls @ 100 mls/hr IV .Q10H [facility] Last Admin: 03/29/20 00:33 Dose: 100 mls/hr Documented by: Azithromycin 500 mg/ Dextrose 255 mls @ 250 mls/hr IV Q24@2200 [facility] Ceftriaxone Sodium (Rocephin) 1 gm in 50 mls @ 100 mls/hr IV Q24@2200 [facility] Sodium Chloride () 250 mls @ 15 mls/hr IV .[id number] PRN PRN Reason: Saline Flush Sodium Chloride () 250 mls @ 15 mls/hr IV .[id number] PRN PRN Reason: Additional IVPB Infusion Insulin Glargine (Insulin Glargine 100 Units/Ml Pen) 30 units SC DAILY [facility] Insulin Human Lispro (Insulin Lispro 100 Unit/Ml Insuln.Pen) 0 unit SC 4X/DAYCM [facility]; Protocol Loperamide HCl (Loperamide 2 Mg Capsule) 2 mg PO Q6H PRN PRN PRN Reason: Diarrhea Miscellaneous Information (Inhaler, Assist Devices 1 Each Spacer) 1 each INHALATION PRN PRN PRN Reason: WITH ALBUTEROL MDI Nutritional Formula (Lactose Free) (Glucerna Shake 120 Ml Liquid) 120 ml PO TIDCM [facility] Ondansetron HCl (Ondansetron 4 Mg/2 Ml Vial) 4 mg IV Q8H PRN PRN PRN Reason: NAUSEA/VOMITING Pantoprazole Sodium (Pantoprazole Sodium 40 Mg Tablet) 40 mg PO DAILY [facility] Fluticasone/Salmeterol (Fluticasone/Salmeterol 232-14 Inhaler) 1 puff IH BID [facility] Senna/Docusate Sodium (Senna/Docusate Sodium 1 Tablet) 2 tablet PO BID PRN PRN PRN Reason: Constipation Sodium Chloride (0.9% Saline Lock 10 Ml Syringe) 10 - 40 ml IV UD PRN PRN Reason: SALINE FLUSH Tamsulosin HCl (Tamsulosin Hcl 0.4 Mg Capsule) 0.8 mg PO QHS [facility] Assessment/Plan Active and Suspected Problems (Last Reviewed 11/21/19 @ 21:[address] Artemio Lynch MD) Acute respiratory failure with hypoxia (Acute) Acute kidney injury superimposed on CKD (Acute) Septic shock (Acute) RECOMMENDATIONS: 1. Continue empiric antimicrobials per ID recommendations. 2. Continue remdesivir and Decadron to complete treatment courses. Monitor liver and renal function accordingly. 3. Okay to discontinue supplemental IV fluids. 4. Continue bronchodilators. 5. Continue Lantus and sliding scale insulin coverage. 6. Continue to wean supplemental oxygen to maintain saturations at or above 90%. Encourage incentive spirometer use while in bed. IMPRESSIONS: 1. Severe sepsis/acute hypoxemic respiratory insufficiency Clinical concern for possible COVID-19 pneumonia, despite negative antigen and PCR testing. There is also some concern for community-acquired pneumonia. Accordingly, the patient will be continued on empiric antimicrobials, pending further infectious work-up. Recommend weaning supplemental oxygen to maintain saturations at or above 90%. At this time, the patient has been adequately volume resuscitated and continuous fluids can be discontinued. The patient will be maintained in coronavirus precautions. Remdesivir has been started and the patient will be continued on Decadron. 2. Acute on chronic kidney disease Likely prerenal in etiology. The patient has been adequately volume resuscitated. Continue to monitor urine output for now. Anticipate improvement with volume expansion. No current indication for renal replacement therapy. 3. Elevated D-dimer Given the patient's significantly elevated D-dimer level, I would recommend that he be empirically anticoagulated on a continuous heparin infusion or therapeutic Lovenox until CTA chest can be completed to definitively rule out venous thromboembolic disease. 4. Diabetes mellitus/GERD/neuropathy/history of colon CA/familial polyposis Complicates care, management, recovery and prognosis. Continue Lantus and sliding scale insulin coverage. This note was generated with [employer] dictation software. It may contain incorrect words, spelling, and punctuation that were not noted in checking the note before signing. Inpatient E&M: 70483 Init Hosp L3
--- NOTE | 2020-03-29 07:30 | PCM.PN.HOSP ---
Patient Problems: Active and Suspected Problems (Last Reviewed 11/21/19 @ 21:[address] Artemio Lynch MD) Acute respiratory failure with hypoxia (Acute) Acute kidney injury superimposed on CKD (Acute) Septic shock (Acute) Reason for Visit: Follow-up for septic shock with lactic acidosis 3.6 and hypotension, blood pressure 83/67. Objective: Patient systolic blood pressure was low in the 80s currently in 90s. Heart rate in 70s to 80s but not on 2 L of oxygen. Pulse ox 19 to 21/min. D-dimer was 11.59, lactic acid 3.6. COVID-19 PCR negative. Patient stated he came in contact with her girlfriend for about 24 hours about 7 to 8 days ago. His body weight was about 180 pounds about 2 weeks ago in [facility] and currently 167 pounds. He also has ileostomy and had large output about 6- 7 days ago along with loss of appetite. His appetite has come back and ileostomy output has slowed down. Patient has cough predominantly dry, chills, shortness of breath but no chest tightness, chest pain or pressure. Patient states he is shortness of breath is better after admission. Patient feels mildly dizzy upon sitting up. Patient has history of family polyposis colon and had ileostomy when he was young in the [place]. Physical exam General: Alert, Oriented x3, Cooperative HEENT: Atraumatic, PERRLA, EOMI, Normocephalic Oral: No Gingival or Mucosal Lesions/ Ulcerations Neck: Supple, No JVD, Negative Carotid Bruits Lungs: Air entry diminished in bilateral lung bases. Bibasilar expiratory rhonchi present. Cardiovascular: Regular rate, Regular Rhythm, Normal S1, Normal S2, No murmurs Abdomen: Ileostomy bag has liquidy stool. Bowel Sounds Present, Soft, Non Tender, Non-Distended : No renal angle tenderness. No suprapubic tenderness. Extremities: No edema, Capillary Refill Less than 3 Seconds Skin: No rashes, No breakdown Musculoskeletal: No Tenderness to Palpation of Joints or Extremities Neurological: Cranial nerves II-XII grossly intact, Deep Tendon Reflexes 2+/4 and Symmetrical, Neuro grossly intact Psych/Mental Status: Normal Affect, Appropriate. Vitals/I&O's: Vital Signs Temp Pulse Resp BP Pulse Ox 97.6 F L 86 21 H 94/72 96 12/29/20 03:59 03/29/20 06:00 03/29/20 06:00 03/29/20 06:00 03/29/20 06:00 Oxygen Flow Rate (L/min) 2 Oxygen Delivery Method Nasal Cannula Weight: 167 lb 8 oz Body Mass Index (BMI) 27.8 Finger Stick Blood Glucose 311 Intake and Output for Last 24 Hours 03/27/20 03/28/20 03/29/20 23:59 23:59 23:59 Intake Total 3805 / 3805 920.83 / 920.83 Output Total 1801 / 1801 Balance 3805 / 3805 -880.17 / -880.17 Microbiology Past 72 Hours 03/28/20 19:56 Mucosa - Nasopharyngeal Influenza Types A,B Direct FA (LETTY) - Final 03/28/20 19:43 Mucosa - Nose SARS-CoV-2 Antigen (Rapid) - Final Laboratory Results 03/28/20 19:34: WBC 5.3, RBC 5.53, Hgb 16.1, Hct 47.9, MCV 86.6, MCH 29.1, MCHC 33.6, RDW Std Deviation 45.3 H, RDW Coeff of Kaitlyn 14.2, Plt Count 172, MPV 12.8 H, Immature Gran % (Auto) 2.700 H, Neut % (Auto) 79.1 H, Lymph % (Auto) 9.3 L, Ellis % (Auto) 8.5, Eos % (Auto) 0.0, Baso % (Auto) 0.4, Absolute Neuts (auto) 4.2, Absolute Lymphs (auto) 0.49 L, Nucleated RBC % 0, Differential Comment , Platelet Estimate ADEQUATE, RBC Morphology NORM C+C 03/28/20 19:34: Fibrinogen 772 H 03/28/20 19:34: Sodium 127 L, Potassium 4.6, Chloride 95 L, Carbon Dioxide 18.0 L, Anion Gap 14, BUN 61 H, Creatinine 2.62 H, Estim Creat Clear Calc 25.43, Est GFR (MDRD) Af Amer 32 L, Est GFR (MDRD) Non-Af 27 L, BUN/Creatinine Ratio 23.3 H, Glucose 253 H, Calcium 8.5, Total Bilirubin 1.80 H, AST 28, ALT 21, Alkaline Phosphatase 138 H, Lactate Dehydrogenase 427 H, Total Creatine Kinase 60, Troponin I < 0.015, C-React Prot Ext Range 136.00 H, Total Protein 8.1, Albumin 3.1 L, Globulin 5.0 H, Albumin/Globulin Ratio 0.6 L 03/28/20 19:34: Lactic Acid 3.6 H* 03/28/20 19:34: B-Natriuretic Peptide 2.7 03/28/20 19:34: Procalcitonin 0.54 H 03/28/20 19:34: D-Dimer Quant (PE/DVT) 11.59 H* 03/28/20 20:55: Urine Color Yellow, Urine Clarity Clear, Urine pH 5.0, Ur Specific [place] 1.020, Urine Protein 30 H, Urine Glucose (UA) Normal, Urine Ketones Negative, Urine Occult Blood Negative, Urine Nitrite Negative, Urine Bilirubin Negative, Urine Urobilinogen Normal, Ur Leukocyte Esterase Negative, Urine RBC 0 SEEN, Urine WBC 0 SEEN, Ur Squamous Epith Cells 0-5 SEEN, Urine Bacteria 1+, Hyaline Casts 0-5 SEEN, Fine Granular Casts 10-25 SEEN, Urine Mucus 0 SEEN 03/28/20 21:35: COVID-19 (DANIEL) Negative 03/29/20 00:25: Lactic Acid 1.2 03/29/20 03:45: WBC 1.9 L, RBC 3.78 L, Hgb 10.8 L, Hct 33.2 L, MCV 87.8, MCH 28.6, MCHC 32.5, RDW Std Deviation 45.5 H, RDW Coeff of Kaitlyn 14.2, Plt Count 113 L, MPV 11.7, Immature Gran % (Auto) 3.700 H, Neut % (Auto) 60.2, Lymph % (Auto) 28.8, Ellis % (Auto) 7.3, Eos % (Auto) 0.0, Baso % (Auto) 0.0, Absolute Neuts (auto) 1.2 L, Absolute Lymphs (auto) 0.55 L, Nucleated RBC % 0, Diff Path Review July03/29/20 03:45: PT 16.9 H, INR 1.4 03/29/20 03:45: Sodium 131 L, Potassium 4.7, Chloride 106, Carbon Dioxide 19.0 L, Anion Gap 6, BUN 52 H, Creatinine 1.89 H, Estim Creat Clear Calc 35.25, Est GFR (MDRD) Af Amer 47 L, Est GFR (MDRD) Non-Af 39 L, BUN/Creatinine Ratio 27.5 H, Glucose 301 H, Calcium 6.7 L, Total Bilirubin 0.80, AST 24, ALT 18, Alkaline Phosphatase 99, Total Protein 5.4 L, Albumin 2.0 L, Globulin 3.4, Albumin/Globulin Ratio 0.6 L 03/29/20 06:30: MRSA (PCR) Pending Current Medications Acetaminophen (Acetaminophen 325 Mg Tablet) 650 mg PO Q6H PRN PRN PRN Reason: Pain Score 1-10/Temp > 100.7 F Albuterol Sulfate (Albuterol Sulfate 18 Gm Inhaler (200 Puffs)) 2 puff IH Q4H PRN PRN PRN Reason: Shortness of breath, wheezing Calamine/Phenol (Menthol/Lanolin/Calamine/Znox 113 Gm Tube) 1 applic TOPICAL TIDCM [facility]; Protocol Last Admin: 03/29/20 03:48 Dose: 1 applic Documented by: Dexamethasone Sodium Phosphate (Dexamethasone 10 Mg/Ml Vial) 6 mg IV DAILY [facility] Enoxaparin Sodium (Enoxaparin 40 Mg/0.4 Ml Syringe) 40 mg SC DAILY [facility] Ferrous Sulfate (Ferrous Sulfate 325 Mg Tablet) [facility] Gabapentin (Gabapentin 600 Mg Tablet) 600 mg PO TIDCM [facility] Sodium Chloride () 1,000 mls @ 100 mls/hr IV .Q10H [facility] Last Admin: 03/29/20 00:33 Dose: 100 mls/hr Documented by: Azithromycin 500 mg/ Dextrose 255 mls @ 250 mls/hr IV Q24@2200 [facility] Ceftriaxone Sodium (Rocephin) 1 gm in 50 mls @ 100 mls/hr IV Q24@2200 [facility] Sodium Chloride () 250 mls @ 15 mls/hr IV .[id number] PRN PRN Reason: Saline Flush Sodium Chloride () 250 mls @ 15 mls/hr IV .[id number] PRN PRN Reason: Additional IVPB Infusion Insulin Glargine (Insulin Glargine 100 Units/Ml Pen) 30 units SC DAILY [facility] Insulin Human Lispro (Insulin Lispro 100 Unit/Ml Insuln.Pen) 0 unit SC 4X/[facility]; Protocol Loperamide HCl (Loperamide 2 Mg Capsule) 2 mg PO Q6H PRN PRN PRN Reason: Diarrhea Miscellaneous Information (Inhaler, Assist Devices 1 Each Spacer) 1 each INHALATION PRN PRN PRN Reason: WITH ALBUTEROL MDI Nutritional Formula (Lactose Free) (Glucerna Shake 120 Ml Liquid) 120 ml PO TIDCM [facility] Ondansetron HCl (Ondansetron 4 Mg/2 Ml Vial) 4 mg IV Q8H PRN PRN PRN Reason: NAUSEA/VOMITING Pantoprazole Sodium (Pantoprazole Sodium 40 Mg Tablet) 40 mg PO DAILY [facility] Fluticasone/Salmeterol (Fluticasone/Salmeterol 232-14 Inhaler) 1 puff IH BID [facility] Senna/Docusate Sodium (Senna/Docusate Sodium 1 Tablet) 2 tablet PO BID PRN PRN PRN Reason: Constipation Sodium Chloride (0.9% Saline Lock 10 Ml Syringe) 10 - 40 ml IV UD PRN PRN Reason: SALINE FLUSH Tamsulosin HCl (Tamsulosin Hcl 0.4 Mg Capsule) 0.8 mg PO QHS [facility] STROKE Vital Signs/Narrative: Vital Signs Temp Pulse Resp BP Pulse Ox 03/29/20 06:00 86 21 H 94/72 96 03/29/20 05:00 76 20 H 84/58 L 95 03/29/20 04:01 70 19 H 82/65 L 96 03/29/20 03:59 97.6 F L Medical Necessity - Tobacco Use Smoking Status: Former smoker Tobacco Use: Cigarettes Assessment/Plan All Active Problems (Last Reviewed 11/21/19 @ 21:[address] Artemio Lynch MD) Community acquired pneumonia (Acute) Acute respiratory failure with hypoxia (Acute) Acute kidney injury superimposed on CKD (Acute) Septic shock (Acute) This is a 60 years old male patient who is admitted to ICU through emergency room with 10 days history of shortness of breath and weakness as well as malaise, dehydration, increased liquid ileostomy output, loss of weight and found to have infiltrate in the left lung with a diagnosis of left lung community-acquired pneumonia. Patient was tachycardic, tachypneic and hypotensive and lactic acidosis 3.6. #1 Shock most likely mixed septic shock, due to left lower pneumonia, high suspicion of COVID-19 pneumonia and hypovolemic shock from increased ileostomy output: Patient had about 4 L of IV fluid in the ER and had blood pressures responded to 102/79, heart rate 86. Repeat lactate is normal 1.2. Patient history lost weight about 13 pounds in 2 weeks most likely fluid loss/liquid diarrhea from ileostomy. Patient was seen by ID. SARS-CoV-2 antigen and COVID-19 PCR are negative. Respiratory panel and blood cultures x2 are pending. Urinary antigens are ordered. On IV ceftriaxone and Zithromax. Patient empirically started on IV remdesivir by ID. Continue COVID-19 enhanced droplet precaution. Continue Decadron. #2 Left lung community-acquired pneumonia probably high suspicion of COVID-19 pneumonia/bacterial pneumonia: Patient had close contact for 24 hours with his girlfriend about 8 days ago who tested positive. Symptoms started around 03/18. Elevated D-dimer. Lovenox changed to 40 mg IV twice daily. CT angiogram not done because of acute kidney injury on CKD stage III. #3 acute hypoxic respiratory failure secondary to 1 and 2 above: Currently, patient is on 4 L of oxygen. He does have COPD but he does not use home oxygen. Rest as mentioned above #4 acute kidney injury on top of stage III chronic kidney disease: Secondary to septic shock. Baseline creatinine has been fluctuating anywhere from 1.2 to 1.5 mg/dL. Admission creatinine is 2.62, above baseline. Plan for IV fluids, input output chart, repeat CMP tomorrow morning. #5 type 2 diabetes mellitus: Glucose in BMP is 253, 301. ADA diet, Accu-Cheks, insulin sliding scale, continue Lantus. #6 COPD exacerbation from pneumonia: Patient has dry cough and shortness of breath. On Advair inhaler, albuterol inhaler, steroid, incentive spirometry and chest physiotherapy. #8 history of colon cancer: Status post colon resection, status post ileostomy, stable in remission. VTE prophylaxis: On Lovenox 40 mg subcu twice daily as mentioned above. Patient has history of colon cancer/FAP. CODE STATUS: Discussed with the patient and he agreed to intubation, CPR and mechanical ventilation. He is full code. Inpatient E&M: 59368 Subs Hosp L3
[2020-03-29] MEDS: Ferrous Sulfate 325 MG Tablet PO (10:51)
--- NOTE | 2020-03-29 10:52 | PCM.HP.ID ---
Problem List (1) Acute respiratory failure with hypoxia Status: Acute Reason for Consult: suspected covid Consulted by: Dr. Tatum History of Present Illness: The patient is a 60 year old M with CKD, presented with 10 days of fatigue, loss of appetite, and progressive dyspnea (worse with exertion). Girlfriend recently (+) covid and having symptoms. No fever, no chills, no changes in taste/smell, no n/v/d, no aches, no cough. Came to ED, hypoxic, admitted on azithro/ceftriaxone, dex. Feeling about the same this AM. Full ROS performed and neg except as noted above. - Medical History Past Medical History (Chronic Problems): Chronic Problems (Last Reviewed 11/21/19 @ 21:[address] Artemio Lynch MD) Stage III chronic kidney disease (Chronic) Familial adenomatous polyposis coli (Chronic) Complicated by cancer requiring surgery in 2001 COPD (Chronic) History of colon cancer (Chronic) Status post ileostomy (Chronic) Urinary outflow obstruction (Chronic) Type 2 diabetes mellitus with hyperosmolar nonketotic hyperglycemia (Chronic) Allergies/Adverse Reactions: Allergies No Known Allergies Allergy (Verified 03/28/20 19:20) Home Medications: Ambulatory Orders Medication Instructions Recorded Ferrous Sulfate 325 mg PO DAILY@0800 07/15/13 Loperamide [Imodium] 2 mg PO Q6H PRN PRN 07/15/13 Mometasone Furoate [Asmanex] 220 mcg IH BID 07/15/13 Pantoprazole Sodium [Protonix] 40 mg PO DAILY 07/15/13 Formoterol Fumarate [Foradil] 1 puff INHALATION DAILY 02/03/14 Cholecalciferol (VIT D3) [Vitamin 1,000 unit PO DAILY 04/11/14 D3] Ondansetron [Zofran Odt] 4 mg PO Q8H PRN PRN #10 tablet 08/09/16 Gabapentin [Neurontin] 600 mg PO TID 01/01/17 Tamsulosin HCl [Flomax] 0.8 mg PO QHS 04/12/18 Alogliptin Benzoate [Alogliptin] 25 mg PO DAILY 03/22/19 Insulin Glargine,Hum.rec.anlog 30 unit SQ DAILY #0 11/23/19 [Lantus] - Social History SMOKING STATUS:: Former smoker Vital Signs Temp Pulse Resp BP Pulse Ox 97.6 F L 86 21 H 94/72 96 03/29/20 03:59 03/29/20 06:00 03/29/20 06:00 03/29/20 06:00 03/29/20 06:00 Oxygen Flow Rate (L/min) 2 Oxygen Delivery Method Nasal Cannula Weight: 75.977 kg Body Mass Index (BMI) 27.8 Finger Stick Blood Glucose 311 Microbiology Past 72 Hours 03/28/20 19:56 Influenza Types A,B Direct FA (LETTY) - Final Mucosa - Nasopharyngeal 03/28/20 19:43 SARS-CoV-2 Antigen (Rapid) - Final Mucosa - Nose Laboratory Tests Past 24 Hrs 03/28/20 03/28/20 03/28/20 19:34 19:34 19:34 WBC 5.3 RBC 5.53 Hgb 16.1 Hct 47.9 MCV 86.6 MCH 29.1 MCHC 33.6 RDW Std Deviation 45.3 H RDW Coeff of Kaitlyn 14.2 Plt Count 172 MPV 12.8 H Immature Gran % (Auto) 2.700 H Neut % (Auto) 79.1 H Lymph % (Auto) 9.3 L [place] % (Auto) 8.5 Eos % (Auto) 0.0 Baso % (Auto) 0.4 Absolute Neuts (auto) 4.2 Absolute Lymphs (auto) 0.49 L Nucleated RBC % 0 Differential Comment Diff Path Review Platelet Estimate ADEQUATE RBC Morphology NORM C+C PT INR Fibrinogen 772 H D-Dimer Quant (PE/DVT) Sodium 127 L Potassium 4.6 Chloride 95 L Carbon Dioxide 18.0 L Anion Gap 14 BUN 61 H Creatinine 2.62 H Estim Creat Clear Calc 25.43 Est GFR (MDRD) Af Amer 32 L Est GFR (MDRD) Non-Af 27 L BUN/Creatinine Ratio 23.3 H Glucose 253 H Lactic Acid Calcium 8.5 Total Bilirubin 1.80 H AST 28 ALT 21 Alkaline Phosphatase 138 H Lactate Dehydrogenase 427 H Total Creatine Kinase 60 Troponin I < 0.015 C-React Prot Ext Range 136.00 H B-Natriuretic Peptide Total Protein 8.1 Albumin 3.1 L Globulin 5.0 H Albumin/Globulin Ratio 0.6 L Procalcitonin Urine Color Urine Clarity Urine pH Ur Specific [place] Urine Protein Urine Glucose (UA) Urine Ketones Urine Occult Blood Urine Nitrite Urine Bilirubin Urine Urobilinogen Ur Leukocyte Esterase Urine RBC Urine WBC Ur Squamous Epith Cells Urine Bacteria Hyaline Casts Fine Granular Casts Urine Mucus COVID-19 (DANIEL) MRSA (PCR) 03/28/20 03/28/20 03/28/20 19:34 19:34 19:34 WBC RBC Hgb Hct MCV MCH MCHC RDW Std Deviation RDW Coeff of Kaitlyn Plt Count MPV Immature Gran % (Auto) Neut % (Auto) Lymph % (Auto) [place] % (Auto) Eos % (Auto) Baso % (Auto) Absolute Neuts (auto) Absolute Lymphs (auto) Nucleated RBC % Differential Comment Diff Path Review Platelet Estimate RBC Morphology PT INR Fibrinogen D-Dimer Quant (PE/DVT) Sodium Potassium Chloride Carbon Dioxide Anion Gap BUN Creatinine Estim Creat Clear Calc Est GFR (MDRD) Af Amer Est GFR (MDRD) Non-Af BUN/Creatinine Ratio Glucose Lactic Acid 3.6 H* Calcium Total Bilirubin AST ALT Alkaline Phosphatase Lactate Dehydrogenase Total Creatine Kinase Troponin I C-React Prot Ext Range B-Natriuretic Peptide 2.7 Total Protein Albumin Globulin Albumin/Globulin Ratio Procalcitonin 0.54 H Urine Color Urine Clarity Urine pH Ur Specific [place] Urine Protein Urine Glucose (UA) Urine Ketones Urine Occult Blood Urine Nitrite Urine Bilirubin Urine Urobilinogen Ur Leukocyte Esterase Urine RBC Urine WBC Ur Squamous Epith Cells Urine Bacteria Hyaline Casts Fine Granular Casts Urine Mucus COVID-19 (DANIEL) MRSA (PCR) 03/28/20 03/28/20 03/28/20 19:34 20:55 21:35 WBC RBC Hgb Hct MCV MCH MCHC RDW Std Deviation RDW Coeff of Kaitlyn Plt Count MPV Immature Gran % (Auto) Neut % (Auto) Lymph % (Auto) [place] % (Auto) Eos % (Auto) Baso % (Auto) Absolute Neuts (auto) Absolute Lymphs (auto) Nucleated RBC % Differential Comment Diff Path Review Platelet Estimate RBC Morphology PT INR Fibrinogen D-Dimer Quant (PE/DVT) 11.59 H* Sodium Potassium Chloride Carbon Dioxide Anion Gap BUN Creatinine Estim Creat Clear Calc Est GFR (MDRD) Af Amer Est GFR (MDRD) Non-Af BUN/Creatinine Ratio Glucose Lactic Acid Calcium Total Bilirubin AST ALT Alkaline Phosphatase Lactate Dehydrogenase Total Creatine Kinase Troponin I C-React Prot Ext Range B-Natriuretic Peptide Total Protein Albumin Globulin Albumin/Globulin Ratio Procalcitonin Urine Color Yellow Urine Clarity Clear Urine pH 5.0 Ur Specific [place] 1.020 Urine Protein 30 H Urine Glucose (UA) Normal Urine Ketones Negative Urine Occult Blood Negative Urine Nitrite Negative Urine Bilirubin Negative Urine Urobilinogen Normal Ur Leukocyte Esterase Negative Urine RBC 0 SEEN Urine WBC 0 SEEN Ur Squamous Epith Cells 0-5 SEEN Urine Bacteria 1+ Hyaline Casts 0-5 SEEN Fine Granular Casts 10-25 SEEN Urine Mucus 0 SEEN COVID-19 (DANIEL) Negative MRSA (PCR) 03/29/20 03/29/20 03/29/20 00:25 03:45 03:45 WBC 1.9 L RBC 3.78 L Hgb 10.8 L Hct 33.2 L MCV 87.8 MCH 28.6 MCHC 32.5 RDW Std Deviation 45.5 H RDW Coeff of Kaitlyn 14.2 Plt Count 113 L MPV 11.7 Immature Gran % (Auto) 3.700 H Neut % (Auto) 60.2 Lymph % (Auto) 28.8 [place] % (Auto) 7.3 Eos % (Auto) 0.0 Baso % (Auto) 0.0 Absolute Neuts (auto) 1.2 L Absolute Lymphs (auto) 0.55 L Nucleated RBC % 0 Differential Comment Diff Path Review May foll Platelet Estimate RBC Morphology PT 16.9 H INR 1.4 Fibrinogen D-Dimer Quant (PE/DVT) Sodium Potassium Chloride Carbon Dioxide Anion Gap BUN Creatinine Estim Creat Clear Calc Est GFR (MDRD) Af Amer Est GFR (MDRD) Non-Af BUN/Creatinine Ratio Glucose Lactic Acid 1.2 Calcium Total Bilirubin AST ALT Alkaline Phosphatase Lactate Dehydrogenase Total Creatine Kinase Troponin I C-React Prot Ext Range B-Natriuretic Peptide Total Protein Albumin Globulin Albumin/Globulin Ratio Procalcitonin Urine Color Urine Clarity Urine pH Ur Specific [place] Urine Protein Urine Glucose (UA) Urine Ketones Urine Occult Blood Urine Nitrite Urine Bilirubin Urine Urobilinogen Ur Leukocyte Esterase Urine RBC Urine WBC Ur Squamous Epith Cells Urine Bacteria Hyaline Casts Fine Granular Casts Urine Mucus COVID-19 (DANIEL) MRSA (PCR) 03/29/20 03/29/20 03:45 06:30 WBC RBC Hgb Hct MCV MCH MCHC RDW Std Deviation RDW Coeff of Kaitlyn Plt Count MPV Immature Gran % (Auto) Neut % (Auto) Lymph % (Auto) [place] % (Auto) Eos % (Auto) Baso % (Auto) Absolute Neuts (auto) Absolute Lymphs (auto) Nucleated RBC % Differential Comment Diff Path Review Platelet Estimate RBC Morphology PT INR Fibrinogen D-Dimer Quant (PE/DVT) Sodium 131 L Potassium 4.7 Chloride 106 Carbon Dioxide 19.0 L Anion Gap 6 BUN 52 H Creatinine 1.89 H Estim Creat Clear Calc 35.25 Est GFR (MDRD) Af Amer 47 L Est GFR (MDRD) Non-Af 39 L BUN/Creatinine Ratio 27.5 H Glucose 301 H Lactic Acid Calcium 6.7 L Total Bilirubin 0.80 AST 24 ALT 18 Alkaline Phosphatase 99 Lactate Dehydrogenase Total Creatine Kinase Troponin I C-React Prot Ext Range B-Natriuretic Peptide Total Protein 5.4 L Albumin 2.0 L Globulin 3.4 Albumin/Globulin Ratio 0.6 L Procalcitonin Urine Color Urine Clarity Urine pH Ur Specific [place] Urine Protein Urine Glucose (UA) Urine Ketones Urine Occult Blood Urine Nitrite Urine Bilirubin Urine Urobilinogen Ur Leukocyte Esterase Urine RBC Urine WBC Ur Squamous Epith Cells Urine Bacteria Hyaline Casts Fine Granular Casts Urine Mucus COVID-19 (DANIEL) MRSA (PCR) Pending - Other Studies Radiology: [] reviewed Other Studies: [] Route of nutrition/ use of supplements: [] Nutritional Intake: [] IV Site: [] [place] Catheter: [] - Physical Exam General: Alert, Oriented x3, Cooperative, No apparent distress HEENT: Atraumatic, PERRLA, EOMI Neck: Supple, No Nodes Lungs: Diminished Cardiovascular: Regular rate, Regular Rhythm Abdomen: Soft, Non Tender, Non-Distended Extremities: No edema Skin: No rashes IV Site: Peripheral, without redness Musculoskeletal: No Tenderness to Palpation of Joints or Extremities Neurological: Cranial nerves II-XII grossly intact - Assessment/Plan Antibiotics: [] Assessment/Plan: [] Active and Suspected Problems (Last Reviewed 11/21/19 @ 21:[address] Artemio Lynch MD) Acute respiratory failure with hypoxia (Acute) Acute kidney injury superimposed on CKD (Acute) Septic shock (Acute) Hypotension, hypoxia, fatigue, loss of appetite, lymphopenia, and recent covid exposure - covid Ag and PCR neg, but high suspicion. Sx started around 03/18. Cxs neg so far. Resp pcr panel neg. Will order UAgs. On azithro/ceftriaxone. Will change dex to po. Start remdesivir. D-dimer was 11, [place] on CKD improved. Currently on lovenox 40mg daily. Would recommend either empiric therapeutic anticoagulation or getting CTA of chest to look for PE. Will increase lovenox to 40mg bid for now. Will follow, thank you, d/w Dr. Vazquez
[2020-03-29] MEDS: dexAMETHasone 10 MG/ML Vial 6 MG IV (10:53)
[2020-03-29] MEDS: Enoxaparin 40 MG/0.4 ML Syringe SC ×2 (10:55→21:52)
[2020-03-29] MEDS: Pantoprazole Sodium 40 MG Tablet PO (10:55)
[2020-03-29 11:40] LABS: Pathologist Review Reviewed
[2020-03-29] MEDS: Insulin Lispro 100 UNIT/ML INSULN.PEN SC ×3 (12:34→21:55)
[2020-03-29] MEDS: Loperamide 2 MG Capsule PO ×2 (12:38→21:52)
[2020-03-29 12:41] LABS: M R Staph aureus DNA By PCR Negative (Negative); Probe Check PASS; Specimen Processing Control PASS
[2020-03-29 12:51] LABS: Bedside Glucose 382 mg/dL (70-110)
--- NOTE | 2020-03-29 13:50 | CASEMGMT ---
RN CM Assessment Intro role of CM via phone to patient in room. Pt states his girlfriend tested positive for COVID-19 last week and he is now having symptoms. See notes re: [facility] and possible [facility]. COVID-19 testin03/28/20 @ [facility] PCP: Tomy MCDANIEL Insurance: [place] Benefits Pharmacy: [facility] Benefits: yes LNOK: Significant Other, Helio Joy and Son, Raffy Dowling Living arrangements: lives independently in apartment. States no care needs and no DME use. Transportation: drives DME/HHC: diabetic supplies only. Pt DC Goal: Home DC PLAN: [facility]. If pt able to return home, will need oxygen testing and possibly PT/OT recommendations. Melecio REICH RN ACM
--- NOTE | 2020-03-29 13:51 | CASEMGMT ---
Addendum entered by Kalyan Foster 03/29/20 13:57: Patient is now requesting to go home instead of transferring to [place]. RN TORI spoke with him and pt is agreeable to wait until response to fax is received from [place] to see if there is even bed availability today. Will continue with treatment in ICU currently and if [place] does have a bed to transfer, pt will need to make decision re: transfer. He is aware if he refuses transfer to [place] and continues medical treatment @ [facility], he may be responsible for the bill. Melecio DOMINGUEZ Original Note: VLADIMIR VALLE Note: Intro role of CM to patient to discuss [facility] transfer. The patient was upset that they may have a bed and he would need to transfer as he does not have other insurance. Verbal consent for transfer and to send information to [place] was given by patient and call was witness by TANA Noble. Clinicals faxed to [place] [facility] nurse Curtis @ . Call to notify of fax ([phone]. -Dr. Vazquez updated and patient is medically stable to transfer if needed. -awaiting call back from [facility]. Melecio DOMINGUEZ
--- NOTE | 2020-03-29 14:28 | CASEMGMT ---
VLADIMIR VALLE Note: call received from [facility]. Discussed the case with Curtis art. They do not have ICU beds and patient is still in ICU @ [facility]. Nurse requested RN TORI call in am with updated progress notes and labs and to see if patient could transfer to a tele or stepdown bed per [facility] physician. -Pt was updated and VLADIMIR VALLE let pt know cm would contact him in am re: bed availability and transfer and he would continue treatment overnight @ [facility]. Melecio BSN RN ACM
[2020-03-29 18:25] LABS: Bedside Glucose 339 mg/dL (70-110)
[2020-03-29] MEDS: Ondansetron 4 MG/2 ML Vial IV (21:52)
[2020-03-29] MEDS: Tamsulosin HCl 0.4 MG Capsule 0.8 MG PO (21:52)
[2020-03-29] MEDS: Fluticasone/Salmeterol 232-14 Inhaler 1 PUFF IH (21:53)
[2020-03-29] MEDS: Ceftriaxone 1 GM/50 ML BAG IV (21:53)
[2020-03-29 23:40] LABS: Bedside Glucose 345 mg/dL (70-110)
[2020-03-30] VITALS (19 sets, daily range): BP systolic 83–115; BP diastolic 52–80; PULSE 72–103; RESP 16–26; TEMP 36.3–36.6; O2SAT 93–97
[2020-03-30 04:08] LABS: Hematocrit 34.7 % (40-54); Hemoglobin 11.4 g/dL (13.0-16.5); Mean Corp Hgb Conc 32.9 g/dL (32-36); Mean Corpuscular Hgb 28.5 pg (27.0-32.0); Mean Corpuscular Volume 86.8 fL (80-94); Mean Platelet Vol. 12.9 fl (6.2-12.0); Platelet Count 135 K/mm3 (150-450); RBC Distribution Width CV 13.7 % (11.6-14.6); RBC Distribution Width SD 44.1 fl (35.1-43.9); White Blood Count 3.2 K/mm3 (4.4-11.0)
[2020-03-30 04:33] LABS: ALB/GLOB Ratio 0.6 RATIO (0.9-2.4); AST(SGOT) 16 U/L (15-37); Alanine Aminotransfer ALT/SGPT 18 U/L (16-61); Albumin, Serum 2.2 g/dL (3.2-5.0); Alkaline Phosphatase 108 U/L (45-117); Anion Gap 9 (5-15); BUN 34 mg/dL (7-18); BUN/Creat Ratio 22.7 RATIO (10-20); Calcium,Total 7.6 mg/dL (8.5-10.1); Chloride 110 mmol/L (98-107); EST Glomerular Filtration Rate 50 mL/min (>60); Est Glom Filt Rate - Afr Amer 61 mL/min (>60); Estimated Creatinine Clearance 44.42 ml/min; Globulin 3.4 g/dL (2.2-4.2); Glucose 307 mg/dL (74-106); Potassium 4.3 mmol/L (3.5-5.1); Protein, Total 5.6 g/dL (6.4-8.2); Sodium Level 135 mmol/L (136-145)
--- NOTE | 2020-03-30 06:26 | PN_ITS ---
Subjective: The patient was seen and examined at the bedside this morning. Events from the last 24 hours have been reviewed. The patient is currently afebrile, hemodynamically stable and maintaining appropriate oxygen saturations on 2 L/min via nasal cannula. The patient did have a [place] catheter placed yesterday due to urinary retention issues. His Lantus had to be increased this morning due to hyperglycemia. Due to insurance issues, the patient apparently needs to be transferred to the [facility] system. However, there is not currently a bed available and the patient stated that he would sign out AMA if required to transfer. Creatinine has again improved this morning to 1.5. Objective: The patient's most recent lab work, culture data and imaging studies have all been personally reviewed. General: Alert, Oriented x3, Cooperative, No apparent distress HEENT: Atraumatic, PERRLA, Normocephalic Oral: Moist Mucosa, No Gingival or Mucosal Lesions/ Ulcerations Neck: Supple, No Nodes, Trachea Midline Lungs: Diminished Cardiovascular: Regular rate, Regular Rhythm, Normal S1, Normal S2, No murmurs Abdomen: Bowel Sounds Present, Soft, Non Tender Extremities: No clubbing, No cyanosis, No edema Skin: No breakdown Musculoskeletal: No Tenderness to Palpation of Joints or Extremities Lymphatic: No Cervical, Supraclavicular, or Inguinal Adenopathy Neurological: Cranial nerves II-XII grossly intact, Neuro grossly intact Psych/Mental Status: Alert and oriented to time, place, person, mood and affect Vital Signs Temp Pulse Resp BP Pulse Ox 97.8 F 79 20 H 91/65 95 03/30/20 04:00 03/30/20 06:00 03/30/20 06:00 03/30/20 06:00 03/30/20 06:00 Oxygen Flow Rate (L/min) 2 Oxygen Delivery Method Nasal Cannula Weight: 163 lb 4 oz Body Mass Index (BMI) 27.8 Finger Stick Blood Glucose 311 Intake and Output for Last 24 Hours 03/28/20 03/29/20 03/30/20 23:59 23:59 23:59 Intake Total 3805 / 3805 2970.83 / 2970.83 350 / 350 Output Total 8791 / 8791 775 / 775 Balance 3805 / 3805 -5820.17 / -5820.17 -425 / -425 Labs (Last 48 Hours) 03/28/20 03/28/20 03/28/20 19:34 19:34 19:34 WBC 5.3 RBC 5.53 Hgb 16.1 Hct 47.9 MCV 86.6 MCH 29.1 MCHC 33.6 RDW Std Deviation 45.3 H RDW Coeff of Kaitlyn 14.2 Plt Count 172 MPV 12.8 H Immature Gran % (Auto) 2.700 H Neut % (Auto) 79.1 H Lymph % (Auto) 9.3 L Kern % (Auto) 8.5 Eos % (Auto) 0.0 Baso % (Auto) 0.4 Absolute Neuts (auto) 4.2 Absolute Lymphs (auto) 0.49 L Nucleated RBC % 0 Differential Comment Diff Path Review Platelet Estimate ADEQUATE RBC Morphology NORM C+C PT INR Fibrinogen 772 H D-Dimer Quant (PE/DVT) Sodium 127 L Potassium 4.6 Chloride 95 L Carbon Dioxide 18.0 L Anion Gap 14 BUN 61 H Creatinine 2.62 H Estim Creat Clear Calc 25.43 Est GFR (MDRD) Af Amer 32 L Est GFR (MDRD) Non-Af 27 L BUN/Creatinine Ratio 23.3 H Glucose 253 H Lactic Acid Calcium 8.5 Total Bilirubin 1.80 H AST 28 ALT 21 Alkaline Phosphatase 138 H Lactate Dehydrogenase 427 H Total Creatine Kinase 60 Troponin I < 0.015 C-React Prot Ext Range 136.00 H B-Natriuretic Peptide Total Protein 8.1 Albumin 3.1 L Globulin 5.0 H Albumin/Globulin Ratio 0.6 L Procalcitonin Urine Color Urine Clarity Urine pH Ur Specific [place] Urine Protein Urine Glucose (UA) Urine Ketones Urine Occult Blood Urine Nitrite Urine Bilirubin Urine Urobilinogen Ur Leukocyte Esterase Urine RBC Urine WBC Ur Squamous Epith Cells Urine Bacteria Hyaline Casts Fine Granular Casts Urine Mucus COVID-19 (DANIEL) MRSA (PCR) POC Glucose 03/28/20 03/28/20 03/28/20 19:34 19:34 19:34 WBC RBC Hgb Hct MCV MCH MCHC RDW Std Deviation RDW Coeff of Kaitlyn Plt Count MPV Immature Gran % (Auto) Neut % (Auto) Lymph % (Auto) Kern % (Auto) Eos % (Auto) Baso % (Auto) Absolute Neuts (auto) Absolute Lymphs (auto) Nucleated RBC % Differential Comment Diff Path Review Platelet Estimate RBC Morphology PT INR Fibrinogen D-Dimer Quant (PE/DVT) Sodium Potassium Chloride Carbon Dioxide Anion Gap BUN Creatinine Estim Creat Clear Calc Est GFR (MDRD) Af Amer Est GFR (MDRD) Non-Af BUN/Creatinine Ratio Glucose Lactic Acid 3.6 H* Calcium Total Bilirubin AST ALT Alkaline Phosphatase Lactate Dehydrogenase Total Creatine Kinase Troponin I C-React Prot Ext Range B-Natriuretic Peptide 2.7 Total Protein Albumin Globulin Albumin/Globulin Ratio Procalcitonin 0.54 H Urine Color Urine Clarity Urine pH Ur Specific [place] Urine Protein Urine Glucose (UA) Urine Ketones Urine Occult Blood Urine Nitrite Urine Bilirubin Urine Urobilinogen Ur Leukocyte Esterase Urine RBC Urine WBC Ur Squamous Epith Cells Urine Bacteria Hyaline Casts Fine Granular Casts Urine Mucus COVID-19 (DANIEL) MRSA (PCR) POC Glucose 03/28/20 03/28/20 03/28/20 19:34 20:55 21:35 WBC RBC Hgb Hct MCV MCH MCHC RDW Std Deviation RDW Coeff of Kaitlyn Plt Count MPV Immature Gran % (Auto) Neut % (Auto) Lymph % (Auto) [place] % (Auto) Eos % (Auto) Baso % (Auto) Absolute Neuts (auto) Absolute Lymphs (auto) Nucleated RBC % Differential Comment Diff Path Review Platelet Estimate RBC Morphology PT INR Fibrinogen D-Dimer Quant (PE/DVT) 11.59 H* Sodium Potassium Chloride Carbon Dioxide Anion Gap BUN Creatinine Estim Creat Clear Calc Est GFR (MDRD) Af Amer Est GFR (MDRD) Non-Af BUN/Creatinine Ratio Glucose Lactic Acid Calcium Total Bilirubin AST ALT Alkaline Phosphatase Lactate Dehydrogenase Total Creatine Kinase Troponin I C-React Prot Ext Range B-Natriuretic Peptide Total Protein Albumin Globulin Albumin/Globulin Ratio Procalcitonin Urine Color Yellow Urine Clarity Clear Urine pH 5.0 Ur Specific [place] 1.020 Urine Protein 30 H Urine Glucose (UA) Normal Urine Ketones Negative Urine Occult Blood Negative Urine Nitrite Negative Urine Bilirubin Negative Urine Urobilinogen Normal Ur Leukocyte Esterase Negative Urine RBC 0 SEEN Urine WBC 0 SEEN Ur Squamous Epith Cells 0-5 SEEN Urine Bacteria 1+ Hyaline Casts 0-5 SEEN Fine Granular Casts 10-25 SEEN Urine Mucus 0 SEEN COVID-19 (DANIEL) Negative MRSA (PCR) POC Glucose 03/29/20 03/29/20 03/29/20 00:25 03:45 03:45 WBC 1.9 L RBC 3.78 L Hgb 10.8 L Hct 33.2 L MCV 87.8 MCH 28.6 MCHC 32.5 RDW Std Deviation 45.5 H RDW Coeff of Kaitlyn 14.2 Plt Count 113 L MPV 11.7 Immature Gran % (Auto) 3.700 H Neut % (Auto) 60.2 Lymph % (Auto) 28.8 Kern % (Auto) 7.3 Eos % (Auto) 0.0 Baso % (Auto) 0.0 Absolute Neuts (auto) 1.2 L Absolute Lymphs (auto) 0.55 L Nucleated RBC % 0 Differential Comment Diff Path Review Reviewed Platelet Estimate RBC Morphology PT 16.9 H INR 1.4 Fibrinogen D-Dimer Quant (PE/DVT) Sodium Potassium Chloride Carbon Dioxide Anion Gap BUN Creatinine Estim Creat Clear Calc Est GFR (MDRD) Af Amer Est GFR (MDRD) Non-Af BUN/Creatinine Ratio Glucose Lactic Acid 1.2 Calcium Total Bilirubin AST ALT Alkaline Phosphatase Lactate Dehydrogenase Total Creatine Kinase Troponin I C-React Prot Ext Range B-Natriuretic Peptide Total Protein Albumin Globulin Albumin/Globulin Ratio Procalcitonin Urine Color Urine Clarity Urine pH Ur Specific [place] Urine Protein Urine Glucose (UA) Urine Ketones Urine Occult Blood Urine Nitrite Urine Bilirubin Urine Urobilinogen Ur Leukocyte Esterase Urine RBC Urine WBC Ur Squamous Epith Cells Urine Bacteria Hyaline Casts Fine Granular Casts Urine Mucus COVID-19 (DANIEL) MRSA (PCR) POC Glucose 03/29/20 03/29/20 03/29/20 03:45 06:30 12:26 WBC RBC Hgb Hct MCV MCH MCHC RDW Std Deviation RDW Coeff of Kaitlyn Plt Count MPV Immature Gran % (Auto) Neut % (Auto) Lymph % (Auto) [place] % (Auto) Eos % (Auto) Baso % (Auto) Absolute Neuts (auto) Absolute Lymphs (auto) Nucleated RBC % Differential Comment Diff Path Review Platelet Estimate RBC Morphology PT INR Fibrinogen D-Dimer Quant (PE/DVT) Sodium 131 L Potassium 4.7 Chloride 106 Carbon Dioxide 19.0 L Anion Gap 6 BUN 52 H Creatinine 1.89 H Estim Creat Clear Calc 35.25 Est GFR (MDRD) Af Amer 47 L Est GFR (MDRD) Non-Af 39 L BUN/Creatinine Ratio 27.5 H Glucose 301 H Lactic Acid Calcium 6.7 L Total Bilirubin 0.80 AST 24 ALT 18 Alkaline Phosphatase 99 Lactate Dehydrogenase Total Creatine Kinase Troponin I C-React Prot Ext Range B-Natriuretic Peptide Total Protein 5.4 L Albumin 2.0 L Globulin 3.4 Albumin/Globulin Ratio 0.6 L Procalcitonin Urine Color Urine Clarity Urine pH Ur Specific [place] Urine Protein Urine Glucose (UA) Urine Ketones Urine Occult Blood Urine Nitrite Urine Bilirubin Urine Urobilinogen Ur Leukocyte Esterase Urine RBC Urine WBC Ur Squamous Epith Cells Urine Bacteria Hyaline Casts Fine Granular Casts Urine Mucus COVID-19 (DANIEL) MRSA (PCR) Negative POC Glucose 382 H 03/29/20 03/29/20 03/30/20 17:50 21:47 03:50 WBC 3.2 L RBC 4.00 L Hgb 11.4 L Hct 34.7 L MCV 86.8 MCH 28.5 MCHC 32.9 RDW Std Deviation 44.1 H RDW Coeff of Kaitlyn 13.7 Plt Count 135 L MPV 12.9 H Immature Gran % (Auto) Neut % (Auto) Lymph % (Auto) [place] % (Auto) Eos % (Auto) Baso % (Auto) Absolute Neuts (auto) Absolute Lymphs (auto) Nucleated RBC % Differential Comment Diff Path Review Platelet Estimate RBC Morphology PT INR Fibrinogen D-Dimer Quant (PE/DVT) Sodium Potassium Chloride Carbon Dioxide Anion Gap BUN Creatinine Estim Creat Clear Calc Est GFR (MDRD) Af Amer Est GFR (MDRD) Non-Af BUN/Creatinine Ratio Glucose Lactic Acid Calcium Total Bilirubin AST ALT Alkaline Phosphatase Lactate Dehydrogenase Total Creatine Kinase Troponin I C-React Prot Ext Range B-Natriuretic Peptide Total Protein Albumin Globulin Albumin/Globulin Ratio Procalcitonin Urine Color Urine Clarity Urine pH Ur Specific [place] Urine Protein Urine Glucose (UA) Urine Ketones Urine Occult Blood Urine Nitrite Urine Bilirubin Urine Urobilinogen Ur Leukocyte Esterase Urine RBC Urine WBC Ur Squamous Epith Cells Urine Bacteria Hyaline Casts Fine Granular Casts Urine Mucus COVID-19 (DANIEL) MRSA (PCR) POC Glucose 339 H 345 H 03/30/20 03:50 WBC RBC Hgb Hct MCV MCH MCHC RDW Std Deviation RDW Coeff of Kaitlyn Plt Count MPV Immature Gran % (Auto) Neut % (Auto) Lymph % (Auto) [place] % (Auto) Eos % (Auto) Baso % (Auto) Absolute Neuts (auto) Absolute Lymphs (auto) Nucleated RBC % Differential Comment Diff Path Review Platelet Estimate RBC Morphology PT INR Fibrinogen D-Dimer Quant (PE/DVT) Sodium 135 L Potassium 4.3 Chloride 110 H Carbon Dioxide 16.0 L Anion Gap 9 BUN 34 H Creatinine 1.50 H Estim Creat Clear Calc 44.42 Est GFR (MDRD) Af Amer 61 Est GFR (MDRD) Non-Af 50 L BUN/Creatinine Ratio 22.7 H Glucose 307 H Lactic Acid Calcium 7.6 L Total Bilirubin 0.40 AST 16 ALT 18 Alkaline Phosphatase 108 Lactate Dehydrogenase Total Creatine Kinase Troponin I C-React Prot Ext Range B-Natriuretic Peptide Total Protein 5.6 L Albumin 2.2 L Globulin 3.4 Albumin/Globulin Ratio 0.6 L Procalcitonin Urine Color Urine Clarity Urine pH Ur Specific [place] Urine Protein Urine Glucose (UA) Urine Ketones Urine Occult Blood Urine Nitrite Urine Bilirubin Urine Urobilinogen Ur Leukocyte Esterase Urine RBC Urine WBC Ur Squamous Epith Cells Urine Bacteria Hyaline Casts Fine Granular Casts Urine Mucus COVID-19 (DANIEL) MRSA (PCR) POC Glucose Microbiology 03/29/20 07:10 Mucosa - Nasopharyngeal Respiratory Panel (PCR) - Final 03/29/20 11:20 Urine, Random Streptococcus pneumoniae Antigen (M - Final 03/29/20 11:20 Urine Catheter - Catheter Legionella Antigen - Final 03/28/20 19:56 Mucosa - Nasopharyngeal Influenza Types A,B Direct FA (LETTY) - Final 03/28/20 19:43 Mucosa - Nose SARS-CoV-2 Antigen (Rapid) - Final Clinical Impression(s) from Imaging Studies Chest X-Ray 03/28/20 20:25 IMPRESSION: Chronic interestitial changes. Left lung and left perihilar airspace disease new since the previous study suggestive of pneumonia Small left pleural effusion at 2106 Reported and signed by: Prudencio Ann MD Electronically Signed: Prudencio Ann MD at 21:04 EST Tel , Service support , Medical Necessity - Tobacco Use Smoking Status: Former smoker Tobacco Use: Cigarettes Assessment/Plan All Active Problems (Last Reviewed 11/21/19 @ 21:[address] Artemio Lynch MD) Community acquired pneumonia (Acute) Acute respiratory failure with hypoxia (Acute) Acute kidney injury superimposed on CKD (Acute) Septic shock (Acute) RECOMMENDATIONS: 1. Continue empiric antimicrobials per ID recommendations. 2. Continue remdesivir and Decadron to complete treatment courses. Monitor liver and renal function accordingly. 3. Continue bronchodilators. 4. Continue Lantus and sliding scale insulin coverage. 5. Continue to wean supplemental oxygen to maintain saturations at or above 90%. Encourage incentive spirometer use while in bed. 6. The patient is medically stable for transfer out of the intensive care unit. IMPRESSIONS: 1. Severe sepsis/acute hypoxemic respiratory insufficiency Clinical concern for possible COVID-19 pneumonia, despite negative antigen and PCR testing. There is also some concern for community-acquired pneumonia. Accordingly, the patient will be continued on empiric antimicrobials, pending further infectious work-up. Recommend weaning supplemental oxygen to maintain saturations at or above 90%. The patient will be maintained in coronavirus precautions. Remdesivir and Decadron will be continued to complete treatment courses. Continue to monitor liver and renal function accordingly. 2. Acute on chronic kidney disease Improved. Likely prerenal in etiology. The patient has been adequately volume resuscitated. Continue to monitor urine output for now. Anticipate improvement with volume expansion. No current indication for renal replacement therapy. 3. Elevated D-dimer Given the patient's significantly elevated D-dimer level, I would recommend that he be empirically anticoagulated on a continuous heparin infusion or therapeutic Lovenox until CTA chest can be completed to definitively rule out venous thromboembolic disease. 4. Diabetes mellitus/GERD/neuropathy/history of colon CA/familial polyposis Complicates care, management, recovery and prognosis. Continue Lantus and sliding scale insulin coverage. UPDATE: Received call from radiology MD that patient was + for b/l PE. Lovenox was discontinued and patient was placed on systemic anticoagulation with Eliquis. This note was generated with [employer] dictation software. It may contain incorrect words, spelling, and punctuation that were not noted in checking the note before signing. Inpatient E&M: [id number] [facility] L[facility]
--- NOTE | 2020-03-30 07:29 | PN_ITS ---
Patient Problems: Active and Suspected Problems (Last Reviewed 11/21/19 @ 21:[address] Artemio Lynch MD) Acute respiratory failure with hypoxia (Acute) Acute kidney injury superimposed on CKD (Acute) Septic shock (Acute) Objective: No fever or chills. MAP more than 65 systolic blood pressure in 90s. On 2 L of oxygen. About 2.5 L negative fluid balance. Urine output 4155 mL. Patient could not urinate for long time therefore [place] catheter was inserted. Physical exam Physical exam General: Alert, Oriented x3, Cooperative HEENT: Atraumatic, PERRLA, EOMI, Normocephalic Oral: No Gingival or Mucosal Lesions/ Ulcerations Neck: Supple, No JVD, Negative Carotid Bruits Lungs: Air entry diminished in bilateral lung bases. Bibasilar expiratory rhonchi present. Cardiovascular: Regular rate, Regular Rhythm, Normal S1, Normal S2, No murmurs Abdomen: Ileostomy bag has liquidy stool. Bowel Sounds Present, Soft, Non Te nder, Non-Distended : Dark urine in the [place] catheter. No renal angle tenderness. No suprapubic tenderness. Extremities: No edema, Capillary Refill Less than 3 Seconds Skin: No rashes, No breakdown Musculoskeletal: No Tenderness to Palpation of Joints or Extremities Neurological: Cranial nerves II-XII grossly intact, Deep Tendon Reflexes 2+/4 and Symmetrical, Neuro grossly intact Psych/Mental Status: Normal Affect, Appropriate. Vitals/I&O's: Vital Signs Temp Pulse Resp BP Pulse Ox 97.8 F 79 22 H 87/56 L 94 03/30/20 04:00 03/30/20 07:00 03/30/20 07:00 03/30/20 07:00 03/30/20 07:00 Oxygen Flow Rate (L/min) 2 Oxygen Delivery Method Nasal Cannula Weight: 163 lb 4 oz Body Mass Index (BMI) 27.8 Finger Stick Blood Glucose 311 Intake and Output for Last 24 Hours 03/28/20 03/29/20 03/30/20 23:59 23:59 23:59 Intake Total 3805 / 3805 2970.83 / 2970.83 350 / 350 Output Total 8791 / 8791 775 / 775 Balance 3805 / 3805 -5820.17 / -5820.17 -425 / -425 Microbiology Past 72 Hours 03/29/20 07:10 Mucosa - Nasopharyngeal Respiratory Panel (PCR) - Final 03/29/20 11:20 Urine, Random Streptococcus pneumoniae Antigen (M - Final 03/29/20 11:20 Urine Catheter - Catheter Legionella Antigen - Final 03/28/20 19:56 Mucosa - Nasopharyngeal Influenza Types A,B Direct FA (LETTY) - Final 03/28/20 19:43 Mucosa - Nose SARS-CoV-2 Antigen (Rapid) - Final Laboratory Results 03/29/20 03:45: Diff Path Review Reviewed 03/29/20 06:30: MRSA (PCR) Negative 03/29/20 12:26: POC Glucose 382 H 03/29/20 17:50: POC Glucose 339 H 03/29/20 21:47: POC Glucose 345 H 03/30/20 03:50: WBC 3.2 L, RBC 4.00 L, Hgb 11.4 L, Hct 34.7 L, MCV 86.8, MCH 28.5, MCHC 32.9, RDW Std Deviation 44.1 H, RDW Coeff of Kaitlyn 13.7, Plt Count 135 L, MPV 12.9 H 03/30/20 03:50: Sodium 135 L, Potassium 4.3, Chloride 110 H, Carbon Dioxide 16.0 L, Anion Gap 9, BUN 34 H, Creatinine 1.50 H, Estim Creat Clear Calc 44.42, Est GFR (MDRD) Af Amer 61, Est GFR (MDRD) Non-Af 50 L, BUN/Creatinine Ratio 22.7 H, Glucose 307 H, Calcium 7.6 L, Total Bilirubin 0.40, AST 16, ALT 18, Alkaline Phosphatase 108, Total Protein 5.6 L, Albumin 2.2 L, Globulin 3.4, Albumin/Globulin Ratio 0.6 L Current Medications Acetaminophen (Acetaminophen 325 Mg Tablet) 650 mg PO Q6H PRN PRN PRN Reason: Pain Score 1-10/Temp > 100.7 F Albuterol Sulfate (Albuterol Sulfate 18 Gm Inhaler (200 Puffs)) 2 puff IH Q4H PRN PRN PRN Reason: Shortness of breath, wheezing Calamine/Phenol (Menthol/Lanolin/Calamine/Znox 113 Gm Tube) 1 applic TOPICAL TIDCM [facility]; Protocol Last Admin: 03/29/20 18:21 Dose: Not Given Documented by: Dexamethasone (Dexamethasone 4 Mg Tablet) 6 mg PO DAILY [facility] Stop: 04/06/20 10:01 Last Admin: 03/29/20 12:38 Dose: Not Given Documented by: Enoxaparin Sodium (Enoxaparin 40 Mg/0.4 Ml Syringe) 40 mg SC Q12H [facility] Last Admin: 03/29/20 21:52 Dose: 40 mg Documented by: Ferrous Sulfate ([facility]errous S[facility]ate 325 Mg Tablet) [facility] Last Admin: 03/29/20 10:51 Dose: 325 mg Documented by: Gabapentin (Gabapentin 600 Mg Tablet) 600 mg PO TIDCM [facility] Last Admin: 03/29/20 18:24 Dose: Not Given Documented by: Azithromycin 500 mg/ Dextrose 255 mls @ 250 mls/hr IV Q24@2200 [facility] Last Infusion: 03/29/20 23:00 Dose: Infused Documented by: Ceftriaxone Sodium (Rocephin) 1 gm in 50 mls @ 100 mls/hr IV Q24@2200 [facility] Last Infusion: 03/29/20 22:30 Dose: Infused Documented by: Sodium Chloride () 250 mls @ 15 mls/hr IV .[id number] PRN PRN Reason: Saline Flush Sodium Chloride () 250 mls @ 15 mls/hr IV .[id number] PRN PRN Reason: Additional IVPB Infusion Remdesivir 100 mg/ Sodium (Chloride) 250 mls @ 125 mls/hr IV DAILY [facility]; Protocol Stop: 04/02/20 11:59 Insulin Glargine (Insulin Glargine 100 Units/Ml Pen) 30 units SC BID [facility] Insulin Human Lispro (Insulin Lispro 100 Unit/Ml Insuln.Pen) [facility]; Protocol Last Admin: 03/29/20 21:55 Dose: 8 u Documented by: Loperamide HCl (Loperamide 2 Mg Capsule) 2 mg PO Q6H PRN PRN PRN Reason: Diarrhea Last Admin: 03/29/20 21:52 Dose: 2 mg Documented by: Miscellaneous Information (Inhaler, Assist Devices 1 Each Spacer) 1 each INHALATION PRN PRN PRN Reason: WITH ALBUTEROL MDI Ondansetron HCl (Ondansetron 4 Mg/2 Ml Vial) 4 mg IV Q8H PRN PRN PRN Reason: NAUSEA/VOMITING Last Admin: 03/29/20 21:52 Dose: 4 mg Documented by: Pantoprazole Sodium (Pantoprazole Sodium 40 Mg Tablet) 40 mg PO DAILY [facility] Last Admin: 03/29/20 10:55 Dose: 40 mg Documented by: Fluticasone/Salmeterol (Fluticasone/Salmeterol 232-14 Inhaler) 1 puff IH BID [facility] Last Admin: 03/29/20 21:53 Dose: 1 puff Documented by: Senna/Docusate Sodium (Senna/Docusate Sodium 1 Tablet) 2 tablet PO BID PRN PRN PRN Reason: Constipation Sodium Chloride (0.9% Saline Lock 10 Ml Syringe) 10 - 40 ml IV UD PRN PRN Reason: SALINE FLUSH Tamsulosin HCl (Tamsulosin Hcl 0.4 Mg Capsule) 0.8 mg PO QHS [facility] Last Admin: 03/29/20 21:52 Dose: 0.8 mg Documented by: STROKE Vital Signs/Narrative: Vital Signs Temp Pulse Resp BP Pulse Ox 03/30/20 07:00 79 22 H 87/56 L 94 03/30/20 06:00 79 20 H 91/65 95 03/30/20 05:00 77 20 H 89/52 L 96 03/30/20 04:00 97.8 F 94 19 H 90/57 L 95 Medical Necessity - Tobacco Use Smoking Status: Former smoker Tobacco Use: Cigarettes Assessment/Plan All Active Problems (Last Reviewed 11/21/19 @ 21:[address] Artemio Lynch MD) Community acquired pneumonia (Acute) Acute respiratory failure with hypoxia (Acute) Acute kidney injury superimposed on CKD (Acute) Septic shock (Acute) This is a 60 years old male patient who is admitted to ICU through emergency room with 10 days history of shortness of breath and weakness as well as malaise, dehydration, increased liquid ileostomy output, loss of weight and found to have infiltrate in the left lung with a diagnosis of left lung community-acquired pneumonia. Patient was tachycardic, tachypneic and hypotensive and lactic acidosis 3.6. #1 Shock most likely mixed septic shock, due to left lower pneumonia, high suspicion of COVID-19 pneumonia and hypovolemic shock from increased ileostomy output: Patient had about 4 L of IV fluid in the ER and had blood pressures responded to 102/79, heart rate 86. Repeat lactate is normal 1.2. Patient history lost weight about 13 pounds in 2 weeks most likely fluid loss/liquid diarrhea from ileostomy. Patient was seen by ID. SARS-CoV-2 antigen and COVID- 19 PCR are negative. On IV ceftriaxone and Zithromax. Patient empirically started on IV remdesivir by ID. Continue COVID-19 enhanced droplet precaution. Continue Decadron. 03/30: Urinary antigens are negative. Respiratory panel is negative. Patient blood pressure still systolic 90, MAP more than 65. IV fluid normal 75 mill ordered. CTPA chest is ordered therefore patient needs IV fluid to prevent BHAVNA. Patient medically stable discharge to [facility] floor #2 Left lung community-acquired pneumonia probably high suspicion of COVID-19 pneumonia/bacterial pneumonia: Patient had close contact for 24 hours with his girlfriend about 8 days ago who tested positive. Symptoms started around 03/18. Elevated D-dimer. Lovenox changed to 40 mg IV twice daily. #3 acute hypoxic respiratory failure secondary to 1 and 2 above: Currently, patient is on 4 L of oxygen. He does have COPD but he does not use home oxygen. Rest as mentioned above 03/30: Oxygenation is better. On 2 L of oxygen #4 acute kidney injury on top of stage III chronic kidney disease: Secondary to septic shock. Baseline creatinine has been fluctuating anywhere from 1.2 to 1.5 mg/dL. Admission creatinine is 2.62, above baseline. 03/30: Patient had urine retention and [place] catheter was inserted. Urine is dark yellow concentrated. IV fluid ordered. Continue monitoring intake and output. #5 type 2 diabetes mellitus: Glucose in BMP is 253, 301. ADA diet, Accu-Cheks, insulin sliding scale, continue Lantus. #6 COPD exacerbation from pneumonia: Patient has dry cough and shortness of breath. On Advair inhaler, albuterol inhaler, steroid, incentive spirometry and chest physiotherapy. #8 history of colon cancer: Status post colon resection, status post ileostomy, stable in remission. Patient has pancytopenia, WBC count 3.2 thousand, better than yesterday. Lymphopenia. H&H 11.4/34 and platelet count 1 35,000. All 3 cell lines are improving. VTE prophylaxis: On Lovenox 40 mg subcu twice daily as mentioned above. Patient has history of colon cancer/FAP. CODE STATUS: Discussed with the patient and he agreed to intubation, CPR and mechanical ventilation. He is full code. Microbiology Past 72 Hours 03/29/20 07:10 Mucosa - Nasopharyngeal Respiratory Panel (PCR) - Final 03/29/20 11:20 Urine, Random Streptococcus pneumoniae Antigen (M - Final 03/29/20 11:20 Urine Catheter - Catheter Legionella Antigen - Final 03/28/20 19:56 Mucosa - Nasopharyngeal Influenza Types A,B Direct FA (LETTY) - Final 03/28/20 19:43 Mucosa - Nose SARS-CoV-2 Antigen (Rapid) - Final Laboratory Results 03/29/20 03:45: Diff Path Review Reviewed 03/29/20 06:30: MRSA (PCR) Negative 03/29/20 12:26: POC Glucose 382 H 03/29/20 17:50: POC Glucose 339 H 03/29/20 21:47: POC Glucose 345 H 03/30/20 03:50: WBC 3.2 L, RBC 4.00 L, Hgb 11.4 L, Hct 34.7 L, MCV 86.8, MCH 28.5, MCHC 32.9, RDW Std Deviation 44.1 H, RDW Coeff of Kaitlyn 13.7, Plt Count 135 L, MPV 12.9 H 03/30/20 03:50: Sodium 135 L, Potassium 4.3, Chloride 110 H, Carbon Dioxide 16.0 L, Anion Gap 9, BUN 34 H, Creatinine 1.50 H, Estim Creat Clear Calc 44.42, Est GFR (MDRD) Af Amer 61, Est GFR (MDRD) Non-Af 50 L, BUN/Creatinine Ratio 22.7 H, Glucose 307 H, Calcium 7.6 L, Total Bilirubin 0.40, AST 16, ALT 18, Alkaline Phosphatase 108, Total Protein 5.6 L, Albumin 2.2 L, Globulin 3.4, Albumin/Globulin Ratio 0.6 L Inpatient E&M: 65208 Subs Hosp L2
--- NOTE | 2020-03-30 10:35 | CASEMGMT ---
RN TORI Note: Attempted numerous calls into room. No answer. -Clinicals faxed to [facility] updating that patient re: standard level of care. Also called to [facility] and updated that dc date was not determined yet. She will contact TORI when she has reviewed the information. Melecio MACIELN RN ACM
--- NOTE | 2020-03-30 10:39 | CT_ITS ---
We are attempting to reach an attending provider to discuss findings. An addendum with communication details will be sent when the communication is complete. STUDY: CTA CHEST REASON FOR EXAM: Male, 60 years old. ELEVATED D-DIMER 11.87, BEING TREATED FOR COVID. SOB, CHILLS, HEADACHE, MYALGIAS, MALAISE. 2 NEG TESTS. RADIATION DOSAGE (If Supplied By Facility): CTDIvol = ( 11.875 ) mGy, DLP = ( 523.05 ) mGycm TECHNIQUE: The examination was performed with the intravenous administration of IV 100mL Isovue-370. Post-processing of the angiographic images was performed, with multiplanar reformation and 3D reconstruction. Individualized dose optimization techniques were used for this CT. COMPARISON: Chest x-ray 03/28/2020, CT 10/21/2018 FINDINGS: Normal enhancement of the main pulmonary artery and right and left pulmonary arteries. Normal enhancement of the bilateral peripheral pulmonary arteries. Branching filling defects within the distal main right pulmonary artery and the distal descending left pulmonary artery consistent with pulmonary embolism. Normal thoracic aorta and visualized great vessels. There is no demonstrated aortic dissection. Normal heart and pericardium. Multiple small mediastinal lymph nodes which are likely reactive. Normal hilar regions. Normal visualized trachea and bronchi. The lungs are well expanded. Mild emphysematous changes. Bilateral peripheral patchy groundglass opacities consistent with subsegmental atelectasis or pneumonitis. Normal pleura. Normal chest wall structures. Healed fracture the right clavicle. Normal visualized upper abdomen. CT/CTA Chest W/WO Contrast IMPRESSION: 1. Positive for bilateral pulmonary emboli. 2. Mild emphysema with bilateral subsegmental atelectasis or pneumonitis. Commonly reported imaging features of Covid 19 pneumonia are present. Other processes such as influenza pneumonia and organizing pneumonia, as can be seen with drug toxicity and connective tissue disease, can cause a similar imaging pattern. Electronically Signed: Sam Day MD at 12:21 EST Tel , Service support ,
[2020-03-30] MEDS: Menthol/Lanolin/Calamine/Znox 113 GM Tube 1 APPLIC TOPICAL ×2 (12:40→17:16)
[2020-03-30] MEDS: Ferrous Sulfate 325 MG Tablet PO (12:41)
[2020-03-30] MEDS: Pantoprazole Sodium 40 MG Tablet PO (12:41)
[2020-03-30] MEDS: dexAMETHasone 4 MG Tablet 6 MG PO (12:41)
[2020-03-30] MEDS: Gabapentin 600 MG Tablet PO ×2 (12:41→17:18)
[2020-03-30] MEDS: 0.9% Saline Lock 10 ML Syringe IV (12:44)
[2020-03-30] MEDS: Insulin Lispro 100 UNIT/ML INSULN.PEN 10 UNIT SC ×2 (12:45→17:16)
[2020-03-30] MEDS: Insulin Lispro 100 UNIT/ML INSULN.PEN SC ×3 (12:45→20:15)
[2020-03-30 12:46] LABS: Bedside Glucose 315 mg/dL (70-110)
[2020-03-30] MEDS: Fluticasone/Salmeterol 232-14 Inhaler 1 PUFF IH ×2 (12:46→20:01)
--- NOTE | 2020-03-30 14:12 | CASEMGMT ---
RN CM Note: Called on patient's cell phone. Lengthy conversation with patient re: his current treatments and need for continued medical care. Updated on information being faxed to the [facility] and CM had not heard back yet as to bed availability. Patient again verbalized he would prefer to stay @ [facility] but [facility]. Pt stated I'll do what I have to do. -RN CM let patient know he would continue to be updated when further information is received. -Pt is to transfer to [facility]. VLADIMIR Silva chg nurse updated on possible [facility]. Melecio MACIELN RN ACM
[2020-03-30] MEDS: 0.9% Normal Saline 1,000 ML 75 ML IV (15:03)
--- NOTE | 2020-03-30 15:25 | PCM.PN.ID ---
Patient Problems: Active and Suspected Problems (Last Reviewed 11/21/19 @ 21:[address] Artemio Lynch MD) Acute respiratory failure with hypoxia (Acute) Acute kidney injury superimposed on CKD (Acute) Septic shock (Acute) Subjective: Feeling better, CT showed bilat PEs. No fever, breathing improved. - Physical Exam Vitals/I&O's: Vital Signs Temp Pulse Resp BP Pulse Ox 97.8 F 89 23 H 93/54 L 96 03/30/20 04:00 03/30/20 14:00 03/30/20 14:00 03/30/20 14:00 03/30/20 09:00 Oxygen Flow Rate (L/min) 2 Oxygen Delivery Method Nasal Cannula Weight: 74.049 kg Body Mass Index (BMI) 27.8 Finger Stick Blood Glucose 311 Intake and Output for Last 24 Hours 03/28/20 03/29/20 03/30/20 23:59 23:59 23:59 Intake Total 3805 / 3805 2970.83 / 2970.83 350 / 350 Output Total 8791 / 8791 1725 / 1725 Balance 3805 / 3805 -5820.17 / -5820.17 -1375 / -1375 General: Alert, Cooperative, No apparent distress Lungs: Wheezes Cardiovascular: Regular rate, Regular Rhythm Abdomen: Soft, Non Tender, Non-Distended Skin: No rashes Microbiology Past 72 Hours 03/29/20 07:10 Mucosa - Nasopharyngeal Respiratory Panel (PCR) - Final 03/29/20 11:20 Urine, Random Streptococcus pneumoniae Antigen (M - Final 03/29/20 11:20 Urine Catheter - Catheter Legionella Antigen - Final 03/28/20 19:56 Mucosa - Nasopharyngeal Influenza Types A,B Direct FA (LETTY) - Final 03/28/20 19:43 Mucosa - Nose SARS-CoV-2 Antigen (Rapid) - Final Laboratory Results 03/29/20 17:50: POC Glucose 339 H 03/29/20 21:47: POC Glucose 345 H 03/30/20 03:50: WBC 3.2 L, RBC 4.00 L, Hgb 11.4 L, Hct 34.7 L, MCV 86.8, MCH 28.5, MCHC 32.9, RDW Std Deviation 44.1 H, RDW Coeff of Kaitlyn 13.7, Plt Count 135 L, MPV 12.9 H 03/30/20 03:50: Sodium 135 L, Potassium 4.3, Chloride 110 H, Carbon Dioxide 16.0 L, Anion Gap 9, BUN 34 H, Creatinine 1.50 H, Estim Creat Clear Calc 44.42, Est GFR (MDRD) Af Amer 61, Est GFR (MDRD) Non-Af 50 L, BUN/Creatinine Ratio 22.7 H, Glucose 307 H, Calcium 7.6 L, Total Bilirubin 0.40, AST 16, ALT 18, Alkaline Phosphatase 108, Total Protein 5.6 L, Albumin 2.2 L, Globulin 3.4, Albumin/Globulin Ratio 0.6 L 03/30/20 12:28: POC Glucose 315 H Current Medications Acetaminophen (Acetaminophen 325 Mg Tablet) 650 mg PO Q6H PRN PRN PRN Reason: Pain Score 1-10/Temp > 100.7 F Albuterol Sulfate (Albuterol Sulfate 18 Gm Inhaler (200 Puffs)) 2 puff IH Q4H PRN PRN PRN Reason: Shortness of breath, wheezing Calamine/Phenol (Menthol/Lanolin/Calamine/Znox 113 Gm Tube) 1 applic TOPICAL TIDCM [facility]; Protocol Last Admin: 03/30/20 12:41 Dose: Not Given Documented by: Dexamethasone (Dexamethasone 4 Mg Tablet) 6 mg PO DAILY [facility] Stop: 04/06/20 10:01 Last Admin: 03/30/20 12:41 Dose: 6 mg Documented by: Ferrous Sulfate (Ferrous Sulfate 325 Mg Tablet) 325 mg PO DAILYCM [facility] Last Admin: 03/30/20 12:41 Dose: 325 mg Documented by: Gabapentin (Gabapentin 600 Mg Tablet) 600 mg PO TIDCM [facility] Last Admin: 03/30/20 12:46 Dose: Not Given Documented by: Heparin Sodium (Porcine) (Heparin Injection (Vial) 5,000 Unit/Ml Vial) 0 unit IV UD PRN; Protocol PRN Reason: dose adjustment Sodium Chloride () 250 mls @ 15 mls/hr IV .[id number] PRN PRN Reason: Saline Flush Sodium Chloride () 250 mls @ 15 mls/hr IV .[id number] PRN PRN Reason: Additional IVPB Infusion Remdesivir 100 mg/ Sodium (Chloride) 250 mls @ 125 mls/hr IV DAILY [facility]; Protocol Stop: 04/02/20 11:59 Last Admin: 03/30/20 15:04 Dose: 125 mls/hr Documented by: Sodium Chloride () 1,000 mls @ 75 mls/hr IV .[id number] [facility] Stop: 03/31/20 00:49 Last Admin: 03/30/20 15:03 Dose: 75 mls/hr Documented by: Heparin Sodium/Dextrose () 25,000 units in 250 mls @ 11 mls/hr IV .[id number] [facility]; Protocol Insulin Glargine (Insulin Glargine 100 Units/Ml Pen) 35 units SC BID [facility] Insulin Human Lispro (Insulin Lispro 100 Unit/Ml Insuln.Pen) 0 unit SC 4X/DAYCM [facility]; Protocol Last Admin: 03/30/20 12:45 Dose: 6 u Documented by: Insulin Human Lispro (Insulin Lispro 100 Unit/Ml Insuln.Pen) 10 unit SC TIDAC [facility] Last Admin: 03/30/20 12:45 Dose: 10 u Documented by: Loperamide HCl (Loperamide 2 Mg Capsule) 2 mg PO Q6H PRN PRN PRN Reason: Diarrhea Last Admin: 03/29/20 21:52 Dose: 2 mg Documented by: Miscellaneous Information (Inhaler, Assist Devices 1 Each Spacer) 1 each INHALATION PRN PRN PRN Reason: WITH ALBUTEROL MDI Ondansetron HCl (Ondansetron 4 Mg/2 Ml Vial) 4 mg IV Q8H PRN PRN PRN Reason: NAUSEA/VOMITING Last Admin: 03/29/20 21:52 Dose: 4 mg Documented by: Pantoprazole Sodium (Pantoprazole Sodium 40 Mg Tablet) 40 mg PO DAILY [facility] Last Admin: 03/30/20 12:41 Dose: 40 mg Documented by: Fluticasone/Salmeterol (Fluticasone/Salmeterol 232-14 Inhaler) 1 puff IH BID [facility] Last Admin: 03/30/20 12:46 Dose: 1 puff Documented by: Senna/Docusate Sodium (Senna/Docusate Sodium 1 Tablet) 2 tablet PO BID PRN PRN PRN Reason: Constipation Sodium Chloride (0.9% Saline Lock 10 Ml Syringe) 10 - 40 ml IV UD PRN PRN Reason: SALINE FLUSH Last Admin: 03/30/20 12:44 Dose: 10 ml Documented by: Tamsulosin HCl (Tamsulosin Hcl 0.4 Mg Capsule) 0.8 mg PO QHS [facility] Last Admin: 03/29/20 21:52 Dose: 0.8 mg Documented by: Medical Necessity - Tobacco Use Smoking Status: Former smoker Tobacco Use: Cigarettes Route of nutrition/ use of supplements: [] Nutritional Intake: [] IV Site: [] [place] Catheter: [] - Assessment/Plan Antibiotics: [] Assessment/Plan: [] Active and Suspected Problems (Last Reviewed 11/21/19 @ 21:[address] Artemio Lynch MD) Acute respiratory failure with hypoxia (Acute) Acute kidney injury superimposed on CKD (Acute) Septic shock (Acute) Hypotension, hypoxia, fatigue, loss of appetite, lymphopenia, and recent covid exposure - covid Ag and PCR neg, but high suspicion. Sx started around 03/18. Cxs neg so far. Resp pcr panel neg. UAg neg. Cont dex and remdesivir. D-dimer was 11, [place] on CKD improved. CTA showed bilat PEs. On therapeutic anticoag now. Will check covid Ab to try to prove dx. Stop abx today. Will follow, d/w Dr. Vazquez
[2020-03-30] MEDS: HEPARIN/D5w 25,000 UNITS 25,000 UNITS/250 ML IV.SOLN. 11 UNITS IV (15:26)
[2020-03-30] MEDS: Heparin Injection (Vial) 5,000 UNIT/ML VIAL 5000 UNIT IV (15:30)
[2020-03-30 16:10] LABS: Partial Thromboplast Time 28.9 Seconds (24.1-36.2)
[2020-03-30] MEDS: Glycerin/Hypromellose/PEG400 15 ml Bottle 1 DRP EACH EYE ×2 (17:18→22:24)
[2020-03-30 17:25] LABS: Bedside Glucose 263 mg/dL (70-110)
[2020-03-30] MEDS: Acetaminophen 325 MG Tablet 650 MG PO (20:01)
[2020-03-30] MEDS: Tamsulosin HCl 0.4 MG Capsule 0.8 MG PO (20:01)
[2020-03-30 21:50] LABS: Bedside Glucose 317 mg/dL (70-110)
[2020-03-30 22:00] LABS: Partial Thromboplast Time 56.7 Seconds (24.1-36.2)
[2020-03-31] VITALS (7 sets, daily range): BP systolic 95–113; BP diastolic 63–78; PULSE 69–86; RESP 16–18; TEMP 36.1–36.4; O2SAT 87–97
[2020-03-31 03:41] LABS: Hematocrit 33.4 % (40-54); Hemoglobin 10.9 g/dL (13.0-16.5); Mean Corp Hgb Conc 32.6 g/dL (32-36); Mean Corpuscular Volume 88.8 fL (80-94); Mean Platelet Vol. 12.4 fl (6.2-12.0); Platelet Count 144 K/mm3 (150-450); RBC Distribution Width CV 13.9 % (11.6-14.6); RBC Distribution Width SD 45.7 fl (35.1-43.9); Red Blood Count 3.76 M/mm3 (4.6-6.2); White Blood Count 2.7 K/mm3 (4.4-11.0)
[2020-03-31 03:50] LABS: Partial Thromboplast Time 60.2 Seconds (24.1-36.2)
[2020-03-31 04:23] LABS: ALB/GLOB Ratio 0.6 RATIO (0.9-2.4); AST(SGOT) 10 U/L (15-37); Alanine Aminotransfer ALT/SGPT 18 U/L (16-61); Albumin, Serum 2.1 g/dL (3.2-5.0); Alkaline Phosphatase 110 U/L (45-117); Anion Gap 8 (5-15); BUN 27 mg/dL (7-18); BUN/Creat Ratio 24.5 RATIO (10-20); Calcium,Total 7.3 mg/dL (8.5-10.1); Chloride 114 mmol/L (98-107); EST Glomerular Filtration Rate 72 mL/min (>60); Est Glom Filt Rate - Afr Amer 87 mL/min (>60); Estimated Creatinine Clearance 60.57 ml/min; Globulin 3.3 g/dL (2.2-4.2); Glucose 338 mg/dL (74-106); Potassium 4.2 mmol/L (3.5-5.1); Protein, Total 5.4 g/dL (6.4-8.2); Sodium Level 139 mmol/L (136-145)
[2020-03-31 07:03] LABS: SARS-COV-2 TOTAL ABS Reactive (Nonreactive)
--- NOTE | 2020-03-31 07:42 | PCM.PN.HOSP ---
Patient Problems: Active and Suspected Problems (Last Reviewed 11/21/19 @ 21:[address] Artemio Lynch MD) Acute respiratory failure with hypoxia (Acute) Acute kidney injury superimposed on CKD (Acute) Septic shock (Acute) Reason for Visit: Follow-up for acute hypoxic respiratory failure and septic shock, COVID-19 pneumonia Objective: Systolic blood pressure is improved currently in 100s - 110s. On 3 L of oxygen. No fever or chills. Patient is frustrated and wants to go home but is still mild short of breath and pulse ox 87% at rest on room air. Patient is a [facility] and does not want to be transferred to [facility]. Physical exam Physical exam General: Alert, Oriented x3, Cooperative HEENT: Atraumatic, PERRLA, EOMI, Normocephalic Oral: No Gingival or Mucosal Lesions/ Ulcerations Neck: Supple, No JVD, Negative Carotid Bruits Lungs: Air entry diminished in bilateral lung bases. No crepitation/rhonchi. Cardiovascular: Regular rate, Regular Rhythm, Normal S1, Normal S2, No murmurs Abdomen: Ileostomy bag has liquidy stool. Bowel Sounds Present, Soft, Non Tender, Non-Distended : Urine output clear 1500 mL. No renal angle tenderness. No suprapubic tenderness. Extremities: No edema, Capillary Refill Less than 3 Seconds Skin: No rashes, No breakdown Musculoskeletal: No Tenderness to Palpation of Joints or Extremities Neurological: Cranial nerves II-XII grossly intact, Deep Tendon Reflexes 2+/4 and Symmetrical, Neuro grossly intact Psych/Mental Status: Mildly frustrated Vitals/I&O's: Vital Signs Temp Pulse Resp BP Pulse Ox 97.5 F L 74 16 100/69 97 03/31/20 02:07 03/31/20 02:07 03/31/20 02:07 03/31/20 02:07 03/31/20 02:07 Oxygen Flow Rate (L/min) 3 Oxygen Delivery Method Nasal Cannula Weight: 167 lb Body Mass Index (BMI) 27.8 Finger Stick Blood Glucose 311 Intake and Output for Last 24 Hours 03/29/20 03/30/20 03/31/20 23:59 23:59 23:59 Intake Total 2970.83 / 2970.83 1081.25 / 1081.25 943.75 / 943.75 Output Total 8791 / 8791 5300 / 5300 1650 / 1650 Balance -5820.17 / -5820.17 -4218.75 / -4218.75 -706.25 / -706.25 Microbiology Past 72 Hours 03/28/20 19:38 Blood Culture (Wb) - Right Hand Blood Culture - Preliminary No growth in 48 hours. 03/28/20 19:34 Blood Culture (Wb) - Anticubital Right Blood Culture - Preliminary No growth in 48 hours. 03/29/20 07:10 Mucosa - Nasopharyngeal Respiratory Panel (PCR) - Final 03/29/20 11:20 Urine, Random Streptococcus pneumoniae Antigen (M - Final 03/29/20 11:20 Urine Catheter - Catheter Legionella Antigen - Final 03/28/20 19:56 Mucosa - Nasopharyngeal Influenza Types A,B Direct FA (LETTY) - Final 03/28/20 19:43 Mucosa - Nose SARS-CoV-2 Antigen (Rapid) - Final Laboratory Results 03/30/20 12:28: POC Glucose 315 H 03/30/20 15:30: APTT 28.9 03/30/20 17:15: POC Glucose 263 H 03/30/20 20:13: POC Glucose 317 H 03/30/20 21:30: APTT 56.7 H 03/31/20 03:30: WBC 2.7 L, RBC 3.76 L, Hgb 10.9 L, Hct 33.4 L, MCV 88.8, MCH 29.0, MCHC 32.6, RDW Std Deviation 45.7 H, RDW Coeff of Kaitlyn 13.9, Plt Count 144 L, MPV 12.4 H 03/31/20 03:30: Sodium 139, Potassium 4.2, Chloride 114 H, Carbon Dioxide 17.0 L, Anion Gap 8, BUN 27 H, Creatinine 1.10, Estim Creat Clear Calc 60.57, Est GFR (MDRD) Af Amer 87, Est GFR (MDRD) Non-Af 72, BUN/Creatinine Ratio 24.5 H, Glucose 338 H, Calcium 7.3 L, Total Bilirubin 0.30, AST 10 L, ALT 18, Alkaline Phosphatase 110, Total Protein 5.4 L, Albumin 2.1 L, Globulin 3.3, Albumin/Globulin Ratio 0.6 L 03/31/20 03:30: SARS Serology Reactive H 03/31/20 03:30: APTT 60.2 H Current Medications Acetaminophen (Acetaminophen 325 Mg Tablet) 650 mg PO Q6H PRN PRN PRN Reason: Pain Score 1-10/Temp > 100.7 F Last Admin: 03/30/20 20:01 Dose: 650 mg Documented by: Albuterol Sulfate (Albuterol Sulfate 18 Gm Inhaler (200 Puffs)) 2 puff IH Q4H PRN PRN PRN Reason: Shortness of breath, wheezing Calamine/Phenol (Menthol/Lanolin/Calamine/Znox 113 Gm Tube) 1 applic TOPICAL BID [facility]; Protocol Dexamethasone (Dexamethasone 4 Mg Tablet) 6 mg PO DAILY [facility] Stop: 04/06/20 10:01 Last Admin: 03/30/20 12:41 Dose: 6 mg Documented by: Ferrous Sulfate (Ferrous Sulfate 325 Mg Tablet) 325 mg PO DAILYCM [facility] Last Admin: 03/30/20 12:41 Dose: 325 mg Documented by: Gabapentin (Gabapentin 600 Mg Tablet) 600 mg PO TIDCM [facility] Last Admin: 03/30/20 17:18 Dose: 600 mg Documented by: Heparin Sodium (Porcine) (Heparin Injection (Vial) 5,000 Unit/Ml Vial) 0 unit IV UD PRN; Protocol PRN Reason: dose adjustment Sodium Chloride () 250 mls @ 15 mls/hr IV .[id number] PRN PRN Reason: Saline Flush Sodium Chloride () 250 mls @ 15 mls/hr IV .[id number] PRN PRN Reason: Additional IVPB Infusion Remdesivir 100 mg/ Sodium (Chloride) 250 mls @ 125 mls/hr IV DAILY [facility]; Protocol Stop: 04/02/20 11:59 Last Infusion: 03/30/20 18:13 Dose: Infused Documented by: Heparin Sodium/Dextrose () 25,000 units in 250 mls @ 11 mls/hr IV .[id number] [facility]; Protocol Last Admin: 03/30/20 15:26 Dose: 1,100 units/hr, 11 mls/hr Documented by: Insulin Glargine (Insulin Glargine 100 Units/Ml Pen) 35 units SC BID [facility] Last Admin: 03/30/20 20:15 Dose: 35 units Documented by: Insulin Human Lispro (Insulin Lispro 100 Unit/Ml Insuln.Pen) 0 unit SC 4X/DAYCM [facility]; Protocol Last Admin: 03/30/20 20:15 Dose: 6 u Documented by: Insulin Human Lispro (Insulin Lispro 100 Unit/Ml Insuln.Pen) 10 unit SC TIDAC [facility] Last Admin: 03/30/20 17:16 Dose: 10 u Documented by: Loperamide HCl (Loperamide 2 Mg Capsule) 2 mg PO Q6H PRN PRN PRN Reason: Diarrhea Last Admin: 03/29/20 21:52 Dose: 2 mg Documented by: Miscellaneous Information (Inhaler, Assist Devices 1 Each Spacer) 1 each INHALATION PRN PRN PRN Reason: WITH ALBUTEROL MDI Ondansetron HCl (Ondansetron 4 Mg/2 Ml Vial) 4 mg IV Q8H PRN PRN PRN Reason: NAUSEA/VOMITING Last Admin: 03/29/20 21:52 Dose: 4 mg Documented by: Pantoprazole Sodium (Pantoprazole Sodium 40 Mg Tablet) 40 mg PO DAILY [facility] Last Admin: 03/30/20 12:41 Dose: 40 mg Documented by: Fluticasone/Salmeterol (Fluticasone/Salmeterol 232-14 Inhaler) 1 puff IH BID [facility] Last Admin: 03/30/20 20:01 Dose: 1 puff Documented by: Senna/Docusate Sodium (Senna/Docusate Sodium 1 Tablet) 2 tablet PO BID PRN PRN PRN Reason: Constipation Sodium Chloride (0.9% Saline Lock 10 Ml Syringe) 10 - 40 ml IV UD PRN PRN Reason: SALINE FLUSH Last Admin: 03/30/20 12:44 Dose: 10 ml Documented by: Tamsulosin HCl (Tamsulosin Hcl 0.4 Mg Capsule) 0.8 mg PO QHS [facility] Last Admin: 03/30/20 20:01 Dose: 0.8 mg Documented by: Medical Necessity - Tobacco Use Smoking Status: Former smoker Tobacco Use: Cigarettes Assessment/Plan All Active Problems (Last Reviewed 11/21/19 @ 21:[address] Artemio Lynch MD) Community acquired pneumonia (Acute) Acute respiratory failure with hypoxia (Acute) Acute kidney injury superimposed on CKD (Acute) Septic shock (Acute) This is a 60 years old male patient who is admitted to ICU through emergency room with 10 days history of shortness of breath and weakness as well as malaise, dehydration, increased liquid ileostomy output, loss of weight and found to have infiltrate in the left lung with a diagnosis of left lung community-acquired pneumonia. Patient was tachycardic, tachypneic and hypotensive and lactic acidosis 3.6. #1 Shock most likely mixed septic shock, due to left lower pneumonia, confirmed COVID-19 pneumonia and hypovolemic shock from increased ileostomy output: Patient had about 4 L of IV fluid in the ER and had blood pressures responded to 102/79, heart rate 86. Repeat lactate is normal 1.2. Patient history lost weight about 13 pounds in 2 weeks most likely fluid loss/liquid diarrhea from ileostomy. Patient was seen by ID. SARS-CoV-2 antigen and COVID-19 PCR are negative. On IV ceftriaxone and Zithromax. Patient empirically started on IV remdesivir by ID. Continue COVID-19 enhanced droplet precaution. Continue Decadron. 03/30: Urinary antigens are negative. Respiratory panel is negative. Patient blood pressure still systolic 90, MAP more than 65. IV fluid normal 75 mill ordered. CTPA chest is ordered therefore patient needs IV fluid to prevent BHAVNA. Patient medically stable discharge to [facility] floor 03/31: Patient rapid antigen and COVID-19 PCR negative but serology came positive. Discussed with ID. Continue remdesivir and Decadron, oxygen therapy. #2 Left lung bilateral COVID-19 pneumonia and bilateral pulmonary embolism: Patient had close contact for 24 hours with his girlfriend about 8 days ago who tested positive. Symptoms started around 03/18. Elevated D-dimer. Lovenox changed to 40 mg IV twice daily. Patient had CT chest which showed positive for bilateral pulmonary emboli with mild emphysema and bilateral subsegmental atelectasis or pneumonitis. Bilateral pulmonary embolism and distal main right pulmonary artery and distal descending left pulmonary artery. Patient on IV heparin because of kidney failure which is transition to Eliquis. Discussed with the pharmacist. #3 acute hypoxic respiratory failure secondary to 1 and 2 above: Currently, patient is on 4 L of oxygen. He does have COPD but he does not use home oxygen. Rest as mentioned above 03/30: Oxygenation is better. On 2 L of oxygen #4 acute kidney injury on top of stage III chronic kidney disease: Secondary to septic shock. Baseline creatinine has been fluctuating anywhere from 1.2 to 1.5 mg/dL. Admission creatinine is 2.62, above baseline. 03/30: Patient had urine retention and [place] catheter was inserted. Urine is dark yellow concentrated. IV fluid ordered. Continue monitoring intake and output. 03/31: Patient good urine output. Sent on Flomax #5 type 2 diabetes mellitus: Glucose in BMP is 253, 301. ADA diet, Accu-Cheks, insulin sliding scale, continue Lantus. 03/31: Glucose is elevated. Insulin dose adjusted. #6 COPD exacerbation from pneumonia: Patient has dry cough and shortness of breath. On Advair inhaler, albuterol inhaler, steroid, incentive spirometry and chest physiotherapy. #8 history of colon cancer: Status post colon resection, status post ileostomy, stable in remission. Patient has pancytopenia, WBC count, H&H and platelet count are stable last 2 days. VTE prophylaxis: Patient has history of colon cancer/FAP. On Eliquis as mentioned CODE STATUS: Discussed with the patient and he agreed to intubation, CPR and mechanical ventilation. He is full code. Microbiology Past 72 Hours 03/29/20 11:20 Urine Catheter - Catheter Urine Culture - Preliminary Mixed Gram Positive Organisms 03/28/20 19:38 Blood Culture (Wb) - Right Hand Blood Culture - Preliminary No growth in 48 hours. 03/28/20 19:34 Blood Culture (Wb) - Anticubital Right Blood Culture - Preliminary No growth in 48 hours. 03/29/20 07:10 Mucosa - Nasopharyngeal Respiratory Panel (PCR) - Final 03/29/20 11:20 Urine, Random Streptococcus pneumoniae Antigen (M - Final 03/29/20 11:20 Urine Catheter - Catheter Legionella Antigen - Final 03/28/20 19:56 Mucosa - Nasopharyngeal Influenza Types A,B Direct FA (LETTY) - Final 03/28/20 19:43 Mucosa - Nose SARS-CoV-2 Antigen (Rapid) - Final Laboratory Results 03/30/20 15:30: APTT 28.9 03/30/20 17:15: POC Glucose 263 H 03/30/20 20:13: POC Glucose 317 H 03/30/20 21:30: APTT 56.7 H 03/31/20 03:30: WBC 2.7 L, RBC 3.76 L, Hgb 10.9 L, Hct 33.4 L, MCV 88.8, MCH 29.0, MCHC 32.6, RDW Std Deviation 45.7 H, RDW Coeff of Kaitlyn 13.9, Plt Count 144 L, MPV 12.4 H 03/31/20 03:30: Sodium 139, Potassium 4.2, Chloride 114 H, Carbon Dioxide 17.0 L, Anion Gap 8, BUN 27 H, Creatinine 1.10, Estim Creat Clear Calc 60.57, Est GFR (MDRD) Af Amer 87, Est GFR (MDRD) Non-Af 72, BUN/Creatinine Ratio 24.5 H, Glucose 338 H, Calcium 7.3 L, Total Bilirubin 0.30, AST 10 L, ALT 18, Alkaline Phosphatase 110, Total Protein 5.4 L, Albumin 2.1 L, Globulin 3.3, Albumin/Globulin Ratio 0.6 L 03/31/20 03:30: SARS Serology Reactive H 03/31/20 03:30: APTT 60.2 H 03/31/20 07:38: POC Glucose 359 H 03/31/20 09:44: APTT 122.3 H* 03/31/20 11:05: POC Glucose 390 H Inpatient E&M: [id number] Subs Hosp L2
--- NOTE | 2020-03-31 07:45 | PCS.PANDOC ---
PANDEMIC DOCUMENTATION INITIATED: Date: Time: 699
[2020-03-31] MEDS: Insulin Lispro 100 UNIT/ML INSULN.PEN 10 UNIT SC ×3 (07:47→16:04)
[2020-03-31] MEDS: Insulin Lispro 100 UNIT/ML INSULN.PEN SC ×4 (07:47→21:05)
[2020-03-31] MEDS: Ferrous Sulfate 325 MG Tablet PO (07:48)
[2020-03-31] MEDS: Gabapentin 600 MG Tablet PO ×3 (07:48→16:04)
[2020-03-31] MEDS: Menthol/Lanolin/Calamine/Znox 113 GM Tube 1 APPLIC TOPICAL ×2 (07:48→21:04)
[2020-03-31] MEDS: Fluticasone/Salmeterol 232-14 Inhaler 1 PUFF IH ×2 (07:48→21:07)
[2020-03-31] MEDS: dexAMETHasone 4 MG Tablet 6 MG PO (07:49)
[2020-03-31] MEDS: Pantoprazole Sodium 40 MG Tablet PO (07:49)
[2020-03-31 08:00] LABS: Bedside Glucose 359 mg/dL (70-110)
--- NOTE | 2020-03-31 08:09 | PN_ITS ---
Patient Problems: Active and Suspected Problems (Last Reviewed 11/21/19 @ 21:[address] Artemio Lynch MD) Acute respiratory failure with hypoxia (Acute) Acute kidney injury superimposed on CKD (Acute) Septic shock (Acute) Subjective: The patient was seen and examined at the bedside this morning. Events from the last 24 hours have been reviewed. The patient is currently afebrile, hemodynamically stable and maintaining appropriate oxygen saturations on 2 L/min via nasal cannula. The patient was started therapeutic anticoagulation yesterday after he was identified as having pulmonary emboli on CT scan. Creatinine has improved to 1.1 this morning. Covid serology was positive. Objective: The patient's most recent lab work, culture data and imaging studies have all been personally reviewed. - Physical Exam Vitals/I&O's: Vital Signs Temp Pulse Resp BP Pulse Ox 97 F L 69 18 98/64 96 03/31/20 07:42 03/31/20 07:42 03/31/20 07:42 03/31/20 07:42 03/31/20 07:42 Oxygen Flow Rate (L/min) 2 Oxygen Delivery Method Nasal Cannula Weight: 167 lb Body Mass Index (BMI) 27.8 Finger Stick Blood Glucose 311 Intake and Output for Last 24 Hours 03/29/20 03/30/20 03/31/20 23:59 23:59 23:59 Intake Total 2970.83 / 2970.83 1081.25 / 1081.25 943.75 / 943.75 Output Total 8791 / 8791 5300 / 5300 1650 / 1650 Balance -5820.17 / -5820.17 -4218.75 / -4218.75 -706.25 / -706.25 General: Alert, Cooperative, No apparent distress HEENT: Atraumatic, PERRLA, Normocephalic Oral: Moist Mucosa Neck: Supple, No Nodes, Trachea Midline Lungs: No rhonchi, No wheeze, No rales, Diminished Cardiovascular: Regular rate, Regular Rhythm Abdomen: Bowel Sounds Present, Soft, Non Tender Extremities: No clubbing, No cyanosis, No edema Skin: No breakdown Musculoskeletal: No Tenderness to Palpation of Joints or Extremities Lymphatic: No Cervical, Supraclavicular, or Inguinal Adenopathy Neurological: Cranial nerves II-XII grossly intact, Neuro grossly intact Psych/Mental Status: Normal Affect, Appropriate Labs (Last 48 Hours) 03/29/20 03/29/20 03/29/20 03:45 06:30 12:26 WBC RBC Hgb Hct MCV MCH MCHC RDW Std Deviation RDW Coeff of Kaitlyn Plt Count MPV Diff Path Review Reviewed APTT Sodium Potassium Chloride Carbon Dioxide Anion Gap BUN Creatinine Estim Creat Clear Calc Est GFR (MDRD) Af Amer Est GFR (MDRD) Non-Af BUN/Creatinine Ratio Glucose Calcium Total Bilirubin AST ALT Alkaline Phosphatase Total Protein Albumin Globulin Albumin/Globulin Ratio SARS Serology MRSA (PCR) Negative POC Glucose 382 H 03/29/20 03/29/20 03/30/20 17:50 21:47 03:50 WBC 3.2 L RBC 4.00 L Hgb 11.4 L Hct 34.7 L MCV 86.8 MCH 28.5 MCHC 32.9 RDW Std Deviation 44.1 H RDW Coeff of Kaitlyn 13.7 Plt Count 135 L MPV 12.9 H Diff Path Review APTT Sodium Potassium Chloride Carbon Dioxide Anion Gap BUN Creatinine Estim Creat Clear Calc Est GFR (MDRD) Af Amer Est GFR (MDRD) Non-Af BUN/Creatinine Ratio Glucose Calcium Total Bilirubin AST ALT Alkaline Phosphatase Total Protein Albumin Globulin Albumin/Globulin Ratio SARS Serology MRSA (PCR) POC Glucose 339 H 345 H 03/30/20 03/30/20 03/30/20 03:50 12:28 15:30 WBC RBC Hgb Hct MCV MCH MCHC RDW Std Deviation RDW Coeff of Kaitlyn Plt Count MPV Diff Path Review APTT 28.9 Sodium 135 L Potassium 4.3 Chloride 110 H Carbon Dioxide 16.0 L Anion Gap 9 BUN 34 H Creatinine 1.50 H Estim Creat Clear Calc 44.42 Est GFR (MDRD) Af Amer 61 Est GFR (MDRD) Non-Af 50 L BUN/Creatinine Ratio 22.7 H Glucose 307 H Calcium 7.6 L Total Bilirubin 0.40 AST 16 ALT 18 Alkaline Phosphatase 108 Total Protein 5.6 L Albumin 2.2 L Globulin 3.4 Albumin/Globulin Ratio 0.6 L SARS Serology MRSA (PCR) POC Glucose 315 H 03/30/20 03/30/20 03/30/20 17:15 20:13 21:30 WBC RBC Hgb Hct MCV MCH MCHC RDW Std Deviation RDW Coeff of Kaitlyn Plt Count MPV Diff Path Review APTT 56.7 H Sodium Potassium Chloride Carbon Dioxide Anion Gap BUN Creatinine Estim Creat Clear Calc Est GFR (MDRD) Af Amer Est GFR (MDRD) Non-Af BUN/Creatinine Ratio Glucose Calcium Total Bilirubin AST ALT Alkaline Phosphatase Total Protein Albumin Globulin Albumin/Globulin Ratio SARS Serology MRSA (PCR) POC Glucose 263 H 317 H 03/31/20 03/31/20 03/31/20 03:30 03:30 03:30 WBC 2.7 L RBC 3.76 L Hgb 10.9 L Hct 33.4 L MCV 88.8 MCH 29.0 MCHC 32.6 RDW Std Deviation 45.7 H RDW Coeff of Kaitlyn 13.9 Plt Count 144 L MPV 12.4 H Diff Path Review APTT Sodium 139 Potassium 4.2 Chloride 114 H Carbon Dioxide 17.0 L Anion Gap 8 BUN 27 H Creatinine 1.10 Estim Creat Clear Calc 60.57 Est GFR (MDRD) Af Amer 87 Est GFR (MDRD) Non-Af 72 BUN/Creatinine Ratio 24.5 H Glucose 338 H Calcium 7.3 L Total Bilirubin 0.30 AST 10 L ALT 18 Alkaline Phosphatase 110 Total Protein 5.4 L Albumin 2.1 L Globulin 3.3 Albumin/Globulin Ratio 0.6 L SARS Serology Reactive H MRSA (PCR) POC Glucose 03/31/20 03/31/20 03:30 07:38 WBC RBC Hgb Hct MCV MCH MCHC RDW Std Deviation RDW Coeff of Kaitlyn Plt Count MPV Diff Path Review APTT 60.2 H Sodium Potassium Chloride Carbon Dioxide Anion Gap BUN Creatinine Estim Creat Clear Calc Est GFR (MDRD) Af Amer Est GFR (MDRD) Non-Af BUN/Creatinine Ratio Glucose Calcium Total Bilirubin AST ALT Alkaline Phosphatase Total Protein Albumin Globulin Albumin/Globulin Ratio SARS Serology MRSA (PCR) POC Glucose 359 H Microbiology 03/28/20 19:38 Blood Culture (Wb) - Right Hand Blood Culture - Preliminary No growth in 48 hours. 03/28/20 19:34 Blood Culture (Wb) - Anticubital Right Blood Culture - Preliminary No growth in 48 hours. 03/29/20 07:10 Mucosa - Nasopharyngeal Respiratory Panel (PCR) - Final 03/29/20 11:20 Urine, Random Streptococcus pneumoniae Antigen (M - Final 03/29/20 11:20 Urine Catheter - Catheter Legionella Antigen - Final Clinical Impression(s) from Imaging Studies Chest X-Ray 03/28/20 20:25 IMPRESSION: Chronic interestitial changes. Left lung and left perihilar airspace disease new since the previous study suggestive of pneumonia Small left pleural effusion at 2106 Reported and signed by: Prudencio Ann MD Electronically Signed: Prudencio Ann MD at 21:04 EST Tel , Service support , Chest CTA 03/30/20 10:39 IMPRESSION: 1. Positive for bilateral pulmonary emboli. 2. Mild emphysema with bilateral subsegmental atelectasis or pneumonitis. Commonly reported imaging features of Covid 19 pneumonia are present. Other processes such as influenza pneumonia and organizing pneumonia, as can be seen with drug toxicity and connective tissue disease, can cause a similar imaging pattern. Electronically Signed: Sam Day MD at 12:21 EST Tel , Service support , ADDENDUM: 03/30/20 1242 IMPRESSION: 1. Positive for bilateral pulmonary emboli. 2. Mild emphysema with bilateral subsegmental atelectasis or pneumonitis. Commonly reported imaging features of Covid 19 pneumonia are present. Other processes such as influenza pneumonia and organizing pneumonia, as can be seen with drug toxicity and connective tissue disease, can cause a similar imaging pattern. N.B. : The above information has been verbally conveyed by Sam Day MD to Dr. George MD, on 03/30/2020 12:35:59 (ET). Electronically Signed: Sam Day MD at 12:21 EST Tel , Service support , Current Medications Acetaminophen (Acetaminophen 325 Mg Tablet) 650 mg PO Q6H PRN PRN PRN Reason: Pain Score 1-10/Temp > 100.7 F Last Admin: 03/30/20 20:01 Dose: 650 mg Documented by: Albuterol Sulfate (Albuterol Sulfate 18 Gm Inhaler (200 Puffs)) 2 puff IH Q4H PRN PRN PRN Reason: Shortness of breath, wheezing Calamine/Phenol (Menthol/Lanolin/Calamine/Znox 113 Gm Tube) 1 applic TOPICAL BID [facility]; Protocol Last Admin: 03/31/20 07:48 Dose: 1 applicatio Documented by: Dexamethasone (Dexamethasone 4 Mg Tablet) 6 mg PO DAILY [facility] Stop: 04/06/20 10:01 Last Admin: 03/31/20 07:49 Dose: 6 mg Documented by: Ferrous Sulfate (Ferrous Sulfate 325 Mg Tablet) 325 mg PO DAILYCM [facility] Last Admin: 03/31/20 07:48 Dose: 325 mg Documented by: Gabapentin (Gabapentin 600 Mg Tablet) 600 mg PO TIDCM [facility] Last Admin: 03/31/20 07:48 Dose: 600 mg Documented by: Heparin Sodium (Porcine) (Heparin Injection (Vial) 5,000 Unit/Ml Vial) 0 unit IV UD PRN; Protocol PRN Reason: dose adjustment Sodium Chloride () 250 mls @ 15 mls/hr IV .[id number] PRN PRN Reason: Saline Flush Sodium Chloride () 250 mls @ 15 mls/hr IV .[id number] PRN PRN Reason: Additional IVPB Infusion Remdesivir 100 mg/ Sodium (Chloride) 250 mls @ 125 mls/hr IV DAILY [facility]; Protocol Stop: 04/02/20 11:59 Last Infusion: 03/30/20 18:13 Dose: Infused Documented by: Heparin Sodium/Dextrose () 25,000 units in 250 mls @ 11 mls/hr IV .[id number] [facility]; Protocol Last Admin: 03/30/20 15:26 Dose: 1,100 units/hr, 11 mls/hr Documented by: Insulin Glargine (Insulin Glargine 100 Units/Ml Pen) 35 units SC BID [facility] Last Admin: 03/31/20 07:49 Dose: 35 units Documented by: Insulin Human Lispro (Insulin Lispro 100 Unit/Ml Insuln.Pen) 0 unit SC 4X/DAYCM [facility]; Protocol Last Admin: 03/31/20 07:47 Dose: 8 u Documented by: Insulin Human Lispro (Insulin Lispro 100 Unit/Ml Insuln.Pen) 10 unit SC TIDAC [facility] Last Admin: 03/31/20 07:47 Dose: 10 u Documented by: Loperamide HCl (Loperamide 2 Mg Capsule) 2 mg PO Q6H PRN PRN PRN Reason: Diarrhea Last Admin: 03/29/20 21:52 Dose: 2 mg Documented by: Miscellaneous Information (Inhaler, Assist Devices 1 Each Spacer) 1 each INHALATION PRN PRN PRN Reason: WITH ALBUTEROL MDI Ondansetron HCl (Ondansetron 4 Mg/2 Ml Vial) 4 mg IV Q8H PRN PRN PRN Reason: NAUSEA/VOMITING Last Admin: 03/29/20 21:52 Dose: 4 mg Documented by: Pantoprazole Sodium (Pantoprazole Sodium 40 Mg Tablet) 40 mg PO DAILY [facility] Last Admin: 03/31/20 07:49 Dose: 40 mg Documented by: Fluticasone/Salmeterol (Fluticasone/Salmeterol 232-14 Inhaler) 1 puff IH BID [facility] Last Admin: 03/31/20 07:48 Dose: 1 puff Documented by: Senna/Docusate Sodium (Senna/Docusate Sodium 1 Tablet) 2 tablet PO BID PRN PRN PRN Reason: Constipation Sodium Chloride (0.9% Saline Lock 10 Ml Syringe) 10 - 40 ml IV UD PRN PRN Reason: SALINE FLUSH Last Admin: 03/30/20 12:44 Dose: 10 ml Documented by: Tamsulosin HCl (Tamsulosin Hcl 0.4 Mg Capsule) 0.8 mg PO QHS [facility] Last Admin: 03/30/20 20:01 Dose: 0.8 mg Documented by: Medical Necessity - Tobacco Use Smoking Status: Former smoker Tobacco Use: Cigarettes Assessment/Plan All Active Problems (Last Reviewed 11/21/19 @ 21:[address] Artemio Lynch MD) Community acquired pneumonia (Acute) Acute respiratory failure with hypoxia (Acute) Acute kidney injury superimposed on CKD (Acute) Septic shock (Acute) RECOMMENDATIONS: 1. Continue remdesivir and Decadron to complete treatment courses. Monitor liver and renal function accordingly. 2. Continue bronchodilators. 3. Continue Lantus and sliding scale insulin coverage. 4. Continue to wean supplemental oxygen to maintain saturations at or above 90%. Encourage incentive spirometer use while in bed. 5. Continue systemic anticoagulation with heparin infusion. 6. If hemoglobin remains stable and there are no further concerns for GI bleeding, the patient can be transitioned to Eliquis from my perspective. IMPRESSIONS: 1. Severe sepsis/acute hypoxemic respiratory insufficiency secondary to COVID-19 pneumonia and pulmonary emboli Clinical concern for possible COVID-19 pneumonia, despite negative antigen and PCR testing. Follow-up SARS serology was positive. Antibiotics have been di scontinued at this time. The patient was also identified as having pulmonary emboli on CTA chest. He was subsequently placed on a continuous heparin infusion over concerns for possible GI bleed. Nevertheless, hemoglobin is stable. Continue to wean supplemental oxygen to maintain saturations at or above 90%. Continue remdesivir and Decadron to complete treatment courses. The patient can likely be transition from a heparin infusion to Eliquis beginning today. 2. Acute on chronic kidney disease Resolved. Likely prerenal in etiology. The patient has been adequately volume resuscitated. Continue to monitor urine output for now. Anticipate improvement with volume expansion. No current indication for renal replacement therapy. 3. Diabetes mellitus/GERD/neuropathy/history of colon CA/familial polyposis Complicates care, management, recovery and prognosis. Continue Lantus and sliding scale insulin coverage. This note was generated with [employer] dictation software. It may contain incorrect words, spelling, and punctuation that were not noted in checking the note before signing. Inpatient E&M: 70661 Subs Hosp L2
--- NOTE | 2020-03-31 08:17 | CASEMGMT ---
Addendum entered by Kalyan Foster 03/31/20 09:54: Called to [facility]- they will forward information to Curtis who is not in yet, then call with bed availability. Original Note: VLADIMIR CM Note: Clinical information faxed to [facility]. Will await call back regarding bed availability and transfer to their facility. Melecio BSN RN ACM
--- NOTE | 2020-03-31 10:00 | NURSING ---
Patient upset that he is stuck in bed frustrated with nurse and yelling about IV and wanting to go home. This RN offered to help patient to chair and to ambulate around the room, the patient refused. He asked to be left alone and all the lights off and blinds closed.
[2020-03-31 10:14] LABS: Partial Thromboplast Time 122.3 Seconds (24.1-36.2)
--- NOTE | 2020-03-31 10:22 | NURSING ---
PTT 122.3. ALEC Denton RN AWARE.
--- NOTE | 2020-03-31 11:07 | NURSING ---
Offered to get patient OOB and up to chair to complete walking pulse ox. patient refused.
--- NOTE | 2020-03-31 11:10 | CASEMGMT ---
Addendum entered by Kalyan Foster 03/31/20 12:34: Call to [facility]. Information was received and is being processed. She suggested calling [facility] in a half hour for update on portable tank delivery. Addendum entered by Kalyan Foster 03/31/20 12:27: Home oxygen script completed by the physician. Questionnaire and paperwork reviewed via phone with patient. All questions asked and answered via phone with patient and patient signed all forms. Faxed to [facility]. Packet copied for patient to have documents and questionnaire. PH: [phone] [place] [phone] FX: [phone] Original Note: RN CM Note: Call to [facility]. If referral is faxed prior to 1 pm, they will be able to look @ home oxygen set up. Requested home oxygen testing. Dr. Maki feels patient will be able to dc tomorrow to home. Call to patient, he is agreeable to initiate [facility] set up. Nurse will complete testing. Melecio REICH RN ACM
[2020-03-31 12:00] LABS: Bedside Glucose 390 mg/dL (70-110)
--- NOTE | 2020-03-31 12:59 | PCM.PN.ID ---
Patient Problems: Active and Suspected Problems (Last Reviewed 11/21/19 @ 21:[address] Artemio Lynch MD) Acute respiratory failure with hypoxia (Acute) Acute kidney injury superimposed on CKD (Acute) Septic shock (Acute) Subjective: Feeling ok, frustrated that covid was neg and now has a positive test. Says that we should bomb [place] because they are our enemy. - Physical Exam Vitals/I&O's: Vital Signs Temp Pulse Resp BP Pulse Ox 97.4 F L 75 18 95/63 87 03/31/20 11:13 03/31/20 11:13 03/31/20 11:13 03/31/20 11:13 03/31/20 11:14 Oxygen Flow Rate (L/min) [ 2 AMBULATING on Room Air] Oxygen Flow Rate (L/min) [ 4 AMBULATION with Oxygen] Oxygen Flow Rate (L/min) [At 0 REST on Room Air] Oxygen Flow Rate (L/min) 2 Oxygen Delivery Method Nasal Cannula Weight: 75.75 kg Body Mass Index (BMI) 27.8 Finger Stick Blood Glucose 311 Intake and Output for Last 24 Hours 03/29/20 03/30/20 03/31/20 23:59 23:59 23:59 Intake Total 2970.83 / 2970.83 1081.25 / 1081.25 1153.48 / 1153.48 Output Total 8791 / 8791 5300 / 5300 3350 / 3350 Balance -5820.17 / -5820.17 -4218.75 / -4218.75 -2196.52 / -2196.52 General: Alert, Cooperative, No apparent distress Lungs: Clear to auscultation, Diminished Cardiovascular: Regular rate, Regular Rhythm Abdomen: Soft, Non Tender, Non-Distended Skin: No rashes Microbiology Past 72 Hours 03/29/20 11:20 Urine Catheter - Catheter Urine Culture - Preliminary Mixed Gram Positive Organisms 03/28/20 19:38 Blood Culture (Wb) - Right Hand Blood Culture - Preliminary No growth in 48 hours. 03/28/20 19:34 Blood Culture (Wb) - Anticubital Right Blood Culture - Preliminary No growth in 48 hours. 03/29/20 07:10 Mucosa - Nasopharyngeal Respiratory Panel (PCR) - Final 03/29/20 11:20 Urine, Random Streptococcus pneumoniae Antigen (M - Final 03/29/20 11:20 Urine Catheter - Catheter Legionella Antigen - Final 03/28/20 19:56 Mucosa - Nasopharyngeal Influenza Types A,B Direct FA (LETTY) - Final 03/28/20 19:43 Mucosa - Nose SARS-CoV-2 Antigen (Rapid) - Final Laboratory Results 03/30/20 15:30: APTT 28.9 03/30/20 17:15: POC Glucose 263 H 03/30/20 20:13: POC Glucose 317 H 03/30/20 21:30: APTT 56.7 H 03/31/20 03:30: WBC 2.7 L, RBC 3.76 L, Hgb 10.9 L, Hct 33.4 L, MCV 88.8, MCH 29.0, MCHC 32.6, RDW Std Deviation 45.7 H, RDW Coeff of Kaitlyn 13.9, Plt Count 144 L, MPV 12.4 H 03/31/20 03:30: Sodium 139, Potassium 4.2, Chloride 114 H, Carbon Dioxide 17.0 L, Anion Gap 8, BUN 27 H, Creatinine 1.10, Estim Creat Clear Calc 60.57, Est GFR (MDRD) Af Amer 87, Est GFR (MDRD) Non-Af 72, BUN/Creatinine Ratio 24.5 H, Glucose 338 H, Calcium 7.3 L, Total Bilirubin 0.30, AST 10 L, ALT 18, Alkaline Phosphatase 110, Total Protein 5.4 L, Albumin 2.1 L, Globulin 3.3, Albumin/Globulin Ratio 0.6 L 03/31/20 03:30: SARS Serology Reactive H 03/31/20 03:30: APTT 60.2 H 03/31/20 07:38: POC Glucose 359 H 03/31/20 09:44: APTT 122.3 H* 03/31/20 11:05: POC Glucose 390 H Current Medications Acetaminophen (Acetaminophen 325 Mg Tablet) 650 mg PO Q6H PRN PRN PRN Reason: Pain Score 1-10/Temp > 100.7 F Last Admin: 03/30/20 20:01 Dose: 650 mg Documented by: Albuterol Sulfate (Albuterol Sulfate 18 Gm Inhaler (200 Puffs)) 2 puff IH Q4H PRN PRN PRN Reason: Shortness of breath, wheezing Apixaban (Apixaban 5 Mg Tablet) 10 mg PO BID [facility] Calamine/Phenol (Menthol/Lanolin/Calamine/Znox 113 Gm Tube) 1 applic TOPICAL BID [facility]; Protocol Last Admin: 03/31/20 07:48 Dose: 1 applicatio Documented by: Dexamethasone (Dexamethasone 4 Mg Tablet) 6 mg PO DAILY [facility] Stop: 04/06/20 10:01 Last Admin: 03/31/20 07:49 Dose: 6 mg Documented by: Ferrous Sulfate (Ferrous Sulfate 325 Mg Tablet) 325 mg PO DAILYCM [facility] Last Admin: 03/31/20 07:48 Dose: 325 mg Documented by: Gabapentin (Gabapentin 600 Mg Tablet) 600 mg PO TIDCM [facility] Last Admin: 03/31/20 11:04 Dose: 600 mg Documented by: Sodium Chloride () 250 mls @ 15 mls/hr IV .[id number] PRN PRN Reason: Saline Flush Sodium Chloride () 250 mls @ 15 mls/hr IV .[id number] PRN PRN Reason: Additional IVPB Infusion Remdesivir 100 mg/ Sodium (Chloride) 250 mls @ 125 mls/hr IV DAILY [facility]; Protocol Stop: 04/02/20 11:59 Last Admin: 03/31/20 11:03 Dose: 125 mls/hr Documented by: Insulin Glargine (Insulin Glargine 100 Units/Ml Pen) 35 units SC BID [facility] Last Admin: 03/31/20 07:49 Dose: 35 units Documented by: Insulin Human Lispro (Insulin Lispro 100 Unit/Ml Insuln.Pen) 0 unit SC 4X/DAYCM [facility]; Protocol Last Admin: 03/31/20 11:05 Dose: 10 u Documented by: Insulin Human Lispro (Insulin Lispro 100 Unit/Ml Insuln.Pen) 10 unit SC TIDAC [facility] Last Admin: 03/31/20 11:05 Dose: 10 u Documented by: Loperamide HCl (Loperamide 2 Mg Capsule) 2 mg PO Q6H PRN PRN PRN Reason: Diarrhea Last Admin: 03/29/20 21:52 Dose: 2 mg Documented by: Miscellaneous Information (Inhaler, Assist Devices 1 Each Spacer) 1 each INHALATION PRN PRN PRN Reason: WITH ALBUTEROL MDI Ondansetron HCl (Ondansetron 4 Mg/2 Ml Vial) 4 mg IV Q8H PRN PRN PRN Reason: NAUSEA/VOMITING Last Admin: 03/29/20 21:52 Dose: 4 mg Documented by: Pantoprazole Sodium (Pantoprazole Sodium 40 Mg Tablet) 40 mg PO DAILY [facility] Last Admin: 03/31/20 07:49 Dose: 40 mg Documented by: Fluticasone/Salmeterol (Fluticasone/Salmeterol 232-14 Inhaler) 1 puff IH BID [facility] Last Admin: 03/31/20 07:48 Dose: 1 puff Documented by: Senna/Docusate Sodium (Senna/Docusate Sodium 1 Tablet) 2 tablet PO BID PRN PRN PRN Reason: Constipation Sodium Chloride (0.9% Saline Lock 10 Ml Syringe) 10 - 40 ml IV UD PRN PRN Reason: SALINE FLUSH Last Admin: 03/30/20 12:44 Dose: 10 ml Documented by: Tamsulosin HCl (Tamsulosin Hcl 0.4 Mg Capsule) 0.8 mg PO QHS [facility] Last Admin: 03/30/20 20:01 Dose: 0.8 mg Documented by: Medical Necessity - Tobacco Use Smoking Status: Former smoker Tobacco Use: Cigarettes Route of nutrition/ use of supplements: [] Nutritional Intake: [] IV Site: [] [place] Catheter: [] - Assessment/Plan Antibiotics: [] Assessment/Plan: [] Active and Suspected Problems (Last Reviewed 11/21/19 @ 21:[address] Artemio Lynch MD) Acute respiratory failure with hypoxia (Acute) Acute kidney injury superimposed on CKD (Acute) Septic shock (Acute) Covid with hypoxia - covid Ag and PCR neg. Sx started around 03/18. Cxs neg so far. Resp pcr panel neg. UAg neg. Cont dex and remdesivir. D-dimer was 11, [place] on CKD improved. CTA showed bilat PEs. On therapeutic anticoag now. Covid Ab (+), confirming the diagnosis. Will follow, d/w Dr. Vazquez
--- NOTE | 2020-03-31 15:00 | NURSING ---
Was consulted on patient for ileostomy. discussed with VLADIMIR Diallo. states patient is planning on being discharged tomorrow and states the appliance isn't due to be changed Saturday and patient prefers to wait and change it with his own supplies.
[2020-03-31] MEDS: APIXABAN 5 MG TABLET 10 MG PO (16:04)
[2020-03-31] MEDS: Loperamide 2 MG Capsule PO ×3 (16:04→23:07)
--- NOTE | 2020-03-31 18:40 | CASEMGMT ---
Social Work Consult: Mental Health Informant: Nursing staff Chief Complaint: tried of being stuck in the hospital. Support/Resources: Has a girlfriend, Helio Joy that checks in with patient. Helio currently has COVID-19 as well. Does not currently utilize community resources. Education/Employment: Retired. . Honorable discharge. Denies any issues with comprehension or understanding. Mental Health Treatment/History: Denies any mental health history. No history of inpatient psychiatric placement. Substance Abuse: Denies any substance abuse/use. Triggers/Stressors: Diagnosed with COVID-19. loosing my muscle. Patient reports to have lost lots of weight over the past few weeks. Risk to Self/Others: Patient denies any active suicidal thoughts, plans, intents. Patient confirms to have told nursing staff that I would be better off . Patient states I am tired of being in the hospital. Patient forward focused and reports to be looking forward to discharging to home tomorrow. Patient states I have too much to live for to kill myself. Patient denies homicidal thoughts, plans, intents. Patient denies self harming behaviors. Mental Status Exam: A&Ox3 Appearance/General Behavior: Clean. Calm. Mood/Affect: Depressed. Judgement: Good Assessment: Met with patient in room utilizing appropriate isolation precautions and PPE. Introduced self and manager social services role. Patient agreeable to speak with this manager social services. Patient states I am just tired of being sick. Patient states to be concerned about patient muscle mass that patient has lost while sick. Patient states to typically be active and to ride patient motorcycle often during the pitts. Patient states I need my strength. This manager social services able to facilitate conversation with patient about current season and patient current strengths and thing patient is able to control. Patient reports to be thinking about [facility] to [facility] to see if the [facility] will approve a gym membership to get me moving again. This manager social services encouraged patient to take things one day at a time. Patient states to have support in the community. Patient denies any concerns on returning to home. Patient thanked this manager social services often throughout conversation for this manager social services stopping to speak with patient as It was good to talk. Active support provided. Updated medical team on above. Not recommending 1:1 sitter as patient is not actively suicidal. Hailey FAULKNER, JESSI
[2020-03-31] MEDS: Tamsulosin HCl 0.4 MG Capsule 0.8 MG PO (21:04)
[2020-03-31 21:45] LABS: Bedside Glucose 399 mg/dL (70-110)
[2020-03-31 23:46] LABS: Bedside Glucose 379 mg/dL (70-110)
[2020-04-01] VITALS (7 sets, daily range): BP systolic 94–115; BP diastolic 62–74; PULSE 65–119; RESP 18–20; TEMP 36.3–36.4; O2SAT 92–98
[2020-04-01 05:13] LABS: Hematocrit 36.7 % (40-54); Mean Corp Hgb Conc 32.7 g/dL (32-36); Mean Corpuscular Hgb 28.6 pg (27.0-32.0); Mean Corpuscular Volume 87.6 fL (80-94); Mean Platelet Vol. 12.2 fl (6.2-12.0); Platelet Count 153 K/mm3 (150-450); RBC Distribution Width CV 13.7 % (11.6-14.6); RBC Distribution Width SD 43.8 fl (35.1-43.9); Red Blood Count 4.19 M/mm3 (4.6-6.2); White Blood Count 5.1 K/mm3 (4.4-11.0)
[2020-04-01 05:38] LABS: ALB/GLOB Ratio 0.8 RATIO (0.9-2.4); AST(SGOT) 13 U/L (15-37); Alanine Aminotransfer ALT/SGPT 20 U/L (16-61); Albumin, Serum 2.4 g/dL (3.2-5.0); Alkaline Phosphatase 110 U/L (45-117); Anion Gap 9 (5-15); BUN 31 mg/dL (7-18); BUN/Creat Ratio 30.7 RATIO (10-20); Calcium,Total 7.7 mg/dL (8.5-10.1); Chloride 111 mmol/L (98-107); Creatinine, Serum 1.01 mg/dL (0.70-1.30); EST Glomerular Filtration Rate 80 mL/min (>60); Est Glom Filt Rate - Afr Amer 96 mL/min (>60); Estimated Creatinine Clearance 65.97 ml/min; Glucose 267 mg/dL (74-106); Potassium 4.1 mmol/L (3.5-5.1); Protein, Total 5.4 g/dL (6.4-8.2); Sodium Level 137 mmol/L (136-145)
[2020-04-01] MEDS: Loperamide 2 MG Capsule PO ×2 (06:04→13:13)
[2020-04-01] MEDS: 0.9% Saline Lock 10 ML Syringe IV ×2 (06:04→08:12)
[2020-04-01 07:56] LABS: Bedside Glucose 200 mg/dL (70-110)
--- NOTE | 2020-04-01 07:56 | DCINST_ITS ---
- Discharge Diagnoses Current Active Problems: Current Active and Chronic Problems (Last Reviewed 11/21/19 @ 21:[address] Artemio Lynch MD) Acute respiratory failure with hypoxia (Acute) Acute kidney injury superimposed on CKD (Acute) Septic shock (Acute) Stage III chronic kidney disease (Chronic) Familial adenomatous polyposis coli (Chronic) Complicated by cancer requiring surgery in 2001 COPD (Chronic) History of colon cancer (Chronic) Status post ileostomy (Chronic) Urinary outflow obstruction (Chronic) Type 2 diabetes mellitus with hyperosmolar nonketotic hyperglycemia (Chronic) You will use the following diet at home:: Calorie/Carbohydrate Controlled (specify 1200, 1400, etc) - Carb controlled diet, Cardiac Your food should be the consistency of: Regular Discharge Activity: May Not Drive Weight Bearing Status: Weight bearing as tolerated Call your doctor if you observe: Fever of 101 or Higher, Coldness, Increased Pain, Numbness or Tingling, Change in Color, Inability to urinate, Inability to have a bowel movement, Shortness of breath, Dizziness, Fainting spells, Swelling in the ankles, Chest pain, Prolonged hiccoughing, Increased palpitations (irregular heartbeat), Calf discomfort, Uncontrolled pain Additional Instructions: Self quarantine for 1 more week until 04/07/2020 Allergies/Adverse Reactions: Allergies No Known Allergies Allergy (Verified 03/28/20 19:20) Medications to take at Discharge Ferrous Sulfate 325 mg PO DAILY@0800 07/15/13 Loperamide [Imodium] 2 mg PO Q6H PRN PRN 07/15/13 Mometasone Furoate [Asmanex] 220 mcg IH BID 07/15/13 Pantoprazole Sodium [Protonix] 40 mg PO DAILY 07/15/13 Formoterol Fumarate [Foradil] 1 puff INHALATION DAILY 02/03/14 Cholecalciferol (VIT D3) [Vitamin D3] 1,000 unit PO DAILY 04/11/14 Ondansetron [Zofran Odt] 4 mg PO Q8H PRN PRN #10 tablet 08/09/16 Gabapentin [Neurontin] 600 mg PO TID 01/01/17 Tamsulosin HCl [Flomax] 0.8 mg PO QHS 04/12/18 Alogliptin Benzoate [Alogliptin] 25 mg PO DAILY #0 04/01/20 Apixaban [Eliquis] 10 mg PO BID #60 tab 04/01/20 Dexamethasone [Decadron] 6 mg PO DAILY 5 Days #5 tab 04/01/20 Insulin Glargine,Hum.rec.anlog [Lantus] 35 unit SQ DAILY #0 04/01/20 Insulin Lispro [Humalog KwikPen] 10 unit SC TIDAC #1 ml 04/01/20 Insulin Lispro [Humalog KwikPen] See Protocol SC 4X/DAYCM insuln.pen 04/01/20 The following prescriptions were given: Dexamethasone [Decadron] 6 mg PO DAILY 5 Days #5 tab Transmission Status: Pending to [facility]30 Apixaban [Eliquis] 10 mg PO BID #60 tab Transmission Status: Pending to [facility] Insulin Lispro [Humalog KwikPen] 10 unit SC TIDAC #1 ml Transmission Status: Pending to [facility] Orders to be completed after discharge: Glucometer Location: None Selected [facility] - Please follow up with your Primary Care Physician in: In 1 to 2 weeks Test Results: Test results from this visit will be discussed in further detail at your follow- up appointment, if applicable. Please Follow Up With: Florian Giron MD When: prn for marcelo
--- NOTE | 2020-04-01 07:56 | PCM.DC.SUM ---
Discharge Date and Diagnosis - Problem List Patient Problems: Active and Suspected Problems (Last Reviewed 11/21/19 @ 21:[address] Artemio Lynch MD) Acute respiratory failure with hypoxia (Acute) Acute kidney injury superimposed on CKD (Acute) Date of Admission: 03/28/20 Date of Discharge: 04/01/20 - Primary Discharge Diagnosis Acute Problems: Active Problems (Last Reviewed 11/21/19 @ 21:[address] Artemio Lynch MD) Acute respiratory failure with hypoxia (Acute) Acute kidney injury superimposed on CKD (Acute) Severe sepsis secondary to COVID-19 pneumonia Bilateral pulmonary embolism - Secondary Discharge Diagnosis Chronic Problems: Chronic Problems (Last Reviewed 11/21/19 @ 21:[address] Artemio Lynch MD) Stage III chronic kidney disease (Chronic) Familial adenomatous polyposis coli (Chronic) Complicated by cancer requiring surgery in 2001 COPD (Chronic) History of colon cancer (Chronic) Status post ileostomy (Chronic) Urinary outflow obstruction (Chronic) Type 2 diabetes mellitus with hyperosmolar nonketotic hyperglycemia (Chronic) Hospital Course and Treatment Consultations 03/31/20 00:29 Consult: Onc/Wound/medical or surgical instrument maker Routine Comment: Reason for Consult:: ileostomy Operations: None Summary of Care Provided: [] This is a 60 years old male patient who is admitted to ICU through emergency room with 10 days history of shortness of breath and weakness as well as malaise, dehydration, increased liquid ileostomy output, loss of weight and found to have infiltrate in the left lung with a diagnosis of left lung community-acquired pneumonia. Patient was tachycardic, tachypneic and hypotensive and lactic acidosis 3.6. #1 Severe sepsis due to bilateral pneumonia, confirmed COVID-19 pneumonia and hypovolemia from increased ileostomy output: Patient had about 4 L of IV fluid in the ER and had blood pressures responded to 102/79, heart rate 86. Repeat lactate is normal 1.2. Patient was seen by ID. SARS-CoV-2 antigen and COVID-19 PCR are negative. Initially, IV ceftriaxone and Zithromax. Patient empirically started on IV remdesivir by ID. Continue COVID-19 enhanced droplet precaution. Continue Decadron. Urinary antigens and respiratory panels are negative. Serology SARS-CoV-2 was positive. Patient was started on remdesivir and Decadron. Antibiotics ceftriaxone and Zithromax were discontinued. CTA chest was done which showed bilateral pneumonia and PE. Urinary antigens are negative. Respiratory panel is negative. Patient blood pressure was low in ICU and treated with IV fluid and also to prevent BHAVNA. Patient rapid antigen and COVID-19 PCR negative but serology came positive. Patient was treated with remdesivir and Decadron initially Eliquis but was held secondary to concern for GI bleed as mentioned below #2 Left lung bilateral COVID-19 pneumonia and bilateral pulmonary embolism: Patient had close contact for 24 hours with his girlfriend about 8 days ago who tested positive. Symptoms started around 03/18. Elevated D-dimer. Lovenox changed to 40 mg IV twice daily. Patient had CT chest which showed positive for bilateral pulmonary emboli with mild emphysema and bilateral subsegmental atelectasis or pneumonitis. Bilateral pulmonary embolism and distal main right pulmonary artery and distal descending left pulmonary artery. Patient on IV heparin because of kidney failure which is transition to Eliquis. Patient had 4 doses of remdesivir. The nurse had concern for bleeding in the ileostomy bag, stool for occult blood ordered. Patient frustrated to go home since yesterday. CBC today shows H&H 12/36.7, WBC 5.1 thousand platelet count 153,000. With concern of bleeding, Eliquis is hold for 2 days and advised to resume at lower dose 5 mg twice daily on the evening of 04/03/2020. This was discussed with the [facility] pharmacist in [place] with a prescription for Eliquis was sent. Please resume Eliquis if there is no further bleeding in consultation with PCP. Advised CBC and BMP in 3 days. #3 acute hypoxic respiratory failure secondary to 1 and 2 above: Currently, patient is on 4 L of oxygen. He does have COPD but he does not use home oxygen. Rest as mentioned above 03/30: Oxygenation is better. On 2 L of oxygen. Patient pulse ox 87% on room air at rest, 87% on 2 L of oxygen on ambulation, 93% on 4 L of oxygen done on 03/31/2020. Patient is ambulatory in home and in the community and requires home oxygen with portability. #4 acute kidney injury on top of stage III chronic kidney disease: Secondary to septic shock. Baseline creatinine has been fluctuating anywhere from 1.2 to 1.5 mg/dL. Admission creatinine is 2.62, above baseline. 03/30: Patient had urine retention and [place] catheter was inserted. Patient on Flomax 0.8 mg daily. Discontinue [place] catheter. Follow-up with a urologist as an outpatient BM. #5 type 2 diabetes mellitus: Glucose in BMP is 253, 301. ADA diet, Accu-Cheks, insulin sliding scale, continue Lantus. Prescription for Humalog and glargine insulin sent to the patient's pharmacy. #6 COPD exacerbation from pneumonia: Patient has dry cough and shortness of breath. On Advair inhaler, albuterol inhaler, steroid, incentive spirometry and chest physiotherapy. Acute COPD exacerbation resolved. Continue home Asmanex and Foradil inhaler. #8 history of colon cancer: Status post colon resection, status post ileostomy, stable in remission. Patient has pancytopenia, WBC count, H&H and platelet count are stable last 2 days. VTE prophylaxis: Patient has history of colon cancer/FAP. On Eliquis as mentioned CODE STATUS: Discussed with the patient and he agreed to intubation, CPR and mechanical ventilation. He is full code. Clinical Impression(s) from Imaging Studies Chest X-Ray 03/28/20 20:25 IMPRESSION: Chronic interestitial changes. Left lung and left perihilar airspace disease new since the previous study suggestive of pneumonia Small left pleural effusion at 2106 Reported and signed by: Prudencio Ann MD Electronically Signed: Prudencio Ann MD at 21:04 EST Tel , Service support , Chest CTA 03/30/20 10:39 IMPRESSION: 1. Positive for bilateral pulmonary emboli. 2. Mild emphysema with bilateral subsegmental atelectasis or pneumonitis. Commonly reported imaging features of Covid 19 pneumonia are present. Other processes such as influenza pneumonia and organizing pneumonia, as can be seen with drug toxicity and connective tissue disease, can cause a similar imaging pattern. Microbiology Past 72 Hours 03/29/20 11:20 Urine Catheter - Catheter Urine Culture - Preliminary Mixed Gram Positive Organisms 03/28/20 19:38 Blood Culture (Wb) - Right Hand Blood Culture - Preliminary No growth in 48 hours. 03/28/20 19:34 Blood Culture (Wb) - Anticubital Right Blood Culture - Preliminary No growth in 48 hours. 03/29/20 07:10 Mucosa - Nasopharyngeal Respiratory Panel (PCR) - Final 03/29/20 11:20 Urine, Random Streptococcus pneumoniae Antigen (M - Final 03/29/20 11:20 Urine Catheter - Catheter Legionella Antigen - Final Laboratory Results 03/31/20 11:05: POC Glucose 390 H 03/31/20 15:53: POC Glucose 379 H 03/31/20 20:58: POC Glucose 399 H 04/01/20 04:27: WBC 5.1, RBC 4.19 L, Hgb 12.0 L, Hct 36.7 L, MCV 87.6, MCH 28.6, MCHC 32.7, RDW Std Deviation 43.8, RDW Coeff of Kaitlyn 13.7, Plt Count 153, MPV 12.2 H 04/01/20 04:27: Sodium 137, Potassium 4.1, Chloride 111 H, Carbon Dioxide 17.0 L, Anion Gap 9, BUN 31 H, Creatinine 1.01, Estim Creat Clear Calc 65.97, Est GFR (MDRD) Af Amer 96, Est GFR (MDRD) Non-Af 80, BUN/Creatinine Ratio 30.7 H, Glucose 267 H, Calcium 7.7 L, Total Bilirubin 0.60, AST 13 L, ALT 20, Alkaline Phosphatase 110, Total Protein 5.4 L, Albumin 2.4 L, Globulin 3.0, Albumin/Globulin Ratio 0.8 L 04/01/20 07:46: POC Glucose 200 H Patient Problems: Active and Suspected Problems (Last Reviewed 11/21/19 @ 21:[address] Artemio Lynch MD) Acute respiratory failure with hypoxia (Acute) Acute kidney injury superimposed on CKD (Acute) Objective: Seen and examined. Blood pressure is on baseline. Afebrile. There is concern of red color/bleeding in the ileostomy bag, seen by nurse before emptying. Patient is frustrated to go home since yesterday. H&H 36.7. Platelet count 153. Patient has mild cough. Denies shortness of breath. Physical exam General: Alert, Oriented x3, Cooperative HEENT: Atraumatic, PERRLA, EOMI, Normocephalic Oral: No Gingival or Mucosal Lesions/ Ulcerations Neck: Supple, No JVD, Negative Carotid Bruits Lungs: Air entry diminished in bilateral lung bases. Bilateral expiratory rhonchi. On 2 L of oxygen. Cardiovascular: Regular rate, Regular Rhythm, Normal S1, Normal S2, No murmurs Abdomen: Ileostomy bag has liquid stool. Bowel Sounds Present, Soft, Non Tender, Non-Distended : Urine output clear 1500 mL. No renal angle tenderness. No suprapubic tenderness. Extremities: No edema, Capillary Refill Less than 3 Seconds Skin: No rashes, No breakdown Musculoskeletal: No Tenderness to Palpation of Joints or Extremities Neurological: Cranial nerves II-XII grossly intact, Deep Tendon Reflexes 2+/4 and Symmetrical, Neuro grossly intact Psych/Mental Status: Mildly frustrated - Physical Exam Vitals/I&O's: Vital Signs Temp Pulse Resp BP Pulse Ox 97.5 F L 65 18 115/74 98 04/01/20 02:22 04/01/20 02:22 04/01/20 02:22 04/01/20 02:22 04/01/20 02:22 Oxygen Flow Rate (L/min) [ 2 AMBULATING on Room Air] Oxygen Flow Rate (L/min) [ 4 AMBULATION with Oxygen] Oxygen Flow Rate (L/min) [At 0 REST on Room Air] Oxygen Flow Rate (L/min) 2 Oxygen Delivery Method Nasal Cannula Weight: 165 lb 12.602 oz Body Mass Index (BMI) 27.8 Finger Stick Blood Glucose 311 Intake and Output for Last 24 Hours 03/30/20 03/31/20 04/01/20 23:59 23:59 23:59 Intake Total 1081.25 / 1081.25 1803.48 / 2643.48 1560 / 1560 Output Total 5300 / 5300 5700 / 7800 3950 / 3950 Balance -4218.75 / -4218.75 -3896.52 / -5156.52 -2390 / -2390 Microbiology Past 72 Hours 03/29/20 11:20 Urine Catheter - Catheter Urine Culture - Preliminary Mixed Gram Positive Organisms 03/28/20 19:38 Blood Culture (Wb) - Right Hand Blood Culture - Preliminary No growth in 48 hours. 03/28/20 19:34 Blood Culture (Wb) - Anticubital Right Blood Culture - Preliminary No growth in 48 hours. 03/29/20 07:10 Mucosa - Nasopharyngeal Respiratory Panel (PCR) - Final 03/29/20 11:20 Urine, Random Streptococcus pneumoniae Antigen (M - Final 03/29/20 11:20 Urine Catheter - Catheter Legionella Antigen - Final Laboratory Results 03/31/20 07:38: POC Glucose 359 H 03/31/20 09:44: APTT 122.3 H* 03/31/20 11:05: POC Glucose 390 H 03/31/20 15:53: POC Glucose 379 H 03/31/20 20:58: POC Glucose 399 H 04/01/20 04:27: WBC 5.1, RBC 4.19 L, Hgb 12.0 L, Hct 36.7 L, MCV 87.6, MCH 28.6, MCHC 32.7, RDW Std Deviation 43.8, RDW Coeff of Kaitlyn 13.7, Plt Count 153, MPV 12.2 H 04/01/20 04:27: Sodium 137, Potassium 4.1, Chloride 111 H, Carbon Dioxide 17.0 L, Anion Gap 9, BUN 31 H, Creatinine 1.01, Estim Creat Clear Calc 65.97, Est GFR (MDRD) Af Amer 96, Est GFR (MDRD) Non-Af 80, BUN/Creatinine Ratio 30.7 H, Glucose 267 H, Calcium 7.7 L, Total Bilirubin 0.60, AST 13 L, ALT 20, Alkaline Phosphatase 110, Total Protein 5.4 L, Albumin 2.4 L, Globulin 3.0, Albumin/Globulin Ratio 0.8 L 04/01/20 07:46: POC Glucose Pending Current Medications Acetaminophen (Acetaminophen 325 Mg Tablet) 650 mg PO Q6H PRN PRN PRN Reason: Pain Score 1-10/Temp > 100.7 F Last Admin: 03/30/20 20:01 Dose: 650 mg Documented by: Albuterol Sulfate (Albuterol Sulfate 18 Gm Inhaler (200 Puffs)) 2 puff IH Q4H PRN PRN PRN Reason: Shortness of breath, wheezing Apixaban (Apixaban 5 Mg Tablet) 10 mg PO BID [facility] Last Admin: 03/31/20 16:04 Dose: 10 mg Documented by: Calamine/Phenol (Menthol/Lanolin/Calamine/Znox 113 Gm Tube) 1 applic TOPICAL BID [facility]; Protocol Last Admin: 03/31/20 21:04 Dose: 1 applicatio Documented by: Dexamethasone (Dexamethasone 4 Mg Tablet) 6 mg PO DAILY [facility] Stop: 04/06/20 10:01 Last Admin: 03/31/20 07:49 Dose: 6 mg Documented by: Ferrous Sulfate (Ferrous Sulfate 325 Mg Tablet) 325 mg PO DAILYCM [facility] Last Admin: 03/31/20 07:48 Dose: 325 mg Documented by: Gabapentin (Gabapentin 600 Mg Tablet) 600 mg PO TIDCM [facility] Last Admin: 03/31/20 16:04 Dose: 600 mg Documented by: Sodium Chloride () 250 mls @ 15 mls/hr IV .[id number] PRN PRN Reason: Saline Flush Sodium Chloride () 250 mls @ 15 mls/hr IV .[id number] PRN PRN Reason: Additional IVPB Infusion Remdesivir 100 mg/ Sodium (Chloride) 250 mls @ 125 mls/hr IV DAILY [facility]; Protocol Stop: 04/02/20 11:59 Last Infusion: 03/31/20 13:03 Dose: Infused Documented by: Insulin Glargine (Insulin Glargine 100 Units/Ml Pen) 35 units SC BID [facility] Last Admin: 03/31/20 21:06 Dose: 35 units Documented by: Insulin Human Lispro (Insulin Lispro 100 Unit/Ml Insuln.Pen) 0 unit SC 4X/DAYCM [facility]; Protocol Last Admin: 03/31/20 21:05 Dose: 10 u Documented by: Insulin Human Lispro (Insulin Lispro 100 Unit/Ml Insuln.Pen) 10 unit SC TIDAC [facility] Last Admin: 03/31/20 16:04 Dose: 10 u Documented by: Loperamide HCl (Loperamide 2 Mg Capsule) 2 mg PO Q6 [facility] Last Admin: 04/01/20 06:04 Dose: 2 mg Documented by: Miscellaneous Information (Inhaler, Assist Devices 1 Each Spacer) 1 each INHALATION PRN PRN PRN Reason: WITH ALBUTEROL MDI Ondansetron HCl (Ondansetron 4 Mg/2 Ml Vial) 4 mg IV Q8H PRN PRN PRN Reason: NAUSEA/VOMITING Last Admin: 03/29/20 21:52 Dose: 4 mg Documented by: Pantoprazole Sodium (Pantoprazole Sodium 40 Mg Tablet) 40 mg PO DAILY [facility] Last Admin: 03/31/20 07:49 Dose: 40 mg Documented by: Fluticasone/Salmeterol (Fluticasone/Salmeterol 232-14 Inhaler) 1 puff IH BID [facility] Last Admin: 03/31/20 21:07 Dose: 1 puff Documented by: Senna/Docusate Sodium (Senna/Docusate Sodium 1 Tablet) 2 tablet PO BID PRN PRN PRN Reason: Constipation Sodium Chloride (0.9% Saline Lock 10 Ml Syringe) 10 - 40 ml IV UD PRN PRN Reason: SALINE FLUSH Last Admin: 04/01/20 06:04 Dose: 10 ml Documented by: Tamsulosin HCl (Tamsulosin Hcl 0.4 Mg Capsule) 0.8 mg PO QHS [facility] Last Admin: 03/31/20 21:04 Dose: 0.8 mg Documented by: Home Medications: Medications to take at Discharge Ferrous Sulfate 325 mg PO DAILY@0800 07/15/13 Loperamide [Imodium] 2 mg PO Q6H PRN PRN 07/15/13 Mometasone Furoate [Asmanex] 220 mcg IH BID 07/15/13 Pantoprazole Sodium [Protonix] 40 mg PO DAILY 07/15/13 Formoterol Fumarate [Foradil] 1 puff INHALATION DAILY 02/03/14 Cholecalciferol (VIT D3) [Vitamin D3] 1,000 unit PO DAILY 04/11/14 Ondansetron [Zofran Odt] 4 mg PO Q8H PRN PRN #10 tablet 08/09/16 Gabapentin [Neurontin] 600 mg PO TID 01/01/17 Tamsulosin HCl [Flomax] 0.8 mg PO QHS 04/12/18 Alogliptin Benzoate [Alogliptin] 25 mg PO DAILY #0 04/01/20 Apixaban [Eliquis] 5 mg PO BID #60 tab 04/01/20 Dexamethasone [Decadron] 6 mg PO DAILY 5 Days #5 tab 04/01/20 Insulin Glargine,Hum.rec.anlog [Lantus] 35 unit SQ DAILY #0 04/01/20 Insulin Lispro [Humalog KwikPen] 10 unit SC TIDAC #1 ml 04/01/20 Insulin Lispro [Humalog KwikPen] See Protocol SC 4X/DAYCM insuln.pen 04/01/20 Following Prescriptions Were Given to Patient: Dexamethasone [Decadron] 6 mg PO DAILY 5 Days #5 tab Transmission Status: Received by [facility] Apixaban [Eliquis] 5 mg PO BID #60 tab Transmission Status: Received by [facility] Insulin Lispro [Humalog KwikPen] 10 unit SC TIDAC #1 ml Transmission Status: Received by [facility] Other Amb Orders: Glucometer Location: None Selected [facility] - Medical Necessity - Tobacco Use Smoking Status: Former smoker Tobacco Use: Cigarettes Meaningful Use Info Meaningful Use Diagnoses (Choose all that apply): VTE - VTE Anticoag overlap given w/in hospital stay or rx'd at nm?: Yes Pt receive overlap for 5 days?: No Reason overlap not ordered, prescribed, or given for 5 days: Procedure Not Indicated - On Eliquis Inpatient E&M: [id number] [facility]
[2020-04-01] MEDS: Insulin Lispro 100 UNIT/ML INSULN.PEN 10 UNIT SC (08:25)
[2020-04-01] MEDS: Ferrous Sulfate 325 MG Tablet PO (08:26)
[2020-04-01] MEDS: Gabapentin 600 MG Tablet PO ×2 (08:26→13:14)
[2020-04-01] MEDS: Insulin Lispro 100 UNIT/ML INSULN.PEN SC ×2 (08:26→12:51)
[2020-04-01] MEDS: dexAMETHasone 4 MG Tablet 6 MG PO (08:27)
[2020-04-01] MEDS: APIXABAN 5 MG TABLET 10 MG PO (08:27)
[2020-04-01] MEDS: Menthol/Lanolin/Calamine/Znox 113 GM Tube 1 APPLIC TOPICAL (08:27)
[2020-04-01] MEDS: Fluticasone/Salmeterol 232-14 Inhaler 1 PUFF IH (08:28)
[2020-04-01] MEDS: Pantoprazole Sodium 40 MG Tablet PO (08:28)
--- NOTE | 2020-04-01 08:50 | NURSING ---
call placed to [facility] at [phone] for o2 delivery. pt will be dc'd around [phone]. staff member to call this nurse back
--- NOTE | 2020-04-01 09:11 | NURSING ---
received call back from [facility], portable o2 tank will be delivered around 1200
--- NOTE | 2020-04-01 10:34 | NURSING ---
gentleman from the oxygen company called to say he should be here in about an hour and a half and then i will probably just follow him home. will call back in about a half hour with an update. pt made aware of this by this nurse
--- NOTE | 2020-04-01 12:03 | NURSING ---
LATE ENTRY - 1100 - PT UP TO BR @ EMPTIED ILEOSTOMY INTO THE TOILET. STOOL IN TOILET RED IN COLOR. TEXT TO DR PLASCENCIA REGARDING SAME. NEW ORDERS RECEIVED.
--- NOTE | 2020-04-01 12:29 | PCM.PN.HOSP ---
Patient Problems: Active and Suspected Problems (Last Reviewed 11/21/19 @ 21:[address] Artemio Lynch MD) Acute respiratory failure with hypoxia (Acute) Acute kidney injury superimposed on CKD (Acute) Vitals/I&O's: Vital Signs Temp Pulse Resp BP Pulse Ox 97.6 F L 65 18 94/62 95 04/01/20 08:10 04/01/20 08:10 04/01/20 08:10 04/01/20 08:10 04/01/20 08:15 Oxygen Flow Rate (L/min) [ 2 AMBULATING on Room Air] Oxygen Flow Rate (L/min) [ 4 AMBULATION with Oxygen] Oxygen Flow Rate (L/min) [At 0 REST on Room Air] Oxygen Flow Rate (L/min) 2 Oxygen Delivery Method Nasal Cannula Weight: 165 lb 12.602 oz Body Mass Index (BMI) 27.8 Finger Stick Blood Glucose 311 Intake and Output for Last 24 Hours 03/30/20 03/31/20 04/01/20 23:59 23:59 23:59 Intake Total 1081.25 / 1081.25 1803.48 / 2643.48 1810 / 1810 Output Total 5300 / 5300 5700 / 7800 3950 / 3950 Balance -4218.75 / -4218.75 -3896.52 / -5156.52 -2140 / -2140 Microbiology Past 72 Hours 04/01/20 11:20 Stool Stool Occult Blood (LETTY) - Final Occult Blood Positive 03/29/20 11:20 Urine Catheter - Catheter Urine Culture - Preliminary Mixed Gram Positive Organisms 03/28/20 19:38 Blood Culture (Wb) - Right Hand Blood Culture - Preliminary No growth in 48 hours. 03/28/20 19:34 Blood Culture (Wb) - Anticubital Right Blood Culture - Preliminary No growth in 48 hours. 03/29/20 07:10 Mucosa - Nasopharyngeal Respiratory Panel (PCR) - Final 03/29/20 11:20 Urine, Random Streptococcus pneumoniae Antigen (M - Final 03/29/20 11:20 Urine Catheter - Catheter Legionella Antigen - Final Laboratory Results 03/31/20 15:53: POC Glucose 379 H 03/31/20 20:58: POC Glucose 399 H 04/01/20 04:27: WBC 5.1, RBC 4.19 L, Hgb 12.0 L, Hct 36.7 L, MCV 87.6, MCH 28.6, MCHC 32.7, RDW Std Deviation 43.8, RDW Coeff of Kaitlyn 13.7, Plt Count 153, MPV 12.2 H 04/01/20 04:27: Sodium 137, Potassium 4.1, Chloride 111 H, Carbon Dioxide 17.0 L, Anion Gap 9, BUN 31 H, Creatinine 1.01, Estim Creat Clear Calc 65.97, Est GFR (MDRD) Af Amer 96, Est GFR (MDRD) Non-Af 80, BUN/Creatinine Ratio 30.7 H, Glucose 267 H, Calcium 7.7 L, Total Bilirubin 0.60, AST 13 L, ALT 20, Alkaline Phosphatase 110, Total Protein 5.4 L, Albumin 2.4 L, Globulin 3.0, Albumin/Globulin Ratio 0.8 L 04/01/20 07:46: POC Glucose 200 H Current Medications Acetaminophen (Acetaminophen 325 Mg Tablet) 650 mg PO Q6H PRN PRN PRN Reason: Pain Score 1-10/Temp > 100.7 F Last Admin: 03/30/20 20:01 Dose: 650 mg Documented by: Albuterol Sulfate (Albuterol Sulfate 18 Gm Inhaler (200 Puffs)) 2 puff IH Q4H PRN PRN PRN Reason: Shortness of breath, wheezing Apixaban (Apixaban 5 Mg Tablet) 10 mg PO BID [facility] Last Admin: 04/01/20 08:27 Dose: 10 mg Documented by: Calamine/Phenol (Menthol/Lanolin/Calamine/Znox 113 Gm Tube) 1 applic TOPICAL BID [facility]; Protocol Last Admin: 04/01/20 08:27 Dose: 1 applicatio Documented by: Dexamethasone (Dexamethasone 4 Mg Tablet) 6 mg PO DAILY [facility] Stop: 04/06/20 10:01 Last Admin: 04/01/20 08:27 Dose: 6 mg Documented by: Ferrous Sulfate (Ferrous Sulfate 325 Mg Tablet) [facility] Last Admin: 04/01/20 08:26 Dose: 325 mg Documented by: Gabapentin (Gabapentin 600 Mg Tablet) 600 mg PO TIDCM [facility] Last Admin: 04/01/20 08:26 Dose: 600 mg Documented by: Sodium Chloride () 250 mls @ 15 mls/hr IV .[id number] PRN PRN Reason: Saline Flush Sodium Chloride () 250 mls @ 15 mls/hr IV .[id number] PRN PRN Reason: Additional IVPB Infusion Remdesivir 100 mg/ Sodium (Chloride) 250 mls @ 125 mls/hr IV DAILY [facility]; Protocol Stop: 04/02/20 11:59 Last Infusion: 04/01/20 10:13 Dose: Infused Documented by: Insulin Glargine (Insulin Glargine 100 Units/Ml Pen) 35 units SC BID [facility] Last Admin: 04/01/20 09:58 Dose: 35 units Documented by: Insulin Human Lispro (Insulin Lispro 100 Unit/Ml Insuln.Pen) 0 unit SC 4X/DAYCM [facility]; Protocol Last Admin: 04/01/20 08:26 Dose: 4 u Documented by: Insulin Human Lispro (Insulin Lispro 100 Unit/Ml Insuln.Pen) 10 unit SC TIDAC [facility] Last Admin: 04/01/20 12:07 Dose: Not Given Documented by: Loperamide HCl (Loperamide 2 Mg Capsule) 2 mg PO Q6 [facility] Last Admin: 04/01/20 06:04 Dose: 2 mg Documented by: Miscellaneous Information (Inhaler, Assist Devices 1 Each Spacer) 1 each INHALATION PRN PRN PRN Reason: WITH ALBUTEROL MDI Ondansetron HCl (Ondansetron 4 Mg/2 Ml Vial) 4 mg IV Q8H PRN PRN PRN Reason: NAUSEA/VOMITING Last Admin: 03/29/20 21:52 Dose: 4 mg Documented by: Pantoprazole Sodium (Pantoprazole Sodium 40 Mg Tablet) 40 mg PO DAILY [facility] Last Admin: 04/01/20 08:28 Dose: 40 mg Documented by: Fluticasone/Salmeterol (Fluticasone/Salmeterol 232-14 Inhaler) 1 puff IH BID [facility] Last Admin: 04/01/20 08:28 Dose: 1 puff Documented by: Senna/Docusate Sodium (Senna/Docusate Sodium 1 Tablet) 2 tablet PO BID PRN PRN PRN Reason: Constipation Sodium Chloride (0.9% Saline Lock 10 Ml Syringe) 10 - 40 ml IV UD PRN PRN Reason: SALINE FLUSH Last Admin: 04/01/20 08:12 Dose: 10 ml Documented by: Tamsulosin HCl (Tamsulosin Hcl 0.4 Mg Capsule) 0.8 mg PO QHS [place] Last Admin: 03/31/20 21:04 Dose: 0.8 mg Documented by: Medical Necessity - Tobacco Use Smoking Status: Former smoker Tobacco Use: Cigarettes Assessment/Plan All Active Problems (Last Reviewed 11/21/19 @ 21:[address] Artemio Lynch MD) Severe sepsis (Acute) Community acquired pneumonia (Acute) Acute respiratory failure with hypoxia (Acute) Acute kidney injury superimposed on CKD (Acute)
--- NOTE | 2020-04-01 12:35 | NURSING ---
STOOL OCCULT (+). PT MADE AWARE AND THAT DR PLASCENCIA RECOMMENDS HE STAY TO HAVE BLOOD WORK MONITORED. PT AGREEABLE
[2020-04-01 12:56] LABS: Bedside Glucose 312 mg/dL (70-110)
[2020-04-01 13:28] LABS: Hematocrit 42.4 % (40-54); Hemoglobin 13.5 g/dL (13.0-16.5)
--- NOTE | 2020-04-01 14:22 | NURSING ---
STILL AWAITING O2 DELIVERY (WAS CALLED @ 0850 & TOLD IT WOULD BE DELIVERED BY 1200). [facility] CALLED AGAIN & EXPLAINED THIS. STATED THEY WILL GET THE MESSAGE TO THE ELECTRIC SCREW DRIVER OPERATOR & HE WILL CALL ME BACK.
== END 2020-04-01 15:50 | disposition home or self-care (01) | DRG 871 ==
LOC: ED 20:27 → ICU 23:31 → MS2 03-30 16:26
PROVIDERS: Internal Medicine Critical Care Medicine; Internal Medicine Infectious Disease; Admitting Provider Hospitalist; Emergency Provider Emergency Medicine; Visit Provider Internal Medicine
DX: A41.89 Other specified sepsis (principal); U07.1 COVID-19; J12.82 Pneumonia due to coronavirus disease 2019; R65.21 Severe sepsis with septic shock; J96.01 Acute respiratory failure with hypoxia; N17.9 Acute kidney failure, unspecified; R57.1 Hypovolemic shock; I26.99 Other pulmonary embolism without acute cor pulmonale; E87.2 Acidosis; D61.818 Other pancytopenia; J44.1 Chronic obstructive pulmonary disease with (acute) exacerbation; J44.0 Chronic obstructive pulmonary disease with (acute) lower respiratory infection; E86.0 Dehydration; E11.22 Type 2 diabetes mellitus with diabetic chronic kidney disease; N18.30 Chronic kidney disease, stage 3 unspecified; E11.40 Type 2 diabetes mellitus with diabetic neuropathy, unspecified; N13.9 Obstructive and reflux uropathy, unspecified; R33.9 Retention of urine, unspecified; K21.9 Gastro-esophageal reflux disease without esophagitis; Z79.4 Long term (current) use of insulin; Z79.899 Other long term (current) drug therapy; Z93.2 Ileostomy status; Z85.038 Personal history of other malignant neoplasm of large intestine; Z87.891 Personal history of nicotine dependence; Z90.49 Acquired absence of other specified parts of digestive tract
CPT/HCPCS: 36415; 71045; 71275; 80053; 81001; 82274; 82550; 82962; 83605; 83615; 83880; 84145; 84484; 85014; 85018; 85025; 85027; 85379; 85384; 85610; 85730; 86140; 86769; 87040; 87077; 87086; 87088; 87186; 87426; 87449; 87633; 87635; 87641; 87804; 93005; 97162; 97166; 97530; 97803; 99251; 99285; J7030; J7040; J7050; Q9967; A4216; G0463; J2405; U0002

== ENCOUNTER 2020-04-02 18:21 | Emergency (ER) | payer OTHER, SELFPAY ==
[2020-03-29 00:12] VITALS: BMI 27.8
[2020-04-02 18:22] VITALS: BP 118/81; PULSE 100; RESP 24; TEMP 36.4; O2SAT 95; BMI 29.4
[2020-04-02 18:56] LABS: Bedside Glucose > 500 mg/dL (70-110)
--- NOTE | 2020-04-02 19:16 | ED.DCSUM_ITS ---
History of Present Illness Chief Complaint: Hyperglycemia Informant: Patient Narrative: 60-year-old male was just discharged from the hospital for septic shock/COVID- 19. He tells me that he is a diabetic and he was discharged home with a insulin pen that he does not know how to work. He went to the pharmacy to pick up man his insulin and it is too expensive. He tells me the [place] will not reimburse it for him and is not paying $200 for insulin. Therefore he came to the emergency department for his elevated blood sugar. He did not bring what meds he supposed to be on or the meds that he does have at home. He did not bring his discharge instructions. - Past Medical History (1) COPD Status: Chronic (2) Familial adenomatous polyposis coli Status: Chronic Comment: Complicated by cancer requiring surgery in 2001 (3) Stage III chronic kidney disease Status: Chronic (4) Pneumonia due to COVID-19 virus Status: Suspected Past Medical History - Allergies and Home Meds Allergies/Adverse Reactions: Allergies No Known Allergies Allergy (Verified 04/02/20 18:22) Primary Care Physician: [facility] [Primary Care Provider] - As soon as possible Surgical History: - - Ileostomy; 7 abdominal surgeries, colon resection secondary to cancer Lives: Spouse/ Significant Other Smoking Status: Former smoker Drugs: None - Family History Sibling Family History: Reports: - - Familial polyposis coli-Brothers and sisters Maternal Family History: Reports: - - He does not know his maternal medical history. Reportedly his mother in a motor vehicle accident when patient was very young. Review of Systems General: Denies: Chills, Fever, Sweats Eyes: Denies: Visual changes - bilaterally, Diplopia ENT: Denies: Rhinorrhea, Sore throat Cardiovascular: Denies: Chest pain, Palpitations Respiratory: Reports: Cough. Denies: Dyspnea, Dyspnea on exertion Gastrointestinal: Denies: Abdominal pain, Nausea, Vomiting, Diarrhea, Melena, Hematochezia Genitourinary: Denies: Dysuria, Hematuria, Frequency Musculoskeletal: Denies: Back pain, Extremity Pain Skin: Denies: Rash, Wounds Neurological: Denies: Headache, Weakness, Numbness Physical Exam Vital Signs/Narrative: Vital Signs Temp Pulse Resp BP Pulse Ox 04/02/20 18:22 97.6 F L 100 24 H 118/81 H 95 Inital Vital Signs reviewed: Yes General: Well nourished, Well developed, No Acute Distress Head: Normocephalic, Atraumatic Eyes: Perrl, EOMI ENT: Moist mucous membranes, No rhinorrhea Neck: Supple, Nontender Cardiovascular: Regular rate, Regular rhythm, No murmurs Respiratory: No distress, CTA bilaterally, Chest nontender Abdomen: Soft, Nontender, Nondistended, Normal bowel sounds Back: Nontender, Normal Inspection Extremities: Nontender, No edema Skin: Normal color, No rash Neurological: Alert, Oriented x3, Cranial nerves II-XII grossly intact, Normal Strength, Normal Sensation Psychological: Normal affect, Normal Mood Diagnostic/Tx/Re-eval Laboratory Last Values POC Glucose > 500 mg/dL (70-110) H* 04/02/20 18:38 - Medical Decision Making 60-year-old male with diabetes. He has Lantus at home. Spoke with his pharmacist they state that that he would be able to get not feeling are cheaper if they could use one of the discount drug cards. I think this is a reasonable alternative for him to get his blood sugars down. He is currently on Decadron so that is why he is probably hyperglycemic. Patient was advised he may have to pay [id number] for his medicines and to which he responded that if he has to pay for his medicines he simply will not take them. That is of course his choice but not a godoy decision. ED Disposition - Plan for ED Patient: Disposition: Home or Assisted Living Diagnosis: Hyperglycemia due to diabetes mellitus Instructions: ED Diabetic Hyperglycemia Prescriptions: Insulin Regular, Human [Novolin R] 10 unit SC TID #1 vial Prescription Printed [facility] [[facility] - As soon as possible Additional Instructions: Take your Lantus 35 units daily. Take your new prescription for not feeling regular 3 times a day.
[2020-04-02 19:28] VITALS: PULSE 108; RESP 22; O2SAT 94
== END 2020-04-02 19:29 | disposition home or self-care (01) ==
PROVIDERS: Emergency Provider Emergency Medicine
DX: E11.65 Type 2 diabetes mellitus with hyperglycemia (principal); E11.22 Type 2 diabetes mellitus with diabetic chronic kidney disease; N18.30 Chronic kidney disease, stage 3 unspecified; J44.9 Chronic obstructive pulmonary disease, unspecified; Z79.4 Long term (current) use of insulin; Z79.01 Long term (current) use of anticoagulants; Z79.899 Other long term (current) drug therapy; Z87.891 Personal history of nicotine dependence
CPT/HCPCS: 82962; 99282

== ENCOUNTER 2020-04-04 15:41 | Emergency (ER) | payer OTHER, SELFPAY ==
[2020-04-04 15:42] VITALS: BP 118/93; PULSE 126; RESP 28; TEMP 36.1; O2SAT 96; BMI 27.8
[2020-04-04 15:43] VITALS: BP 118/93; PULSE 126; RESP 28; TEMP 36.1; O2SAT 96
--- NOTE | 2020-04-04 16:01 | ED.VIS.GEN ---
History of Present Illness Chief Complaint: Hyperglycemia Informant: Patient Onset: Yesterday Context: Gradual Onset Timing: Intermittent Current Severity: Mild Maximum Severity: Mild Narrative: The patient is a 60-year-old male with history of insulin-dependent diabetes that presents to the emergency department however the blood sugar. The patient was recently hospitalized with Covid. He has been on Decadron. Has been having a difficult time controlling his blood sugars. He was here 2 days ago with elevated blood sugar. They were able to get the sugar down. They have made arrangements with an outside pharmacy with various coupons to get his short acting insulin filled. However, he states he went there today and they would not fill it for the amount he was told. He states he is been without his short acting insulin. He is try to make arrangements through the [place], but has been told they would not have insulin available for him for some time. He denies fevers or chills. He denies any worsening shortness of breath. He states as far as his Covid is concerned, has been doing a lot better. Prior similar symptoms: Yes Recent Illness/Hospitalization: Yes Past Medical History - Allergies and Home Meds Allergies/Adverse Reactions: Allergies No Known Allergies Allergy (Verified 04/02/20 18:22) Primary Care Physician: [facility] [Primary Care Provider] - Prior records reviewed: Yes Past Medical History: - - COPD, diabetes, hypertension, hyperlipidemia, recent Covid Surgical History: - - Ileostomy; 7 abdominal surgeries, colon resection secondary to cancer Smoking Status: Former smoker - Family History Sibling Family History: Reports: - - Familial polyposis coli-Brothers and sisters Maternal Family History: Reports: - - He does not know his maternal medical history. Reportedly his mother in a motor vehicle accident when patient was very young. Review of Systems General: Denies: Chills, Fever, Sweats Eyes: Denies: Visual changes - bilaterally, Diplopia ENT: Denies: Rhinorrhea, Sore throat Cardiovascular: Denies: Chest pain, Palpitations Respiratory: Denies: Dyspnea, Cough, Dyspnea on exertion Gastrointestinal: Denies: Abdominal pain, Nausea, Vomiting, Diarrhea, Melena, Hematochezia Genitourinary: Denies: Dysuria, Hematuria, Frequency Musculoskeletal: Denies: Back pain, Extremity Pain Skin: Denies: Rash, Wounds Neurological: Denies: Headache, Weakness, Numbness Physical Exam Vital Signs/Narrative: Vital Signs Temp Pulse Resp BP Pulse Ox 04/04/20 15:43 97 F L 126 H 28 H 118/93 H 96 04/04/20 15:42 97 F L 126 H 28 H 118/93 H 96 Inital Vital Signs reviewed: Yes General: Well nourished, Well developed, No Acute Distress Head: Normocephalic, Atraumatic Eyes: Perrl, EOMI ENT: Moist mucous membranes, No rhinorrhea Neck: Supple, Nontender Cardiovascular: Regular rate, Regular rhythm, No murmurs Respiratory: No distress, CTA bilaterally, Chest nontender Abdomen: Soft, Nontender, Nondistended, Normal bowel sounds Back: Nontender, Normal Inspection Extremities: Nontender, No edema Skin: Normal color, No rash Neurological: Alert, Oriented x3, Cranial nerves II-XII grossly intact, Normal Strength, Normal Sensation Psychological: Normal affect, Normal Mood Diagnostic/Tx/Re-eval Abnormal Lab Results 04/04/20 04/04/20 04/04/20 16:00 16:00 16:03 WBC 8.8 RBC 4.34 L Hgb 12.5 L Hct 38.4 L MCV 88.5 MCH 28.8 MCHC 32.6 RDW Std Deviation 44.3 H RDW Coeff of Kaitlyn 14.1 Plt Count 186 MPV 12.3 H Neut % (Auto) Not Reportable Absolute Neuts (auto) 7.7 Absolute Lymphs (auto) 0.79 L Total Counted 100 Neutrophils % (Manual) 87 H Lymphocytes % (Manual) 9 L Monocytes % (Manual) 4 Diff Path Review May foll Platelet Estimate ADEQUATE RBC Morphology N CHROM Anisocytosis 1+ Sodium 132 L Potassium 4.3 Chloride 106 Carbon Dioxide 17.0 L Anion Gap 9 BUN 33 H Creatinine 1.50 H Estim Creat Clear Calc 44.42 Est GFR (MDRD) Af Amer 61 Est GFR (MDRD) Non-Af 50 L BUN/Creatinine Ratio 22.0 H Glucose 593 H* Calcium 8.1 L Total Bilirubin 0.60 AST 6 L ALT 33 Alkaline Phosphatase 225 H Total Protein 6.4 Albumin 2.8 L Globulin 3.6 Albumin/Globulin Ratio 0.8 L Urine Color Urine Clarity Urine pH Ur Specific Walters Urine Protein Urine Glucose (UA) Urine Ketones Urine Occult Blood Urine Nitrite Urine Bilirubin Urine Urobilinogen Ur Leukocyte Esterase Urine RBC Urine WBC Ur Squamous Epith Cells Urine Bacteria Urine Mucus POC Glucose > 500 H* 04/04/20 04/04/20 04/04/20 16:33 17:34 18:35 WBC RBC Hgb Hct MCV MCH MCHC RDW Std Deviation RDW Coeff of Kaitlyn Plt Count MPV Neut % (Auto) Absolute Neuts (auto) Absolute Lymphs (auto) Total Counted Neutrophils % (Manual) Lymphocytes % (Manual) Monocytes % (Manual) Diff Path Review Platelet Estimate RBC Morphology Anisocytosis Sodium Potassium Chloride Carbon Dioxide Anion Gap BUN Creatinine Estim Creat Clear Calc Est GFR (MDRD) Af Amer Est GFR (MDRD) Non-Af BUN/Creatinine Ratio Glucose Calcium Total Bilirubin AST ALT Alkaline Phosphatase Total Protein Albumin Globulin Albumin/Globulin Ratio Urine Color Yellow Urine Clarity Clear Urine pH 6.0 Ur Specific Walters 1.010 Urine Protein 15 H Urine Glucose (UA) 1000 H Urine Ketones Negative Urine Occult Blood Negative Urine Nitrite Negative Urine Bilirubin Negative Urine Urobilinogen Normal Ur Leukocyte Esterase Negative Urine RBC 0 SEEN Urine WBC 0 SEEN Ur Squamous Epith Cells 0 SEEN Urine Bacteria 0 SEEN Urine Mucus 0 SEEN POC Glucose 449 H 391 H - Rhythm Strip Rhythm Strip: Sinus Rhythm Ectopy: None - Medical Decision Making The patient presents with elevated blood sugar. He was here 2 days ago for the same. He has had difficulty getting the appropriate doses of his medications because of insurance. IV was established. Metabolic work-up was pursued. Urine does not show evidence of ketones. His labs are at the patient's baseline except for significant hyperglycemia. He was given fluids in small aliquots of insulin to get his sugar down. It already come down to 100 and he is feeling improved. I did have social work evaluate the patient. We are able to get his quick-acting insulin filled here which should get him [facility] On reevaluation is resting comfortably. At this point, the patient will be discharged home. Impression 1. Hyperglycemia ED Disposition - Plan for ED Patient: Instructions: ED Diabetic Hyperglycemia Prescriptions: Insulin Lispro [Insulin Lispro Kwikpen U-100] 10 unit SQ TID #1 insuln.pen Prescription Printed Pen Needle, Diabetic [Insulin Pen Needle] 1 ea MC TID #30 dis.needle Prescription Printed [facility] [[facility]] -
[2020-04-04] MEDS: 0.9% Normal Saline 1,000 ML 1000 ML IV (16:04)
[2020-04-04] MEDS: Insulin Lispro 100 UNIT/ML INSULN.PEN 16 UNIT SC (16:04)
[2020-04-04 16:17] LABS: Hematocrit 38.4 % (40-54); Hemoglobin 12.5 g/dL (13.0-16.5); Mean Corp Hgb Conc 32.6 g/dL (32-36); Mean Corpuscular Hgb 28.8 pg (27.0-32.0); Mean Corpuscular Volume 88.5 fL (80-94); Mean Platelet Vol. 12.3 fl (6.2-12.0); POSITIVE COUNT YES; POSITIVE MORPHOLOGY YES; Platelet Count 186 K/mm3 (150-450); RBC Distribution Width CV 14.1 % (11.6-14.6); RBC Distribution Width SD 44.3 fl (35.1-43.9); Red Blood Count 4.34 M/mm3 (4.6-6.2); White Blood Count 8.8 K/mm3 (4.4-11.0)
[2020-04-04 16:21] LABS: Differential Indicated MANUAL DIFF
[2020-04-04 16:38] LABS: Bacteria 0 SEEN /hpf (None Seen); Mucous, Urine 0 SEEN /hpf (<or=2+); Red Blood Cells-Urine 0 SEEN /hpf (0-5); Squamous Epithelial Cells - UA 0 SEEN /hpf (0-5); White Blood Cells 0 SEEN /hpf (0-5)
[2020-04-04 16:40] LABS: Lymphocyte 9 % (19-41); Monocyte 4 % (0-10); Neutrophil-Segmented 87 % (47-70); Total Cells Counted 100 (MANUAL DIFF)
[2020-04-04 16:41] LABS: Anisocytosis 1+
[2020-04-04 16:42] LABS: Platelet Estimate ADEQUATE (ADEQ); Red Cell Morphology N CHROM NORMAL (NORM C&C)
[2020-04-04 16:43] LABS: Color, Urine Yellow (Yellow); Glucose, Dipstick 1000 mg/dl (Normal); Ketone-Dipstick Negative (Negative); Leukocyte Esterase-Dipstick Negative /ul (Negative); Nitrite-Dipstick Negative (Negative); Occult Blood-Urine Negative /ul (Negative); Protein-Dipstick 15 mg/dl (Negative); Urine Bilirubin Dipstick Negative (Negative); Urine Clarity Clear (Clear); Urine Urobilinogen Normal (Normal)
[2020-04-04 16:43] LABS: Absolute Lymphocyte Count 0.79 X10^3/uL (0.83-4.51); Absolute Neutrophil Count 7.7 X10^3/uL (2.0-7.7)
--- NOTE | 2020-04-04 16:55 | CM.ED ---
SOCIAL WORK Informant: Dr. Smith Reason for Consult: Financial Patient was discharged from hospital on 04/01/20 and was seen in ER on 04/02/20. Patient reports issues with getting insulin. [facility] and [facility] not be able to get prescriptions until 3-4 days from today. Patient states while her on Saturday nurse looked into cost and pharmacy was going to charge $25 for insulin. Patient reports once at the pharmacy ([facility]) cost was $125 and patient states could not afford medications. This worker spoke with Dr. Smith and [facility] who states 1 insulin pen would cover patient for the next 3-4 days. Cost of pen and pen tips is $46.54. Updated patient and patient reports able to afford medication and would like prescription filled here prior to discharge. Dr. Smith wrote prescriptions. NurseBarbara updated on the above. Plan: Home with prescription for insulin to be filled with [facility] prior to discharge from ED. Shaheen Cabrera, FIELD SUPPORT REPRESENTATIVE, LAPPING MACHINE SET UP OPERATOR
[2020-04-04 16:56] LABS: ALB/GLOB Ratio 0.8 RATIO (0.9-2.4); AST(SGOT) 6 U/L (15-37); Alanine Aminotransfer ALT/SGPT 33 U/L (16-61); Albumin, Serum 2.8 g/dL (3.2-5.0); Alkaline Phosphatase 225 U/L (45-117); Anion Gap 9 (5-15); BUN 33 mg/dL (7-18); Calcium,Total 8.1 mg/dL (8.5-10.1); Chloride 106 mmol/L (98-107); EST Glomerular Filtration Rate 50 mL/min (>60); Est Glom Filt Rate - Afr Amer 61 mL/min (>60); Estimated Creatinine Clearance 44.42 ml/min; Globulin 3.6 g/dL (2.2-4.2); Glucose 593 mg/dL (74-106); Potassium 4.3 mmol/L (3.5-5.1); Protein, Total 6.4 g/dL (6.4-8.2); Sodium Level 132 mmol/L (136-145)
[2020-04-04 17:35] VITALS: BP 109/70; PULSE 66; RESP 20; TEMP 36.1; O2SAT 97
[2020-04-04] MEDS: Insulin Lispro 100 UNIT/ML INSULN.PEN 10 UNIT SC (17:38)
[2020-04-04 18:30] LABS: Bedside Glucose 449 mg/dL (70-110)
[2020-04-04 18:30] LABS: Bedside Glucose > 500 mg/dL (70-110)
[2020-04-04 18:40] LABS: Bedside Glucose 391 mg/dL (70-110)
--- NOTE | 2020-04-04 19:20 | ED.RN ---
PT GIVEN WRITTEN AND VERBAL DISCHARGE INSTRUCTIONS AND EDUCATED ON HOME GOING PRESCRIPTIONS AND INSULIN ADMINISTRATION. PT VERBALIZES UNDERSTANDING AND DEMONSTRATES PROPER USE OF INSULIN PEN. PT IV D/C AND COVERED WITH 2X2 GAUZE AND PAPER TAPE. PT NOT GIVEN 16 UNITS PRIOR TO D/C. PER DR. MAZA PT IS OK TO LEAVE AND JUST TAKE HIS REGULAR 10 UNITS OF LISPRO INSULIN WITH HIS MEAL THIS EVENING. PT DRESSES SELF, DENIES ANY FURTHER QUESTIONS, AND AMBULATES OUT OF DEPARTMENT ALONE.
[2020-04-04 19:24] VITALS: PULSE 74; RESP 16; O2SAT 98
[2020-04-05 11:13] LABS: Pathologist Review Reviewed
== END 2020-04-04 19:26 | disposition home or self-care (01) ==
LOC: ED 16:15
PROVIDERS: Emergency Provider Emergency Medicine
DX: E11.65 Type 2 diabetes mellitus with hyperglycemia (principal); J44.9 Chronic obstructive pulmonary disease, unspecified; I10 Essential (primary) hypertension; E78.5 Hyperlipidemia, unspecified; Z79.4 Long term (current) use of insulin; Z79.01 Long term (current) use of anticoagulants; Z79.899 Other long term (current) drug therapy; Z87.891 Personal history of nicotine dependence
CPT/HCPCS: 80053; 81001; 82962; 85025; 96360; 99284; J7030; A4216

== ENCOUNTER 2020-07-13 13:06 | Emergency (ER) | payer OTHER, SELFPAY ==
[2020-07-13 13:07] VITALS: BP 110/72; PULSE 121; RESP 15; TEMP 36.6; O2SAT 97; BMI 33.3
[2020-07-13] MEDS: Lidocaine 1% (20 ml mdv) 20 ML Vial 8 ML INFILT (14:12)
--- NOTE | 2020-07-13 14:33 | ED.DCSUM_ITS ---
- ER Visit Summary Date of Service: 07/13/20 Chief Complaint: [Laceration left thumb] History of Present Illness: The patient is a 60 M [presents to the emergency department with a laceration left thumb that occurred prior to arrival in the emergency department. Patient states that he was trying to pry plastic piece with a knife when the knife slipped and lacerated his thumb. Patient is right- hand dominant. Patient unsure of his last tetanus shot.] Physical Examination: [Thumb-patient has a 2.5 cm laceration over the pulp of the digit that has an entrance wound and an exit wound. The entrance wound is about 2 cm in length and the exit wound about half a centimeter in length. Normal range of motion flexion extension at the IP joint. Neurovascular intact distally.] Test Results: [None indicated] Emergency Department Course and Treatment: [Laceration repair-130 draped and prepped. Wound anesthetized via digital block total of 8 cc of 1% lidocaine used. Wound cleansed with Shur-Clens and irrigated with copious saline. Using 5-0 nylon a total of 3 single erupted sutures placed with good wound edge approximation. Patient tolerated procedure well. Clean dressing applied. Patient was given tetanus booster.] Treatment Plan: [To follow-up with primary care physician in 10 days for suture removal.] Disposition: [Discharged home in stable condition] Impression: [Left thumb laceration 2.5 cm-simple repair] This note was generated with [employer] dictation software. It may contain incorrect words, spelling, and punctuation that were not noted in review of the chart prior to signing ED Disposition - Plan for ED Patient: [facility] [[facility]] -
--- NOTE | 2020-07-13 14:35 | DCINST.ED_ITS ---
ED Disposition - Plan for ED Patient: Instructions: ED Laceration, Hand: All Closures Referrals: [facility] [Primary Care Provider] - 10 Day for suture removal
--- NOTE | 2020-07-13 14:35 | ED.DEP ---
ED Disposition - Plan for ED Patient: Instructions: ED Laceration, Hand: All Closures Referrals: [facility] [Primary Care Provider] - 10 Day for suture removal
[2020-07-13] MEDS: Diphth,Pertuss(Acell),Tet Vac 0.5 ML Vial IM (15:19)
[2020-07-13 15:21] VITALS: PULSE 98; RESP 18; O2SAT 98
== END 2020-07-13 15:32 | disposition home or self-care (01) ==
PROVIDERS: Emergency Provider Emergency Medicine
DX: S61.012A Laceration without foreign body of left thumb without damage to nail, initial encounter (principal); Z23 Encounter for immunization; W26.0XXA Contact with knife, initial encounter; Y93.9 Activity, unspecified; Y92.9 Unspecified place or not applicable; Y99.9 Unspecified external cause status
CPT/HCPCS: 12001; 90715; 99283